=== PATIENT | female | born 1995 | race Caucasian/White ===

== ENCOUNTER 2017-08-21 09:40 | Emergency (ER) | payer MEDICAID, SELFPAY ==
[2017-08-21 09:41] VITALS: BP 144/90; PULSE 91; RESP 18; TEMP 36.7; O2SAT 96; BMI 32.5
[2017-08-21] MEDS: Ondansetron ODT 4 MG Tablet PO (10:16)
[2017-08-21] MEDS: LORazepam 1 MG Tablet PO (10:16)
--- NOTE | 2017-08-21 11:28 | ED.VISSUMM ---
- ER Visit Summary Date of Service: 08/21/17 Chief Complaint: Anxiety History of Present Illness: The patient is a 22 F with a history of anxiety. She states she was sitting at her desk at work and states that she noticed that her breathing got slightly faster. She went to the restroom where she states her face, arms, and legs became shaky and tingly. She had nausea and vomiting. She denies any pain. Patient states she does normally take Klonopin as needed for anxiety. Her last dose was several weeks ago. She has not yet picked up her refill. Physical Examination: Vital signs are unremarkable. Head and neck examination is unremarkable. Heart is regular rate and rhythm. Lung sounds are clear. Abdomen is soft nontender. Extremity examination does reveal slight tremor to the hands bilaterally. She has strong distal pulses. Neuro exam reveals normal strength and sensation on testing. Test Results: [] Emergency Department Course and Treatment: Patient is given Ativan and Zofran p.o. On repeat evaluation she is resting comfortably. 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 Should be on a prescription for Zofran if needed. Treatment Plan: [] Disposition: Discharge Impression: Anxiety This note was generated with [employer] dictation software. It may contain incorrect words, spelling, and punctuation that were not noted in review of the chart prior to signing ED Disposition - Plan for ED Patient: Chief Complaint: Anxiety Referrals: Micheal Herzog MD [Primary Care Provider] -
[2017-08-21 11:31] VITALS: BP 116/65; PULSE 65; RESP 16; O2SAT 95
--- NOTE | 2017-08-21 11:31 | DCINST.ED_ITS ---
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
== END 2017-08-21 11:38 | disposition home or self-care (01) ==
PROVIDERS: Emergency Provider Emergency Medicine; Family Provider Family Medicine; PCP Family Medicine
DX: F41.9 Anxiety disorder, unspecified (principal); R20.2 Paresthesia of skin; R11.2 Nausea with vomiting, unspecified
CPT/HCPCS: 99283

== ENCOUNTER 2017-09-04 16:06 | Outpatient (RCR) | payer MEDICAID, SELFPAY | END 2017-09-11 23:59 | LOC: NS 16:06 | PROVIDERS: Family Provider Family Medicine; PCP Family Medicine; Visit Provider Advanced Practice Midwife | DX: E66.09 Other obesity due to excess calories (principal); E28.2 Polycystic ovarian syndrome; Z71.3 Dietary counseling and surveillance | CPT/HCPCS: 97802 ==

== ENCOUNTER 2017-09-19 07:49 | Emergency (ER) | payer MEDICAID, SELFPAY ==
[2017-09-19 07:49] VITALS: BP 129/77; PULSE 70; RESP 14; TEMP 36.9; O2SAT 94; BMI 32.6
[2017-09-19] MEDS: Acetaminophen 500 MG Tablet 1000 MG PO (08:07)
[2017-09-19] MEDS: Ibuprofen 200 MG Tablet 400 MG PO (08:07)
--- NOTE | 2017-09-19 08:10 | ED.DCSUM_ITS ---
- ER Visit Summary Date of Service: 09/19/17 Chief Complaint: Left ankle injury History of Present Illness: The patient is a 22 F who rolled her left ankle while walking up some steps this morning. She felt a pop. Patient has been able to ambulate but does walk with antalgic gait. She does have some paresthesias to her toes. Physical Examination: Vital signs are unremarkable. Head neck examination is unremarkable with no sign of trauma. Heart is regular rate and rhythm. On lung sounds are clear. Lower external examination reveals tenderness palpation of the left ankle, lateral malleolus greater than medial. There is no significant edema. She has strong distal pulses and normal sensation on testing. There is no tenderness at the proximal fibula. Strong distal pulses are noted throughout. Test Results: Left ankle x-rays read by myself reveal no evidence of fracture. Emergency Department Course and Treatment: Patient is given Tylenol and ibuprofen for pain. Ice pack is placed. Following x-ray she will be placed in a stirrup splint and given crutches. She may weight-bear as tolerated. Patient is to help with her primary care physician if not improving in 1 week. Treatment Plan: [] Disposition: Discharge Impression: Left ankle sprain This note was generated with [employer] dictation software. It may contain incorrect words, spelling, and punctuation that were not noted in review of the chart prior to signing ED Disposition - Plan for ED Patient: Chief Complaint: Lower Extremity Injury Referrals: Micheal Herzog MD [Primary Care Provider] -
--- NOTE | 2017-09-19 08:14 | RAD_ITS ---
STUDY: X-RAY - LEFT ANKLE REASON FOR EXAM: Female, 22 years old. Pain and swelling following injury. TECHNIQUE: 3 view(s) of the ankle. COMPARISON: None. FINDINGS: Normal visualized distal tibia and fibula. Normal medial and lateral malleoli. Normal tibiotalar articulation and ankle mortise. Normal visualized talus and calcaneus. The visualized subtalar, talonavicular, calcaneocuboid and tarsal articulations are normal. Soft tissue swelling overlying the lateral malleolus. RAD/Ankle min 3 Views IMPRESSION: Soft tissue swelling overlying the lateral malleolus. Electronically Signed: Sergo Easley MD at 8:48 EDT Tel [phone], Service support ,
--- NOTE | 2017-09-19 08:44 | ED.DEP ---
ED Disposition - Plan for ED Patient: Disposition: Home or Assisted Living Chief Complaint: Lower Extremity Injury Instructions: ED Sprain Ankle W X Ray Referrals: Micheal Herzog MD [Primary Care Provider] - 1 Week if not improving
== END 2017-09-19 08:53 | disposition home or self-care (01) ==
PROVIDERS: Emergency Provider Emergency Medicine; Family Provider Family Medicine; PCP Family Medicine
DX: S93.402A Sprain of unspecified ligament of left ankle, initial encounter (principal); X50.1XXA Overexertion from prolonged static or awkward postures, initial encounter; Y93.01 Activity, walking, marching and hiking; Y92.9 Unspecified place or not applicable; Y99.9 Unspecified external cause status; Z87.891 Personal history of nicotine dependence; F41.9 Anxiety disorder, unspecified
CPT/HCPCS: 73610; 99285

== ENCOUNTER 2017-10-10 16:20 | Outpatient (RCR) | payer MEDICAID, SELFPAY | END 2017-10-12 23:59 | LOC: NS 16:20 | PROVIDERS: Family Provider Family Medicine; PCP Family Medicine; Visit Provider Advanced Practice Midwife | DX: E66.09 Other obesity due to excess calories (principal); E28.2 Polycystic ovarian syndrome; Z71.3 Dietary counseling and surveillance | CPT/HCPCS: 97803 ==

== ENCOUNTER 2017-11-08 10:59 | Outpatient (RCR) | payer MEDICAID, SELFPAY | END 2017-11-11 23:59 | LOC: NS 10:59 | PROVIDERS: Family Provider Family Medicine; PCP Family Medicine; Visit Provider Advanced Practice Midwife | DX: E66.09 Other obesity due to excess calories (principal); E28.2 Polycystic ovarian syndrome; Z71.3 Dietary counseling and surveillance | CPT/HCPCS: 97803 ==

== ENCOUNTER 2017-11-22 16:06 | Outpatient (RCR) | payer MEDICAID, SELFPAY | END 2017-12-12 23:59 | LOC: NS 16:06 | PROVIDERS: Family Provider Family Medicine; PCP Family Medicine; Visit Provider Advanced Practice Midwife | DX: E66.09 Other obesity due to excess calories (principal); E28.2 Polycystic ovarian syndrome; Z71.3 Dietary counseling and surveillance ==

== ENCOUNTER 2018-01-27 01:12 | Emergency (ER) | payer SELFPAY ==
[2018-01-27 01:13] VITALS: BP 118/70; PULSE 67; RESP 14; TEMP 36.8; O2SAT 97; BMI 33.8
--- NOTE | 2018-01-27 01:58 | ED.VISSUMM ---
- ER Visit Summary Date of Service: 01/27/18 Chief Complaint: Pelvic pain History of Present Illness: The patient is a 23 F intermittent pelvic pain for the past week. History of ovarian cysts. No medications taken. No history of gastric ulcers. No home pregnancies. History of abnormal menstrual periods, last menstrual period was mid November. Does not currently follow [facility]. Denies any surgeries in the past. Denies any abnormal vaginal bleeding, or discharge. Physical Examination: General: Alert and oriented ?3, no acute distress HEENT: Normocephalic, atraumatic. Moist mucosa membranes Neck: supple, nontender. Cardiovascular: Regular rate and rhythm, no murmurs Respiratory: Normal breath sounds, symmetric, no distress Abdomen: Soft, nontender, nondistended Extremities: Nontender, no edema, pulses intact ?4 Neuro: no focal neurological deficits. Test Results: HCG negative. UA 50 blood. No infection. Emergency Department Course and Treatment: Patient nonsurgical abdomen. HCG was negative. Urine did note mild blood. Clinically does not present like a kidney stone. She denies any sudden pains over the past week. History of ovarian cysts, discuss NSAID therapy and follow-up with OB. Signs and symptoms discussed return. All questions were answered. Treatment Plan: [] Disposition: Discharge Impression: 1. Pelvic pain history ovarian cyst 2. Hematuria This note was generated with [employer] dictation software. It may contain incorrect words, spelling, and punctuation that were not noted in review of the chart prior to signing ED Disposition - Plan for ED Patient: Disposition: Home or Assisted Living Chief Complaint: Female C/O Diagnosis: Pelvic pain, History of ovarian cyst, Hematuria Instructions: ED Pelvic Pain UKO, ED Hematuria Prescriptions: Ibuprofen 600 mg PO 4X/DAY PRN #20 tablet PRN Reason: Pain Referrals: Micheal Herzog MD [Primary Care Provider] - 3-5 Days Rita Palmer MD [STAFF PHYSICIAN] - 3-5 Days
[2018-01-27 02:00] LABS: Mucous, Urine 0 SEEN /hpf (<or=2+)
[2018-01-27 02:06] LABS: Internal QC Validated? YES +Cl - CLEAR BKGD; Pregnancy, Urine Negative Negative
[2018-01-27 02:08] LABS: Color, Urine Yellow (Yellow); Glucose, Dipstick Normal (Normal); Ketone-Dipstick Negative (Negative); Leukocyte Esterase-Dipstick Negative /ul (Negative); Nitrite-Dipstick Negative (Negative); Occult Blood-Urine 50 /ul (Negative); Protein-Dipstick Negative (Negative); Urine Bilirubin Dipstick Negative (Negative); Urine Clarity Clear (Clear); Urine Urobilinogen Normal (Normal)
[2018-01-27 02:18] LABS: Squamous Epithelial Cells - UA 0-5 SEEN /hpf (5-10)
[2018-01-27 02:20] LABS: Bacteria RARE /hpf (None Seen); Red Blood Cells-Urine 0-5 SEEN /hpf (0-5); White Blood Cells 0-5 SEEN /hpf (0-5)
[2018-01-27] MEDS: Ketorolac 60 MG/2 ML Vial IM (02:27)
[2018-01-27 02:30] VITALS: RESP 14
== END 2018-01-27 02:46 | disposition home or self-care (01) ==
PROVIDERS: Emergency Provider Emergency Medicine; Family Provider Family Medicine; PCP Family Medicine
DX: R10.2 Pelvic and perineal pain (principal); R31.9 Hematuria, unspecified
CPT/HCPCS: 81001; 81025; 96372; 99282

== ENCOUNTER 2018-06-27 00:02 | Emergency (ER) | payer BC, SELFPAY ==
[2018-06-27 00:03] VITALS: BP 133/74; PULSE 57; RESP 14; TEMP 36.8; O2SAT 98; BMI 31.8
[2018-06-27 00:49] VITALS: BP 133/74; PULSE 57; RESP 14; TEMP 36.8; O2SAT 98
[2018-06-27 01:08] LABS: Absolute Lymphocyte Count 3.25 X10^3/ul (0.83-4.51); Absolute Neutrophil Count 7.5 X10^3/uL (2.0-7.7); Basophil# 0.04 X10^3/uL; Basophil% 0.3 % (0-1); Eosinophil# 0.46 X10^3/uL; Eosinophils% 3.8 % (0-5); Lymphocyte # 3.25 X10^3/ul (4.0); Lymphocyte % 26.8 % (19-41); Mean Corp Hgb Conc 33.3 g/gl (32-36); Mean Corpuscular Hgb 30.4 pg (27.0-32.0); Mean Corpuscular Volume 91.3 fL (81-99); Mean Platelet Vol. 10.2 fl (6.2-12.0); Monocyte% 7.4 % (0-10); Neutrophil # 7.45 X10^3/uL (2.7-7.7); Neutrophil % 61.5 % (47-70); POSITIVE COUNT NO; POSITIVE DIFFERENTIAL NO; POSITIVE MORPHOLOGY NO; Platelet Count 222 K/mm3 (150-450); RBC Distribution Width CV 12.7 % (11.6-14.6); RBC Distribution Width SD 41.6 fl (35.1-43.9); White Blood Count 12.1 K/mm3 (4.4-11.0)
[2018-06-27] MEDS: Ketorolac 30 MG/ML Syringe IV (01:13)
[2018-06-27 01:22] LABS: Mucous, Urine 0 SEEN /hpf (<or=2+); Squamous Epithelial Cells - UA 0 SEEN /hpf (5-10)
[2018-06-27 01:24] LABS: Color, Urine Yellow (Yellow); Glucose, Dipstick Normal (Normal); Internal QC Validated? YES +Cl - CLEAR BKGD; Ketone-Dipstick 5 mg/dl (Negative); Leukocyte Esterase-Dipstick 100 /ul (Negative); Nitrite-Dipstick Negative (Negative); Occult Blood-Urine 10 /ul (Negative); Pregnancy, Urine Negative Negative; Protein-Dipstick Negative (Negative); Urine Bilirubin Dipstick Negative (Negative); Urine Clarity Sl. Cloudy (Clear); Urine Urobilinogen Normal (Normal); Urine pH 6.5 (5.0 - 8.0)
[2018-06-27 01:37] LABS: ALB/GLOB Ratio 1.1 RATIO (0.9-2.4); AST(SGOT) 29 U/L (15-37); Alanine Aminotransfer ALT/SGPT 54 U/L (13-56); Alkaline Phosphatase 64 U/L (45-117); Anion Gap 7 (5-15); BUN 11 mg/dL (7-18); BUN/Creat Ratio 14.6 RATIO (10-20); Calcium,Total 8.7 mg/dL (8.5-10.1); Chloride 106 mmol/L (98-107); Creatinine, Serum 0.75 mg/dL (0.55-1.02); EST Glomerular Filtration Rate 103 mL/min (>60); Est Glom Filt Rate - Afr Amer 125 mL/min (>60); Estimated Creatinine Clearance 98.15 ml/min; Globulin 3.7 g/dL (2.2-4.2); Glucose 76 mg/dL (74-106); Lipase 130 U/L (73-393); Potassium 3.4 mmol/L (3.5-5.1); Protein, Total 7.7 g/dL (6.4-8.2); Sodium Level 139 mmol/L (136-145)
[2018-06-27 01:47] LABS: Bacteria 1+ /hpf (None Seen); Red Blood Cells-Urine 0-5 SEEN /hpf (0-5); White Blood Cells 5-10 SEEN /hpf (0-5)
--- NOTE | 2018-06-27 02:27 | ED.DEP ---
ED Disposition - Plan for ED Patient: Instructions: ED Abdominal Pain Unkn Cause, ED UTI Cystitis Female Prescriptions: Smz/Tmp Ds [Bactrim Ds] 1 tab PO BID #6 tab Referrals: Micheal Herzog MD [Primary Care Provider] -
[2018-06-27 02:37] VITALS: BP 117/76; PULSE 62; PULSE 64; RESP 18; TEMP 36.8; O2SAT 97
[2018-06-27 02:42] VITALS: BP 117/76; PULSE 67; RESP 18; TEMP 36.8; O2SAT 97
--- NOTE | 2018-06-27 07:01 | ED.VISSUMM ---
- ER Visit Summary Date of Service: 06/27/18 Chief Complaint: Abdominal pain History of Present Illness: The patient is a 23 F who presents with abdominal pain. It is been present for about 12 hours. She describes it as pressure-like and cramping. She reports nausea no diarrhea. She has had some dysuria. The pain is located in the lower abdomen. She does have a history of polycystic ovarian syndrome. Physical Examination: Afebrile vitals unremarkable Heart regular rate and rhythm Lungs clear Abdomen soft really no reproducible tenderness nondistended Test Results: Labs notable for white blood cell count 12.1. Potassium 3.4. Hepatic function lipase normal. Urinalysis shows 100 leukocyte esterase, 5-10 WBCs. negative. Emergency Department Course and Treatment: Patient does have findings consistent with possible UTI and did note some dysuria earlier. The pain is in the lower abdomen. We will treat for UTI. She was given a prescription for Bactrim and discharged home. Treatment Plan: [] Disposition: Discharge Impression: Abdominal pain UTI This note was generated with [employer] dictation software. It may contain incorrect words, spelling, and punctuation that were not noted in review of the chart prior to signing ED Disposition - Plan for ED Patient: Disposition: Home or Assisted Living Instructions: ED Abdominal Pain Unkn Cause, ED UTI Cystitis Female Prescriptions: Smz/Tmp Ds [Bactrim Ds] 1 tab PO BID #6 tab Referrals: Micheal Herzog MD [Primary Care Provider] -
== END 2018-06-27 02:44 | disposition home or self-care (01) ==
PROVIDERS: Emergency Provider Emergency Medicine; Family Provider Family Medicine; PCP Family Medicine
DX: N39.0 Urinary tract infection, site not specified (principal); R10.9 Unspecified abdominal pain; E28.2 Polycystic ovarian syndrome
CPT/HCPCS: 80053; 81001; 81025; 83690; 85025; 96374; 99284; A4216

== ENCOUNTER 2018-10-08 22:46 | Emergency (ER) | payer BC, SELFPAY ==
[2018-10-08 22:47] VITALS: BP 145/79; PULSE 69; RESP 16; TEMP 36.4; O2SAT 100; BMI 35.2
[2018-10-08 23:41] LABS: Bacteria 0 SEEN /hpf (None Seen); Color, Urine Yellow (Yellow); Glucose, Dipstick Normal (Normal); Ketone-Dipstick Negative (Negative); Leukocyte Esterase-Dipstick Negative /ul (Negative); Mucous, Urine 0 SEEN /hpf (<or=2+); Nitrite-Dipstick Negative (Negative); Occult Blood-Urine 10 /ul (Negative); Protein-Dipstick Negative (Negative); Specific Gravity, Urine 1.015 (1.002-1.030); Urine Bilirubin Dipstick Negative (Negative); Urine Clarity Sl. Cloudy (Clear); Urine Urobilinogen Normal (Normal)
[2018-10-08 23:43] LABS: Internal QC Validated? YES +Cl - CLEAR BKGD
[2018-10-08 23:47] LABS: Pregnancy, Urine Positive Negative
--- NOTE | 2018-10-08 23:47 | US_ITS ---
HISTORY: PELVIC DISCOMFORT, positive hCG EXAMINATION: US OB Transvaginal LMP: Unknown Beta-hCG: Unknown TECHNIQUE: Transvaginal pelvic ultrasound was performed. COMPARISON: None FINDINGS: The uterus is normal in size measuring 7.2 x 4 x 4.9 cm in longitudinal, AP, and transverse dimensions, respectively. Normal uterine myometrium. Prominent uniform endometrium measuring 1.2 cm in diameter. No IUP or endometrial fluid collection seen. No yolk sac visualized. The cervix is closed and a cervical nabothian cyst is present. Both ovaries show normal size and echogenicity. The right ovary measures 4.1 x 2.3 x 2.7 cm the left ovary measures 3 x 2.7 x 3.2 cm. Bilateral ovarian blood flow. No free pelvic fluid. US/Transvaginal w/Preg US IMPRESSION: 1. No IUP currently identified. Prominent endometrium in keeping with early . 2. No free fluid or acute disease identified. The uterine cervix remains closed. 3. Suggest follow-up pelvic ultrasound to confirm viability. at 0146 Reported and signed by: Hema Arias MD Electronically Signed: Hema Arias, at 1:45 EDT Tel , Service support ,
--- NOTE | 2018-10-08 23:47 | ED.RN ---
LAB CALLED WITH POSSIBLE POSITIVE RESULTS. WEAK POSITIVE RESULTS. LAB SUGGESTING SERUM PREG AT THIS TIME TO CONFIRM
[2018-10-08 23:54] LABS: Amorphous Sediment 1+; Red Blood Cells-Urine 0-5 SEEN /hpf (0-5); Squamous Epithelial Cells - UA 5-10 SEEN /hpf (5-10); White Blood Cells 0-5 SEEN /hpf (0-5)
[2018-10-09 00:59] LABS: hCG Titer Quant., Serum 73 mIU/mL (1-3)
--- NOTE | 2018-10-09 01:55 | ED.DCSUM_ITS ---
- ER Visit Summary Date of Service: 10/09/18 Chief Complaint: Abdominal pain History of Present Illness: The patient is a 23 F who presents with abdominal discomfort. She complains of a mild suprapubic discomfort for about a week. She also reports some nausea and diarrhea. She reports urinary frequency without dysuria or hematuria. Her last period was August 30. She has not taken a home test. Physical Examination: Afebrile vitals normal Moist mucous membranes Heart regular rate and rhythm Lungs clear Abdomen soft nondistended she does have some mild suprapubic tenderness without guarding without rebound Alert Test Results: UA normal. Urine was positive. Quantitative hCG 73, ABO Rh is O+. Pelvic ultrasound shows no IUP but there is thickening of the endometrium. Emergency Department Course and Treatment: Patient did have a positive . No IUP visualized but this is likely due to early . No ovarian cysts were identified. Patient advised to follow-up with [facility] and was discharged home. Treatment Plan: [] Disposition: Discharge Impression: Pelvic pain This note was generated with [employer] dictation software. It may contain incorrect words, spelling, and punctuation that were not noted in review of the chart prior to signing ED Disposition - Plan for ED Patient: Referrals: Micheal Herzog MD [Primary Care Provider] -
--- NOTE | 2018-10-09 01:55 | ED.DEP ---
ED Disposition - Plan for ED Patient: Instructions: ED Preg Established Normal Sxs Referrals: Micheal Herzog MD [Primary Care Provider] - Rita Palmer MD [STAFF PHYSICIAN] -
[2018-10-09 02:00] VITALS: RESP 16
== END 2018-10-09 02:00 | disposition home or self-care (01) ==
LOC: ED 23:09
PROVIDERS: Emergency Provider Emergency Medicine; Family Provider Family Medicine; PCP Family Medicine
DX: R10.2 Pelvic and perineal pain (principal); R93.89 Abnormal findings on diagnostic imaging of other specified body structures; R35.0 Frequency of micturition; R19.7 Diarrhea, unspecified; R11.0 Nausea; Z32.01 Encounter for pregnancy test, result positive
CPT/HCPCS: 36415; 76817; 81001; 81025; 84702; 86900; 99282

== ENCOUNTER 2018-10-11 04:05 | Emergency (ER) | payer BC, SELFPAY ==
[2018-10-11 04:06] VITALS: BP 126/58; PULSE 131; RESP 17; TEMP 37.2; O2SAT 99; BMI 35.6
[2018-10-11] MEDS: Acetaminophen 500 MG Tablet 1000 MG PO (05:21)
[2018-10-11] MEDS: Ondansetron 4 MG/2 ML Vial IV (05:22)
[2018-10-11] MEDS: 0.9% Normal Saline 1,000 ML 999 ML IV ×2 (05:22→06:48)
[2018-10-11 05:32] LABS: Color, Urine Yellow (Yellow); Glucose, Dipstick Normal (Normal); Ketone-Dipstick 15 mg/dl (Negative); Leukocyte Esterase-Dipstick 25 /ul (Negative); Nitrite-Dipstick Negative (Negative); Occult Blood-Urine 10 /ul (Negative); Protein-Dipstick Negative (Negative); Specific Gravity, Urine 1.015 (1.002-1.030); Urine Bilirubin Dipstick Negative (Negative); Urine Clarity Clear (Clear); Urine Urobilinogen Normal (Normal)
[2018-10-11 05:33] LABS: Bacteria RARE /hpf (None Seen); Mucous, Urine 1+ /hpf (<or=2+); Red Blood Cells-Urine 0-5 SEEN /hpf (0-5); Squamous Epithelial Cells - UA 0-5 SEEN /hpf (5-10); White Blood Cells 0-5 SEEN /hpf (0-5)
[2018-10-11 05:56] LABS: hCG Titer Quant., Serum 194 mIU/mL (1-3)
[2018-10-11 06:09] VITALS: BP 128/50; PULSE 90; RESP 14; O2SAT 100
--- NOTE | 2018-10-11 07:03 | ED.DEP ---
ED Disposition - Plan for ED Patient: Instructions: Care for a Healthy Baby Referrals: Micheal Herzog MD [Primary Care Provider] - Rita Palmer MD [STAFF PHYSICIAN] -
--- NOTE | 2018-10-11 07:05 | ED.VISSUMM ---
- ER Visit Summary Date of Service: 10/11/18 Chief Complaint: Nausea, back pain History of Present Illness: The patient is a 23 F presenting with nausea, back pain. Patient states she is 6 weeks . She is G4, P0 AB 3. She denies abdominal pain or cramping. Denies vaginal bleeding. She has low back pain which is diffuse. She denies bowel or bladder incontinence. Denies numbness or weakness. Denies fever. She has had chills. She has nausea with no vomiting. She has history of PCOS. Physical Examination: Vitals are stable. Heart rate 131. Patient is afebrile. Alert no acute distress. HEENT exam is unremarkable. Neck is supple. Lungs are clear and equal bilaterally. Heart is regular and tachycardic Abdomen is soft nontender nondistended. No guarding or rebound Back: Nontender Extremities are unremarkable. Skin is warm and dry. Remainder of exam is unremarkable. Emergency Department Course and Treatment: Patient was given IV fluids, Zofran, Tylenol. Urinalysis unremarkable. Her blood type is O+ per the patient. hCG quant is 194. Previous was 73, 2 days ago. Her ultrasound October 08, 2018 shows No IUP currently identified. Prominent endometrium in keeping with early . No free fluid or acute disease identified. The uterine cervix remains closed. Patient has a viability ultrasound scheduled for tomorrow. Discussed with Dr. Sagastume. She states this will be too early and recommends following up at her October 22 appointment for her ultrasound. Patient is agreeable with this plan. On reevaluation, she is feeling improved. Repeat heart rate is 90. Advised to return to the ED for worsening complaints. Disposition: Discharge home Impression: Nausea, early This note was generated with [employer] dictation software. It may contain incorrect words, spelling, and punctuation that were not noted in review of the chart prior to signing ED Disposition - Plan for ED Patient: Instructions: Care for a Healthy Baby Referrals: Micheal Herzog MD [Primary Care Provider] - Rita Sagastume MD [STAFF PHYSICIAN] -
== END 2018-10-11 07:20 | disposition home or self-care (01) ==
PROVIDERS: Emergency Provider Emergency Medicine; Family Provider Family Medicine; PCP Family Medicine
DX: O99.281 Endocrine, nutritional and metabolic diseases complicating pregnancy, first trimester (principal); R11.0 Nausea; E28.2 Polycystic ovarian syndrome; Z3A.01 Less than 8 weeks gestation of pregnancy; M54.5 Low back pain
CPT/HCPCS: 81001; 84702; 96361; 96374; 99285; J7030; A4216; J2405

== ENCOUNTER → 2018-10-22 10:48 | Outpatient (CLI) | payer BC, SELFPAY ==
[2018-10-22 10:05] VITALS: BMI 35.6
[2018-10-22 11:22] LABS: Absolute Lymphocyte Count 2.34 X10^3/ul (0.83-4.51); Absolute Neutrophil Count 5.5 X10^3/uL (2.0-7.7); Basophil# 0.02 X10^3/uL; Basophil% 0.2 % (0-1); Eosinophil# 0.33 X10^3/uL; Eosinophils% 3.7 % (0-5); Hematocrit 41.2 % (37-47); Hemoglobin 13.9 g/dl (12.0-15.0); Lymphocyte # 2.34 X10^3/ul (4.0); Mean Corp Hgb Conc 33.7 g/gl (32-36); Mean Corpuscular Hgb 29.6 pg (27.0-32.0); Mean Corpuscular Volume 87.8 fL (81-99); Mean Platelet Vol. 9.8 fl (6.2-12.0); Monocyte# 0.72 X10^3/uL; Neutrophil # 5.53 X10^3/uL (2.7-7.7); Neutrophil % 61.5 % (47-70); Platelet Count 268 K/mm3 (150-450); RBC Distribution Width CV 12.6 % (11.6-14.6); RBC Distribution Width SD 39.4 fl (35.1-43.9); Red Blood Count 4.69 M/mm3 (4.2-5.4)
[2018-10-22 11:24] LABS: POSITIVE COUNT NO; POSITIVE DIFFERENTIAL NO; POSITIVE MORPHOLOGY NO
[2018-10-22 11:44] LABS: ALB/GLOB Ratio 0.9 RATIO (0.9-2.4); AST(SGOT) 25 U/L (15-37); Alanine Aminotransfer ALT/SGPT 48 U/L (13-56); Albumin, Serum 3.5 g/dL (3.2-5.0); Alkaline Phosphatase 54 U/L (45-117); Anion Gap 7 (5-15); BUN 10 mg/dL (7-18); BUN/Creat Ratio 14.5 RATIO (10-20); Calcium,Total 9.1 mg/dL (8.5-10.1); Chloride 105 mmol/L (98-107); Creatinine, Serum 0.69 mg/dL (0.55-1.02); EST Glomerular Filtration Rate 113 mL/min (>60); Est Glom Filt Rate - Afr Amer 137 mL/min (>60); Glucose 103 mg/dL (74-106); Glucose Challenge Gest 1H 50g 103 mg/dL (70-140); Potassium 3.7 mmol/L (3.5-5.1); Protein, Total 7.5 g/dL (6.4-8.2); Sodium Level 141 mmol/L (136-145)
[2018-10-22 12:32] LABS: HIV - WCH Non-Reactive (Nonreactive); Rubella IgG 7.4 IU/mL
[2018-10-23 08:41] LABS: HEPATITIS B SURFACE AG Negative (Negative)
[2018-10-26 01:43] LABS: Rapid Plasmin Reagin (RPR) NONREACTIVE (NONREACTIVE)
== END ==
PROVIDERS: Family Provider Family Medicine; PCP Family Medicine; Referring Provider Obstetrics & Gynecology; Visit Provider Obstetrics & Gynecology
DX: Z34.90 Encounter for supervision of normal pregnancy, unspecified, unspecified trimester (principal)
CPT/HCPCS: 36415; 80053; 82950; 85025; 86592; 86703; 86762; 86850; 86900; 87340

== ENCOUNTER → 2018-10-22 13:21 | Outpatient (CLI) | payer BC, SELFPAY ==
[2018-10-22 10:05] VITALS: BMI 35.6
[2018-10-22 16:18] LABS: Chlamydia Trachomatis by PCR Negative (Negative); Neisserai gonorrhoeae by PCR Negative (Negative); Probe Check PASS; Sample Adequacy Control PASS; Specimen Processing Control PASS
== END ==
PROVIDERS: Family Provider Family Medicine; PCP Family Medicine; Referring Provider Obstetrics & Gynecology; Visit Provider Obstetrics & Gynecology
DX: Z34.90 Encounter for supervision of normal pregnancy, unspecified, unspecified trimester (principal)
CPT/HCPCS: 87086; 87088; 87491; 87591

== ENCOUNTER → 2018-11-30 10:42 | Outpatient (CLI) | payer BC, SELFPAY ==
[2018-11-30 10:27] VITALS: BMI 35.6
== END ==
PROVIDERS: Family Provider Family Medicine; PCP Family Medicine; Referring Provider Obstetrics & Gynecology; Visit Provider Obstetrics & Gynecology
DX: Z31.430 Encounter of female for testing for genetic disease carrier status for procreative management (principal); Z34.81 Encounter for supervision of other normal pregnancy, first trimester
CPT/HCPCS: 36415

== ENCOUNTER → 2018-12-19 17:24 | Outpatient (CLI) | payer BC, SELFPAY ==
[2018-12-19 14:55] VITALS: BMI 35.6
== END ==
PROVIDERS: Family Provider Family Medicine; PCP Family Medicine; Referring Provider Nurse Practitioner Women's Health; Visit Provider Nurse Practitioner Women's Health
DX: Z34.90 Encounter for supervision of normal pregnancy, unspecified, unspecified trimester (principal)

== ENCOUNTER → 2018-12-20 16:42 | Outpatient (CLI) | payer BC, SELFPAY ==
[2018-12-19 14:55] VITALS: BMI 35.6
== END ==
PROVIDERS: Family Provider Family Medicine; PCP Family Medicine; Referring Provider Nurse Practitioner Women's Health; Visit Provider Nurse Practitioner Women's Health
DX: M54.9 Dorsalgia, unspecified (principal)
CPT/HCPCS: 87086; 87088

== ENCOUNTER 2018-12-31 14:50 | Emergency (ER) | payer BC, SELFPAY ==
[2018-12-28 09:50] VITALS: BMI 35.6
[2018-12-31 14:51] VITALS: BP 122/68; PULSE 85; RESP 16; TEMP 36.8; O2SAT 95; BMI 34.9
--- NOTE | 2018-12-31 15:20 | ED.VIS.GEN ---
History of Present Illness Chief Complaint: Nausea/Vomiting Informant: Patient Onset: Today Current Severity: Mild Maximum Severity: Mild Narrative: Patient presents with nausea and vomiting since noon today. She is currently 15 weeks . She has Phenergan at home but states she did not take it because it makes her sleepy. She denies fever or chills. She denies urinary symptoms. She started getting some mild lower abdominal cramping this afternoon. No bleeding or spotting. Past Medical History - Allergies and Home Meds Allergies/Adverse Reactions: Allergies latex Allergy (Verified 12/31/18 14:51) Rash Primary Care Physician: Micheal Herzog MD [Primary Care Provider] - Doctors: Dr. Palmer Prior records reviewed: Yes Past Medical History: - - Reviewed Surgical History: no surgical history Lives: With Family Smoking Status: Former smoker Alcohol: Rare Review of Systems General: Denies: Chills, Fever ENT: Denies: Bilateral ear pain Cardiovascular: Denies: Chest pain Respiratory: Denies: Dyspnea Gastrointestinal: Reports: Abdominal pain - Mild cramping, Nausea, Vomiting Genitourinary: Denies: Dysuria Musculoskeletal: Denies: Back pain Neurological: Denies: Headache Endocrine: Denies: Polyuria, Polydipsia Hematologic: Denies: Easy bruising Allergy: Denies: Uticaria Physical Exam Vital Signs/Narrative: Vital Signs Temp Pulse Resp BP Pulse Ox 12/31/18 14:51 98.2 F 85 16 122/68 H 95 Inital Vital Signs reviewed: Yes General: Well nourished, Well developed Eyes: Perrl ENT: Moist mucous membranes, No rhinorrhea Neck: Supple Cardiovascular: Regular rate, Regular rhythm Respiratory: No distress, CTA bilaterally Abdomen: Soft, Nontender, Hypoactive bowel sounds Back: Nontender Extremities: Nontender Skin: Normal color Neurological: Alert, Oriented x3 Psychological: Normal affect Diagnostic/Tx/Re-eval Laboratory Results 12/31/18 12/31/18 12/31/18 15:13 15:13 15:20 WBC 9.0 RBC 4.49 Hgb 13.9 Hct 40.7 MCV 90.6 MCH 31.0 MCHC 34.2 RDW Std Deviation 40.9 RDW Coeff of Beth 12.5 Plt Count 215 MPV 10.3 Immature Gran % (Auto) 0.300 Neut % (Auto) 67.8 Lymph % (Auto) 21.2 [place] % (Auto) 6.6 Eos % (Auto) 3.8 Baso % (Auto) 0.3 Absolute Neuts (auto) 6.1 Absolute Lymphs (auto) 1.91 Nucleated RBC % 0 Sodium 141 Potassium 3.7 Chloride 109 H Carbon Dioxide 25.0 Anion Gap 7 BUN 5 L Creatinine 0.57 Estim Creat Clear Calc 129.15 Est GFR (MDRD) Af Amer 172 Est GFR (MDRD) Non-Af 142 BUN/Creatinine Ratio 8.8 L Glucose 82 Calcium 8.9 Urine Color Yellow Urine Clarity Sl. Cloudy Urine pH 7.0 Ur Specific [place] 1.010 Urine Protein Negative Urine Glucose (UA) Normal Urine Ketones Negative Urine Occult Blood 10 H Urine Nitrite Negative Urine Bilirubin Negative Urine Urobilinogen Normal Ur Leukocyte Esterase 25 H Urine RBC 0-5 SEEN Urine WBC 0-5 SEEN Ur Squamous Epith Cells 0-5 SEEN Ur Transition Epith Cell 0-5 SEEN Urine Bacteria RARE Urine Mucus 0 SEEN - Medical Decision Making Patient was given IV fluid and Zofran here. heart tones are measured at 138. At this time patient is able to tolerate p.o. She has Phenergan at home and will be given prescription for Zofran as well. ED Disposition - Plan for ED Patient: Disposition: Home or Assisted Living Diagnosis: Vomiting, Second trimester Instructions: VOMITING (8y-Adult) Prescriptions: Ondansetron [Zofran Odt] 4 mg PO Q8H PRN PRN #10 tablet PRN Reason: Nausea Referrals: Rita Palmer MD [STAFF PHYSICIAN] -
[2018-12-31] MEDS: Ondansetron 4 MG/2 ML Vial IV (15:21)
[2018-12-31] MEDS: 0.9% Normal Saline 1,000 ML 1000 ML IV (15:21)
[2018-12-31 15:24] LABS: Absolute Lymphocyte Count 1.91 X10^3/uL (0.83-4.51); Absolute Neutrophil Count 6.1 X10^3/uL (2.0-7.7); Basophil# 0.03 X10^3/uL; Basophil% 0.3 % (0-1); Eosinophil# 0.34 X10^3/uL; Eosinophils% 3.8 % (0-5); Hematocrit 40.7 % (37-47); Hemoglobin 13.9 g/dL (12.0-15.0); Lymphocyte # 1.91 X10^3/ul (4.0); Lymphocyte % 21.2 % (19-41); Mean Corp Hgb Conc 34.2 g/dL (32-36); Mean Corpuscular Volume 90.6 fL (81-99); Mean Platelet Vol. 10.3 fl (6.2-12.0); Monocyte% 6.6 % (0-10); NRBC Flagged by Analyzer 0 % (0-5); Neutrophil # 6.12 X10^3/uL (2.7-7.7); Neutrophil % 67.8 % (47-70); Platelet Count 215 K/mm3 (150-450); RBC Distribution Width CV 12.5 % (11.6-14.6); RBC Distribution Width SD 40.9 fl (35.1-43.9); Red Blood Count 4.49 M/mm3 (4.2-5.4)
[2018-12-31 15:28] LABS: Mucous, Urine 0 SEEN /hpf (<or=2+)
[2018-12-31 15:32] LABS: Color, Urine Yellow (Yellow); Glucose, Dipstick Normal (Normal); Ketone-Dipstick Negative (Negative); Leukocyte Esterase-Dipstick 25 /ul (Negative); Nitrite-Dipstick Negative (Negative); Occult Blood-Urine 10 /ul (Negative); Protein-Dipstick Negative (Negative); Urine Bilirubin Dipstick Negative (Negative); Urine Clarity Sl. Cloudy (Clear); Urine Urobilinogen Normal (Normal)
[2018-12-31 15:38] LABS: Anion Gap 7 (5-15); BUN 5 mg/dL (7-18); BUN/Creat Ratio 8.8 RATIO (10-20); Calcium,Total 8.9 mg/dL (8.5-10.1); Chloride 109 mmol/L (98-107); Creatinine, Serum 0.57 mg/dL (0.55-1.02); EST Glomerular Filtration Rate 142 mL/min (>60); Est Glom Filt Rate - Afr Amer 172 mL/min (>60); Estimated Creatinine Clearance 129.15 ml/min; Glucose 82 mg/dL (74-106); Potassium 3.7 mmol/L (3.5-5.1); Sodium Level 141 mmol/L (136-145)
[2018-12-31 15:42] LABS: Bacteria RARE /hpf (None Seen); Red Blood Cells-Urine 0-5 SEEN /hpf (0-5); Squamous Epithelial Cells - UA 0-5 SEEN /hpf (5-10); Transitional Epithelial - Ur 0-5 SEEN /hpf (0-5); White Blood Cells 0-5 SEEN /hpf (0-5)
== END 2018-12-31 16:53 | disposition home or self-care (01) ==
PROVIDERS: Emergency Provider Emergency Medicine; Family Provider Family Medicine; PCP Family Medicine
DX: O21.9 Vomiting of pregnancy, unspecified (principal); Z3A.15 15 weeks gestation of pregnancy; Z87.891 Personal history of nicotine dependence; Z91.040 Latex allergy status
CPT/HCPCS: 80048; 81001; 85025; 99283; J7030; A4216; J2405

== ENCOUNTER → 2019-03-21 10:06 | Outpatient (CLI) | payer BC, SELFPAY ==
[2019-03-21 09:34] VITALS: BMI 34.9
[2019-03-21 11:38] LABS: Absolute Lymphocyte Count 2.24 X10^3/uL (0.83-4.51); Absolute Neutrophil Count 4.4 X10^3/uL (2.0-7.7); Basophil# 0.02 X10^3/uL; Basophil% 0.3 % (0-1); Eosinophil# 0.28 X10^3/uL; Eosinophils% 3.8 % (0-5); Hematocrit 38.3 % (37-47); Hemoglobin 12.8 g/dL (12.0-15.0); Lymphocyte # 2.24 X10^3/ul (4.0); Lymphocyte % 30.2 % (19-41); Mean Corp Hgb Conc 33.4 g/dL (32-36); Mean Corpuscular Hgb 31.2 pg (27.0-32.0); Mean Corpuscular Volume 93.4 fL (81-99); Mean Platelet Vol. 11.1 fl (6.2-12.0); Monocyte# 0.48 X10^3/uL; Monocyte% 6.5 % (0-10); NRBC Flagged by Analyzer 0 % (0-5); Neutrophil # 4.37 X10^3/uL (2.7-7.7); Neutrophil % 58.8 % (47-70); Platelet Count 200 K/mm3 (150-450); RBC Distribution Width CV 12.7 % (11.6-14.6); RBC Distribution Width SD 43.7 fl (35.1-43.9); White Blood Count 7.4 K/mm3 (4.4-11.0)
[2019-03-21 12:01] LABS: ALB/GLOB Ratio 0.7 RATIO (0.9-2.4); AST(SGOT) 15 U/L (15-37); Alanine Aminotransfer ALT/SGPT 19 U/L (13-56); Albumin, Serum 2.9 g/dL (3.2-5.0); Alkaline Phosphatase 71 U/L (45-117); Anion Gap 9 (5-15); BUN 5 mg/dL (7-18); Calcium,Total 8.8 mg/dL (8.5-10.1); Chloride 104 mmol/L (98-107); Creatinine, Serum 0.62 mg/dL (0.55-1.02); EST Glomerular Filtration Rate 127 mL/min (>60); Est Glom Filt Rate - Afr Amer 153 mL/min (>60); Globulin 3.9 g/dL (2.2-4.2); Glucose 123 mg/dL (74-106); Glucose Challenge Gest 1H 50g 123 mg/dL (70-140); Potassium 3.4 mmol/L (3.5-5.1); Protein, Total 6.8 g/dL (6.4-8.2); Sodium Level 139 mmol/L (136-145)
== END ==
PROVIDERS: Family Provider Family Medicine; PCP Family Medicine; Referring Provider Obstetrics & Gynecology; Visit Provider Obstetrics & Gynecology
DX: Z34.01 Encounter for supervision of normal first pregnancy, first trimester (principal); R74.8 Abnormal levels of other serum enzymes
CPT/HCPCS: 36415; 80053; 82950; 85025

== ENCOUNTER 2019-04-02 03:35 | Outpatient (CLI) | payer BC, SELFPAY ==
[2019-03-21 09:34] VITALS: BMI 34.9
[2019-04-02 04:06] VITALS: BMI 35.6
[2019-04-02] MEDS: Dextrose 5%-Lactated Ringers 1,000 ML 999 ML IV (04:20)
[2019-04-02 04:34] LABS: Bacteria 0 SEEN /hpf (None Seen); Mucous, Urine 0 SEEN /hpf (<or=2+); Red Blood Cells-Urine 0 SEEN /hpf (0-5); Squamous Epithelial Cells - UA 0 SEEN /hpf (5-10); White Blood Cells 0 SEEN /hpf (0-5)
[2019-04-02 04:37] LABS: Absolute Lymphocyte Count 2.39 X10^3/uL (0.83-4.51); Basophil# 0.03 X10^3/uL; Basophil% 0.3 % (0-1); Eosinophil# 0.31 X10^3/uL; Eosinophils% 2.9 % (0-5); Hematocrit 37.9 % (37-47); Lymphocyte # 2.39 X10^3/ul (4.0); Lymphocyte % 22.4 % (19-41); Mean Corp Hgb Conc 34.3 g/dL (32-36); Mean Corpuscular Hgb 31.3 pg (27.0-32.0); Mean Corpuscular Volume 91.3 fL (81-99); Mean Platelet Vol. 11.2 fl (6.2-12.0); Monocyte# 0.87 X10^3/uL; Monocyte% 8.2 % (0-10); NRBC Flagged by Analyzer 0 % (0-5); Neutrophil # 7.01 X10^3/uL (2.7-7.7); Neutrophil % 65.7 % (47-70); Platelet Count 184 K/mm3 (150-450); RBC Distribution Width CV 12.9 % (11.6-14.6); RBC Distribution Width SD 42.1 fl (35.1-43.9); Red Blood Count 4.15 M/mm3 (4.2-5.4); White Blood Count 10.7 K/mm3 (4.4-11.0)
[2019-04-02] MEDS: Ondansetron 4 MG/2 ML Vial IV (05:07)
[2019-04-02 05:09] LABS: Color, Urine Straw (Yellow); Glucose, Dipstick Normal (Normal); Ketone-Dipstick Negative (Negative); Leukocyte Esterase-Dipstick Negative /ul (Negative); Nitrite-Dipstick Negative (Negative); Occult Blood-Urine Negative /ul (Negative); Protein-Dipstick Negative (Negative); Urine Bilirubin Dipstick Negative (Negative); Urine Clarity Sl. Cloudy (Clear); Urine Urobilinogen Normal (Normal); Urine pH 6.5 (5.0 - 8.0)
[2019-04-02 05:13] LABS: Amorphous Sediment 1+
[2019-04-02 05:30] LABS: ALB/GLOB Ratio 0.8 RATIO (0.9-2.4); AST(SGOT) 15 U/L (15-37); Alanine Aminotransfer ALT/SGPT 17 U/L (13-56); Albumin, Serum 3.2 g/dL (3.2-5.0); Alkaline Phosphatase 90 U/L (45-117); Anion Gap 8 (5-15); BUN 5 mg/dL (7-18); BUN/Creat Ratio 8.5 RATIO (10-20); Calcium,Total 8.8 mg/dL (8.5-10.1); Chloride 104 mmol/L (98-107); Creatinine, Serum 0.58 mg/dL (0.55-1.02); EST Glomerular Filtration Rate 137 mL/min (>60); Est Glom Filt Rate - Afr Amer 165 mL/min (>60); Estimated Creatinine Clearance 125.86 ml/min; Glucose 82 mg/dL (74-106); Potassium 3.3 mmol/L (3.5-5.1); Protein, Total 7.2 g/dL (6.4-8.2); Sodium Level 137 mmol/L (136-145)
[2019-04-02] MEDS: Acetaminophen 500 MG Tablet 1000 MG PO (05:50)
--- NOTE | 2019-04-02 05:54 | OB.TRI.HP_ITS ---
History of Present Illness Reason For Visit: R/O NAUSEA VOMITING Allergies latex Allergy (Verified 04/02/19 04:07) Rash - Pertinent Past Medical History Medical History: Past Medical History (Last Reviewed 03/21/19 @ 09:28 by Aniyah Davila) Anxiety (Chronic) Bipolar 1 disorder (Chronic) PCOS (polycystic ovarian syndrome) (Chronic) Laboratory Studies: Laboratory Tests 04/02/19 04/02/19 04/02/19 Range/Units 04:20 04:20 04:20 WBC 10.7 (4.4-11.0) K/mm3 RBC 4.15 L (4.2-5.4) M/mm3 Hgb 13.0 (12.0-15.0) g/dL Hct 37.9 (37-47) % MCV 91.3 (81-99) fL MCH 31.3 (27.0-32.0) pg MCHC 34.3 (32-36) g/dL RDW Std Deviation 42.1 (35.1-43.9) fl RDW Coeff of Beth 12.9 (11.6-14.6) % Plt Count 184 (150-450) K/mm3 MPV 11.2 (6.2-12.0) fl Immature Gran % (Auto) 0.500 (0.0-0.9) % Neut % (Auto) 65.7 (47-70) % Lymph % (Auto) 22.4 (19-41) % [place] % (Auto) 8.2 (0-10) % Eos % (Auto) 2.9 (0-5) % Baso % (Auto) 0.3 (0-1) % Absolute Neuts (auto) 7.0 (2.0-7.7) X10^3/uL Absolute Lymphs (auto) 2.39 (0.83-4.51) X10^3/uL Nucleated RBC % 0 (0-5) % Sodium 137 (136-145) mmol/L Potassium 3.3 L (3.5-5.1) mmol/L Chloride 104 (98-107) mmol/L Carbon Dioxide 25.0 (21.0-32.0) mmol/L Anion Gap 8 (5-15) BUN 5 L (7-18) mg/dL Creatinine 0.58 (0.55-1.02) mg/dL Estim Creat Clear Calc 125.86 ml/min Est GFR (MDRD) Af Amer 165 (>60) mL/min Est GFR (MDRD) Non-Af 137 (>60) mL/min BUN/Creatinine Ratio 8.5 L (10-20) RATIO Glucose 82 (74-106) mg/dL Calcium 8.8 (8.5-10.1) mg/dL Total Bilirubin 0.50 (0.20-1.00) mg/dL AST 15 (15-37) U/L ALT 17 (13-56) U/L Alkaline Phosphatase 90 (45-117) U/L Total Protein 7.2 (6.4-8.2) g/dL Albumin 3.2 (3.2-5.0) g/dL Globulin 4.0 (2.2-4.2) g/dL Albumin/Globulin Ratio 0.8 L (0.9-2.4) RATIO Urine Color Straw (Yellow) Urine Clarity Sl. Cloudy (Clear) Urine pH 6.5 (5.0 - 8.0) Ur Specific [place] 1.010 (1.002-1.030) Urine Protein Negative (Negative) mg/dl Urine Glucose (UA) Normal (Normal) mg/dl Urine Ketones Negative (Negative) mg/dl Urine Occult Blood Negative (Negative) /ul Urine Nitrite Negative (Negative) Urine Bilirubin Negative (Negative) mg/dL Urine Urobilinogen Normal (Normal) mg/dl Ur Leukocyte Esterase Negative (Negative) /ul Urine RBC 0 SEEN (0-5) /hpf Urine WBC 0 SEEN (0-5) /hpf Ur Squamous Epith Cells 0 SEEN (5-10) /hpf Amorphous Sediment 1+ Urine Bacteria 0 SEEN (None Seen) /hpf Urine Mucus 0 SEEN (<or=2+) /hpf
== END 2019-04-02 06:00 | disposition home health service (06) ==
LOC: WPOUT 03:49 → WP 03:50
PROVIDERS: Family Provider Family Medicine; PCP Family Medicine; Referring Provider Obstetrics & Gynecology; Visit Provider Obstetrics & Gynecology
DX: O21.9 Vomiting of pregnancy, unspecified (principal); Z3A.00 Weeks of gestation of pregnancy not specified; E28.2 Polycystic ovarian syndrome; O99.340 Other mental disorders complicating pregnancy, unspecified trimester; F31.9 Bipolar disorder, unspecified; F41.9 Anxiety disorder, unspecified; Z91.040 Latex allergy status
CPT/HCPCS: 59025; 59050; 80053; 81001; 85025; 87086; 99218; G0378; J2405

== ENCOUNTER → 2019-04-09 10:48 | Outpatient (CLI) | payer BC, SELFPAY ==
[2019-04-09 10:34] VITALS: BMI 35.6
[2019-04-09 13:24] LABS: ALB/GLOB Ratio 0.8 RATIO (0.9-2.4); AST(SGOT) 16 U/L (15-37); Alanine Aminotransfer ALT/SGPT 15 U/L (13-56); Albumin, Serum 2.9 g/dL (3.2-5.0); Alkaline Phosphatase 87 U/L (45-117); Anion Gap 8 (5-15); BUN 7 mg/dL (7-18); Calcium,Total 8.6 mg/dL (8.5-10.1); Chloride 109 mmol/L (98-107); Creatinine, Serum 0.58 mg/dL (0.55-1.02); EST Glomerular Filtration Rate 137 mL/min (>60); Est Glom Filt Rate - Afr Amer 166 mL/min (>60); Globulin 3.6 g/dL (2.2-4.2); Glucose 71 mg/dL (74-106); Potassium 3.4 mmol/L (3.5-5.1); Protein, Total 6.5 g/dL (6.4-8.2); Sodium Level 141 mmol/L (136-145)
== END ==
PROVIDERS: Family Provider Family Medicine; PCP Family Medicine; Referring Provider Obstetrics & Gynecology; Visit Provider Obstetrics & Gynecology
DX: E87.6 Hypokalemia (principal)
CPT/HCPCS: 36415; 80053

== ENCOUNTER → 2019-04-23 08:53 | Outpatient (CLI) | payer BC, SELFPAY ==
[2019-04-09 10:34] VITALS: BMI 35.6
--- NOTE | 2019-04-23 08:55 | US_ITS ---
STUDY: SECOND AND THIRD TRIMESTER OBSTETRICAL ULTRASOUND - LIMITED REASON FOR EXAM: Female, 24 years old . growth. LMP: August 30, 2018. PRIOR ULTRASOUND: None. TECHNIQUE: Transabdominal TECHNICAL QUALITY: Adequate. FINDINGS: There is a single intrauterine fetus. The fetus is in a cephalic presentation. There is demonstrated cardiac activity with a heart rate of 135 bpm. There is a normal amniotic fluid volume. The largest amniotic fluid pocket measures 3.6 cm x 4.5 cm. The amniotic fluid index (RAJEEV) is 13.63 cm. The placenta is posterior in location and is not low lying. There are Grade 1 placental changes. The cervix measurement was not obtained due to the position of the head. BIOMETRY: BPD: 8.21 cm: 33 weeks, 0 days HC: 29.64 cm: 32 weeks, 5 days AC: 27.54 cm: 31 weeks, 4 days FL: 6.13 cm: 31 weeks, 5 days Age by LMP: 33 weeks, 5 days. ROSALINA by LMP: June 06, 2019. age by prior US: 31 weeks, 6 days. ROSALINA by prior US: June 19, 2019. age by current US: 32 weeks, 2 days. ROSALINA by current US: June 16, 2019. Estimated weight: 1862 grams, +/- 276 grams, 36 percentile. US/OB Limited With Biometrics IMPRESSION: Single live intrauterine gestation with a mean gestational age of 31 weeks and 6 days. The measurements obtained today fall within normal expected range. Electronically Signed: Sergo Easley, at 12:52 EST , Service support ,
== END ==
PROVIDERS: Family Provider Family Medicine; PCP Family Medicine; Referring Provider Obstetrics & Gynecology; Visit Provider Obstetrics & Gynecology
DX: O20.0 Threatened abortion (principal); Z3A.00 Weeks of gestation of pregnancy not specified
CPT/HCPCS: 76816

== ENCOUNTER → 2019-05-06 15:31 | Outpatient (CLI) | payer BC, SELFPAY ==
[2019-04-24 10:45] VITALS: BMI 35.9
[2019-05-06] MEDS: Dextrose 5%-Lactated Ringers 1,000 ML 999 ML IV (15:58)
[2019-05-06] MEDS: Ondansetron 4 MG/2 ML Vial IV (15:59)
[2019-05-06 16:01] VITALS: BP 116/69; PULSE 97; RESP 16; TEMP 36.3; BMI 35.6
[2019-05-06] MEDS: proMETHazine 25 MG/ML Syringe 12.5 MG IV (16:59)
[2019-05-06 17:07] VITALS: BP 112/53; PULSE 112; RESP 16
== END ==
PROVIDERS: Family Provider Family Medicine; PCP Family Medicine; Referring Provider Obstetrics & Gynecology; Visit Provider Obstetrics & Gynecology
DX: E86.0 Dehydration (principal)
CPT/HCPCS: 96361; 96374; 96375; A4216; J2405

== ENCOUNTER → 2019-05-24 13:25 | Outpatient (CLI) | payer BC, SELFPAY ==
[2019-05-24 11:30] VITALS: BMI 35.6
== END ==
PROVIDERS: PCP Family Medicine; Visit Provider Obstetrics & Gynecology
DX: Z3A.36 36 weeks gestation of pregnancy (principal)
CPT/HCPCS: 87081

== ENCOUNTER → 2019-06-05 16:38 | Outpatient (CLI) | payer BC, SELFPAY ==
[2019-06-05 16:07] VITALS: BMI 35.6
[2019-06-05 17:07] LABS: ROM Internal Control Test YES-OK TO RESULT pt. (Internal QC); ROM Patient Test Negative (Negative)
== END ==
LOC: LABSPEC 16:38
PROVIDERS: PCP Family Medicine; Visit Provider Obstetrics & Gynecology
DX: N89.8 Other specified noninflammatory disorders of vagina (principal)
CPT/HCPCS: 84112

== ENCOUNTER 2019-06-14 06:00 | Inpatient (IN) | payer BC, SELFPAY ==
[2019-06-13 11:05] VITALS: BMI 35.6
[2019-06-14 04:31] VITALS: BMI 35.7
--- NOTE | 2019-06-14 06:06 | HP.PCM_ITS ---
- Problem List (1) Rubella non-immune status, antepartum Status: Acute Comment: MMR PP (2) Depression Status: Acute Qualifiers: Comment: [facility] (3) Family history of cleft palate Status: Acute Comment: PT nephew born with cleft plate (4) Supervision of normal Status: Acute Qualifiers: Comment: PRR ROSALINA 06/19/19 boy jose antonio Spouse Hany (5) History of recurrent miscarriages Status: Acute Comment: , neg APL testing. (6) Obesity affecting Status: Acute Qualifiers: Comment: nl Glucola at [facility], encourage healthy weight gain (7) Status: Acute Qualifiers: Comment: Jo low risk, gender surprise. Negative for 14 out of 14 carrier diseases; Normal anatomy. dec afp. (8) Anxiety Status: Chronic (9) Bipolar 1 disorder Status: Chronic (10) PCOS (polycystic ovarian syndrome) Status: Chronic History Date of Admission: 06/14/19 Final ROSALINA: 06/19/19 Gestational age: 39 Weeks and 2 Days History of this : This is a 24 year-old, G [], P [], at weeks gestational age. Medical History: Medical History (Last Reviewed 06/13/19 @ 11:05 by Tiffani Hooker) Anxiety (Chronic) F41.9 Bipolar 1 disorder (Chronic) F31.9 PCOS (polycystic ovarian syndrome) (Chronic) E28.2 Allergies latex Allergy (Verified 06/13/19 11:05) Rash Home Medications: Home Medications Pnv No.95/Ferrous Fum/Folic AC [ Caplet] 1 ea PO DAILY 10/11/18 Smoking Status: Former smoker History Past Pregnancies: Past Pregnancies Pregancy History 4 Elective abortions Hx Para 0 Spontaneous abortions 2 Hx # Term Pregnancies Ectopic pregnancies Hx # Pregnancies 1 Multiple births # of living children 0 Past Pregnancies Del. Date Name GA/Weeks Outcome Route Bth Weight Infant Gen Labor Lgth Anesthesia Del Locatn Provider FOB 05/19/13 19 live - 09/13/15 6 spontaneous Delivery Date: 05/19/13 On 10/22/18 @ 10:30 Rita Palmer delivery at 19 weeks Labs: Social History Smoking Status Former smoker Expected Delivery Method: Spontaneous Vaginal Review of Systems Constitutional: Denies: Fever, Malaise Eyes: Denies: Blurred vision, Vision Change HEENT: Denies: Head Aches, Visual Changes Cardiovascular: Denies: Chest Pain, Palpitations Respiratory: Denies: Cough, Shortness of Breath, Wheezing Gastrointestinal: Denies: Abdominal Pain, Diarrhea, Nausea, Vomiting Genitourinary: Denies: Dysuria, Hematuria Musculoskeletal: Denies: Joint Pain, Muscle pain Skin: Denies: Lesions, Rash Neurological: Denies: Blurred vision, Focal weakness, Headaches Psychiatric: Denies: Anxiety, Depression Endocrine: Denies: Heat/ Cold Intolerance Hematologic/ Lymphatic: Denies: Easy Bruising, Easy Bleeding Physical Exam General: Alert, Cooperative, No apparent distress HEENT: Atraumatic, Normocephalic. Negative for: Thyromegaly, Lymphadenopathy Cardiovascular: Regular rate Lungs: Normal air movement Abdomen: Soft, Non Tender, Gravid Neurological: Deep Tendon Reflexes 2+/4 and Symmetrical, Neuro grossly intact. 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 Negative for: Vulvar lesions Estimated gestational size: Appropriate for gestational size Presentation: Cephalic Assessment/Plan All Active Problems (Last Reviewed 06/13/19 @ 11:05 by Tiffani Hooker) Rubella non-immune status, antepartum (Acute) Depression (Acute) Family history of cleft palate (Acute) Supervision of normal (Acute) History of recurrent miscarriages (Acute) Obesity affecting (Acute) (Acute) Liver enzyme elevation (Resolved) This is a 24 year-old, , at 39 weeks gestational age presents IAL Patient presents IAL, plan expectant management for , pitocin/AROM PRN if needed. Pain management: Plans epidural. GBS negative. Management of any complications: Rubella nonimmune plan vaccination I have reviewed the [facility] and made any clinically relevant updates.
[2019-06-14 06:48] LABS: Absolute Lymphocyte Count 2.47 X10^3/uL (0.83-4.51); Absolute Neutrophil Count 10.7 X10^3/uL (2.0-7.7); Basophil# 0.03 X10^3/uL; Basophil% 0.2 % (0-1); Eosinophil# 0.29 X10^3/uL; Hematocrit 40.4 % (37-47); Hemoglobin 13.7 g/dL (12.0-15.0); Lymphocyte # 2.47 X10^3/ul (4.0); Mean Corp Hgb Conc 33.9 g/dL (32-36); Mean Corpuscular Hgb 30.5 pg (27.0-32.0); Mean Platelet Vol. 12.5 fl (6.2-12.0); Monocyte# 1.04 X10^3/uL; Monocyte% 7.2 % (0-10); NRBC Flagged by Analyzer 0 % (0-5); Neutrophil # 10.65 X10^3/uL (2.7-7.7); Neutrophil % 73.2 % (47-70); Platelet Count 172 K/mm3 (150-450); RBC Distribution Width CV 12.5 % (11.6-14.6); RBC Distribution Width SD 41.1 fl (35.1-43.9); Red Blood Count 4.49 M/mm3 (4.2-5.4); White Blood Count 14.5 K/mm3 (4.4-11.0)
[2019-06-14] MEDS: Lactated Ringers 500 ML 999 ML IV ×2 (07:41→09:46)
[2019-06-14] MEDS: fentaNYL-bupivacaine (epidural) 100 ML BAG EPIDURAL ×2 (08:14→12:37)
[2019-06-14] MEDS: Lactated Ringers 1,000 ML 50 ML IV (08:21)
[2019-06-14] MEDS: Lactated Ringers 1,000 ML 200 ML IV (12:35)
[2019-06-14] MEDS: DiphenhydrAMINE 50 MG/ML Syringe IV (13:48)
[2019-06-14] MEDS: Oxytocin 30 units/NS 500 ml 30 UNITS/500 ML IV.SOLN IV (14:51)
[2019-06-14] MEDS: Oxytocin 30 units/NS 500 ml 30 UNITS/500 ML IV.SOLN 334 UNITS IV (17:40)
--- NOTE | 2019-06-14 17:48 | PCM.OPRPT ---
Problem List (1) Rubella non-immune status, antepartum Status: Acute Comment: MMR PP (2) Depression Status: Acute Qualifiers: Comment: counseling center [facility] referral (3) Family history of cleft palate Status: Acute Comment: PT nephew born with cleft plate (4) Supervision of normal Status: Acute Qualifiers: Comment: PRR ROSALINA 06/19/19 boy jose antonio Spouse Hany (5) History of recurrent miscarriages Status: Acute Comment: , neg APL testing. (6) Obesity affecting Status: Acute Qualifiers: Comment: nl Glucola at [facility], encourage healthy weight gain (7) Status: Acute Qualifiers: Comment: Jo low risk, gender surprise. Negative for 14 out of 14 carrier diseases; Normal anatomy. dec afp. (8) Anxiety Status: Chronic (9) Bipolar 1 disorder Status: Chronic (10) PCOS (polycystic ovarian syndrome) Status: Chronic Vaginal Delivery Maternal Presentation: Active Labor ial 39 weeks Amniotic Membrane Rupture Type: Artificial Amniotic Fluid Description: Clear Final ROSALINA: 06/19/19 Gestational age: 39 Weeks and 2 Days Date of Procedure: 06/14/19 Pre-Operative Diagnosis: ial Post-Operative Diagnosis: same Surgery/ Procedure Performed: Spontaneous Vaginal Delivery Type of Anesthesia: Epidural Description of Procedure: Patient began pushing and delivered the head in the ANITA presentation. The head was delivered atraumatically and a loose nuchal cord ?1 was identified and easily reduced over the infant's head. Gentle downward traction was placed on the head to deliver the anterior shoulder which was noted to have 1/32 long mild shoulder dystocia resolved with Karlo and manual delivery of the anterior shoulder. The posterior shoulders delivered without complication followed by the rest of the and the was placed on the maternal abdomen. Delayed cord clamping was employed for approximately 60 seconds. Cord was clamped and cut and gentle traction was applied to the cord and the placenta delivered spontaneously immediately following it was noted to be intact with three-vessel cord. The perineum and vagina were inspected and noted to have no laceration. EBL was 200 cc. Patient and infant tolerated delivery well. Presentation: ANITA Placental Delivery Description: Spontaneous Placenta Disposition: [facility] Cord Vessel Description: 3 Vessels Cord Entanglement: Around neck x 1, loose Estimated Blood Loss: 200 Infant A gender: Male Episiotomy Description: None Laceration: None Medications given after delivery: IV Pitocin Complications: None Multi Select Codes - Urinary/Genital Urinary/Genital CPT Codes: 44948 Vaginal Delivery [facility]
[2019-06-14 20:20] VITALS: BP 117/55; PULSE 86; RESP 17; TEMP 36.8
[2019-06-15 02:00] VITALS: BP 102/57; PULSE 95; RESP 17; TEMP 37.4
--- NOTE | 2019-06-15 02:56 | NURSING ---
report received from tina RN. this RN to assume care of pt at this time.
[2019-06-15 04:45] VITALS: BP 124/67; PULSE 90; RESP 16; TEMP 37.2
[2019-06-15 08:31] VITALS: BP 106/64; PULSE 88; RESP 16; TEMP 36.8
--- NOTE | 2019-06-15 10:43 | PCM.PN.OB ---
Subjective: doing well no complaints pain controlled no CP SOB N V ambulating well tolerating po lochia moderate, going well - Physical Exam Vitals/I&O's: Vital Signs Temp Pulse Resp BP 98.2 F 88 16 106/64 06/15/19 08:31 06/15/19 08:31 06/15/19 08:31 06/15/19 08:31 Oxygen Delivery Method Room Air Weight: 201 lb 11.567 oz Body Mass Index (BMI) 35.7 Intake and Output for Last 24 Hours 06/13/19 06/14/19 06/15/19 23:59 23:59 23:59 Intake Total 3622.66 / 3622.66 Output Total 2800 / 2800 Balance 822.66 / 822.66 General: Alert, Oriented x3 Current Medications Acetaminophen (Tylenol) 1,000 mg PO Q8H PRN PRN PRN Reason: Pain Score 1-3/10 Bisacodyl (Dulcolax) 10 mg RECTAL UD PRN PRN Reason: If no BM Dibucaine (Dibucaine) 1 applic TOPICAL TID PRN PRN; Protocol PRN Reason: Discomfort Hydrocortisone (Hytone) 1 applic TOPICAL TID PRN PRN; Protocol PRN Reason: Discomfort Methylergonovine Maleate (Methergine) 0.2 mg IM X1 PRN PRN Reason: Excess bleeding/uterine atony Naproxen (Naprosyn) 500 mg PO Q8H PRN PRN PRN Reason: Pain Score 1-3/10 Ondansetron HCl (Zofran) 4 mg IV Q4H PRN PRN PRN Reason: Nausea Oxycodone HCl (Oxyir) 5 - 10 mg PO Q4H PRN PRN PRN Reason: Pain Score 4-10/10 Senna/Docusate Sodium (Senokot-S, Shaina-Colace) 1 - 2 tablet PO DAILY PRN PRN PRN Reason: Constipation Simethicone (Mylicon) 80 mg PO PCHS PRN PRN Reason: Indigestion/Stomach pain Sodium Chloride () 5 - 15 ml IV UD PRN PRN Reason: SALINE FLUSH Medical Necessity - Tobacco Use Smoking Status: Former smoker Assessment/Plan All Active Problems (Last Reviewed 06/13/19 @ 11:05 by Tiffani Hooker) Rubella non-immune status, antepartum (Acute) Depression (Acute) Family history of cleft palate (Acute) Supervision of normal (Acute) History of recurrent miscarriages (Acute) Obesity affecting (Acute) (Acute) Liver enzyme elevation (Resolved) s/p PPD # 1 1. routine post delivery care 2. breast feeding- support given 3. rh positive 4. rubella non immune- needs vaccine
[2019-06-15] MEDS: Naproxen 250 MG Tablet 500 MG PO ×2 (11:07→19:28)
[2019-06-15 12:15] VITALS: BP 112/62; PULSE 82; RESP 14; TEMP 36.3
[2019-06-15 16:30] VITALS: BP 119/67; PULSE 81; RESP 16; TEMP 36.4
[2019-06-15 19:29] VITALS: BP 117/59; PULSE 64; RESP 18; TEMP 36.4; O2SAT 96
--- NOTE | 2019-06-15 20:15 | CASEMGMT ---
Social Work Assessment Labor and Delivery Unit Date of Referral: 06/15/2019 Time of Referral: 5:52pm Referred By: Dr. Palmer Date of Intervention: 06/15/2019 Time of Intervention: 20:15 Reason for Referral: Mother of baby (MOB) with history of anxiety, Bi-polar and PTSD History obtained from: MOB, Chart, nursing staff. Household composition: MOB and father of baby (FOB), Hany Benavidez and now this . MOB and FOB have been together for 1 year. was not planned but accepted. Medical History: . MOB delivered at 39 weeks, vaginal delivery. MOB with a history of a 19 week loss at the age of 18. Infant 's were at 8 and 9 at 5min/10min. weight of 3.655kg. Educational Status: High School diploma. MOB denies any learning or comprehension issues. Financial Status: MOB and FOB both work at [employer] full-time. FOB has the next week off and MOB has 8-12 weeks off. Infant Supplies: MOB stating to have all needed supplies for infant including a crib and car seat. Childcare/Caregiver(s): MOB to be primary caregiver for infant. When MOB returns to work, family members will provide child welfare counselor. Transportation: MOB denies any transportation limitations. Programs/Agencies Involved: MOB with a history of counseling through [facility] but currently working on transitioning services to [facility]. MOB planning to begin counseling again within the next few weeks/month. MOB stating that counseling is a positive thing for MOB. Children Services/Legal Issues: None. Mental Health History: MOB confirming a history of Anxiety, Bi-polar and PTSD. MOB stating to manage mental health with medication in the past but needed to stop the medication due to being . MOB stating that mood has been good during but MOB is planning to begin medication again once MOB is able to resume as it kept my mood stable. MOB with a zero on the PHQ-2. Substance Use History: MOB denies any history of substance abuse/use. Family/Social Stressors: MOB stating to have positive family support and not identifying any stressors outside of transitioning to life as a mother and family of three. MOB excited about this but aware that this is a process and change for MOB/FOB. MOB stating that FOB is supportive. Support Systems: MOB and FOB's families. Depression and Anxiety/Shaken Baby/Safe Sleeping: Discussion was had with MOB about depression and risk for MOB due to mental health history, MOB voicing understanding and verbally agreeing to notify doctor if MOB identifies with any signs/symptoms of depression. MOB educated on shaken baby, safe sleeping, and [facility] resources along with [facility]. MOB declining [facility] referral at this time. MOB provided with resources on all above information. ASSESSMENT: Met with MOB, FOB, MOB's mother, and in room. Introduced self as well as case management social worker role. MOB wanting family to stay during conversation. FOB holding , Jermain Shellhorn during assessment. MOB stating to have a connection with [place] and to be excited that [facility] is now hear. MOB gazing at [facility] often during assessment. MOB presenting with a positive and engaged affect. MOB responding to questions and making appropriate eye contact with this case management social worker. MOB identifies no concerns on returning to home. MOB identifying the need to care for self in order to be able to care for , this case management social worker reinforcing this with MOB. PLAN: Infant to discharge to home with MOB and FOB. No other services requested or indicated. Mona Good MSW, ОЛЬГА
[2019-06-16 02:20] VITALS: BP 107/58; PULSE 72; RESP 16; TEMP 36.2; O2SAT 96
--- NOTE | 2019-06-16 05:32 | PCM.PN.OB ---
Subjective: doing well no complaints pain controlled no CP SOB N V ambulating well tolerating po lochia moderate, going well - Physical Exam Vitals/I&O's: Vital Signs Temp Pulse Resp BP Pulse Ox 97.2 F L 72 16 107/58 L 96 06/16/19 02:20 06/16/19 02:20 06/16/19 02:20 06/16/19 02:20 06/16/19 02:20 Oxygen Delivery Method Room Air Weight: 201 lb 11.567 oz Body Mass Index (BMI) 35.7 Intake and Output for Last 24 Hours 06/14/19 06/15/19 06/16/19 23:59 23:59 23:59 Intake Total 3622.66 / 3622.66 Output Total 2800 / 2800 Balance 822.66 / 822.66 General: Alert, Oriented x3 Current Medications Acetaminophen (Tylenol) 1,000 mg PO Q8H PRN PRN PRN Reason: Pain Score 1-3/10 Bisacodyl (Dulcolax) 10 mg RECTAL UD PRN PRN Reason: If no BM Dibucaine (Dibucaine) 1 applic TOPICAL TID PRN PRN; Protocol PRN Reason: Discomfort Hydrocortisone (Hytone) 1 applic TOPICAL TID PRN PRN; Protocol PRN Reason: Discomfort Methylergonovine Maleate (Methergine) 0.2 mg IM X1 PRN PRN Reason: Excess bleeding/uterine atony Naproxen (Naprosyn) 500 mg PO Q8H PRN PRN PRN Reason: Pain Score 1-3/10 Last Admin: 06/15/19 19:28 Dose: 500 mg Documented by: Ondansetron HCl (Zofran) 4 mg IV Q4H PRN PRN PRN Reason: Nausea Oxycodone HCl (Oxyir) 5 - 10 mg PO Q4H PRN PRN PRN Reason: Pain Score 4-10/10 Senna/Docusate Sodium (Senokot-S, Shaina-Colace) 1 - 2 tablet PO DAILY PRN PRN PRN Reason: Constipation Simethicone (Mylicon) 80 mg PO PCHS PRN PRN Reason: Indigestion/Stomach pain Sodium Chloride () 5 - 15 ml IV UD PRN PRN Reason: SALINE FLUSH Medical Necessity - Tobacco Use Smoking Status: Former smoker Assessment/Plan All Active Problems (Last Reviewed 06/13/19 @ 11:05 by Tiffani Hooker) Rubella non-immune status, antepartum (Acute) Depression (Acute) Family history of cleft palate (Acute) Supervision of normal (Acute) History of recurrent miscarriages (Acute) Obesity affecting (Acute) (Acute) Liver enzyme elevation (Resolved) s/p PPD # 2 1. routine post delivery care 2. breast feeding- support given 3. rh positive 4. rubella non immune- needs vaccine
--- NOTE | 2019-06-16 05:35 | DCINST_ITS ---
Discharge Diet: No Restrictions Discharge Activity: Return to Normal Activity, May not drive while taking narcotic pain medications., May Shower May resume sexual activity in: 4-6 weeks Call your doctor if your incision/area has: Continuous Slow Oozing, Sudden Increased Bleeding, Increased Pain/ Swelling, Increased Redness, Foul Smelling Discharge Additional Instructions: If you experience any of the following, contact your healthcare provider. * Bleeding that soaks a pad every hour for 2 hours * Fever 100.4 or higher * Unrelieved incision or abdominal pain * Swelling, redness, discharge or bleeding from your incision or episiotomy site * Your incision begins to separate * Problems urinating (including inability to urinate or burning while urinating). * Visual changes * Severe headache * Flu-like symptoms * Pain or redness in one of both of your breasts * Pain, warmth, tenderness or swelling in your legs, especially the calf area * Frequent nausea and vomiting * Symptoms of depression or anxiety If you experience any of the following, call 911 or go to the nearest Emergency Room. * Chest pain * Problems breathing * Seizure activity * Partial or complete paralysis of a body part, slurred speech, weakness or drooping of the face, or a sudden inability to walk or hold your balance Allergies/Adverse Reactions: Allergies latex Allergy (Verified 06/13/19 11:05) Rash Medications to take at Discharge Pnv No.95/Ferrous Fum/Folic AC [ Caplet] 1 ea PO DAILY 10/11/18 Please Follow Up With: Rita Palmer MD - [phone] When: Call to make an appointment with your doctor in 6 weeks. If you had elevated Blood pressure or 4th degree laceration you will need to be seen in 2 weeks. Primary Care Physician: Micheal Herzog MD [Primary Care Provider] - Test Results: Test results from this visit will be discussed in further detail at your follow- up appointment, if applicable.
--- NOTE | 2019-06-16 05:35 | PCM.DCVAG ---
Discharge Diet: No Restrictions Discharge Activity: Return to Normal Activity, May not drive while taking narcotic pain medications., May Shower May resume sexual activity in: 4-6 weeks Call your doctor if your incision/area has: Continuous Slow Oozing, Sudden Increased Bleeding, Increased Pain/ Swelling, Increased Redness, Foul Smelling Discharge Additional Instructions: If you experience any of the following, contact your healthcare provider. Bleeding that soaks a pad every hour for 2 hours Fever 100.4 or higher Unrelieved incision or abdominal pain Swelling, redness, discharge or bleeding from your incision or episiotomy site Your incision begins to separate Problems urinating (including inability to urinate or burning while urinating). Visual changes Severe headache Flu-like symptoms Pain or redness in one of both of your breasts Pain, warmth, tenderness or swelling in your legs, especially the calf area Frequent nausea and vomiting Symptoms of depression or anxiety If you experience any of the following, call 911 or go to the nearest Emergency Room. Chest pain Problems breathing Seizure activity Partial or complete paralysis of a body part, slurred speech, weakness or drooping of the face, or a sudden inability to walk or hold your balance Allergies/Adverse Reactions: Allergies latex Allergy (Verified 06/13/19 11:05) Rash Medications to take at Discharge Pnv No.95/Ferrous Fum/Folic AC [ Caplet] 1 ea PO DAILY 10/11/18 Please Follow Up With: Rita Palmer MD - [phone] When: Call to make an appointment with your doctor in 6 weeks. If you had elevated Blood pressure or 4th degree laceration you will need to be seen in 2 weeks. Primary Care Physician: Micheal Herzog MD [Primary Care Provider] - Test Results: Test results from this visit will be discussed in further detail at your follow-up appointment, if applicable.
[2019-06-16 09:13] VITALS: BP 116/57; PULSE 75; RESP 14; TEMP 36.5
[2019-06-16 13:25] VITALS: BP 126/63; PULSE 77; RESP 14; TEMP 36.2
--- NOTE | 2019-06-22 13:13 | NURSING ---
follow up call returned by patient to check in. States baby is doing well peeing and pooping well she denies any problems or questions just occassionaly cramping, bleeding wnl and was very satisfied with her care. states lyn and sukhdeep were good , had no suggestions for improvements
== END 2019-06-16 14:20 | disposition home or self-care (01) | DRG 807 ==
LOC: WPOUT 06:01 → WP 06:01
PROVIDERS: Admitting Provider Obstetrics & Gynecology; PCP Family Medicine; Referring Provider Obstetrics & Gynecology; Visit Provider Obstetrics & Gynecology
DX: O66.0 Obstructed labor due to shoulder dystocia (principal); Z37.0 Single live birth; O69.81X0 Labor and delivery complicated by cord around neck, without compression, not applicable or unspecified; O26.23 Pregnancy care for patient with recurrent pregnancy loss, third trimester; O99.214 Obesity complicating childbirth; E66.9 Obesity, unspecified; E28.2 Polycystic ovarian syndrome; Z3A.39 39 weeks gestation of pregnancy; Z87.891 Personal history of nicotine dependence
CPT/HCPCS: 59025; 59050; 85025; 86850; 86900; 86901; 99218; J7120; G0378

== ENCOUNTER → 2019-07-25 16:52 | Outpatient (CLI) | payer BC, SELFPAY ==
[2019-07-25 13:05] VITALS: BMI 33.3
[2019-07-29 20:49] LABS: HPV Reflexed? NOT INDICATED
== END ==
PROVIDERS: PCP Family Medicine; Referring Provider Nurse Practitioner Women's Health; Visit Provider Nurse Practitioner Women's Health
DX: Z12.4 Encounter for screening for malignant neoplasm of cervix (principal)
CPT/HCPCS: 88175; G0145

== ENCOUNTER 2020-02-26 00:56 | Emergency (ER) | payer MEDICAID, SELFPAY ==
[2019-07-25 13:05] VITALS: BMI 33.3
[2020-02-26 00:57] VITALS: BP 137/64; PULSE 55; RESP 18; TEMP 37; O2SAT 97; BMI 34.0
[2020-02-26 01:00] VITALS: BP 137/64; PULSE 55; RESP 18; TEMP 37; O2SAT 97
--- NOTE | 2020-02-26 01:21 | ED.VIS.GEN ---
History of Present Illness Chief Complaint: Wound Narrative: This patient is a 25-year-old female who presents with an area of tenderness and swelling at the left lower abdomen. She initially noticed this about a week ago however over the last 2 to 3 days it is significantly increased in size. She states it is weeping some clear fluid. No purulent discharge or drainage. No surrounding redness. No systemic symptoms such as fever. She is not diabetic. Past Medical History - Allergies and Home Meds Allergies/Adverse Reactions: Allergies latex Allergy (Verified 07/25/19 13:05) Rash Primary Care Physician: Sariah Noble ACCOUNT SUPPORT ANALYST, ACCOUNT SUPPORT ANALYST-C [Primary Care Provider] - Past Medical History: - - PCOS, bipolar Surgical History: no surgical history Smoking Status: Former smoker Review of Systems All systems negative except as indicated General: Denies: Fever Cardiovascular: Denies: Chest pain Respiratory: Denies: Dyspnea Gastrointestinal: Denies: Nausea, Vomiting, Diarrhea Musculoskeletal: Denies: Myalgias, Arthralgias Skin: Reports: Abscess. Denies: Rash Neurological: Denies: Headache Physical Exam Vital Signs/Narrative: Vital Signs Temp Pulse Resp BP Pulse Ox 02/26/20 01:00 98.6 F 55 L 18 137/64 H 97 02/26/20 00:57 98.6 F 55 L 18 137/64 H 97 Inital Vital Signs reviewed: Yes General: Well nourished Head: Normocephalic Eyes: EOMI ENT: Moist mucous membranes Neck: Supple Cardiovascular: Regular rate Respiratory: No distress Abdomen: Soft, - - There is a 1 cm abscess of the skin at the left lower abdomen. No surrounding erythema no active drainage Skin: Normal color Neurological: Alert Psychological: Normal affect Diagnostic/Tx/Re-eval - Medical Decision Making Patient has a 1 cm abscess at the left lower abdomen with no evidence of surrounding cellulitis. This was cleansed with alcohol and locally anesthetized with 2 cc of 1% lidocaine without epinephrine. A simple stab incision was made with a #11 blade with a small amount of purulent material. We discussed that antibiotics are unlikely to be beneficial in a simple abscess without any cellulitis. We discussed risks and benefits of antibiotics versus basic wound care. She would prefer to defer on antibiotics given potential side effect such as diarrhea and will monitor for any new or worsening or recurrent symptoms. She does understand to return should she develop signs of recurrent abscess or cellulitis. All questions answered bedside. Patient discharged. ED Disposition - Plan for ED Patient: Disposition: Home or Assisted Living Diagnosis: Abscess Instructions: ED Abscess Incision And Drainage Referrals: Sariah Noble NP, ACCOUNT SUPPORT ANALYST-C [Primary Care Provider] -
== END 2020-02-26 01:47 | disposition home or self-care (01) ==
LOC: ED 01:30
PROVIDERS: Emergency Provider Emergency Medicine; PCP Nurse Practitioner Family
DX: L02.211 Cutaneous abscess of abdominal wall (principal); Z87.891 Personal history of nicotine dependence; F31.9 Bipolar disorder, unspecified; E28.2 Polycystic ovarian syndrome
CPT/HCPCS: 10060; 99281; 99283

== ENCOUNTER → 2020-02-27 16:24 | Outpatient (CLI) | payer MEDICAID, SELFPAY ==
[2020-02-26 00:57] VITALS: BMI 34.0
[2020-02-27 17:52] LABS: hCG Titer Quant., Serum < 1 mIU/mL (1-3)
[2020-02-27 18:00] LABS: Estradiol 110.4 pg/mL; Follicle Stimulating Hormone 6.1 mIU/mL; Prolactin 6.2 ng/mL
== END ==
PROVIDERS: PCP Nurse Practitioner Family; Referring Provider Nurse Practitioner Women's Health; Visit Provider Nurse Practitioner Women's Health
DX: Z13.29 Encounter for screening for other suspected endocrine disorder (principal); N91.1 Secondary amenorrhea
CPT/HCPCS: 36415; 82670; 83001; 84146; 84443; 84702

== ENCOUNTER → 2020-08-18 14:32 | Outpatient (CLI) | payer MEDICAID, SELFPAY ==
[2020-08-23 07:56] LABS: Testosterone Free 2.9 pg/mL (0.0-4.2)
== END ==
PROVIDERS: PCP Nurse Practitioner Family; Referring Provider Nurse Practitioner Women's Health; Visit Provider Nurse Practitioner Women's Health
DX: E28.2 Polycystic ovarian syndrome (principal)
CPT/HCPCS: 36415; 82627; 84402; 82626

== ENCOUNTER → 2020-08-26 13:04 | Outpatient (CLI) | payer MEDICAID, SELFPAY ==
[2020-08-26 09:12] VITALS: BMI 36.3
[2020-08-26 16:16] LABS: Chlamydia Trachomatis by PCR Negative (Negative); Neisserai gonorrhoeae by PCR Negative (Negative); Probe Check PASS; Sample Adequacy Control PASS; Specimen Processing Control PASS
== END ==
PROVIDERS: PCP Nurse Practitioner Family; Referring Provider Nurse Practitioner Women's Health; Visit Provider Nurse Practitioner Women's Health
DX: Z11.3 Encounter for screening for infections with a predominantly sexual mode of transmission (principal)
CPT/HCPCS: 87491; 87591

== ENCOUNTER → 2020-10-05 16:45 | Outpatient (CLI) | payer MEDICAID, SELFPAY ==
[2020-08-26 09:12] VITALS: BMI 36.3
[2020-10-05 17:19] LABS: Absolute Lymphocyte Count 3.27 X10^3/uL (0.83-4.51); Absolute Neutrophil Count 5.3 X10^3/uL (2.0-7.7); Basophil# 0.06 X10^3/uL; Basophil% 0.6 % (0-1); Eosinophil# 0.45 X10^3/uL; Eosinophils% 4.5 % (0-5); Lymphocyte # 3.27 X10^3/ul (0.83-4.51); Lymphocyte % 32.7 % (19-41); Mean Corp Hgb Conc 33.3 g/dL (32-36); Mean Corpuscular Hgb 30.1 pg (27.0-32.0); Mean Corpuscular Volume 90.2 fL (81-99); Mean Platelet Vol. 10.8 fl (6.2-12.0); Monocyte# 0.89 X10^3/uL; Monocyte% 8.9 % (0-10); NRBC Flagged by Analyzer 0 % (0-5); Neutrophil % 53.1 % (47-70); Platelet Count 250 K/mm3 (150-450); RBC Distribution Width CV 12.3 % (11.6-14.6); RBC Distribution Width SD 40.5 fl (35.1-43.9); Red Blood Count 5.32 M/mm3 (4.2-5.4)
[2020-10-05 17:59] LABS: Prolactin 7.6 ng/mL
== END ==
PROVIDERS: PCP Nurse Practitioner Family; Visit Provider Nurse Practitioner Women's Health
DX: Z13.29 Encounter for screening for other suspected endocrine disorder (principal); N93.9 Abnormal uterine and vaginal bleeding, unspecified
CPT/HCPCS: 36415; 84146; 84443; 85025

== ENCOUNTER 2020-10-22 21:33 | Emergency (ER) | payer MEDICAID, SELFPAY ==
[2020-08-26 09:12] VITALS: BMI 36.3
[2020-10-22 21:33] VITALS: BP 141/82; PULSE 65; RESP 16; TEMP 36.7; O2SAT 97; BMI 34.9
--- NOTE | 2020-10-22 21:46 | ED.VIS.FEGU ---
HPI HPI - Female History of Present Illness Chief Complaint: Female C/O Narrative Narrative: Patient presents complaining that she feels if she has bubbles in her vagina for 2 days, no pelvic pain no nausea vomiting no vaginal discharge or bleeding she has been 4 times not believe she is , she has had this sensation before, she has history of polycystic ovarian disease has been stable she has a manager play who she call they did not call her back so she thought she would come to the emergency department she had no fever no cough no back pain eating and drinking well review of systems otherwise negative PFSH PFSH Medical History (Updated 10/22/20 @ 22:[address] Arvin Naik MD) Anxiety Bipolar 1 disorder Home Medications norethindrone acetate 5 mg tablet 5 mg PO .COMPLEX #45 tab 10/05/20 [Rx Last Taken Unknown] Allergy/AdvReac Type Severity Reaction Status Date / Time latex Allergy Rash Verified 10/22/20 21:36 Family History Grandfather Skin cancer Grandmother Leukemia Father Hypertension Social History (Updated 08/26/20 @ 09:45 by Cecile Granger NP, CORPORATE DEVELOPMENT INTERN-C) current occupational status: unemployed Smoking Status: Never smoker alcohol intake: never substance use type: does not use caffeine: Yes what type of physical activity do you participate in: none seatbelt use: always do you feel safe at home: Yes additional social history: [id number] ROS ROS ED ROS Narrative Is as above otherwise negative Constitutional Constitutional ED: Reports subjective, sweats and other; Denies chills, fever(s) or weight loss Eyes Eyes: Denies blurry vision or change in vision ENT ENT ED: Denies ear pain Cardiovascular Cardiovascular: Denies chest pain or palpitations Respiratory/Chest Respiratory/Chest: Denies dyspnea Gastrointestinal Gastrointestinal: Denies abdominal pain, nausea or vomiting Genitourinary Genitourinary ED: Denies dysuria or hematuria Musculoskeletal Musculoskeletal: Denies arthralgias or myalgias Integumentary Reports rash; Denies abscess Neurologic Neurologic: Denies weakness Psychiatric Psychiatric: Denies anxiety or depression Endocrine Endocrinology: Denies polydipsia or polyuria Allergic/Immunologic Allergic/Immunologic ED: Denies urticaria EXAM Physical Exam Narrative Exam Narrative: Patient declined pelvic exam her vital signs unremarkable her abdomen is soft nontender no rebound guarding or megaly she points to the lower suprapubic area as the area of bubbling I should mention she denies any discharge from her vagina there is no obvious pain no obvious gross abnormalities that I can palpate on the abdominal exam clinically she looks well and again she is declining a pelvic exam did agree to provide UA and hCG Const Vital Signs: 10/22/20 21:33 Temperature 98.1 F Temperature Source Temporal Pulse Rate 65 Respiratory Rate 16 Blood Pressure 141/82 H Blood Pressure Mean 101 Pulse Ox 97 Oxygen Delivery Method Room Air Positive well developed General Appearance ED: well developed HEENT Reports normocephalic Negative for trauma Eyes EOMs intact bilaterally Neck supple Chest Wall inspection of chest normal Resp normal respiratory effort Cardio regular rate GI non-tender and non-distended Back/Spine Back/Spine Narrative: unremarkable Extremity normal to inspection Neuro oriented x3 and CN's II-XII intact bilaterally Sensorium / Orientation: alert Psych mental status grossly normal Skin no rashes or lesions noted MDM MDM MDM Narrative Medical decision making narrative: Given the above UA and urine hCG is obtained both of which are negative, patient understands the above she is comfortable discharge home and follow-up with her physicians Disposition Home stable Final impression nonspecific bubbling sensation of vagina history of probably cystic ovarian disease Lab Data Labs: Laboratory Results - last 24 hr 10/22/20 21:50 Urine Color Yellow Urine Clarity Clear Urine pH 5.0 Ur Specific Holl[place] 1.025 Urine Protein Negative Urine Glucose (UA) Normal Urine Ketones Negative Urine Occult Blood 25 H Urine Nitrite Negative Urine Bilirubin Negative Urine Urobilinogen Normal Ur Leukocyte Esterase 100 H Urine RBC 0-5 SEEN Urine WBC 0-5 SEEN Ur Squamous Epith Cells 0-5 SEEN Urine Bacteria RARE Urine Mucus 1+ Urine Test Negative Discharge Plan Triage Chief Complaint: Female C/O ED Provider: Arvin Naik Dx/Rx/DC Orders Clinical Impression: Pelvic pain Instructions: ED Pelvic Pain, Unknown Cause Prescriptions: No Action norethindrone acetate [Aygestin] 5 mg tablet 5 mg PO .COMPLEX Qty: 45 RF: 0 Primary Care Provider: Sariah Noble NP Referrals: Sariah Noble NP, CORPORATE DEVELOPMENT INTERN-C [Primary Care Provider] -
[2020-10-22 22:04] LABS: Color, Urine Yellow (Yellow); Glucose, Dipstick Normal (Normal); Ketone-Dipstick Negative (Negative); Leukocyte Esterase-Dipstick 100 /ul (Negative); Nitrite-Dipstick Negative (Negative); Occult Blood-Urine 25 /ul (Negative); Protein-Dipstick Negative (Negative); Specific Gravity, Urine 1.025 (1.002-1.030); Urine Bilirubin Dipstick Negative (Negative); Urine Clarity Clear (Clear); Urine Urobilinogen Normal (Normal)
[2020-10-22 22:14] LABS: Bacteria RARE /hpf (None Seen); Internal QC Validated? YES +Cl - CLEAR BKGD; Mucous, Urine 1+ /hpf (<or=2+); Pregnancy, Urine Negative Negative; Red Blood Cells-Urine 0-5 SEEN /hpf (0-5); Squamous Epithelial Cells - UA 0-5 SEEN /hpf (5-10); White Blood Cells 0-5 SEEN /hpf (0-5)
== END 2020-10-22 22:48 | disposition home or self-care (01) ==
LOC: ED 21:46
PROVIDERS: Emergency Provider Emergency Medicine; PCP Nurse Practitioner Family
DX: R10.2 Pelvic and perineal pain (principal); F41.9 Anxiety disorder, unspecified; F31.9 Bipolar disorder, unspecified; Z79.3 Long term (current) use of hormonal contraceptives
CPT/HCPCS: 81001; 81025; 87086; 99282

== ENCOUNTER 2021-05-03 00:19 | Emergency (ER) | payer OTHER, MEDICAID, SELFPAY ==
[2021-05-03 00:20] VITALS: BP 117/77; PULSE 97; RESP 18; TEMP 36.4; O2SAT 96; BMI 33.6
--- NOTE | 2021-05-03 00:44 | EDS_ITS ---
HPI History of Present Illness Chief Complaint: Other, Pain/Inj Informant: patient Narrative Narrative: Patient states she thinks she kicked scared herself after consulting Dr. Champion. She had nasal swab for Covid on Monday. She states her nose still kind of worrell. It worrell a little bit on both sides. She did start her symptoms with nasal congestion and runny nose. She has had a slight cough but is not dyspneic. She has no nausea vomiting diarrhea. She states overall she feels as though she is doing well. When she checked [employer], it stated that if she has a runny nose and think she has Covid she should go to the emergency department. She already knows she has Covid. [facility] Medical History Anxiety Bipolar 1 disorder PCOS (polycystic ovarian syndrome) Allergy/AdvReac Type Severity Reaction Status Date / Time latex Allergy Rash Verified 10/22/20 21:36 Family History Grandfather Skin cancer Grandmother Leukemia Father Hypertension Diabetes Social History current occupational status: unemployed Smoking Status: Never smoker alcohol intake: never substance use type: does not use caffeine: No what type of physical activity do you participate in: none seatbelt use: always do you feel safe at home: Yes additional social history: Bladimir Patient is a [facility] ED Constitutional Constitutional ED: Denies chills or fever(s) Eyes Eyes: Denies blurry vision ENT ENT ED: Reports rhinorrhea; Denies ear pain or sore throat Cardiovascular Cardiovascular: Denies chest pain Respiratory/Chest Respiratory/Chest: Reports cough; Denies dyspnea or sputum Gastrointestinal Gastrointestinal: Denies nausea or vomiting Musculoskeletal Musculoskeletal: Reports myalgias Integumentary Denies rash Neurologic Neurologic: Denies headache(s), paresthesias or weakness Psychiatric Psychiatric: Reports anxiety Endocrine Endocrinology: Denies polydipsia or polyuria Allergic/Immunologic Allergic/Immunologic ED: Denies mouth swelling, tongue swelling or urticaria EXAM Physical Exam Const Vital Signs: 05/03/21 00:20 Temperature 97.6 F L Temperature Source Oral Pulse Rate 97 Respiratory Rate 18 Blood Pressure 117/77 Blood Pressure Mean 90 Pulse Ox 96 Oxygen Delivery Method Room Air Positive well nourished and well developed General Appearance ED: well developed and NAD; Negative for cyanotic or diaphoretic HEENT Reports moist mucous membranes HEENT Narrative: Oropharynx is normal. Patient does have some inflamed turbinates on both sides. However, there is no purulent discharge. There is no abscess. No perforation. No bleeding. No sinus tenderness. Negative for trauma Eyes PERRL Neck no JVD Resp normal respiratory effort and clear to auscultation bilaterally Cardio regular rate GI normal to inspection, nondistended, normoactive bowel sounds and non-tender Palpation: soft Extremity normal to inspection Neuro Sensorium / Orientation: alert Psych mental status grossly normal MDM MDM MDM Narrative Medical decision making narrative: Patient has no sign of abscess in the nose. No indication of sinusitis. I think her nasal irritation is likely due to combination of having Covid and the swab. I do not think this requires special treatment. I do not see indication for antibiotics. We did discuss reasons to return and things to look for with her Covid. Discharge Plan Triage Chief Complaint: Other, Pain/Inj ED Provider: Kevin Aranda Dx/Rx/DC Orders Clinical Impression: Irritation of nose, COVID Instructions: Coronavirus Disease 2019 (COVID-19): Caring for Yourself or Others Primary Care Provider: Sariah Noble NP Referrals: Sariah Noble NP, REQUIREMENTS MANAGER-C [Primary Care Provider] - As Needed Disposition Disposition: Home, Self Care
== END 2021-05-03 00:55 | disposition home or self-care (01) ==
LOC: ED 00:53
PROVIDERS: Emergency Provider Emergency Medicine; PCP Nurse Practitioner Family
DX: U07.1 COVID-19 (principal); E11.9 Type 2 diabetes mellitus without complications; E28.2 Polycystic ovarian syndrome; F31.9 Bipolar disorder, unspecified; F41.9 Anxiety disorder, unspecified; Z56.0 Unemployment, unspecified; Z82.49 Family history of ischemic heart disease and other diseases of the circulatory system
CPT/HCPCS: 99282

== ENCOUNTER 2021-06-17 03:10 | Emergency (ER) | payer OTHER, MEDICAID, SELFPAY ==
[2021-06-17 03:10] VITALS: BP 122/77; PULSE 72; RESP 16; TEMP 36.6; O2SAT 98
[2021-06-17 03:12] VITALS: TEMP 36.6; BMI 34.1
--- NOTE | 2021-06-17 03:31 | RAD_ITS ---
STUDY: X-RAY CHEST REASON FOR EXAM: Female, 26 years old patient with cough. TECHNIQUE: PA and lateral views of the chest. COMPARISON: CT of the chest dated 10/19/2014. FINDINGS: Cardiac monitoring leads are present. There is vague groundglass attenuation at the left lung base that could represent airspace disease and pneumonia. There is diffuse interstitial thickening in both lungs. There is no demonstrated pleural abnormality. Normal size heart. Normal mediastinum and monica. Normal visualized pulmonary arteries. Normal visualized aortic arch and descending thoracic aorta. Normal visualized thoracic spine. Normal visualized ribs, clavicles, and shoulders. There is no demonstrated abnormality of the visualized soft tissue structures of the upper abdomen. RAD/Chest PA and Lateral IMPRESSION: Questionable left basilar airspace disease could represent pneumonia. Electronically Signed: Silvina Coles MD at 4:16 EST ,
--- NOTE | 2021-06-17 03:38 | EX.ED.DYSGE1 ---
HPI History of Present Illness Chief Complaint: General Illness Narrative Narrative: Patient is a 26-year-old female who states that on Monday she awoke with a sore throat and thought it occurred after she was arguing with her brother the night prior. She states this time past her throat became more sore and she noticed dots on the roof of her mouth and therefore went to urgent care who tested her for strep which was negative. She states this time continued to go by she noticed increased nasal congestion and cough. She states she was positive for Covid approximately 6 weeks ago. She does report multiple sick contacts at her work. She states she is having difficulty sleeping because of the cough and drainage and secondary to this comes in for evaluation. Otherwise she denies any history of smoking or vaping or need for supplemental oxygen or history of lung disorder. PFSH PFS Medical History Anxiety Bipolar 1 disorder PCOS (polycystic ovarian syndrome) Home Medications albuterol sulfate [Ventolin HFA] 1 - 2 puff INHALATION Q4H PRN PRN #1 device 06/17/21 [Rx Last Taken Unknown] doxycycline hyclate 100 mg PO BID 10 Days #20 cap 06/17/21 [Rx Last Taken Unknown] prednisone 40 mg PO DAILY 5 Days #10 tab 06/17/21 [Rx Last Taken Unknown] promethazine-codeine 5 ml PO Q6H PRN 7 Days #140 ml 06/17/21 [Rx Last Taken Unknown] Allergy/AdvReac Type Severity Reaction Status Date / Time latex Allergy Rash Verified 06/17/21 03:16 Family History Grandfather Skin cancer Grandmother Leukemia Father Hypertension Diabetes Social History current occupational status: unemployed Smoking Status: Never smoker alcohol intake: never substance use type: does not use caffeine: No what type of physical activity do you participate in: none seatbelt use: always do you feel safe at home: Yes additional social history: [id number]-Rmrd-Pur Patient is a [facility] ED Constitutional Constitutional ED: Denies chills or fever(s) ENT ENT ED: Reports rhinorrhea and sore throat Cardiovascular Cardiovascular: Reports chest pain Respiratory/Chest Respiratory/Chest: Reports cough, dyspnea and sputum Gastrointestinal Gastrointestinal: Denies abdominal pain, diarrhea, nausea or vomiting Genitourinary Genitourinary ED: Denies dysuria Musculoskeletal Musculoskeletal: Denies myalgias Integumentary Denies rash Neurologic Neurologic: Denies headache(s) Hematologic/Lymphatic Hematologic/Lymphatic: Denies easy bleeding or easy bruising EXAM Physical Exam Const Vital Signs: 06/17/21 03:10 06/17/21 03:12 Temperature 97.8 F 97.8 F Temperature Source Temporal Temporal Pulse Rate 72 Respiratory Rate 16 Respiratory Effort Normal Blood Pressure 122/77 H Blood Pressure Mean 92 Pulse Ox 98 Positive well nourished and well developed General Appearance ED: well developed HEENT Reports moist mucous membranes HEENT Narrative: Nasal mucosa is hyperemic and boggy with enlarged inferior nasal turbinates. Patient has hard palate petechiae noted but no exudates present or obvious abscess formation no trismus or difficulty with secretions. There is cobblestoning the posterior pharynx consistent with sinus drainage but no airway edema or compromise Eyes PERRL and EOMs intact bilaterally Neck supple Neck Narrative: Positive anterior cervical lymphadenopathy noted Resp normal respiratory effort and clear to auscultation bilaterally Cardio regular rate and regular rhythm Extremity normal to inspection Extremity Narrative: No asymmetric edema no pitting edema negative Homans' sign bilaterally Neuro oriented x3 and CN's II-XII intact bilaterally Sensorium / Orientation: alert Motor Exam: strength 5/5 throughout Psych mental status grossly normal Skin no rashes or lesions noted MDM MDM MDM Narrative Medical decision making narrative: Patient presented to the ER afebrile in no respiratory distress satting in the high 90s on room air. Her constellation of symptoms appear more viral in nature but with her report of cough and chest discomfort I did elect to perform a chest x-ray. I do not feel there is need for Covid swab at this time as patient is not hypoxic and she recently had the infection 4 to 6 weeks ago which would indicate she has not been reinfected at this time. The x-ray did question a left basilar pneumonia I feel that this is still most likely viral in nature but based on this report and her symptoms I will elect to start her on antibiotics. However as she is afebrile and normotensive and in no acute respiratory distress I do not feel there is need for further work-up and she can be discharged home. Radiography Diagnostic Testing: Clinical Impression(s) from Imaging Studies Chest X-Ray 06/17/21 03:31 IMPRESSION: Questionable left basilar airspace disease could represent pneumonia. Electronically Signed: Silvina Coles MD at 4:16 EST Reading Location ID and State: [facility] / [place] , Service support , Discharge Plan Triage Chief Complaint: General Illness ED Provider: [place] Dx/Rx/DC Orders Clinical Impression: Left lower lobe pneumonia Instructions: Treating Pneumonia, ED Pneumonia (Adult) Prescriptions: New doxycycline hyclate 100 mg capsule 100 mg PO BID 10 Days Qty: 20 RF: 0 prednisone 20 mg tablet 40 mg PO DAILY 5 Days Qty: 10 RF: 0 albuterol sulfate [Ventolin HFA] 90 mcg/actuation HFA aerosol inhaler 1 - 2 puff inhalation Q4H PRN PRN (Reason: Wheezing) Qty: 1 RF: 0 promethazine-codeine 6.25-10 mg/5 mL syrup 5 ml PO Q6H PRN (Reason: cough) 7 Days Qty: 140 RF: 0 Stand Alone Forms: ED Work / School Excuse Primary Care Provider: Sariah Noble NP Referrals: Sariah Noble NP, CONTINUOUS MINER OPERATOR HELPER-C [Primary Care Provider] - Disposition Disposition: Home, Self Care
[2021-06-17 04:45] VITALS: BP 108/58; PULSE 78; RESP 17; O2SAT 97
== END 2021-06-17 23:59 | disposition home or self-care (01) ==
PROVIDERS: Emergency Provider Emergency Medicine; PCP Nurse Practitioner Family; Visit Provider Emergency Medicine
DX: J18.9 Pneumonia, unspecified organism (principal); F31.9 Bipolar disorder, unspecified; Z56.0 Unemployment, unspecified; F41.9 Anxiety disorder, unspecified
CPT/HCPCS: 71046; 99282

== ENCOUNTER 2022-01-30 14:13 | Emergency (ER) | payer MEDICAID, SELFPAY ==
[2022-01-30 14:14] VITALS: BP 129/79; PULSE 57; RESP 16; TEMP 37.1; O2SAT 98; BMI 32.5
[2022-01-30] MEDS: Ketorolac 30 MG/ML Syringe IV (15:42)
[2022-01-30] MEDS: Ondansetron 4 MG/2 ML Vial IV (15:42)
--- NOTE | 2022-01-30 15:44 | CT_ITS ---
STUDY: CT Abdomen And Pelvis W/O Contrast Injection 01/30/2022 4:33 PM REASON FOR EXAM: Female, 27 years old. SHARP upper ABDOMINAL PAIN upper abd pain, R CVA tend TECHNIQUE: Transaxial images were obtained without oral contrast, and without intravenous contrast. Individualized dose optimization techniques were used for this CT. COMPARISON: 10/19/2014 FINDINGS: The visualized lung bases are unremarkable. The visualized portions of the heart are within normal limits. There is decreased attenuation of the liver consistent with steatosis. Unremarkable gallbladder and extrahepatic biliary system. Unremarkable spleen. Unremarkable pancreas. Unremarkable bilateral adrenal glands. No acute findings of the right kidney. No acute findings of the left kidney. Unremarkable visualized stomach. Unremarkable small intestine. Unremarkable colon. The appendix is visualized and appears unremarkable. There are no acute findings of the abdominal aorta. Unremarkable inferior vena cava. Subcentimeter mesenteric lymph nodes. Unremarkable urinary bladder. There is an umbilical hernia containing fat. Unremarkable osseous structures. CT/Abdomen/Pelvis without Cont IMPRESSION: (NOT LISTED IN ORDER OF SIGNIFICANCE) Fatty liver. Other findings as above. Electronically Signed: Agustin Sandhu MD at 16:35 EDT Reading Location ID and State: [facility] / [place] , Service support ,
--- NOTE | 2022-01-30 15:45 | EDS_ITS ---
HPI HPI - GI History of Present Illness Chief Complaint: Abd Pain Informant: patient Abdominal Pain/Flank Pain Onset: Yesterday Context: Gradual Onset Timing: Continuous Quality: Aching Location: Epigastric and RUQ (radiation to R flank) Current Severity: Severe Maximum Severity: Severe Worsened by: Nothing Relieved by: Nothing Nausea/Vomiting/Emesis GI Symptom: Positive for Nausea; Negative for Vomiting Diarrhea/Melena/Hematochezia GI Symptom: Negative for Diarrhea, Melena or Hematochezia Associated Symptoms Associated Symptoms: Negative for Dysuria, Frequency, Hematuria or Urgency Narrative Narrative: Patient with waves of nausea and mild abdominal discomfort but no real pain for the last week, last night her upper abdominal discomfort was dull, this morning more severe in the epigastrium and right upper quadrant. Does not usually have pain like this. She did not eat anything today because it was hurting. Very nauseated no vomiting. No fevers, jaundice, urinary symptoms. Pain does radiate into her right side some. No prior history of abdominal surgeries. [facility] Medical History Anxiety Bipolar 1 disorder PCOS (polycystic ovarian syndrome) Home Medications albuterol sulfate 90 mcg/actuation aerosol inhaler (Ventolin HFA) 1 - 2 puff inhalation Q4H PRN PRN Wheezing #1 device 06/17/21 [Rx Last Taken Unknown] doxycycline hyclate 100 mg capsule 100 mg PO BID 10 days #20 caps 06/17/21 [Rx Last Taken Unknown] prednisone 20 mg tablet 40 mg PO DAILY 5 days #10 tabs 06/17/21 [Rx Last Taken Unknown] promethazine 6.25 mg-codeine 10 mg/5 mL syrup 5 ml PO Q6H PRN cough 7 days #140 mL 06/17/21 [Rx Last Taken Unknown] medroxyprogesterone 10 mg tablet (Provera) 10 mg PO QDAY #5 tabs 11/12/21 [Rx Last Taken Unknown] ondansetron 4 mg disintegrating tablet 8 mg PO Q8H PRN PRN Nausea #15 tabs 01/30/22 [Rx Last Taken Unknown] pantoprazole 40 mg tablet,delayed release 40 mg PO DAILY #14 tabs 01/30/22 [Rx Last Taken Unknown] Allergy/AdvReac Type Severity Reaction Status Date / Time latex Allergy Rash Verified 01/30/22 14:16 Family History Grandfather Skin cancer Grandmother Leukemia Father Hypertension Diabetes Social History current occupational status: unemployed Smoking Status: Never smoker alcohol intake: never substance use type: does not use caffeine: No what type of physical activity do you participate in: none seatbelt use: always do you feel safe at home: Yes additional social history: Bladimir 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 is a SAHM ROS ROS ED Constitutional Constitutional ED: Denies chills or fever(s) Eyes Eyes: Denies change in vision or diplopia ENT ENT ED: Denies rhinorrhea or sore throat Cardiovascular Cardiovascular: Denies chest pain or palpitations Respiratory/Chest Respiratory/Chest: Denies cough or dyspnea Gastrointestinal Gastrointestinal: Reports abdominal pain and nausea; Denies diarrhea, melena or vomiting Genitourinary Genitourinary ED: Denies dysuria or hematuria Musculoskeletal Musculoskeletal: Reports back pain; Denies neck pain Integumentary Denies abscess or rash Neurologic Neurologic: Denies headache(s), paresthesias or weakness Psychiatric Psychiatric: Denies anxiety or suicidal thoughts EXAM Physical Exam Const Vital Signs: 01/30/22 14:14 Temperature 98.7 F Temperature Source Temporal Pulse Rate 57 L Respiratory Rate 16 Blood Pressure 129/79 H Blood Pressure Mean 95 Pulse Ox 98 Oxygen Delivery Method Room Air Positive well nourished, well developed and obese General Appearance ED: well developed and NAD Nutritional Appearance: obese HEENT Reports moist mucous membranes normocephalic and atraumatic Eyes PERRL and EOMs intact bilaterally Neck full ROM and supple Resp normal respiratory effort and clear to auscultation bilaterally Cardio regular rate, regular rhythm and no murmurs GI non-distended GI Narrative: tender epigastrium and RUQ, moderate, no guarding or rebound tend; otherwise, benign abd. Auscultation: normoactive bowel sounds Palpation: soft Back/Spine General Back: CVA tenderness right and other FROM Extremity normal to inspection General Extremety ED: Negative for edema, pulses abnormal or tenderness General Extremity: Negative for edema or pulses abnormal Neuro oriented x3, CN's II-XII intact bilaterally, no sensory deficits noted and gait normal Sensorium / Orientation: awake and alert Motor Exam: strength 5/5 throughout Skin no rashes or lesions noted and no wounds MDM MDM MDM Narrative Medical decision making narrative: Patient presents on Monday when radiology ultrasounds not available. Therefore I did a bedside ultrasound of the gallbladder, patient was a little tender there, does not cover wall 0.18 cm, both normal limits and there is no sign of pericholecystic fluid. Given that differential includes renal etiologies in addition to upper GI etiologies I sent the patient for CT, there were no stones or urinary obstruction. Patient was given Toradol and felt much better. I gave her a GI cocktail, will discharge her on a 2-week course of PPI, I also discussed with her the possibilities of biliary colic and a calculus cholecystitis, she will need advanced testing if she continues to have problems that do not resolve with simple upper GI treatments. She is comfortable with that plan and following up. Certainly no evidence of acute cholecystitis right now with a white blood count at 7.9 and no shift. Lab Data Attestation: I reviewed the patient's lab results. Labs: Laboratory Results - last 24 hr 01/30/22 01/30/22 01/30/22 15:30 15:30 15:53 WBC 7.9 RBC 5.12 Hgb 15.5 H Hct 45.9 MCV 89.6 MCH 30.3 MCHC 33.8 RDW Std Deviation 39.6 RDW Coeff of Beth 12.1 Plt Count 241 MPV 10.1 Immature Gran % (Auto) 0.300 Neut % (Auto) 57.5 Lymph % (Auto) 29.4 [place] % (Auto) 9.0 Eos % (Auto) 3.0 Baso % (Auto) 0.8 Absolute Neuts (auto) 4.5 Absolute Lymphs (auto) 2.31 Nucleated RBC % 0 Sodium 140 Potassium 4.1 Chloride 105 Carbon Dioxide 29.0 Anion Gap 6 BUN 11 Creatinine 0.92 Estim Creat Clear Calc 80.72 Est GFR (MDRD) Af Amer 96 Est GFR (MDRD) Non-Af 79 BUN/Creatinine Ratio 12.0 Glucose 98 Calcium 9.3 Total Bilirubin 0.80 AST 37 ALT 92 H Alkaline Phosphatase 70 Total Protein 7.8 Albumin 4.0 Globulin 3.8 Albumin/Globulin Ratio 1.1 Lipase 154 Urine Color Straw Urine Clarity Clear Urine pH 6.0 Ur Specific [place] 1.010 Urine Protein Negative Urine Glucose (UA) Normal Urine Ketones Negative Urine Occult Blood 250 H Urine Nitrite Negative Urine Bilirubin Negative Urine Urobilinogen Normal Ur Leukocyte Esterase Negative Urine RBC 5-10 SEEN Urine WBC 0 SEEN Ur Squamous Epith Cells 0-5 SEEN Urine Bacteria 1+ Urine Mucus 0 SEEN Radiography Diagnostic Testing: Clinical Impression(s) from Imaging Studies Abdomen/Pelvis CT 01/30/22 15:44 IMPRESSION: (NOT LISTED IN ORDER OF SIGNIFICANCE) Fatty liver. Other findings as above. Electronically Signed: Agustin Sandhu MD at 16:35 EDT , Discharge Plan Triage Chief Complaint: Abd Pain ED Provider: Cal Espitia Dx/Rx/DC Orders Clinical Impression: Acute upper abdominal pain, Acute right flank pain Instructions: ED Epigastric Pain Uncertain Cause Prescriptions: New ondansetron [ondansetron] 4 mg tablet,disintegrating 8 mg PO Q8H PRN PRN (Reason: Nausea) Qty: 15 0RF pantoprazole 40 mg tablet,delayed release (DR/EC) 40 mg PO DAILY Qty: 14 0RF No Action doxycycline hyclate 100 mg capsule 100 mg PO BID 10 Days Qty: 20 0RF prednisone 20 mg tablet 40 mg PO DAILY 5 Days Qty: 10 0RF albuterol sulfate [Ventolin HFA] 90 mcg/actuation HFA aerosol inhaler 1 - 2 puff inhalation Q4H PRN PRN (Reason: Wheezing) Qty: 1 0RF promethazine-codeine 6.25-10 mg/5 mL syrup 5 ml PO Q6H PRN (Reason: cough) 7 Days Qty: 140 0RF medroxyprogesterone [Provera] 10 mg tablet 10 mg PO QDAY Qty: 5 9RF Rx Instructions: take for five days if neg preg test and no menses after 35-40 days Primary Care Provider: Sariah Noble NP Referrals: Sariah Noble NP, [employer] [Primary Care Provider] - 3-5 Days if not improving Disposition Disposition: Home, Self Care
[2022-01-30 15:51] LABS: Absolute Lymphocyte Count 2.31 X10^3/uL (0.83-4.51); Absolute Neutrophil Count 4.5 X10^3/uL (2.0-7.7); Basophil# 0.06 X10^3/uL; Basophil% 0.8 % (0-1); Eosinophil# 0.24 X10^3/uL; Hematocrit 45.9 % (37-47); Hemoglobin 15.5 g/dL (12.0-15.0); Lymphocyte # 2.31 X10^3/ul (0.83-4.51); Lymphocyte % 29.4 % (19-41); Mean Corp Hgb Conc 33.8 g/dL (32-36); Mean Corpuscular Hgb 30.3 pg (27.0-32.0); Mean Corpuscular Volume 89.6 fL (81-99); Mean Platelet Vol. 10.1 fl (6.2-12.0); Monocyte# 0.71 X10^3/uL; NRBC Flagged by Analyzer 0 % (0-5); Neutrophil # 4.53 X10^3/uL (2.7-7.7); Neutrophil % 57.5 % (47-70); Platelet Count 241 K/mm3 (150-450); RBC Distribution Width CV 12.1 % (11.6-14.6); RBC Distribution Width SD 39.6 fl (35.1-43.9); Red Blood Count 5.12 M/mm3 (4.2-5.4); White Blood Count 7.9 K/mm3 (4.4-11.0)
[2022-01-30 16:00] LABS: Mucous, Urine 0 SEEN /hpf (<or=2+); White Blood Cells 0 SEEN /hpf (0-5)
[2022-01-30 16:05] LABS: Color, Urine Straw (Yellow); Glucose, Dipstick Normal (Normal); Ketone-Dipstick Negative (Negative); Leukocyte Esterase-Dipstick Negative /ul (Negative); Nitrite-Dipstick Negative (Negative); Occult Blood-Urine 250 /ul (Negative); Protein-Dipstick Negative (Negative); Urine Bilirubin Dipstick Negative (Negative); Urine Clarity Clear (Clear); Urine Urobilinogen Normal (Normal)
[2022-01-30 16:12] LABS: Bacteria 1+ /hpf (None Seen); Red Blood Cells-Urine 5-10 SEEN /hpf (0-5); Squamous Epithelial Cells - UA 0-5 SEEN /hpf (5-10)
[2022-01-30 16:14] LABS: ALB/GLOB Ratio 1.1 RATIO (0.9-2.4); AST(SGOT) 37 U/L (15-37); Alanine Aminotransfer ALT/SGPT 92 U/L (13-56); Alkaline Phosphatase 70 U/L (45-117); Anion Gap 6 (5-15); BUN 11 mg/dL (7-18); Calcium,Total 9.3 mg/dL (8.5-10.1); Chloride 105 mmol/L (98-107); Creatinine, Serum 0.92 mg/dL (0.55-1.02); EST Glomerular Filtration Rate 79 mL/min (>60); Est Glom Filt Rate - Afr Amer 96 mL/min (>60); Estimated Creatinine Clearance 80.72 ml/min; Globulin 3.8 g/dL (2.2-4.2); Glucose 98 mg/dL (74-106); Lipase 154 U/L (73-393); Potassium 4.1 mmol/L (3.5-5.1); Protein, Total 7.8 g/dL (6.4-8.2); Sodium Level 140 mmol/L (136-145)
[2022-01-30] MEDS: Mag Hydrox/Al Hydrox/Simeth 30 ML UDC PO (16:59)
[2022-01-30] MEDS: Pantoprazole Sodium 40 MG Tablet PO (17:24)
[2022-01-30 17:27] VITALS: BP 115/84; PULSE 52; RESP 16; O2SAT 98
== END 2022-01-30 17:30 | disposition home or self-care (01) ==
PROVIDERS: Emergency Provider Emergency Medicine; PCP Nurse Practitioner Family; Visit Provider Emergency Medicine
DX: R10.10 Upper abdominal pain, unspecified (principal); F31.9 Bipolar disorder, unspecified; R11.0 Nausea; F41.9 Anxiety disorder, unspecified; E28.2 Polycystic ovarian syndrome
CPT/HCPCS: 74176; 80053; 81001; 83690; 85025; 99283; A4216; J2405

== ENCOUNTER → 2022-02-26 | Outpatient (CLI) | payer MEDICAID, SELFPAY ==
--- NOTE | 2022-02-26 10:19 | US_ITS ---
STUDY: ULTRASOUND OF THE FEMALE PELVIS - COMPLETE REASON FOR EXAM: Female, 27 years old. left sided pelvic pain TECHNIQUE: Endovaginal. Transvaginal US was obtained to better visualized the ovaries. COMPARISON: 10/09/18 FINDINGS: The uterus is anteverted and is in a midline position. The uterus measures 7.7 x 5.6 cm. There is a Nabothian cyst of the cervix. The endometrium measures 4.6 mm in thickness, and is heterogeneous (striated). There is no demonstrated endometrial mass. There is no demonstrated myometrial mass. I.U.D. - The patient does not have an I.U.D. The right ovary is visualized. The right ovary measures 4.1 cm. There is no right ovarian cyst or ovarian mass. There is no visualized right adnexal mass or complex lesion. There is normal arterial and normal venous vascularity. The left ovary is visualized. The left ovary measures 4.3 cm. There is no left ovarian cyst or ovarian mass. There is no visualized left adnexal mass or complex lesion. There is normal arterial and normal venous vascularity. There is no fluid in the cul-de-sac. Urinary bladder volume is (in cc) 395. US/Transvaginal Non- IMPRESSION: There are Nabothian cysts of the cervix. Electronically Signed: Agustin Sandhu MD at 17:21 EDT ,
--- NOTE | 2022-02-26 10:19 | US_ITS ---
STUDY: ULTRASOUND OF THE FEMALE PELVIS - COMPLETE REASON FOR EXAM: Female, 27 years old. left sided pelvic pain TECHNIQUE: Endovaginal. Transvaginal US was obtained to better visualized the ovaries. COMPARISON: 10/09/18 FINDINGS: The uterus is anteverted and is in a midline position. The uterus measures 7.7 x 5.6 cm. There is a Nabothian cyst of the cervix. The endometrium measures 4.6 mm in thickness, and is heterogeneous (striated). There is no demonstrated endometrial mass. There is no demonstrated myometrial mass. I.U.D. - The patient does not have an I.U.D. The right ovary is visualized. The right ovary measures 4.1 cm. There is no right ovarian cyst or ovarian mass. There is no visualized right adnexal mass or complex lesion. There is normal arterial and normal venous vascularity. The left ovary is visualized. The left ovary measures 4.3 cm. There is no left ovarian cyst or ovarian mass. There is no visualized left adnexal mass or complex lesion. There is normal arterial and normal venous vascularity. There is no fluid in the cul-de-sac. Urinary bladder volume is (in cc) 395. US/Pelvic (Non ) IMPRESSION: There are Nabothian cysts of the cervix. Electronically Signed: Agustin Sadnhu MD at 17:21 EDT ,
[2022-02-26 13:31] LABS: Cholesterol 110 mg/dL (200); Estradiol 95.4 pg/mL; Follicle Stimulating Hormone 6.8 mIU/mL; High Density Lipoprotein 43 mg/dL; T4 Free Direct 1.08 ng/dL (0.76-1.46); Thyroid Stim Hormone (TSH) 1.02 uIU/mL (0.358-3.74); Triglycerides 45 mg/dL; Very Low Density Lipoprotein 9 mg/dL (5-40)
== END | disposition home or self-care (01) ==
PROVIDERS: Referring Provider Obstetrics & Gynecology; Visit Provider Obstetrics & Gynecology
DX: E28.2 Polycystic ovarian syndrome (principal); Z13.220 Encounter for screening for lipoid disorders; R10.2 Pelvic and perineal pain
CPT/HCPCS: 36415; 76830; 76856; 80061; 82627; 82670; 83001; 83002; 83036; 84439; 84443; 93976; 82626

== ENCOUNTER 2022-08-18 09:04 | Emergency (ER) | payer MEDICAID, SELFPAY ==
[2022-08-18 09:06] VITALS: BP 139/100; PULSE 69; RESP 16; TEMP 36.2; O2SAT 99; BMI 35.0
[2022-08-18 09:20] VITALS: BP 137/84; PULSE 63; RESP 13; O2SAT 98
--- NOTE | 2022-08-18 09:22 | RAD_ITS ---
STUDY: X-RAY CHEST REASON FOR EXAM: Female, 27 years old. Chest pain TECHNIQUE: Single AP portable view of the chest. COMPARISON: Comparison is made with prior study of June 17, 2021. FINDINGS: EKG electrodes are seen. The lungs are clear and expanded. There is no demonstrated pleural abnormality. Normal size heart. Normal mediastinum and monica. Normal visualized pulmonary arteries. Normal visualized aortic arch and descending thoracic aorta. Normal visualized thoracic spine. Normal visualized ribs, clavicles, and shoulders. There is no demonstrated abnormality of the visualized soft tissue structures of the upper abdomen. RAD/Chest 1 View (Portable) IMPRESSION: Normal x-ray examination of the chest. Electronically Signed: Sergo Easley MD at 10:17 EDT ,
[2022-08-18 09:23] VITALS: BP 122/83; BP 123/79; BP 124/81; PULSE 59; PULSE 67; PULSE 68
--- NOTE | 2022-08-18 09:23 | EDS_ITS ---
HPI History of Present Illness Chief Complaint: Palpitations Narrative Narrative: 27-year-old female presenting with lightheadedness. She states she feels like he is having having palpitations today. She does have a history of palpitations in the past but states has never been really this severe. She states that she had COVID a couple of years ago and after that she had some palpitation issues. She had an echocardiogram and follow-up. She was not found to have anything severe. Patient states has not been ill recently. She is been eating and drinking normally. She making normal urine and stool. Reports has a sister that has pots disease. She also states her some cardiac history in her family and her father has a pacemaker. Patient states he did have some dull chest pain when she had the episodes of palpitations which has resolved. She not had fever, chills, cough. She is not concerned for . [facility] Medical History Acute streptococcal pharyngitis Anxiety Bipolar 1 disorder Contact with and (suspected) exposure to other viral communicable diseases PCOS (polycystic ovarian syndrome) Home Medications medroxyprogesterone 10 mg tablet (Provera) 10 mg PO QDAY #5 tabs 11/12/21 [Rx Last Taken Unknown] ondansetron 4 mg disintegrating tablet 8 mg PO Q8H PRN PRN Nausea #15 tabs 01/30/22 [Rx Last Taken Unknown] omeprazole 40 mg capsule,delayed release 40 mg PO DAILY 06/20/22 [History Last Taken Unknown] Allergy/AdvReac Type Severity Reaction Status Date / Time latex Allergy Rash Verified 08/18/22 09:08 Family History Grandfather Skin cancer Grandmother Leukemia Father Hypertension Diabetes Social History current occupational status: unemployed Smoking Status: Never smoker alcohol intake: never substance use type: does not use caffeine: No what type of physical activity do you participate in: none seatbelt use: always do you feel safe at home: Yes additional social history: Bladimir Patient is a [facility] ROS ED Constitutional Constitutional ED: Denies chills or fever(s) Eyes Eyes: Denies change in vision or diplopia ENT ENT ED: Denies rhinorrhea or sore throat Cardiovascular Cardiovascular: Reports chest pain and palpitations Respiratory/Chest Respiratory/Chest: Denies cough or dyspnea Gastrointestinal Gastrointestinal: Denies abdominal pain, nausea or vomiting Genitourinary Genitourinary ED: Denies dysuria or hematuria Musculoskeletal Musculoskeletal: Denies arthralgias Integumentary Denies abscess Neurologic Neurologic: Denies headache(s) or paresthesias EXAM Physical Exam Const Vital Signs: 08/18/22 09:06 08/18/22 09:19 08/18/22 09:20 Temperature 97.1 F L Temperature Source Temporal Pulse Rate 69 63 Pulse Rate [Lying] Pulse Rate [Sitting (for 1 minute prior to obtaining)] Pulse Rate [Standing (for 1 minute prior to obtaining)] Respiratory Rate 16 13 Respiratory Effort Normal Non-Labored Blood Pressure 139/100 H 137/84 H Blood Pressure [Lying] Blood Pressure [Sitting (for 1 minute prior to obtaining)] Blood Pressure [Standing (for 1 minute prior to obtaining)] Blood Pressure Mean 113 101 Blood Pressure Mean [Lying] Blood Pressure Mean [Sitting (for 1 minute prior to obtaining)] Blood Pressure Mean [Standing (for 1 minute prior to obtaining)] Pulse Ox 99 98 Oxygen Delivery Method Room Air Room Air 08/18/22 09:23 08/18/22 09:28 Temperature Temperature Source Pulse Rate Pulse Rate [Lying] 68 Pulse Rate [Sitting (for 1 minute prior to obtaining)] 59 L Pulse Rate [Standing (for 1 minute prior to obtaining)] 67 Respiratory Rate Respiratory Effort Blood Pressure Blood Pressure [Lying] 124/81 H Blood Pressure [Sitting (for 1 minute prior to obtaining)] 123/79 H Blood Pressure [Standing (for 1 minute prior to obtaining)] 122/83 H Blood Pressure Mean Blood Pressure Mean [Lying] 95 Blood Pressure Mean [Sitting (for 1 minute prior to obtaining)] 93 Blood Pressure Mean [Standing (for 1 minute prior to obtaining)] 96 Pulse Ox 97 Oxygen Delivery Method Room Air Positive well nourished General Appearance ED: NAD HEENT Reports moist mucous membranes Eyes PERRL and EOMs intact bilaterally General Eye ED: Negative for pale conjunctiva Resp normal respiratory effort and clear to auscultation bilaterally Auscultation: Negative for rales, rhonchi or wheezes Cardio regular rate and regular rhythm Extremity General Extremety ED: Negative for edema General Extremity: Negative for edema Neuro oriented x3 and CN's II-XII intact bilaterally Sensorium / Orientation: alert Psych mental status grossly normal Skin no rashes or lesions noted and no wounds MDM MDM MDM Narrative Medical decision making narrative: 27-year-old female presenting with palpitations, and states that she did have some slight chest pressure when these were occurring. She also states he felt lightheaded. Patient has history of this in the past but distantly. She has not had anything this severe recently. Orthostatics will be obtained. CBC was with white blood cell count, hemoglobin and platelet, differential. BMP to assess renal function, electrolytes, glucose, anion gap. TSH will be obtained as well. High-sensitivity troponin because she is complaining of just dull chest pressure. EKG and chest x-ray will be obtained as part of cardiac work-up as well. EKG on my interpretation shows a normal sinus rhythm with a ventricular rate of 59 bpm without sign of ischemic change. CBC shows a normal white blood cell count. Hemoglobin hematocrit are stable. Platelets normal. Renal function and electrolytes unremarkable. TSH within normal limits at 2.21. High-sensitivity troponin less than 3. Chest x-ray my interpretation shows no acute cardiopulmonary process. Radiologist are persistent agrees. Orthostatic vital signs are negative. I discussed all findings with the patient. She states she will follow-up with cardiology again. We did discuss a Holter monitor possibly as well. Return precautions discussed. Impression: 1. Lightheadedness 2. Palpitations 3. Chest pain?Noncon Lab Data Labs: Laboratory Results - last 24 hr 08/18/22 08/18/22 10:00 10:00 WBC 7.3 RBC 5.01 Hgb 14.7 Hct 44.4 MCV 88.6 MCH 29.3 MCHC 33.1 RDW Std Deviation 39.5 RDW Coeff of Beth 12.2 Plt Count 225 MPV 10.5 Immature Gran % (Auto) 0.300 Neut % (Auto) 53.7 Lymph % (Auto) 31.1 [place] % (Auto) 9.1 Eos % (Auto) 4.8 Baso % (Auto) 1.0 Absolute Neuts (auto) 3.9 Absolute Lymphs (auto) 2.26 Nucleated RBC % 0 Sodium 138 Potassium 3.9 Chloride 106 Carbon Dioxide 28.0 Anion Gap 4 L BUN 10 Creatinine 0.82 Estim Creat Clear Calc 90.56 Est GFR (MDRD) Af Amer 108 Est GFR (MDRD) Non-Af 90 BUN/Creatinine Ratio 12.2 Glucose 105 Calcium 9.4 Troponin I High Sens < 3 L TSH 2.21 Radiography Diagnostic Testing: Clinical Impression(s) from Imaging Studies Chest X-Ray 08/18/22 09:22 IMPRESSION: Normal x-ray examination of the chest. Electronically Signed: Sergo Easley MD at 10:17 EDT , Discharge Plan Triage Chief Complaint: Palpitations ED Provider: Seferino Newton Dx/Rx/DC Orders Instructions: ED Dizziness, Uncertain Cause, ED Palpitations Prescriptions: No Action omeprazole 40 mg capsule,delayed release(DR/EC) 40 mg PO DAILY Label Comments: TAKE 1 CAPSULE BY MOUTH ONCE DAILY ondansetron [ondansetron] 4 mg tablet,disintegrating 8 mg PO Q8H PRN PRN (Reason: Nausea) Qty: 15 0RF medroxyprogesterone [Provera] 10 mg tablet 10 mg PO QDAY Qty: 5 9RF Rx Instructions: take for five days if neg preg test and no menses after 35-40 days Primary Care Provider: Micheal Herzog Referrals: Micheal Herzog MD [Primary Care Provider] - Disposition Disposition: Home, Self Care
[2022-08-18 09:28] VITALS: O2SAT 97
[2022-08-18 10:18] LABS: Absolute Lymphocyte Count 2.26 X10^3/uL (0.83-4.51); Absolute Neutrophil Count 3.9 X10^3/uL (2.0-7.7); Basophil# 0.07 X10^3/uL; Eosinophil# 0.35 X10^3/uL; Eosinophils% 4.8 % (0-5); Hematocrit 44.4 % (37-47); Hemoglobin 14.7 g/dL (12.0-15.0); Lymphocyte # 2.26 X10^3/ul (0.83-4.51); Lymphocyte % 31.1 % (19-41); Mean Corp Hgb Conc 33.1 g/dL (32-36); Mean Corpuscular Hgb 29.3 pg (27.0-32.0); Mean Corpuscular Volume 88.6 fL (81-99); Mean Platelet Vol. 10.5 fl (6.2-12.0); Monocyte# 0.66 X10^3/uL; Monocyte% 9.1 % (0-10); NRBC Flagged by Analyzer 0 % (0-5); Neutrophil % 53.7 % (47-70); Platelet Count 225 K/mm3 (150-450); RBC Distribution Width CV 12.2 % (11.6-14.6); RBC Distribution Width SD 39.5 fl (35.1-43.9); Red Blood Count 5.01 M/mm3 (4.2-5.4); White Blood Count 7.3 K/mm3 (4.4-11.0)
[2022-08-18 10:43] LABS: Anion Gap 4 (5-15); BUN 10 mg/dL (7-18); BUN/Creat Ratio 12.2 RATIO (10-20); Calcium,Total 9.4 mg/dL (8.5-10.1); Chloride 106 mmol/L (98-107); Creatinine, Serum 0.82 mg/dL (0.55-1.02); EST Glomerular Filtration Rate 90 mL/min (>60); Est Glom Filt Rate - Afr Amer 108 mL/min (>60); Estimated Creatinine Clearance 90.56 ml/min; Glucose 105 mg/dL (74-106); Potassium 3.9 mmol/L (3.5-5.1); Sodium Level 138 mmol/L (136-145); Thyroid Stim Hormone (TSH) 2.21 uIU/mL (0.358-3.74); Troponin-I HS < 3 pg/mL (3.0-54.0)
[2022-08-18 10:59] VITALS: BP 110/79; PULSE 53; RESP 17; O2SAT 98
== END 2022-08-18 11:02 | disposition home or self-care (01) ==
PROVIDERS: Emergency Provider Student in an Organized Health Care Education/Training Program; PCP Family Medicine; Referring Provider Student in an Organized Health Care Education/Training Program; Visit Provider Student in an Organized Health Care Education/Training Program
DX: R42 Dizziness and giddiness (principal); F31.9 Bipolar disorder, unspecified; R00.2 Palpitations; R07.9 Chest pain, unspecified; F41.9 Anxiety disorder, unspecified; E28.2 Polycystic ovarian syndrome; Z86.16 Personal history of COVID-19
CPT/HCPCS: 71045; 80048; 84443; 84484; 85025; 93005; 99285

== ENCOUNTER 2022-10-22 07:12 | Emergency (ER) | payer MEDICAID, SELFPAY ==
[2022-10-22 07:14] VITALS: BP 138/88; PULSE 78; RESP 14; TEMP 36.6; O2SAT 99
[2022-10-22 07:15] VITALS: BP 138/88; PULSE 88; RESP 14; TEMP 36.6; O2SAT 100
--- NOTE | 2022-10-22 07:22 | ED.VIS.FEGU ---
HPI HPI - Female History of Present Illness Chief Complaint: Complaint Detail of Chief Complaint: Dysuria, frequency, urgency Informant: patient Narrative Narrative: Patient presents with symptoms of possible urinary tract infection. Patient states that she has had similar symptoms in the past especially when she was younger. She complains of frequency and urgency. She had some dysuria. Patient denies back pain. She denies vomiting. She denies fever. Patient's last menstrual period was in August and is not that unusual for her as she has history of PCOS. Prior similar symptoms: Yes PFSH PFSH Medical History Acute streptococcal pharyngitis Anxiety Bipolar 1 disorder Contact with and (suspected) exposure to other viral communicable diseases PCOS (polycystic ovarian syndrome) Home Medications medroxyprogesterone 10 mg tablet (Provera) 10 mg PO QDAY #5 tabs 11/12/21 [Rx Last Taken Unknown] ondansetron 4 mg disintegrating tablet 8 mg PO Q8H PRN PRN Nausea #15 tabs 01/30/22 [Rx Last Taken Unknown] omeprazole 40 mg capsule,delayed release 40 mg PO DAILY 06/20/22 [History Last Taken Unknown] oxcarbazepine 300 mg tablet (Trileptal) 300 mg PO BID 08/30/22 [History Last Taken Unknown] phenazopyridine 200 mg tablet (Pyridium) 200 mg PO TID #10 tabs 10/22/22 [Rx Last Taken Unknown] sulfamethoxazole 800 mg-trimethoprim 160 mg tablet 1 tab PO BID #6 TABLETS 10/22/22 [Rx Last Taken Unknown] Allergy/AdvReac Type Severity Reaction Status Date / Time latex Allergy Rash Verified 10/22/22 07:14 Family History Grandfather Skin cancer Grandmother Leukemia Father Hypertension Diabetes Social History (Updated 08/30/22 @ 10:32 by Baislio Rodriguez) current occupational status: employed current occupation: [employer] Smoking Status: Never smoker alcohol intake: never substance use type: does not use caffeine: No what type of physical activity do you participate in: none seatbelt use: always do you feel safe at home: Yes additional social history: Bladimir Patient is a SAHM ROS ROS ED Review of Systems ROS Unobtainable: other Constitutional Constitutional ED: Reports lethargy; Denies chills, fever(s), sweats or weight loss Eyes Eyes: Denies blurry vision, change in vision or diplopia ENT ENT ED: Denies rhinorrhea or sore throat Cardiovascular Cardiovascular: Denies chest pain, orthopnea or racing heartbeat Respiratory/Chest Respiratory/Chest: Denies cough, dyspnea, dyspnea on exertion, orthopnea or sputum Gastrointestinal Gastrointestinal: Reports abdominal pain; Denies diarrhea, nausea or vomiting Genitourinary Genitourinary ED: Reports dysuria and urinary frequency; Denies hematuria Musculoskeletal Musculoskeletal: Denies arthralgias, back pain, myalgias or neck pain Integumentary Denies abscess, Abrasions or rash Neurologic Neurologic: Denies headache(s) or weakness Psychiatric Psychiatric: Denies anxiety, depression or suicidal thoughts Endocrine Endocrinology: Denies polydipsia, polyphagia or polyuria Hematologic/Lymphatic Hematologic/Lymphatic: Denies easy bleeding, easy bruising or lymphadenopathy Allergic/Immunologic Allergic/Immunologic ED: Denies mouth swelling, tongue swelling or urticaria EXAM Physical Exam Const Vital Signs: 10/22/22 07:14 10/22/22 07:15 Temperature 97.9 F 97.9 F Temperature Source Temporal Temporal Pulse Rate 78 88 Respiratory Rate 14 14 Blood Pressure 138/88 H 138/88 H Blood Pressure Mean 104 104 Pulse Ox 99 100 Oxygen Delivery Method Room Air Room Air Positive well nourished and well developed General Appearance ED: well developed and NAD HEENT Reports TM's clear and moist mucous membranes normocephalic and atraumatic; Negative for trauma or tenderness Tympanic Membrane ED: Yes TM's clear Eyes PERRL and EOMs intact bilaterally General Eye ED: Negative for pale conjunctiva or scleral icterus Neck no lymphadenopathy, supple and no JVD General: Negative for tenderness Chest Wall inspection of chest normal and palpation of chest normal Chest: Negative for tenderness Resp normal respiratory effort and clear to auscultation bilaterally Effort and Inspection: Negative for respiratory distress or pain with movement Auscultation: Negative for rhonchi, wheezes or diminished lung sounds Cardio regular rate, regular rhythm, S1 normal heart sound, S2 normal heart sound and no murmurs Peripheral Pulses: pulses 2+ throughout GI normal to inspection, nondistended, normoactive bowel sounds, soft to palpation, non-tender, non-distended and no masses Back/Spine no CVA tenderness and no thoracic nor lumbar tenderness Extremity normal to inspection General Extremety ED: Negative for edema General Extremity: Negative for edema Neuro oriented x3, CN's II-XII intact bilaterally, no sensory deficits noted and gait normal Sensorium / Orientation: awake, alert, oriented to person, oriented to place and oriented to time Motor Exam: strength 5/5 throughout and strength abnormal Psych mental status grossly normal Skin no rashes or lesions noted and no wounds MDM MDM MDM Narrative Medical decision making narrative: Patient with dysuria and urgency and frequency. Symptoms concerning for UTI. Initially she had a urinalysis that was relatively unremarkable she did have +1 bacteria and 0-5 WBCs and only 25 leukocyte Estrace but was negative for nitrites. Urine hCG was negative. Because of the urine not being very significant we entertain possibility of kidney stone or diverticulitis as the cause of symptoms therefore CT scan of the abdomen pelvis without contrast was obtained and this was essentially unremarkable. At this point I did send off a urine culture. We will start patient on Bactrim for 3 days and some Pyridium and advised to follow-up with her primary care physician within next 3 to 5 days. Patient advised to push fluids. Advised to return if fever, severe back pain, vomiting, or condition should worsen anyway. Lab Data Labs: Laboratory Results - last 24 hr 10/22/22 07:25 Urine Color Yellow Urine Clarity Clear Urine pH 6.0 Ur Specific [place] 1.010 Urine Protein Negative Urine Glucose (UA) Normal Urine Ketones Negative Urine Occult Blood 10 H Urine Nitrite Negative Urine Bilirubin Negative Urine Urobilinogen Normal Ur Leukocyte Esterase 25 H Urine RBC 0 SEEN Urine WBC 0-5 SEEN Ur Squamous Epith Cells 0-5 SEEN Urine Bacteria 1+ Urine Mucus 0 SEEN Urine Test Negative Radiography Diagnostic Testing: Clinical Impression(s) from Imaging Studies Abdomen/Pelvis CT 10/22/22 08:22 IMPRESSION: 1. No acute abnormality. 2. No renal or ureteral stone. 3. Fatty infiltration of the liver. 4. Midgut malrotation. 5. Tiny umbilical hernia containing fat. Electronically Signed: Fermín Alvarez MD at 9:06 EDT , Discharge Plan Triage Chief Complaint: Complaint ED Provider: Kevin Douglas Dx/Rx/DC Orders Clinical Impression: Dysuria Instructions: ED Dysuria, Uncertain Cause (Adult) Prescriptions: New phenazopyridine [Pyridium] 200 mg tablet 200 mg PO TID Qty: 10 0RF sulfamethoxazole-trimethoprim [sulfamethoxazole-trimethoprim] 800-160 mg tablet 1 tab PO BID Qty: 6 0RF No Action omeprazole 40 mg capsule,delayed release(DR/EC) 40 mg PO DAILY Label Comments: TAKE 1 CAPSULE BY MOUTH ONCE DAILY oxcarbazepine [Trileptal] 300 mg tablet 300 mg PO BID ondansetron [ondansetron] 4 mg tablet,disintegrating 8 mg PO Q8H PRN PRN (Reason: Nausea) Qty: 15 0RF medroxyprogesterone [Provera] 10 mg tablet 10 mg PO QDAY Qty: 5 9RF Rx Instructions: take for five days if neg preg test and no menses after 35-40 days Primary Care Provider: Micheal Herzog Referrals: Micheal Herzog MD [Primary Care Provider] - 3-5 Days Disposition Disposition: Home, Self Care
[2022-10-22 07:47] LABS: Mucous, Urine 0 SEEN /hpf (<or=2+); Red Blood Cells-Urine 0 SEEN /hpf (0-5)
[2022-10-22 07:51] LABS: Color, Urine Yellow (Yellow); Glucose, Dipstick Normal (Normal); Ketone-Dipstick Negative (Negative); Leukocyte Esterase-Dipstick 25 /ul (Negative); Nitrite-Dipstick Negative (Negative); Occult Blood-Urine 10 /ul (Negative); Protein-Dipstick Negative (Negative); Urine Bilirubin Dipstick Negative (Negative); Urine Clarity Clear (Clear); Urine Urobilinogen Normal (Normal)
[2022-10-22 08:18] LABS: Bacteria 1+ /hpf (None Seen); White Blood Cells 0-5 SEEN /hpf (0-5)
[2022-10-22 08:19] LABS: Internal QC Validated? YES +Cl - CLEAR BKGD; Pregnancy, Urine Negative Negative; Squamous Epithelial Cells - UA 0-5 SEEN /hpf (5-10)
--- NOTE | 2022-10-22 08:22 | CT_ITS ---
STUDY: CT ABDOMEN AND PELVIS WITHOUT CONTRAST REASON FOR EXAM: Female, 27 years old. abdominal pain RADIATION DOSAGE (If Supplied By Facility): CTDIvol = ( 18.94 ) mGy, DLP = ( 1045.76 ) mGycm TECHNIQUE: Transaxial images were obtained from the dome of the diaphragm to the symphysis pubis without oral contrast, and without intravenous contrast. Sagittal and coronal images were reconstructed. Individualized dose optimization techniques were used for this CT. COMPARISON: 01/30/2022 FINDINGS: The visualized lung bases are unremarkable. The visualized portions of the heart are within normal limits. There is decreased attenuation of the liver consistent with steatosis. Normal gallbladder and extrahepatic biliary system. Normal spleen. Normal pancreas. Normal bilateral adrenal glands. Normal right kidney. Normal left kidney. Normal visualized stomach. Midgut malrotation without obstruction. Normal colon. The appendix is visualized and appears normal. Normal abdominal aorta. Normal inferior vena cava. Normal retroperitoneum. Normal urinary bladder. There is a small umbilical hernia containing fat. Normal osseous structures. CT/Abdomen/Pelvis without Cont IMPRESSION: 1. No acute abnormality. 2. No renal or ureteral stone. 3. Fatty infiltration of the liver. 4. Midgut malrotation. 5. Tiny umbilical hernia containing fat. Electronically Signed: Fermín Alvarez MD at 9:06 EDT ,
[2022-10-22] MEDS: Smz/Tmp Ds Tablet 1 TABLET PO (09:21)
[2022-10-22] MEDS: Phenazopyridine 95 MG Tablet 190 MG PO (09:21)
== END 2022-10-22 09:25 | disposition home or self-care (01) ==
PROVIDERS: Emergency Provider Emergency Medicine; PCP Family Medicine; Visit Provider Emergency Medicine
DX: R30.0 Dysuria (principal); E28.2 Polycystic ovarian syndrome; Z79.899 Other long term (current) drug therapy
CPT/HCPCS: 74176; 81001; 81025; 87077; 87086; 87088; 87186; 99283

== ENCOUNTER 2023-01-19 03:14 | Emergency (ER) | payer MEDICAID, SELFPAY ==
[2023-01-19 03:16] VITALS: BP 123/79; PULSE 80; RESP 15; TEMP 36.7; O2SAT 97; BMI 37.9
--- NOTE | 2023-01-19 03:26 | CT_ITS ---
INDICATION: left flank pain EXAMINATION: CT Abdomen And Pelvis W/O Contrast Injection TECHNIQUE: Helically acquired images were obtained of the abdomen and pelvis with sagittal and coronal reconstructed images. Individualized dose optimization techniques were used for this CT. IV contrast dosage and agent: None. Oral contrast: None. COMPARISON: 10/22/2022 CT. FINDINGS: VESSELS: No abdominal aortic aneurysm. LIVER: No intrahepatic or extrahepatic biliary duct dilation. GALLBLADDER: No calcified stones. No evidence of cholecystitis. PANCREAS: No focal solid or cystic mass. No evidence of pancreatitis. SPLEEN: Normal. ADRENAL GLANDS: Normal. KIDNEYS AND URETERS: No urinary tract stone. No hydronephrosis or hydroureter. No significant asymmetric perinephric stranding. URINARY BLADDER: Unremarkable. BOWEL: The duodenal jejunal junction is right of midline consistent with congenital midgut malrotation with no acute associated findings. No evidence of diverticulosis or diverticulitis. Appendix appears normal. No evidence of bowel obstruction. REPRODUCTIVE ORGANS: Unremarkable. PERITONEUM: No intraabdominal free fluid or free air. LYMPH NODES: No pathologically enlarged mesenteric or retroperitoneal lymph nodes. ABDOMINAL WALL: No abdominal or pelvic wall hernia. BONES: No acute abnormality. LOWER CHEST: Visualized lung bases are unremarkable. CT/Abdomen/Pelvis without Cont IMPRESSION: 1. No acute abnormality. 2. No urinary tract stone or obstruction. Electronically Signed: Jose Merlos DO at 4:30 EDT ,
--- NOTE | 2023-01-19 03:27 | EX.ED.DYSGE1 ---
HPI History of Present Illness Chief Complaint: Flank Pain Detail of Chief Complaint: Left flank pain Informant: patient Onset/Context/Timing Current Severity: 12/22 Narrative Narrative: Patient presents with left flank pain that started initially yesterday but became worse today. Patient rates her pain a 7 or 8 out of 10. Pain worse with activity. She denies urinary symptoms. She is never had pain like this before. She denies any injury from lifting or otherwise. Pain not pleuritic. She denies recent travel or surgery. No history of PE or DVT. [facility] Medical History Acute streptococcal pharyngitis Anxiety Bipolar 1 disorder Contact with and (suspected) exposure to other viral communicable diseases PCOS (polycystic ovarian syndrome) Home Medications medroxyprogesterone 10 mg tablet (Provera) 10 mg PO QDAY #5 tabs 11/12/21 [Rx Last Taken Unknown] omeprazole 40 mg capsule,delayed release 40 mg PO DAILY 06/20/22 [History Last Taken Unknown] oxcarbazepine 300 mg tablet (Trileptal) 300 mg PO BID 08/30/22 [History Last Taken Unknown] drospirenone (contraceptive) 4 mg (28) tablet 4 mg PO DAILY 24 days #24 tabs 12/27/22 [Rx Last Taken Unknown] Allergy/AdvReac Type Severity Reaction Status Date / Time latex Allergy Rash Verified 01/19/23 03:21 Family History Grandfather Skin cancer Grandmother Leukemia Father Hypertension Diabetes Social History (Updated 08/30/22 @ 10:32 by Basilio Rodriguez) current occupational status: employed current occupation: [employer] Smoking Status: Never smoker alcohol intake: never substance use type: does not use caffeine: No what type of physical activity do you participate in: none seatbelt use: always do you feel safe at home: Yes additional social history: Bladimir Patient is a SAHM ROS ROS ED Review of Systems ROS Unobtainable: other Constitutional Constitutional ED: Reports lethargy; Denies chills, fever(s), sweats or weight loss Eyes Eyes: Denies blurry vision, change in vision or diplopia ENT ENT ED: Denies rhinorrhea or sore throat Cardiovascular Cardiovascular: Denies chest pain, orthopnea or racing heartbeat Respiratory/Chest Respiratory/Chest: Denies cough, dyspnea, dyspnea on exertion, orthopnea or sputum Gastrointestinal Gastrointestinal: Denies abdominal pain, diarrhea, nausea or vomiting Genitourinary Genitourinary ED: Denies dysuria, hematuria or urinary frequency Musculoskeletal Musculoskeletal: Reports back pain; Denies arthralgias, myalgias or neck pain Integumentary Denies abscess, Abrasions or rash Neurologic Neurologic: Denies headache(s) or weakness Psychiatric Psychiatric: Denies anxiety, depression or suicidal thoughts Endocrine Endocrinology: Denies polydipsia, polyphagia or polyuria Hematologic/Lymphatic Hematologic/Lymphatic: Denies easy bleeding, easy bruising or lymphadenopathy Allergic/Immunologic Allergic/Immunologic ED: Denies mouth swelling, tongue swelling or urticaria EXAM Physical Exam Const Vital Signs: 01/19/23 03:16 01/19/23 05:30 Temperature 98.1 F Temperature Source Temporal Pulse Rate 80 71 Respiratory Rate 15 16 Blood Pressure 123/79 H 112/79 Blood Pressure Mean 93 Pulse Ox 97 95 Oxygen Delivery Method Room Air Positive well nourished and well developed General Appearance ED: well developed and NAD HEENT Reports TM's clear and moist mucous membranes normocephalic and atraumatic; Negative for trauma or tenderness Tympanic Membrane ED: Yes TM's clear Eyes PERRL and EOMs intact bilaterally General Eye ED: Negative for pale conjunctiva or scleral icterus Neck no lymphadenopathy, supple and no JVD General: Negative for tenderness Chest Wall inspection of chest normal and palpation of chest normal Chest: Negative for tenderness Resp normal respiratory effort and clear to auscultation bilaterally Effort and Inspection: Negative for respiratory distress or pain with movement Auscultation: Negative for rhonchi, wheezes or diminished lung sounds Cardio regular rate, regular rhythm, S1 normal heart sound, S2 normal heart sound and no murmurs Peripheral Pulses: pulses 2+ throughout GI normal to inspection, nondistended, normoactive bowel sounds, soft to palpation, non-tender, non-distended and no masses Back/Spine Back/Spine Narrative: Mild CVA tenderness on the left. Patient also with tenderness over the left lumbar and lower thoracic paraspinal musculature that seems to reproduce her pain somewhat. Negative straight leg raises. Deep tendon reflexes plus 2 out of 4 bilaterally at the patella and Achilles. Normal L5 extension Extremity normal to inspection General Extremety ED: Negative for edema General Extremity: Negative for edema Neuro oriented x3, CN's II-XII intact bilaterally, no sensory deficits noted and gait normal Sensorium / Orientation: awake, alert, oriented to person, oriented to place and oriented to time Motor Exam: strength 5/5 throughout and strength abnormal Psych mental status grossly normal Skin no rashes or lesions noted and no wounds MDM MDM MDM Narrative Medical decision making narrative: Patient presents with left back/flank pain that started yesterday. No injury or trauma recalled. In the differential would be kidney stone versus muscle pain versus potentially PE. IV line was established. She was medicated with Toradol and she had some mild relief with that. CBC with differential obtained was normal. Chemistries were normal. D-dimer is less than 0.27. Urinalysis was normal. At this point patient does not anything more for pain. I will discharge her to home. I suspect this pain may be musculoskeletal. Patient advised to follow-up with her primary care physician within next 3 to 5 days Lab Data Labs: Laboratory Results - last 24 hr 01/19/23 01/19/23 03:47 04:17 WBC 9.1 RBC 5.15 Hgb 14.9 Hct 46.2 MCV 89.7 MCH 28.9 MCHC 32.3 RDW Std Deviation 39.8 RDW Coeff of Beth 12.1 Plt Count 260 MPV 10.5 Immature Gran % (Auto) 0.200 Neut % (Auto) 45.5 L Lymph % (Auto) 40.6 Tillman % (Auto) 8.3 Eos % (Auto) 4.4 Baso % (Auto) 1.0 Absolute Neuts (auto) 4.1 Absolute Lymphs (auto) 3.69 Nucleated RBC % 0 D-Dimer Quant (PE/DVT) < 0.27 L Sodium 140 Potassium 3.3 L Chloride 106 Carbon Dioxide 28.0 Anion Gap 6 BUN 15 Creatinine 1.09 H Estim Creat Clear Calc 64.70 Est GFR (MDRD) Af Amer 78 Est GFR (MDRD) Non-Af 65 BUN/Creatinine Ratio 13.8 Glucose 112 H Calcium 8.9 Urine Color Yellow Urine Clarity Clear Urine pH 6.0 Ur Specific [place] 1.020 Urine Protein 15 H Urine Glucose (UA) Normal Urine Ketones Negative Urine Occult Blood 25 H Urine Nitrite Negative Urine Bilirubin Negative Urine Urobilinogen Normal Ur Leukocyte Esterase 100 H Urine RBC 0-5 SEEN Urine WBC 0-5 SEEN Ur Squamous Epith Cells 0-5 SEEN Urine Bacteria 2+ Urine Mucus 1+ Radiography Diagnostic Testing: Clinical Impression(s) from Imaging Studies Abdomen/Pelvis CT 01/19/23 03:26 IMPRESSION: 1. No acute abnormality. 2. No urinary tract stone or obstruction. Electronically Signed: Jose Merlos DO at 4:30 EDT , Discharge Plan Triage Chief Complaint: Flank Pain ED Provider: Kevin Douglas Dx/Rx/DC Orders Clinical Impression: Back pain Instructions: ED Back Pain (Acute or Chronic), ED Flank Pain, Uncertain Cause Prescriptions: No Action omeprazole 40 mg capsule,delayed release(DR/EC) 40 mg PO DAILY Patient Comments: TAKE 1 CAPSULE BY MOUTH ONCE DAILY oxcarbazepine [Trileptal] 300 mg tablet 300 mg PO BID drospirenone (contraceptive) 4 mg (28) tablet 4 mg PO DAILY 24 Days Qty: 24 12RF medroxyprogesterone [Provera] 10 mg tablet 10 mg PO QDAY Qty: 5 9RF Rx Instructions: take for five days if neg preg test and no menses after 35-40 days Primary Care Provider: Micheal Herzog Referrals: Micheal Herzog MD [Primary Care Provider] - 3-5 Days Disposition Disposition: Home, Self Care Discharge Date/Time: 01/19/23 05:31
[2023-01-19 03:53] LABS: Absolute Lymphocyte Count 3.69 X10^3/uL (0.83-4.51); Absolute Neutrophil Count 4.1 X10^3/uL (2.0-7.7); Basophil# 0.09 X10^3/uL; Eosinophils% 4.4 % (0-5); Hematocrit 46.2 % (37-47); Hemoglobin 14.9 g/dL (12.0-15.0); Lymphocyte # 3.69 X10^3/ul (0.83-4.51); Lymphocyte % 40.6 % (19-41); Mean Corp Hgb Conc 32.3 g/dL (32-36); Mean Corpuscular Hgb 28.9 pg (27.0-32.0); Mean Corpuscular Volume 89.7 fL (81-99); Mean Platelet Vol. 10.5 fl (6.2-12.0); Monocyte# 0.75 X10^3/uL; Monocyte% 8.3 % (0-10); NRBC Flagged by Analyzer 0 % (0-5); Neutrophil # 4.13 X10^3/uL (2.7-7.7); Neutrophil % 45.5 % (47-70); Platelet Count 260 K/mm3 (150-450); RBC Distribution Width CV 12.1 % (11.6-14.6); RBC Distribution Width SD 39.8 fl (35.1-43.9); Red Blood Count 5.15 M/mm3 (4.2-5.4); White Blood Count 9.1 K/mm3 (4.4-11.0)
[2023-01-19] MEDS: Ketorolac 30 MG/ML Syringe IV (03:53)
[2023-01-19 04:06] LABS: Anion Gap 6 (5-15); BUN 15 mg/dL (7-18); BUN/Creat Ratio 13.8 RATIO (10-20); Calcium,Total 8.9 mg/dL (8.5-10.1); Chloride 106 mmol/L (98-107); Creatinine, Serum 1.09 mg/dL (0.55-1.02); EST Glomerular Filtration Rate 65 mL/min (>60); Est Glom Filt Rate - Afr Amer 78 mL/min (>60); Glucose 112 mg/dL (74-106); Potassium 3.3 mmol/L (3.5-5.1); Sodium Level 140 mmol/L (136-145)
[2023-01-19 04:25] LABS: Color, Urine Yellow (Yellow); Glucose, Dipstick Normal (Normal); Ketone-Dipstick Negative (Negative); Leukocyte Esterase-Dipstick 100 /ul (Negative); Nitrite-Dipstick Negative (Negative); Occult Blood-Urine 25 /ul (Negative); Protein-Dipstick 15 mg/dl (Negative); Urine Bilirubin Dipstick Negative (Negative); Urine Clarity Clear (Clear); Urine Urobilinogen Normal (Normal)
[2023-01-19 04:41] LABS: Bacteria 2+ /hpf (None Seen); Red Blood Cells-Urine 0-5 SEEN /hpf (0-5); Squamous Epithelial Cells - UA 0-5 SEEN /hpf (5-10); White Blood Cells 0-5 SEEN /hpf (0-5)
[2023-01-19 04:42] LABS: Mucous, Urine 1+ /hpf (<or=2+)
[2023-01-19 04:55] LABS: D-Dimer Quantitative (DVT/PE) < 0.27 FEU/ug/m (0.27-0.49)
[2023-01-19 05:30] VITALS: BP 112/79; PULSE 71; RESP 16; O2SAT 95
== END 2023-01-19 05:31 | disposition home or self-care (01) ==
PROVIDERS: Emergency Provider Emergency Medicine; PCP Family Medicine; Visit Provider Emergency Medicine
DX: M54.9 Dorsalgia, unspecified (principal); F31.9 Bipolar disorder, unspecified; R10.9 Unspecified abdominal pain; F41.9 Anxiety disorder, unspecified; E28.2 Polycystic ovarian syndrome
CPT/HCPCS: 74176; 80048; 81001; 85025; 85379; 96374; 99284; A4216

== ENCOUNTER → 2023-03-09 | Outpatient (CLI) | payer MEDICAID, SELFPAY ==
[2023-03-17 17:53] LABS: HPV Reflexed? NOT INDICATED
== END | disposition home or self-care (01) ==
PROVIDERS: PCP Family Medicine; Referring Provider Nurse Practitioner Women's Health; Visit Provider Nurse Practitioner Women's Health
DX: N89.8 Other specified noninflammatory disorders of vagina (principal); Z12.4 Encounter for screening for malignant neoplasm of cervix
CPT/HCPCS: 87070; 87205; 88175; G0145

== ENCOUNTER → 2023-03-10 | Outpatient (CLI) | payer MEDICAID, SELFPAY | END | disposition home or self-care (01) | LOC: LABSPEC 16:56 | PROVIDERS: PCP Family Medicine; Referring Provider Physician Assistant Surgical; Visit Provider Physician Assistant Surgical | DX: N39.0 Urinary tract infection, site not specified (principal) | CPT/HCPCS: 87086 ==

== ENCOUNTER 2023-11-30 06:47 | Emergency (ER) | payer MEDICAID, SELFPAY ==
[2023-11-30 06:48] VITALS: BP 127/79; PULSE 91; RESP 20; TEMP 35.9; O2SAT 97; BMI 31.5
--- NOTE | 2023-11-30 07:04 | RAD_ITS ---
STUDY: X-RAY CHEST REASON FOR EXAM: Female, 28 years old. cp TECHNIQUE: Single AP portable view of the chest. COMPARISON: Comparison is made with prior study August 18, 2022. FINDINGS: EKG electrodes are seen. Minimal increased markings in the left upper lobe. Early infiltrate should be ruled out. There is no demonstrated pleural abnormality. Normal size heart. Normal mediastinum and monica. Normal visualized pulmonary arteries. Normal visualized aortic arch and descending thoracic aorta. Normal visualized thoracic spine. Normal visualized ribs, clavicles, and shoulders. There is no demonstrated abnormality of the visualized soft tissue structures of the upper abdomen. RAD/Chest 1 View (Portable) IMPRESSION: Increased markings in the left upper lobe. Early infiltrate should be ruled out. Electronically Signed: Sergo Easley MD at 8:11 EDT ,
--- NOTE | 2023-11-30 07:05 | EKG12_ITS ---
Test Reason : CP Blood Pressure : / mmHG Vent. Rate : 082 BPM Atrial Rate : 082 BPM P-R Int : 158 ms QRS Dur : 090 ms QT Int : 358 ms P-R-T Axes : 045 -08 012 degrees QTc Int : 418 ms Normal sinus rhythm Possible Left atrial enlargement Low voltage QRS Borderline ECG Confirmed by FAIZA CORMIER, IRVING ([id number]), editor producer TIFFANIE LEVY ([id number]) on 12/04/2023 11:07:16 AM Referred By: Confirmed By:IRVING KENDALL MD
--- NOTE | 2023-11-30 07:06 | EDS_ITS ---
HPI History of Present Illness Chief Complaint: Chest Pain Informant: patient Onset/Context/Timing Onset: Today Narrative Narrative: Patient presents secondary to chest pressure as well as lightheadedness. She got up for work this morning and felt slightly lightheaded and disoriented. She then got a burning-like pain down the middle of her sternum. She denies reflux symptoms or belching. No shortness of breath. She states she has not felt well in general the past couple of days. She had some nausea and vomiting. She had a cough last night bringing up phlegm. She has had subjective fevers. [facility] Medical History Epigastric pain Nausea PCOS (polycystic ovarian syndrome) Anxiety Bipolar 1 disorder Home Medications ?Medication ?Instructions ?Recorded ?Last Taken ?Type ondansetron 4 mg disintegrating 4 mg PO Q8H PRN PRN Nausea #10 tabs 11/30/23 Unknown Rx tablet spironolactone 100 mg tablet 100 mg PO DAILY 11/30/23 Unknown History (Aldactone) Allergy/AdvReac Type Severity Reaction Status Date / Time latex Allergy Rash Verified 11/30/23 06:48 Family History Grandfather Skin cancer Grandmother Leukemia Father Hypertension Diabetes Social History current occupational status: employed current occupation: [employer] Smoking Status: Never smoker alcohol intake: never substance use type: does not use caffeine: No what type of physical activity do you participate in: none seatbelt use: always do you feel safe at home: Yes additional social history: Snpxgyl-[id number]-Obs Patient is a [facility] ED Constitutional Constitutional ED: Reports fever(s) and subjective; Denies chills Eyes Eyes: Denies discharge from eye(s) ENT ENT ED: Denies discharge from eye(s), rhinorrhea or sore throat Cardiovascular Cardiovascular: Reports chest pain; Denies palpitations Respiratory/Chest Respiratory/Chest: Reports cough; Denies dyspnea Gastrointestinal Gastrointestinal: Reports nausea and vomiting; Denies abdominal pain or diarrhea Genitourinary Genitourinary ED: Denies dysuria Musculoskeletal Musculoskeletal: Reports myalgias; Denies back pain or extremity pain Integumentary Denies Abrasions or rash Neurologic Neurologic: Denies headache(s) or weakness Psychiatric Psychiatric: Denies anxiety or depression Allergic/Immunologic Allergic/Immunologic ED: Denies lip swelling or urticaria EXAM Physical Exam Const Vital Signs: 11/30/23 06:48 11/30/23 06:48 11/30/23 07:48 Temperature 96.7 F L Temperature Source Temporal Pulse Rate 91 70 Respiratory Rate 20 H 14 Respiratory Effort Normal Blood Pressure 127/79 H 115/74 Blood Pressure Mean 95 87 Pulse Ox 97 100 11/30/23 07:57 Temperature 97.9 F Temperature Source Pulse Rate 73 Respiratory Rate 14 Respiratory Effort Blood Pressure 115/74 Blood Pressure Mean 87 Pulse Ox 98 Positive well nourished and well developed General Appearance ED: well developed HEENT Reports moist mucous membranes Eyes EOMs intact bilaterally Chest Wall inspection of chest normal and palpation of chest normal Resp normal respiratory effort and clear to auscultation bilaterally Cardio regular rate and regular rhythm GI soft to palpation and non-tender Extremity normal to inspection Neuro oriented x3 and no sensory deficits noted Motor Exam: strength 5/5 throughout Psych mental status grossly normal Skin no rashes or lesions noted MDM MDM MDM Narrative Medical decision making narrative: Patient placed on registered nurse maternal child. IV line initiated. EKG obtained to evaluate for cardiac arrhythmia/ischemia. Chest x-ray obtained to evaluate for acute lung pathology, cardiac size, or mediastinal abnormality. Labwork obtained to evaluate for leukocytosis, anemia, and electrolyte derangement. Patient will be given Toradol, Zofran, and Protonix. Lab Data Attestation: I reviewed the patient's lab results. Labs: Laboratory Results - last 24 hr 11/30/23 11/30/23 06:55 07:20 WBC 7.9 RBC 4.84 Hgb 14.8 Hct 44.0 MCV 90.9 MCH 30.6 MCHC 33.6 RDW Std Deviation 41.1 RDW Coeff of Beth 12.5 Plt Count 206 MPV 11.0 Immature Gran % (Auto) 0.300 Neut % (Auto) 60.7 Lymph % (Auto) 22.4 Beaver % (Auto) 14.5 H Eos % (Auto) 1.6 Baso % (Auto) 0.5 Absolute Neuts (auto) 4.8 Absolute Lymphs (auto) 1.77 Nucleated RBC % 0 Sodium 139 Potassium 3.4 L Chloride 105 Carbon Dioxide 26.0 Anion Gap 8 BUN 8 Creatinine 0.82 Estim Creat Clear Calc 104.58 Est GFR (MDRD) Af Amer 107 Est GFR (MDRD) Non-Af 89 BUN/Creatinine Ratio 9.7 L Glucose 88 Calcium 9.5 Troponin I High Sens 4 Serum , Qual NEGATIVE Radiography Chest X-Ray - ED: 1 View, Read by ED Physician, Normal, Heart, Lungs and Mediastinum Diagnostic Testing: Clinical Impression(s) from Imaging Studies Chest X-Ray 11/30/23 07:04 IMPRESSION: Increased markings in the left upper lobe. Early infiltrate should be ruled out. Electronically Signed: Sergo Easley MD at 8:11 EDT , EKG Initial EKG: Attestation: I personally reviewed and interpreted this EKG as follows: Interpretation: Sinus Rhythm (Sinus rhythm at 82 bpm. No acute ischemia.) Treatment and Re-Evaluation :: CBC reveals normal white count 7.9 with a hemoglobin of 14.8. Differential unremarkable. Chemistry studies significant only for slightly low potassium at 3.4. Renal function normal. test is negative. Troponin is normal at 4. Portable chest x-ray per my interpretation reveals no acute abnormalities. EKG is sinus rhythm with no evidence of ischemia. On repeat evaluation patient does feel slightly improved. I do feel she likely has a viral illness given her myalgias, mild cough, nausea and vomiting. She will receive a dose of potassium here. I will write her prescription for Zofran and give her a work note for today. Return instructions were provided. Patient comfortable with the plan. Addendum: Radiology reading of the chest x-rays reviewed. He feels there may be an early infiltrate in the left upper lobe. I did speak with the patient. She has a normal white count and normal differential. Her symptoms are more viral in nature. I do not think she has a bacterial pneumonia at this time. She was advised to monitor her symptoms and return if worsened. Patient voices understanding and agreement. Discharge Plan Triage Chief Complaint: Chest Pain ED Provider: Natacha Michaud Dx/Rx/DC Orders Clinical Impression: Viral syndrome Instructions: ED Viral Syndrome (Adult) Prescriptions: New ondansetron 4 mg tablet,disintegrating 4 mg PO Q8H PRN PRN (Reason: Nausea) Qty: 10 0RF No Action spironolactone [Aldactone] 100 mg tablet 100 mg PO DAILY Stand Alone Forms: Work / School Excuse Primary Care Provider: Micheal Herzog Referrals: Micheal Herzog MD [Primary Care Provider] - 1 Week if not improving Print Language: Setswana Disposition Disposition: Home, Self Care Discharge Date/Time: 11/30/23 08:04
[2023-11-30] MEDS: 0.9% Normal Saline (1000mL) 1,000 ML 150 ML IV (07:15)
[2023-11-30] MEDS: Ketorolac 15 MG/ML Vial IV (07:16)
[2023-11-30] MEDS: Ondansetron 4 MG/2 ML Vial IV (07:16)
[2023-11-30] MEDS: Pantoprazole Sodium 40 MG in 0.9% Normal Saline (100mL MB+) 100 ML 330 MG IV (07:22)
[2023-11-30 07:25] LABS: Absolute Lymphocyte Count 1.77 X10^3/uL (0.83-4.51); Absolute Neutrophil Count 4.8 X10^3/uL (2.0-7.7); Basophil# 0.04 X10^3/uL; Basophil% 0.5 % (0-1); Eosinophil# 0.13 X10^3/uL; Eosinophils% 1.6 % (0-5); Hemoglobin 14.8 g/dL (12.0-15.0); Lymphocyte # 1.77 X10^3/ul (0.83-4.51); Lymphocyte % 22.4 % (19-41); Mean Corp Hgb Conc 33.6 g/dL (32-36); Mean Corpuscular Hgb 30.6 pg (27.0-32.0); Mean Corpuscular Volume 90.9 fL (81-99); Monocyte# 1.15 X10^3/uL; Monocyte% 14.5 % (0-10); NRBC Flagged by Analyzer 0 % (0-5); Neutrophil % 60.7 % (47-70); Platelet Count 206 K/mm3 (150-450); RBC Distribution Width CV 12.5 % (11.6-14.6); RBC Distribution Width SD 41.1 fl (35.1-43.9); Red Blood Count 4.84 M/mm3 (4.2-5.4); White Blood Count 7.9 K/mm3 (4.4-11.0)
[2023-11-30 07:45] LABS: Internal QC Validated? YES +Cl - CLEAR BKGD; Pregnancy, Serum, hCG Quali. NEGATIVE Negative
[2023-11-30 07:45] LABS: Anion Gap 8 (5-15); BUN 8 mg/dL (7-18); BUN/Creat Ratio 9.7 RATIO (10-20); Calcium,Total 9.5 mg/dL (8.5-10.1); Chloride 105 mmol/L (98-107); Creatinine, Serum 0.82 mg/dL (0.55-1.02); EST Glomerular Filtration Rate 89 mL/min (>60); Est Glom Filt Rate - Afr Amer 107 mL/min (>60); Estimated Creatinine Clearance 104.58 ml/min; Glucose 88 mg/dL (74-106); Potassium 3.4 mmol/L (3.5-5.1); Sodium Level 139 mmol/L (136-145); Troponin-I HS 4 pg/mL (3.0-54.0)
[2023-11-30 07:48] VITALS: BP 115/74; PULSE 70; RESP 14; O2SAT 100
[2023-11-30] MEDS: Potassium Chloride Oral Tablet 20 MEQ 40 MEQ PO (07:56)
[2023-11-30 07:57] VITALS: BP 115/74; PULSE 73; RESP 14; TEMP 36.6; O2SAT 98
== END 2023-11-30 08:04 | disposition home or self-care (01) ==
PROVIDERS: Emergency Provider Emergency Medicine; PCP Family Medicine; Visit Provider Emergency Medicine
DX: B34.9 Viral infection, unspecified (principal); R11.2 Nausea with vomiting, unspecified; R07.9 Chest pain, unspecified
CPT/HCPCS: 71045; 80048; 84484; 84703; 85025; 93005; 96361; 96374; 96375; 99284; J7030; A4216; J2405

== ENCOUNTER → 2024-01-26 | Outpatient (CLI) | payer MEDICAID, SELFPAY ==
[2024-01-26 18:56] LABS: AST(SGOT) 18 U/L (15-37); Alanine Aminotransfer ALT/SGPT 33 U/L (13-56); Albumin, Serum 3.8 g/dL (3.2-5.0); Alkaline Phosphatase 63 U/L (45-117); Anion Gap 8 (5-15); BUN 8 mg/dL (7-18); Calcium,Total 9.6 mg/dL (8.5-10.1); Chloride 104 mmol/L (98-107); Cholesterol 119 mg/dL (200); EST Glomerular Filtration Rate 92 mL/min (>60); Est Glom Filt Rate - Afr Amer 111 mL/min (>60); Globulin 3.9 g/dL (2.2-4.2); Glucose 130 mg/dL (74-106); High Density Lipoprotein 51 mg/dL; Potassium 3.6 mmol/L (3.5-5.1); Protein, Total 7.7 g/dL (6.4-8.2); Sodium Level 137 mmol/L (136-145); T4 Free Direct 0.93 ng/dL (0.76-1.46); Triglycerides 42 mg/dL; Very Low Density Lipoprotein 8 mg/dL (5-40)
[2024-01-26 19:27] LABS: hCG Titer Quant., Serum 8850 mIU/mL (1-3)
== END | disposition home or self-care (01) ==
LOC: LAB 17:17
PROVIDERS: PCP Family Medicine; Referring Provider Family Medicine; Visit Provider Family Medicine
DX: Z00.00 Encounter for general adult medical examination without abnormal findings (principal)
CPT/HCPCS: 36415; 80053; 80061; 84439; 84443; 84702

== ENCOUNTER → 2024-02-09 | Outpatient (CLI) | payer MEDICAID, SELFPAY ==
[2024-02-12 21:07] LABS: Chlamydia By Nucleic Acid AMP Negative (Negative); Gonococcus By Nucleic Acid AMP Negative (Negative)
== END | disposition home or self-care (01) ==
PROVIDERS: Obstetrics & Gynecology; PCP Family Medicine
DX: O99.210 Obesity complicating pregnancy, unspecified trimester (principal); Z3A.00 Weeks of gestation of pregnancy not specified
CPT/HCPCS: 87086; 87491; 87591

== ENCOUNTER 2024-02-20 11:50 | Outpatient (CLI) | payer MEDICAID, SELFPAY ==
[2024-02-20] MEDS: Ondansetron 4 MG/2 ML Vial IV (12:21)
[2024-02-20] MEDS: 0.9% NaCl Peripheral Flush Adult/Peds IV (12:21)
[2024-02-20] MEDS: Dextrose 5%-Lactated Ringers 1,000 ML 999 ML IV (12:22)
[2024-02-20 12:26] VITALS: BP 106/61; PULSE 60; RESP 16; TEMP 36.3; O2SAT 97; BMI 30.8
[2024-02-20 13:31] VITALS: BP 110/65; PULSE 59
== END 2024-02-20 23:59 | disposition home or self-care (01) ==
LOC: MEDOUTP 11:50
PROVIDERS: PCP Family Medicine; Referring Provider Obstetrics & Gynecology; Visit Provider Obstetrics & Gynecology
DX: E86.0 Dehydration (principal)
CPT/HCPCS: 96374; 96361; A4216; J2405

== ENCOUNTER → 2024-03-06 | Outpatient (CLI) | payer MEDICAID, SELFPAY ==
--- OUTSIDE RECORDS SUMMARY | 2024-03-06 07:51 | XMS RPT_ITS | CCD ---
Author Organization [facility] Care Team Providers Care Pattern Changer Name Role Phone Mino CORMIER, Sierra Karimi Primary Care Provider MINO CORMIER, SIERRA Primary Care Physician EDUARDO CORMIER, DR ROCHE Attending Lee HERZOG MD, SIERRA Primary Care Unavaila heather Herzog MD, Sierra Karimi Primary Care Provider SIERRA HERZOG Primary Care UnavailSIERRA Hernández Attending SIERRA Emmanuel Primary Care Unavailab SIERRA Love Primary Care Unavailab TALISHA Ordaz Referring Unavailable SIERRA HERZOG Primary Care UnavailSIERRA Hernández Primary Care Unavailab SIERRA Love Referring Unavailab SIERRA Love Primary Care UnavailSIERRA Hernández Attending Angel daniels Allergies Allergy Classification Reported Allergen(s) Allergy Type Date of Onset Reaction(s) Facility (20 sources) Latex; Translations: [LATEX] Drug Allergy 07-04-2017 Rash, Hives, Itching, Eruption (morphologic abnormality) [facility] Medications Current Medications Medication Drug Class(es) Dates Sig (Normalized) Sig (Original) Multivitamin capsule (12 sources) take 1 capsule by mouth once daily Multivitamin capsule Take 1 capsule by mouth once daily. Active take 1 capsule by mouth once carolee ly Multivitamin capsule Take 1 capsule by mouth once daily. 0 Active Comment on above: Take 1 capsule by mo [facility] once daily. nitrofurantoin, macrocrystals 25 mg / nitrofurantoin, monohydrate 75 mg oral capsule (1 source) Nitrofuran Antibacterial Start: End: take 1 capsule by mouth twice daily nitrofurantoin monohydrate and macrocrystal (MACROBID) 100 mg capsule Indications: Acute cystitis without hematuria Take 1 capsule by mouth two times a day for 5 days. 10 capsule 0 07/07/2023 07/12/2023 Active Comment on above: Take 1 capsule by mo [facility] two times a day for 5 days. phenazopyridine hydrochloride 100 mg oral tablet (1 source) Start: End: take 1 tablet by mouth three times daily as needed for pain phenazopyridine (PYRIDIUM) 100 mg tablet Indications: Acute cystitis without hematuria Take 1 tablet by mouth three times a day as needed for pain for up to 2 days. 6 tablet 0 07/07/2023 07/09/2023 Active Comment on above: Take 1 tablet by [facility] three times a day as needed for pain for up to 2 days. Completed/Discontinued Medications Medication Drug Class(es) Dates Sig (Normalized) Sig (Original) benzonatate 100 mg oral capsule (1 source) Non-narcotic Antitussive Start: 05-03-20 End: 07-07-19 take 1 capsule by mouth three times daily as needed for cough benzonatate (TESSALON PERLES) 100 mg capsule Indications: Viral URI Take 1 capsule by mouth three times a day as needed for cough. 40 capsule 0 05/03/2023 07/07/2023 Discontinued (Course of therapy completed) Comment on above: Take 1 capsule by [facility] three times a day as needed for cough. 24 hr buPROPion hydrochloride 150 mg extended release oral tablet (1 source) Aminoketone Start: 05-01-20 End: 05-25-19 take 1 tablet by mouth once daily in the morning buPROPion XL (WELLBUTRIN XL) 150 mg 24 hr tablet Take 150 mg by mouth every morning. 0 05/01/2017 05/25/2022 Discontinued Comment on above: Take 150 mg by mouth every morning. cholecalciferol 0.125 mg oral tablet (7 sources) Vitamin D Start: 07-28-19 End: 07-07-19 take 1 tablet by mouth once daily VITAMIN D-3 125 mcg (5,000 unit) tab TAKE 1 TABLET BY MOUTH EVERY DAY 30 tablet 2 09/19/2022 07/07/2023 Discontinued (Course of therapy completed) Comment on above: TAKE 1 TABLET BY ALONDRA TH EVERY DAY Take 1 tablet by alondra th once daily. clonazePAM 0.5 mg oral tablet (1 source) Benzodiazepine Start: 04-24-20 End: 05-25-19 clonazePAM (KLONOPIN) 0.5 mg tablet TAKE 1 TABLET ONCE A DAY NEEDED 0 04/24/2017 05/25/2022 Discontinued Comment on above: TAKE 1 TABLET ONCE A DAY NEEDED docusate sodium 100 mg oral capsule (3 sources) Start: 09-29-19 End: 12-28-19 take 1 capsule by mouth twice daily as needed for constipation docusate sodium (COLACE) 100 mg capsule Indications: Acute constipation Take 1 capsule by mouth twice daily as needed for constipation. 60 capsule 1 09/28/2022 12/27/2022 Comment on above: Take 1 capsule by mo [facility] twice daily as needed for constipation. Ethinyl Estradiol / Ferrous fumarate / Norethindrone (1 source) Estrogen Start: 08-16-19 End: 05-25-19 take 1 tablet by mouth once daily Norethindrn A-E Estradiol-Iron (MICROGESTIN 24 FE) 1 mg-20 mcg (24)/75 mg (4) tab Take 1 tablet by mouth once daily. 1 Package 11 08/15/2017 05/25/2022 Discontinued Comment on above: Take 1 tablet by alondra th once daily. medroxyPROGESTERone acetate 5 mg oral tablet (16 sources) Progestin Start: 05-25-19 End: 07-07-19 medroxyPROGESTERone (PROVERA) 5 mg tablet Take 1 tablet by mouth as needed (Missed period with PCOS). 05/25/2022 07/07/2023 Discontinued (Course of therapy completed) Start: 06-28-2021 medroxyPROGEST ERone 10 mg oral tablet Dose : 10 mg = 1 tab(s), PLEASE SEE ATTACHED FOR DETAILED DIRECTIONS Start Date: 06/28/21 Status: Ordered Comment on above: Take 1 tablet by alondra th as needed (Missed period with PCOS). meloxicam 7.5 mg oral tablet (1 source) Nonsteroidal Anti-inflammatory Drug Start: End: meloxicam 7.5 mg oral tablet Dose : 7.5 mg = 1 tab(s), Oral, qDay, # 30 tab(s), 2 Refill(s), Pharmacy: [facility]/pharmacy #[id number], 163.3, cm, 06/28/21 13:45:00 EST, Height, kg, 06/28/21 13:45:00 EST, Dosing Weight Start Date: 06/28/21 Stop Date: 09/26/21 Status: Ordered 24 hr metFORMIN hydrochloride 500 mg extended release oral tablet (1 source) Biguanide Start: 018 End: take 2 tablets by mouth once daily at dinner metFORMIN ER (GLUCOPHAGE XR) 500 mg 24 hr tablet TAKE 2 TABLETS BY MOUTH DAILY WITH DINNER. 60 tablet 0 11/14/2017 05/25/2022 Discontinued Comment on above: TAKE 2 TABLETS BY [facility] DAILY WITH DINNER. omeprazole 40 mg delayed release oral capsule (14 sources) Proton Pump Inhibitor Start: End: take 1 capsule by mouth once daily omeprazole (PRILOSEC) 40 mg capsule Indications: Epigastric pain Take 1 capsule by mouth once daily. 30 capsule 2 09/28/2022 2024 Discontinued (Course of therapy completed) Comment on above: Take 1 capsule by [facility] once daily. ondansetron 4 mg disintegrating oral tablet (19 sources) Serotonin-3 Receptor Antagonist Start: End: take 1 tablet by mouth every six hours as needed for nausea ondansetron orally disintegrating (ZOFRAN ODT) 4 mg disintegrating tablet Indications: Epigastric pain , Nausea Take 1 tablet by mouth every 6 hours as needed for nausea/vomiting. 20 tablet 09/28/2022 01/06/2023 Discontinued Comment on above: Take 1 tablet by [facility] every 6 hours as needed for nausea/vomiting. OXcarbazepine 300 mg oral tablet (12 sources) Anti-epileptic Agent Start: 023 End: take 1 tablet by mouth twice daily OXcarbazepine (TRILEPTAL) 300 mg tablet TAKE 1 TABLET BY MOUTH TWICE A DAY 180 tablet 1 10/04/2022 2024 Discontinued (Course of therapy completed) Comment on above: Take 1 tablet by alondra th twice daily. TAKE 1 TABLET BY ALONDRA TH TWICE A DAY Fdxcwvqt-Oc-Nju-Fe-FA ( VITAMIN) tab (1 source) End: take 1 tablet by mouth once Hxyvoxpe-Ig-Fyf-Fe-FA ( VITAMIN) tab Take 1 tablet by mouth. 0 05/25/2022 Discontinued Comment on above: Take 1 tablet by alondra th. sucralfate 1000 mg oral tablet (5 sources) Aluminum Complex Start: End: take 1 tablet by mouth at bedtime sucralfate (CARAFATE) 1 gram tablet Indications: Epigastric pain , Nausea Take 1 tablet by mouth before meals and at bedtime. 120 tablet 1 09/28/2022 07/07/2023 Discontinued (Course of therapy completed) Comment on above: Take 1 tablet by alondra th before meals and at bedtime. sulfamethoxazole 800 mg / trimethoprim 160 mg oral tablet (2 sources) Dihydrofolate Reductase Inhibitor Antibacterial, Sulfonamide Antimicrobial Start: 024 End: take 1 tablet by mouth twice daily sulfamethoxazole-trim ethoprim (BACTRIM DS) 800-160 mg per tablet Indications: Dysuria Take 1 tablet by mouth two times a day for 3 days. 6 tablet 2024 01/05/2024 traZODone hydrochloride 50 mg oral tablet (1 source) Serotonin Reuptake Inhibitor Start: 017 End: traZODone (DESYREL) 50 mg tablet TAKE 1/2-2 TABLET AT BEDTIME NEEDED FOR INSOMNIA 0 05/01/2017 05/25/2022 Discontinued Comment on above: TAKE 1/2-2 TABLET AT BEDTIME NEEDED FOR INSOMNIA Problems Active Problems Problem Classification Problem Date Documented Da te Episodic/Chronic Administrative/social admission (1 source) Worried well 07-27-2020 Episodic Anxiety disorders (20 sources) Mixed anxiety and depressive disorder; Translations: [Anxiety disorder, unspecified] Onset: 07-26-2017 07-26-2017 Chronic Cardiac dysrhythmias (1 source) Palpitations; Translations: [Palpitations] Episodic Headache; including migraine (14 sources) Migraine; Translations: [Migraine, unspecified, not intractable, without status migrainosus] Onset: 09-28-2022 09-28-2022 Chronic Menstrual disorders (13 sources) Irregular periods; Translations: [Irregular menstruation, unspecified] Onset: 09-28-2022 09-28-2022 Chronic Mood disorders (18 sources) Mixed bipolar affective disorder, moderate; Translations: [Bipolar disorder, current episode mixed, moderate] Onset: 07-23-2022 Chronic Mood disorders (1 source) Mood disorders; Translations: [Anxiety and depression] Onset: 07-26-2017 Nonspecific chest pain (1 source) Chest pain; Translations: [Chest pain, unspecified] Onset: 04-30-2023 Episodic Other and unspecified benign neoplasm (1 source) Melanocytic nevus; Translations: [Melanocytic nevi, unspecified] Episodic Other endocrine disorders (20 sources) Polycystic ovary syndrome; Translations: [Polycystic ovarian syndrome] Onset: 07-04-2017 07-04-2017 Chronic Other endocrine disorders (20 sources) Increased androgen level; Translations: [Androgen excess] Onset: 07-04-2017 07-04-2017 Chronic Other gastrointestinal disorders (1 source) Acute constipation; Translations: [Constipation, unspecified] 09-28-2022 Episodic Other liver diseases (2 sources) Steatosis of liver; Translations: [Fatty (change of) liver, not elsewhere classified] 08-30-2023 Chronic Other liver diseases (1 source) Fatty (change of) liver, not elsewhere classified; Translations: [Fatty liver] Onset: 2024 Chronic Other nutritional; endocrine; and metabolic disorders (20 sources) Obesity; Translations: [Obesity, unspecified] Onset: 07-04-2017 07-04-2017 Chronic Other nutritional; endocrine; and metabolic disorders (1 source) Obesity, unspecified; Translations: [Class 1 obesity with body mass index (BMI) of 31.0 to 31.9 in adult, unspecified obesity type, unspecified whether serious comorbidity present] Onset: 2024 Chronic Other nutritional; endocrine; and metabolic disorders (1 source) Body mass index (BMI) 31.0-31.9, adult; Translations: [Class 1 obesity with body mass index (BMI) of 31.0 to 31.9 in adult, unspecified obesity type, unspecified whether serious comorbidity present] Onset: 2024 Chronic Other skin disorders (1 source) Skin lesion; Translations: [Disorder of the skin and subcutaneous tissue, unspecified] Episodic Prolapse of female genital organs (13 sources) Relaxation of pelvic floor; Translations: [Other female genital prolapse] Onset: 09-28-2022 09-28-2022 Chronic Unclassified (13 sources) Subungual hematoma; Translations: [Subungual hematoma] Onset: 09-28-2022 09-28-2022 Unclassified (1 source) Patient encounter status 01-03-2020 Past or Other Problems Problem Classification Problem Date Documented Date Episodic/Chronic Abdominal pain (19 sources) Epigastric pain; Translations: [Epigastric pain] Onset: 02-17-2022 Episodic Conditions associated with dizziness or vertigo (13 sources) Dizziness and giddiness; Translations: [Dizziness and giddiness] Onset: 08-25-2022 09-28-2022 Episodic Genitourinary symptoms and ill-defined conditions (15 sources) Blood in urine; Translations: [Hematuria, unspecified] Onset: 09-28-2022 09-28-2022 Episodic Headache; including migraine (13 sources) Headache; Translations: [Headache] Onset: 09-28-2022 09-28-2022 Episodic Immunizations and screening for infectious disease (15 sources) Hepatitis B core antibody positive; Translations: [Other specified abnormal immunological findings in serum] Onset: 12-28-2021 Episodic Nausea and vomiting (16 sources) Nausea; Translations: [Nausea] Onset: 02-03-2022 Episodic Other female genital disorders (14 sources) History of gynecological disorder; Translations: [Personal history of other diseases of the female genital tract] Onset: 09-28-2022 09-28-2022 Episodic Other liver diseases (20 sources) Elevated liver enzymes level; Translations: [Abnormal levels of other serum enzymes] Onset: 09-12-2017 10-12-2017 Episodic Other and delivery including normal (14 sources) ; Translations: [Encounter for supervision of normal , unspecified, unspecified trimester] Onset: 09-28-2022 09-28-2022 Episodic Other upper respiratory disease (13 sources) Disorder of the nose; Translations: [Unspecified disorder of nose and nasal sinuses] Onset: 09-28-2022 09-28-2022 Episodic Other upper respiratory infections (14 sources) Streptococcal sore throat; Translations: [Streptococcal pharyngitis] Onset: 06-20-2022 09-28-2022 Episodic Pneumonia (except that caused by tuberculosis or sexually transmitted disease) (13 sources) Left lower zone pneumonia; Translations: [Pneumonia, unspecified organism] Onset: 09-28-2022 09-28-2022 Episodic Residual codes; unclassified (20 sources) Family history of cleft palate; Translations: [Family history of other congenital malformations, deformations and chromosomal abnormalities] Onset: 10-12-2017 10-12-2017 Episodic Residual codes; unclassified (13 sources) H/O: miscarriage; Translations: [Personal history of other complications of , childbirth and the puerperium] Onset: 09-28-2022 09-28-2022 Episodic Residual codes; unclassified (13 sources) Rubella non-immune; Translations: [Other specified health status] Onset: 09-28-2022 09-28-2022 Episodic Screening and history of mental health and substance abuse codes (20 sources) H/O: depression; Translations: [Personal history of other mental and behavioral disorders] Onset: 10-12-2017 10-12-2017 Episodic Urinary tract infections (14 sources) Urinary tract infectious disease; Translations: [Urinary tract infection, site not specified] Onset: 09-28-2022 09-28-2022 Episodic Results Test Name Value Interpretation Reference Range Facility [facility] 01-29-2024 [facility] Telephone (FAMPWS) LUIS CAMPO ([id number]) 1995 F Date Time Provider Department 01/29/24 [facility] During your visit today, we recorded the following information about you: Sierra Herzog MD 01/29/2024 10:35 AM Signed Serum HCG confirms around 4-5 weeks. Other labs were normal aside from sugar of 130. Was she fasting for these labs? If so, will need to add on A1c. Darleen Nam MA 01/29/2024 10:41 AM Signed Call to pt and notified her of results below from Provider. Pt states that she was not fasting and did eat a donut about an hour or so prior to completing labs. CARRINGTON Enriquez Christopher B, MD 01/29/2024 1:35 PM Signed Reviewed. Allergies As of Date: 01/29/2024 Noted Allergy Reaction LATEX 07/04/2017 2 - Rash 4 - Hives 9 - Itching Date Reviewed: 2024 Reviewed by: Sierra Herzog MD - Fully Assessed Reason for Visit: Results [95] Prescriptions as of 01/29/2024 - ondansetron orally disintegrating (ZOFRAN ODT) 4 mg disintegrating tablet Take 1 tablet by mouth every 6 hours as needed for nausea/vomiting. - Multivitamin capsule Take 1 capsule by mouth once daily. Problem List As Of Date 01/29/2024 Noted Resolved PCOS (polycystic ovarian syndrome) [E28.2] 07/04/2017 Class 1 obesity without serious comorbidity wit*07/04/2017 Elevated androgen levels [E28.1] 07/04/2017 Anxiety and depression [F41.9, F32.A] 07/26/2017 Elevated liver enzymes [R74.8] 09/12/2017 History of depression [Z86.59] 10/12/2017 Family history of cleft palate [Z82.79] 10/12/2017 Patient requested diagnostic testing [Z01.89] 10/12/2017 Mixed obsessional thoughts and acts [F42.2] 07/23/2022 Bipolar 2 disorder (HCC) [F31.81] 07/23/2022 DEONTE (generalized anxiety disorder) [F41.1] 07/23/2022 Disorder of nose [J34.9] 09/28/2022 Dizziness and giddiness [R42] 08/25/2022 Encounter for screening for COVID-19 [Z11.52] 12/28/2021 Headache [R51] 09/28/2022 Hematuria [R31.9] 09/28/2022 History of female genital system disorder [Z87.*09/28/2022 History of spontaneous [Z87.59] 09/28/2022 Irregular menstrual cycle [N92.6] 09/28/2022 Left lower lobe pneumonia [J18.9] 09/28/2022 Migraine headache [G43.909] 09/28/2022 Not immune to rubella [Z78.9] 09/28/2022 Pain in pelvis [R10.2] 02/17/2022 Pelvic floor relaxation [N81.89] 09/28/2022 Pharyngitis due to Streptococcus species [J02.0]06/20/2022 [Z34.90] 09/28/2022 Subungual hematoma [[id number]] 09/28/2022 Urinary tract infection [N39.0] 09/28/2022 Vomiting [R11.10] 02/03/2022 Encounter Status:Closed by SIERRA HERZOG on 01/29/24 [facility] 01-24-2024 [facility] Telephone (INTMWS) LUIS CAMPO ([id number]) 1995 F Date Time Provider Department 01/24/24 SIERRA HERZOG INTWS During your visit today, we recorded the following information about you: Afua Penaloza LPN 01/24/2024 3:38 PM Signed Patient needing lab orders faxed to [facility], more convenient for her. Also, Patient did home test which was positive, asking if Dr. Herzog can add blood test to order and have faxed to [facility]. Sierra Martinez LPN, MD 01/25/2024 9:02 AM Signed Serum HCG added to her labs. Recommend starting vitamin and should contact an OB for initial visit. Em Burroughs LPN 01/25/2024 9:23 AM Signed Message left for patient to return call to review provider's message. All future labs that PCP ordered forwarded to [facility] as requested. DIONICIO Frederick Krystle, RN 01/25/2024 9:34 AM Signed Patient returns call and notified of below. She has appt with OB 02/09 and has started a vitamin. Aware lab orders have been forwarded to [facility]. Lucy Chun RN Allergies As of Date: 01/24/2024 Noted Allergy Reaction LATEX 07/04/2017 2 - Rash 4 - Hives 9 - Itching Date Reviewed: 2024 Reviewed by: Sierra Herzog MD - Fully Assessed Reason for Visit: Orders [681] Primary Visit Diagnosis:Positive test [Z32.01] Order(s):HCG QUANTITATIVE [SQHCGQT] Order #: [id number] FUTURE Prescriptions as of 01/25/2024 - ondansetron orally disintegrating (ZOFRAN ODT) 4 mg disintegrating tablet Take 1 tablet by mouth every 6 hours as needed for nausea/vomiting. - Multivitamin capsule Take 1 capsule by mouth once daily. Problem List As Of Date 01/24/2024 Noted Resolved PCOS (polycystic ovarian syndrome) [E28.2] 07/04/2017 Class 1 obesity without serious comorbidity wit*07/04/2017 Elevated androgen levels [E28.1] 07/04/2017 Anxiety and depression [F41.9, F32.A] 07/26/2017 Elevated liver enzymes [R74.8] 09/12/2017 History of depression [Z86.59] 10/12/2017 Family history of cleft palate [Z82.79] 10/12/2017 Patient requested diagnostic testing [Z01.89] 10/12/2017 Mixed obsessional thoughts and acts [F42.2] 07/23/2022 Bipolar 2 disorder (HCC) [F31.81] 07/23/2022 DEONTE (generalized anxiety disorder) [F41.1] 07/23/2022 Disorder of nose [J34.9] 09/28/2022 Dizziness and giddiness [R42] 08/25/2022 Encounter for screening for COVID-19 [Z11.52] 12/28/2021 Headache [R51] 09/28/2022 Hematuria [R31.9] 09/28/2022 History of female genital system disorder [Z87.*09/28/2022 History of spontaneous [Z87.59] 09/28/2022 Irregular menstrual cycle [N92.6] 09/28/2022 Left lower lobe pneumonia [J18.9] 09/28/2022 Migraine headache [G43.909] 09/28/2022 Not immune to rubella [Z78.9] 09/28/2022 Pain in pelvis [R10.2] 02/17/2022 Pelvic floor relaxation [N81.89] 09/28/2022 Pharyngitis due to Streptococcus species [J02.0]06/20/2022 [Z34.90] 09/28/2022 Subungual hematoma [[id number]] 09/28/2022 Urinary tract infection [N39.0] 09/28/2022 Vomiting [R11.10] 02/03/2022 Encounter Status:Closed by EM BURROUGHS on 01/25/24 [facility] LU[facility] ([id number]) 1995 F Date Time Provider Department 01/10/24 JOANN SWAIN [facility] During your visit today, we recorded the following information about you: Joann Swain LISW 01/10/2024 2:37 PM Signed Behavioral Health Social Work Progress Note Patient identified for [facility] from: PCP Reason for referral: [facility] Assessment [facility] encounter type: Telephone Encounter Attempts to Outreach: 3 attempts Referral made: Psychiatry - Internal Psychiatry-Internal referral type: Medication Management Final Disposition: Resources given Patient Discharged?: Yes Patient reported that caregiver was able to meet their needs today?: N/A SW made a second attempt at reaching patient by phone, as they did not return the first phone call or read their [employer] message (last login was 01/05/24). [facility] left a second voicemail reminding patient of the resources and giving contact information should questions arise. ОЛЬГА Hubbard, GOYO- January 10, 2024 Allergies As of Date: 01/10/2024 Noted Allergy Reaction LATEX 07/04/2017 2 - Rash 4 - Hives 9 - Itching Date Reviewed: 2024 Reviewed by: Sierra Herzog MD - Fully Assessed Reason for Visit: Behavioral Health/Social Work [4126] Prescriptions as of 01/10/2024 - ondansetron orally disintegrating (ZOFRAN ODT) 4 mg disintegrating tablet Take 1 tablet by mouth every 6 hours as needed for nausea/vomiting. - Multivitamin capsule Take 1 capsule by mouth once daily. Problem List As Of Date 01/10/2024 Noted Resolved PCOS (polycystic ovarian syndrome) [E28.2] 07/04/2017 Class 1 obesity without serious comorbidity wit*07/04/2017 Elevated androgen levels [E28.1] 07/04/2017 Anxiety and depression [F41.9, F32.A] 07/26/2017 Elevated liver enzymes [R74.8] 09/12/2017 History of depression [Z86.59] 10/12/2017 Family history of cleft palate [Z82.79] 10/12/2017 Patient requested diagnostic testing [Z01.89] 10/12/2017 Mixed obsessional thoughts and acts [F42.2] 07/23/2022 Bipolar 2 disorder (HCC) [F31.81] 07/23/2022 DEONTE (generalized anxiety disorder) [F41.1] 07/23/2022 Disorder of nose [J34.9] 09/28/2022 Dizziness and giddiness [R42] 08/25/2022 Encounter for screening for COVID-19 [Z11.52] 12/28/2021 Headache [R51] 09/28/2022 Hematuria [R31.9] 09/28/2022 History of female genital system disorder [Z87.*09/28/2022 History of spontaneous [Z87.59] 09/28/2022 Irregular menstrual cycle [N92.6] 09/28/2022 Left lower lobe pneumonia [J18.9] 09/28/2022 Migraine headache [G43.909] 09/28/2022 Not immune to rubella [Z78.9] 09/28/2022 Pain in pelvis [R10.2] 02/17/2022 Pelvic floor relaxation [N81.89] 09/28/2022 Pharyngitis due to Streptococcus species [J02.0]06/20/2022 [Z34.90] 09/28/2022 Subungual hematoma [[id number]] 09/28/2022 Urinary tract infection [N39.0] 09/28/2022 Vomiting [R11.10] 02/03/2022 Encounter Status:Closed by JOANN SWAIN on 01/10/24 Normal [facility] Bacteria identified Cx Nom ( U)Ordered By: Lily Edwards on 01-04-2024 Interpretation and review of laboratory results Abnormal [facility] URINE CULTUREOrdered By: Obdulio Edwards on 01-04-2024 Bacteria identified Cx Nom (U) 10,000 -<50,000 CFU/ml Mixed microbiota Abnormal [facility] Comment on above: No further workup. M ixed microbiota can be due to urine contamination with skin bacteria at time of collection or presence of a long-term urinary catheter. If a new culture is needed, please consider re-education of the patient on proper midstream co llection technique or straight catheterization for urine collection. Christine 01-03-2024 [facility] LUIS CAMPO ([id number]) 1995 F Date Time Provider Department 01/03/24 JOANN SWAIN [facility] During your visit today, we recorded the following information about you: Joann Swain LISW 01/03/2024 11:48 AM Signed Behavioral Health Social Work Progress Note Patient identified for [facility] from: PCP Reason for referral: [facility] Assessment [facility] encounter type: Telephone Encounter Attempts to Outreach: 1 attempt Referral made: Psychiatry - Internal Psychiatry-Internal referral type: Medication Management Final Disposition: Unable to reach Patient Discharged?: No Patient reported that caregiver was able to meet their needs today?: N/A [facility] consult received for bipolar disorder, anxiety and depression. Chart review shows that patient was previously seeing Vivian Sheriff APRN.CNP (last appointment completed 09/28/22) Phone call placed today that went to Melinta. Left my contact information and brief nature of call. Initial outreach also completed via [employer] sending telephone number to call to re-establish psychiatric care. [facility] [phone] ОЛЬГА Hubbard ACM-MARIO ALBERTO January 03, 2024 Allergies As of Date: 01/03/2024 Noted Allergy Reaction LATEX 07/04/2017 2 - Rash 4 - Hives 9 - Itching Date Reviewed: 2024 Reviewed by: Sierra Herzog MD - Fully Assessed Reason for Visit: Behavioral Health/Social Work [4126] Prescriptions as of 01/03/2024 - sulfamethoxazole-tri methoprim (BACTRIM DS) 800-160 mg per tablet Take 1 tablet by mouth two times a day for 3 days. - ondansetron orally disintegrating (ZOFRAN ODT) 4 mg disintegrating tablet Take 1 tablet by mouth every 6 hours as needed for nausea/vomiting. - Multivitamin capsule Take 1 capsule by mouth once daily. Problem List As Of Date 01/03/2024 Noted Resolved PCOS (polycystic ovarian syndrome) [E28.2] 07/04/2017 Class 1 obesity without serious comorbidity wit*07/04/2017 Elevated androgen levels [E28.1] 07/04/2017 Anxiety and depression [F41.9, F32.A] 07/26/2017 Elevated liver enzymes [R74.8] 09/12/2017 History of depression [Z86.59] 10/12/2017 Family history of cleft palate [Z82.79] 10/12/2017 Patient requested diagnostic testing [Z01.89] 10/12/2017 Mixed obsessional thoughts and acts [F42.2] 07/23/2022 Bipolar 2 disorder (HCC) [F31.81] 07/23/2022 DEONTE (generalized anxiety disorder) [F41.1] 07/23/2022 Disorder of nose [J34.9] 09/28/2022 Dizziness and giddiness [R42] 08/25/2022 Encounter for screening for COVID-19 [Z11.52] 12/28/2021 Headache [R51] 09/28/2022 Hematuria [R31.9] 09/28/2022 History of female genital system disorder [Z87.*09/28/2022 History of spontaneous [Z87.59] 09/28/2022 Irregular menstrual cycle [N92.6] 09/28/2022 Left lower lobe pneumonia [J18.9] 09/28/2022 Migraine headache [G43.909] 09/28/2022 Not immune to rubella [Z78.9] 09/28/2022 Pain in pelvis [R10.2] 02/17/2022 Pelvic floor relaxation [N81.89] 09/28/2022 Pharyngitis due to Streptococcus species [J02.0]06/20/2022 [Z34.90] 09/28/2022 Subungual hematoma [TZZ6156] 09/28/2022 Urinary tract infection [N39.0] 09/28/2022 Vomiting [R11.10] 02/03/2022 Encounter Status:Closed by JOANN SWAIN on 01/03/24 [facility] Bacteria Ur Culton Bacteria identified Cx Nom (U) ORGANISM ID: 1 10,000 -<50,000 CFU/ml Mixed microbiota No further workup. Mixed microbiota can be due to???urine???contami nation with skin bacteria at time of collection or presence of a long-term urinary catheter. If a new culture is needed, please consider re-education of the patient on proper midstream collection technique or straight catheterization for???urine???collec tion. Normal [facility] Comment on above: Performed By: #### 6 30-4 ####[facility] LABCLIA [id number] [address] [place] CNOVon 2024 CNOV Office Visit (FAMPWS) LUIS CAMPO ([id number]) 1995 F Date Time Provider Department 01/02/24 5:40 PM SIERRA HERZOG FAMPWS During your visit today, we recorded the following information about you: Pulse Respiration Blood pressure Weight 71/minute 16/minute 106/78 79.4 kg Last Period 12/12/23 Sierra Herzog MD 01/05/2024 8:26 PM Signed Chief Complaint Patient presents with: Physical HPI Luis Campo is a 28 year old female who presents here today for Above Complaints. Sheyla down 32 lbs since her last OV with improved diet and exercise. Trying to avoid high sugar and high fat foods. 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 Feels more energetic with the weight loss. Bipolar disorder, anxiety/depression previously managed by Vivian Sheriff and was started on Trileptal in 07/2022, but has not been on this in about a year. Has noticed worsening anxiety symptoms in the last month. 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 Last manic episode was 2-3 months ago which lasted about 3 days. Going to counseling 1-2 times per month at the counseling center. Denies SI/HI, panic attacks. 01/01/2024 PHQ-9 PHQ-2 Score 2 PHQ-9 Score 9 01/01/2024 09/28/2022 07/20/2022 DEONTE - 2/7 SCORES DEONTE-2 Score 5 5 6 DEONTE-7 Score 16 17 18 Last pap smear in the last year through [facility]. Reportedly normal. Past medical history, appointments, medications, allergies reviewed. Previous Medical History PAST MEDICAL HISTORY No date: Bipolar disorder (HCC) Comment: Psychiatry through counseling center No date: Depression with anxiety Comment: Vivian and counseling No date: Fatty liver Comment: Sahara Khan MD No date: Hepatitis B core antibody positive No date: Irregular menstrual cycle No date: Migraine No date: Obesity (BMI 30.0-34.9) No date: Palpitations 08/2014: PCOS (polycystic ovarian syndrome) Comment: [place] 09/12/2005: PMH - PAST MEDICAL HISTORY OF Comment: normal color vision Previous Surgical History PAST SURGICAL HISTORY No date: NONE Family History FAMILY HISTORY Problem Relation Age of Onset other (pcos) Mother Anxiety disorder Father Bipolar disorder Father Psychiatry Father bipolar Hypertension Father Anxiety disorder Sister Depression Sister Psychiatry Sister depression Anxiety disorder Sister Depression Sister Psychiatry Sister Anxiety disorder Sister Depression Sister Psychiatry Sister Anxiety disorder Sister Depression Sister Psychiatry Sister Anxiety disorder Sister Depression Sister Psychiatry Sister Anxiety disorder Sister Depression Sister Psychiatry Sister Anxiety disorder Sister Depression Sister Psychiatry Sister Stroke Brother Psychiatry Maternal Aunt Thyroid Maternal Aunt other (polycystic kidney disease) Maternal Uncle Psychiatry Maternal Grandmother BIPOLAR Psychiatry Maternal Grandfather Cancer Paternal Grandmother LUNG other (liver disease) Paternal Grandmother Cancer Paternal Grandfather No Known Problems Son other (liver disease) Other cousin on father's side Patient Allergies ALLERGIES Allergen Reactions Latex Rash, Hives, Itching Current Medications Current Outpatient Medications on File Prior to Visit Medication Sig ondansetron orally disintegrating (ZOFRAN ODT) 4 mg disintegrating tablet Take 1 tablet by mouth every 6 hours as needed for nausea/vomiting. Multivitamin capsule Take 1 capsule by mouth once daily. OXcarbazepine (TRILEPTAL) 300 mg tablet TAKE 1 TABLET BY MOUTH TWICE A DAY omeprazole (PRILOSEC) 40 mg capsule Take 1 capsule by mouth once daily. No current facility-administere d medications on file prior to visit. Social History Social History Tobacco Use Smoking status: Former Current packs/day: 0.00 Average packs/day: 0.3 packs/day for 0.4 years (0.1 ttl pk-yrs) Types: Cigarettes Start date: 11/25/2016 Quit date: 04/27/2017 Years since quittin.6 Smokeless tobacco: Never Substance Use Topics Alcohol use: Not Currently Comment: rare Drug use: No Review of Symptoms REVIEW OF SYSTEMS GENERAL: No weight loss, malaise or fevers HEENT: Negative for frequent or significant headaches, No changes in hearing or vision, no nose bleeds or other nasal problems NECK: Negative for lumps, goiter, pain and significant neck swelling RESPIRATORY: Negative for cough, hemoptysis, wheezing, COPD, dyspnea or shortness of breath CARDIOVASCULAR: Negative for chest pain, leg swelling, hypertension, CHF or palpitations GI: No nausea, vomiting, or diarrhea : Positive for Admits to dysuria, frequency, urgency, incomplete emptying today. Denies hematuria. 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: Negative for abnormal vaginal bleeding, abnormal vaginal discharge MUSCULOSKELETAL: Negative for joint p (more content not included)... Normal [facility] UA DIP, URINE (POC)on 2023 BILIRUBIN UA (POCT) Negative Negative [facility] CLARITY UA (POCT) Clear [facility] COLOR UA (POCT) Yellow [facility] GLUCOSE UA (POCT) Negative Negative mg/dL [facility] Hemoglobin Ql (U) Trace-intact Abnormal Negative [facility] Interpretation and review of laboratory results Abnormal [facility] KETONE UA (POCT) Negative Negative mg/dL [facility] LEUKOCYTES UA (POCT) Small Abnormal Negative [facility] NITRITE UA (POCT) Negative Negative [facility] PH UA (POCT) 7.0 4.5 - 8.[address] [facility] Protein Ql (U) Negative Negative mg/dL [facility] SPECIFIC GRAVITY UA (POCT) 1.015 1.005 - 1.[address] [facility] UROBILINOGEN UA (POCT) 0.2 Normal E.U./dL [facility] Location:[address], [place], [place], [id number] [place] [address] POINT OF CARE [facility] CN[facility]20[facility] LUIS CAMPO ([id number]) 1995 F Date Time Provider Department 09/05/23 [facility]ZOG During your visit today, we recorded the following information about you: Martita Cespedes LPN 09/05/2023 8:00 AM Signed ----- Message from Sierra Herzog MD sent at 09/04/2023 5:01 PM EDT ----- LFTs remain mildly elevated with previous diagnosis of fatty liver disease. Low risk for fibrosis based on results. Blood counts normal. No need for additional imaging at this time. Recheck labs at future OV. Martita Cespedes LPN 09/05/2023 8:01 AM Signed Left a message for pt to call the office and ask to speak to a nurse. DIONICIO Ng Krista, LPN 09/05/2023 8:26 AM Signed Pt notified of results and provider message. Pt voiced understanding. Swathi Root LPN Allergies As of Date: 09/05/2023 Noted Allergy Reaction LATEX 07/04/2017 2 - Rash 4 - Hives 9 - Itching Date Reviewed: 08/30/2023 Reviewed by: Luis Enrique MA - Fully Assessed Reason for Visit: Results [95] Prescriptions as of 09/05/2023 - ondansetron orally disintegrating (ZOFRAN ODT) 4 mg disintegrating tablet Take 1 tablet by mouth every 6 hours as needed for nausea/vomiting. - Multivitamin capsule Take 1 capsule by mouth once daily. - OXcarbazepine (TRILEPTAL) 300 mg tablet TAKE 1 TABLET BY MOUTH TWICE A DAY - omeprazole (PRILOSEC) 40 mg capsule Take 1 capsule by mouth once daily. Problem List As Of Date 09/05/2023 Noted Resolved PCOS (polycystic ovarian syndrome) [E28.2] 07/04/2017 Class 1 obesity without serious comorbidity wit*07/04/2017 Elevated androgen levels [E28.1] 07/04/2017 Anxiety and depression [F41.9, F32.A] 07/26/2017 Elevated liver enzymes [R74.8] 09/12/2017 History of depression [Z86.59] 10/12/2017 Family history of cleft palate [Z82.79] 10/12/2017 Patient requested diagnostic testing [Z01.89] 10/12/2017 Mixed obsessional thoughts and acts [F42.2] 07/23/2022 Bipolar 2 disorder (HCC) [F31.81] 07/23/2022 DEONTE (generalized anxiety disorder) [F41.1] 07/23/2022 Disorder of nose [J34.9] 09/28/2022 Dizziness and giddiness [R42] 08/25/2022 Encounter for screening for COVID-19 [Z11.52] 12/28/2021 Headache [R51] 09/28/2022 Hematuria [R31.9] 09/28/2022 History of female genital system disorder [Z87.*09/28/2022 History of spontaneous [Z87.59] 09/28/2022 Irregular menstrual cycle [N92.6] 09/28/2022 Left lower lobe pneumonia [J18.9] 09/28/2022 Migraine headache [G43.909] 09/28/2022 Not immune to rubella [Z78.9] 09/28/2022 Pain in pelvis [R10.2] 02/17/2022 Pelvic floor relaxation [N81.89] 09/28/2022 Pharyngitis due to Streptococcus species [J02.0]06/20/2022 [Z34.90] 09/28/2022 Subungual hematoma [[id number]] 09/28/2022 Urinary tract infection [N39.0] 09/28/2022 Vomiting [R11.10] 02/03/2022 Encounter Status:Closed by SWATHI ROOT on 09/05/23 Normal [facility] CBC W Auto Differential pane l (Bld)on 08-31-2023 Basophils (Bld) [#/Vol] 0.06 10*3/uL Normal <0.11 [facility] Comment on above: Order Comment: Speci men Type: BLOOD SPECIMENOrdering Facility: [facility] Address: [address] [place] [address] Performed By: #### 5 7021-8 ####[facility] LABCLIA [id number] [facility] [id number], [place] [address] [place] Basophils/100 WBC (Bld) 0.9 % Normal [facility] Comment on above: Order Comment: Speci men Type: BLOOD SPECIMENOrdering Facility: [facility] Address: [address] [place] [address] Performed By: #### 5 7021-8 ####[facility] LABCLIA [id number] [place] [address] [place] Differential cell count method Nom (Bld) Auto Normal [facility] Comment on above: Order Comment: Speci men Type: BLOOD SPECIMENOrdering Facility: [facility] Address: [address] [place] [address] Performed By: #### 5 7021-8 ####[facility] LABCLIA [id number] [place] [address] [place] Eosinophils (Bld) [#/Vol] 0.29 10*3/uL Normal <0.46 [facility] Comment on above: Order Comment: Speci men Type: BLOOD SPECIMENOrdering Facility: [facility] Address: [address] [place] [address] Performed By: #### 5 7021-8 ####[facility] LABCLIA [id number] [place] [address] [place] Eosinophils/100 WBC (Bld) 4.6 % Normal [facility] Comment on above: Order Comment: Speci men Type: BLOOD SPECIMENOrdering Facility: [facility] Address: [address] [place] [address] Performed By: #### 5 7021-8 ####[facility] LABIA [id number] [place] [address] [place] Erythrocyte distribution width (RBC) [Ratio] 12.1 % Normal 11.5-15.0 [facility] Comment on above: Order Comment: Speci men Type: BLOOD SPECIMENOrdering Facility: [facility] Address: [address] [place] [address] Performed By: #### 5 7021-8 ####[facility] LABCLIA [id number] [place] [address] [place] Hematocrit (Bld) [Volume fraction] 45.6 % Normal 36.0-46.0 [facility] Comment on above: Order Comment: Speci men Type: BLOOD SPECIMENOrdering Facility: [facility] Address: [address] [place] [address] Performed By: #### 5 7021-8 ####[facility] LABCLIA [id number] [place] [address] [place] Hemoglobin (Bld) [Mass/Vol] 15.1 g/dL Normal 11.5-15.5 [facility] Comment on above: Order Comment: Speci men Type: BLOOD SPECIMENOrdering Facility: [facility] Address: [address] [place] [address] Performed By: #### 5 7021-8 ####[facility] LABCLIA [id number] [place] [address] [place] Immature granulocytes (Bld) [#/Vol] 10*3/uL Normal <0.10 [facility] Comment on above: Order Comment: Speci men Type: BLOOD SPECIMENOrdering Facility: [facility] Address: [address] [place] [address] Performed By: #### 5 7021-8 ####[facility] LABCLIA [id number] [place] [address] [place] Immature granulocytes/100 WBC (Bld) 0.2 % Normal [facility] Comment on above: Order Comment: Speci men Type: BLOOD SPECIMENOrdering Facility: [facility] Address: [address] [place] [address] Performed By: #### 5 7021-8 ####[facility] LABCLIA [id number] [place] [address] [place] Lymphocytes (Bld) [#/Vol] 2.38 10*3/uL Normal 1.00-4.00 [facility] Comment on above: Order Comment: Speci men Type: BLOOD SPECIMENOrdering Facility: [facility] Address: [address] [place] [address] Performed By: #### 5 7021-8 ####[facility] LABIA [id number] [place] [address] [place] Lymphocytes/100 WBC (Bld) 37.7 % Normal [facility] Comment on above: Order Comment: Speci men Type: BLOOD SPECIMENOrdering Facility: [facility] Address: [address] [place] [address] Performed By: #### 5 7021-8 ####[facility] LABIA [id number] [place] [address] [place] MCH (RBC) [Entitic mass] 30.0 pg Normal 26.0-34.0 [facility] Comment on above: Order Comment: Speci men Type: BLOOD SPECIMENOrdering Facility: [facility] Address: [address] [place] [address] Performed By: #### 5 7021-8 ####[facility] LABIA [id number] [place] [address] [place] MCHC (RBC) [Mass/Vol] 33.1 g/dL Normal 30.5-36.0 [facility] Comment on above: Order Comment: Speci men Type: BLOOD SPECIMENOrdering Facility: [facility] Address: [address] [place] [address] Performed By: #### 5 7021-8 ####[facility] LABIA [id number] [place] [address] [place] MCV (RBC) [Entitic vol] 90.7 fL Normal 80.0-100.0 [facility] Comment on above: Order Comment: Speci men Type: BLOOD SPECIMENOrdering Facility: [facility] Address: [address] [place] [address] Performed By: #### 5 7021-8 ####[facility] LABCLIA [id number] [place] [address] [place] Monocytes (Bld) [#/Vol] 0.55 10*3/uL Normal <0.87 [facility] Comment on above: Order Comment: Speci men Type: BLOOD SPECIMENOrdering Facility: [facility] Address: [address] [place] [address] Performed By: #### 5 7021-8 ####[facility] LABCLIA [id number] [place] [address] [place] Monocytes/100 WBC (Bld) 8.7 % Normal [facility] Comment on above: Order Comment: Speci men Type: BLOOD SPECIMENOrdering Facility: [facility] Address: [address] [place] [address] Performed By: #### 5 7021-8 ####[facility] LABCLIA [id number] [place] [address] [place] Neutrophils (Bld) [#/Vol] 3.03 10*3/uL Normal 1.45-7.50 [facility] Comment on above: Order Comment: Speci men Type: BLOOD SPECIMENOrdering Facility: [facility] Address: [address] [place] [address] Performed By: #### 5 7021-8 ####[facility] LABCLIA [id number] [place] [address] [place] Neutrophils/100 WBC (Bld) 47.9 % Normal [facility] Comment on above: Order Comment: Speci men Type: BLOOD SPECIMENOrdering Facility: [facility] Address: [address] [place] [address] Performed By: #### 5 7021-8 ####[facility] LABCLIA [id number] [place] [address] [place] Nucleated RBC (Bld) [#/Vol] 10*3/uL Normal <0.01 [facility] Comment on above: Order Comment: Speci men Type: BLOOD SPECIMENOrdering Facility: [facility] Address: [address] [place] [address] Performed By: #### 5 7021-8 ####[facility] LABCLIA [id number] [place] [address] [place] Nucleated RBC/100 WBC (Bld) [Ratio] 0.0 /100 WBC Normal [facility] Comment on above: Order Comment: Speci men Type: BLOOD SPECIMENOrdering Facility: [facility] Address: [address] [place] [address] Performed By: #### 5 7021-8 ####[facility] LABCLIA [id number] [place] [address] [place] Platelet mean volume (Bld) [Entitic vol] 11.6 fL Normal 9.0-12.7 [facility] Comment on above: Order Comment: Speci men Type: BLOOD SPECIMENOrdering Facility: [facility] Address: [address] [place] [address] Performed By: #### 5 7021-8 ####[facility] LABCLIA [id number] [place] [address] [place] Platelets (Bld) [#/Vol] 239 10*3/uL Normal 150-400 [facility] Comment on above: Order Comment: Speci men Type: BLOOD SPECIMENOrdering Facility: [facility] Address: [address] [place] [address] Performed By: #### 5 7021-8 ####[facility] LABCLIA [id number] [place] [address] [place] RBC (Bld) [#/Vol] 5.03 10*6/uL Normal 3.90-5.20 [facility] Comment on above: Order Comment: Speci men Type: BLOOD SPECIMENOrdering Facility: [facility] Address: [address] [place] [address] Performed By: #### 5 7021-8 ####[facility] LABCLIA [id number] [place] [address] [place] WBC (Bld) [#/Vol] 6.32 10*3/uL Normal 3.70-11.00 [facility] Comment on above: Order Comment: Speci men Type: BLOOD SPECIMENOrdering Facility: [facility] Address: [address] [place] [address] Performed By: #### 5 7021-8 ####[facility] LABCLIA [id number] [place] [address] [place] Comprehensive metabolic 2000 panelon 08-31-2023 Albumin [Mass/Vol] 4.3 g/dL Normal 3.9-4.9 [facility] Comment on above: Order Comment: Speci men Type: BLOOD SPECIMENOrdering Facility: [facility] Address: [address] [place] [address] Performed By: #### 2 4323-8 ####[facility] LABCLIA [id number] [place] [address] [place] ALP [Catalytic activity/Vol] 55 U/L Normal 34-123 [facility] Comment on above: Order Comment: Speci men Type: BLOOD SPECIMENOrdering Facility: [facility] Address: [address] [place] [address] Performed By: #### 2 4323-8 ####[facility] LABCLIA [id number] [place] [address] [place] ALT [Catalytic activity/Vol] 75 U/L High 7-38 [facility] Comment on above: Order Comment: Speci men Type: BLOOD SPECIMENOrdering Facility: [facility] Address: [address] [place] [address] Performed By: #### 2 4323-8 ####[facility] LABCLIA [id number] [place] [address] [place] Anion gap [Moles/Vol] 11 mmol/L Normal 9-18 [facility] Comment on above: Order Comment: Speci men Type: BLOOD SPECIMENOrdering Facility: [facility] Address: [address] [place] [address] Performed By: #### 2 4323-8 ####[facility] LABCLIA [id number] [place] [id number] [place] AST [Catalytic activity/Vol] 44 U/L High 13-35 [facility] Comment on above: Order Comment: Speci men Type: BLOOD SPECIMENOrdering Facility: [facility] Address: [address] [place] [address] Performed By: #### 2 4323-8 ####[facility] LABCLIA [id number] [place] [address] [place] Bilirubin [Mass/Vol] 0.8 mg/dL Normal 0.2-1.3 [facility] Comment on above: Order Comment: Speci men Type: BLOOD SPECIMENOrdering Facility: [facility] Address: [address] [place] [address] Performed By: #### 2 4323-8 ####[facility] LABCLIA [id number] [place] [address] [place] Calcium [Mass/Vol] 9.8 mg/dL Normal 8.5-10.2 [facility] Comment on above: Order Comment: Speci men Type: BLOOD SPECIMENOrdering Facility: [facility] Address: [address] [place] [address] Performed By: #### 2 4323-8 ####[facility] LABCLIA [id number] [place] [address] [place] Chloride [Moles/Vol] 102 mmol/L Normal 97-105 [facility] Comment on above: Order Comment: Speci men Type: BLOOD SPECIMENOrdering Facility: [facility] Address: [address] [place] [address] Performed By: #### 2 4323-8 ####[facility] LABCLIA [id number] [place] [address] [place] CO2 [Moles/Vol] 27 mmol/L Normal 22-30 [facility] Comment on above: Order Comment: Speci men Type: BLOOD SPECIMENOrdering Facility: [facility] Address: [address] [place] [address] Performed By: #### 2 4323-8 ####[facility] LABIA [id number] [place] [address] [place] Creatinine [Mass/Vol] 0.85 mg/dL Normal 0.58-0.96 [facility] Comment on above: Order Comment: Speci men Type: BLOOD SPECIMENOrdering Facility: [facility] Address: [address] [place] [address] Performed By: #### 2 4323-8 ####[facility] LABIA [id number] [place] [address] [place] Creatinine and Glomerular filtration rate.predicted panel (S/P/Bld) 97 mL/min/1.73m??? Normal >=60 [facility] Comment on above: Order Comment: Speci men Type: BLOOD SPECIMENOrdering Facility: [facility] Address: [address] [place] [address] Result Comment: Shima mated Glomerular Filtration Rate (eGFR) is calculated using the 2020 CKD-EPI creatinine equation. This equation utilizes serum creatinine, sex, and age as parameters. The creatinine assay has traceable calibration to isotope dilution-mass spectrometry. Refer to KDIGO guidelines for clinical interpretation. In patients with unstable renal function, e.g. those with acute kidney injury, the eGFR may not accurately reflect actual GFR. Performed By: #### 2 4323-8 ####[facility] LABCLIA [id number] [place] [address] [place] Glucose [Mass/Vol] 82 mg/dL Normal 74-99 [facility] Comment on above: Order Comment: Speci men Type: BLOOD SPECIMENOrdering Facility: [facility] Address: [address] [place], [place] [id number] Result Comment: The [place] Diabetes Association (ADA) provides guidance for cutoff values for fasting glucose and random glucose. The ADA defines fasting as no caloric intake for at least 8 hours. Fasting plasma glucose results between 100 to 125 mg/dL indicate increased risk for diabetes (prediabetes). Fasting plasma glucose results greater than or equal to 126 mg/dL meet the criteria for diagnosis of diabetes. In the absence of unequivocal hyperglycemia, results should be confirmed by repeat testing. In a patient with classic symptoms of hyperglycemia or hyperglycemic crisis, random plasma glucose results greater than or equal to 200 mg/dL meet the criteria for diagnosis of diabetes. Reference: Standards of Medical Care in Diabetes 2016, [place] [employer] Association. Diabetes Care. 2016.39(Suppl 1). Performed By: #### 2 4323-8 ####[facility] LABCLIA [id number] [place] [address] [place] Potassium [Moles/Vol] 4.0 mmol/L Normal 3.7-5.1 [facility] Comment on above: Order Comment: Speci men Type: BLOOD SPECIMENOrdering Facility: [facility] Address: [address] [place], [place] [id number] Performed By: #### 2 4323-8 ####[facility] LABCLIA [id number] [place] [address] [place] Protein [Mass/Vol] 7.2 g/dL Normal 6.3-8.0 [facility] Comment on above: Order Comment: Speci men Type: BLOOD SPECIMENOrdering Facility: [facility] Address: [address] [place] [address] Performed By: #### 2 4323-8 ####[facility] LABCLIA [id number] [place] [address] [place] Sodium [Moles/Vol] 140 mmol/L Normal 136-144 [facility] Comment on above: Order Comment: Speci men Type: BLOOD SPECIMENOrdering Facility: [facility] Address: [address] [place] [address] Performed By: #### 2 4323-8 ####[facility] LABIA [id number] [place] [id number] [place] Urea nitrogen [Mass/Vol] 8 mg/dL Normal 7-21 [facility] Comment on above: Order Comment: Speci men Type: BLOOD SPECIMENOrdering Facility: [facility] Address: [address] [place] [place] [id number] Performed By: #### 2 4323-8 ####[facility] LABIA [id number] [address] OF [facility] CNOVon 08-30-2023 CNOV Office Visit (FAMPWS) LUIS CAMPO ([id number]) 1995 F Date Time Provider Department 08/30/23 11:40 AM [facility] During your visit today, we recorded the following information about you: Pulse Respiration Blood pressure Weight 66/minute 16/minute 118/74 93.9 kg Height 1.6 m Sierra Herzog MD 08/30/2023 2:08 PM Signed Chief Complaint Patient presents with: discuss hx fatty liver and treatment options HPI Luis Campo is a 28 year old female who presents here today for Above Complaints. Here today to discuss history of fatty liver and treatment options. Patient states that she woke up one day last week and decided enough was enough. She has cut out pop, eliminated creamer/sugar from her coffee, reducing her processed foods and increased fiber. Walking about 1 1/2 miles each night. Weight down 3 lbs in the last week. Avoiding tylenol and alcohol with previous high LFTs. Past medical history, appointments, medications, allergies reviewed. Previous Medical History PAST MEDICAL HISTORY Diagnosis Date Bipolar disorder (HCC) Psychiatry through counseling center Depression with anxiety Seeing Dr Hinson and counselor Fatty liver Sahara Khan MD Hepatitis B core antibody positive Irregular menstrual cycle Migraine Obesity (BMI 30.0-34.9) Palpitations PCOS (polycystic ovarian syndrome) 08/2014 [facility] - PAST MEDICAL HISTORY OF 09/12/2005 normal color vision Previous Surgical History PAST SURGICAL HISTORY Procedure Laterality Date NONE Family History FAMILY HISTORY Problem Relation Age of Onset other (pcos) Mother Anxiety disorder Father Bipolar disorder Father Psychiatry Father bipolar Hypertension Father Anxiety disorder Sister Depression Sister Psychiatry Sister depression Anxiety disorder Sister Depression Sister Psychiatry Sister Anxiety disorder Sister Depression Sister Psychiatry Sister Anxiety disorder Sister Depression Sister Psychiatry Sister Anxiety disorder Sister Depression Sister Psychiatry Sister Anxiety disorder Sister Depression Sister Psychiatry Sister Anxiety disorder Sister Depression Sister Psychiatry Sister Stroke Brother Psychiatry Maternal Aunt Thyroid Maternal Aunt other (polycystic kidney disease) Maternal Uncle Psychiatry Maternal Grandmother BIPOLAR Psychiatry Maternal Grandfather Cancer Paternal Grandmother LUNG other (liver disease) Paternal Grandmother Cancer Paternal Grandfather No Known Problems Son other (liver disease) Other cousin on father's side Patient Allergies ALLERGIES Allergen Reactions Latex Rash, Hives, Itching Current Medications Current Outpatient Medications on File Prior to Visit Medication Sig ondansetron orally disintegrating (ZOFRAN ODT) 4 mg disintegrating tablet Take 1 tablet by mouth every 6 hours as needed for nausea/vomiting. Multivitamin capsule Take 1 capsule by mouth once daily. OXcarbazepine (TRILEPTAL) 300 mg tablet TAKE 1 TABLET BY MOUTH TWICE A DAY omeprazole (PRILOSEC) 40 mg capsule Take 1 capsule by mouth once daily. No current facility-administere d medications on file prior to visit. Social History Social History Tobacco Use Smoking status: Former Packs/day: .25 Types: Cigarettes Start date: 11/25/2016 Quit date: 04/27/2017 Years since quittin.3 Smokeless tobacco: Never Substance Use Topics Alcohol use: Not Currently Comment: rare Drug use: No Review of Symptoms REVIEW OF SYSTEMS GENERAL: No weight loss, malaise or fevers RESPIRATORY: Negative for cough, hemoptysis, wheezing, COPD, dyspnea or shortness of breath GI: No nausea, vomiting, or diarrhea SKIN: Negative for lesions, rash, and itching EXAM: BP 118/74 Pulse 66 Resp 16 Ht 160 cm (5' 3 ) Wt 93.9 kg (207 lb) LMP 05/07/2022 BMI 36.67 kg/m? General Appearance: Well appearing, alert, in no acute distress, well-hydrated, well nourished.. Skin: Skin color, texture, turgor normal, no suspicious rashes or lesions. Lungs: Lungs clear to auscultation. No wheezing, rhonchi, rales.. Heart: RRR without murmur, gallop, or rubs. No ectopy. Abdomen: Normal abdominal exam, Abdomen soft, non-tender. Bowel sounds normal. No masses, organomegaly. Extremities: No deformities, edema, skin discoloration, clubbing or cyanosis. Good capillary refill. . Health Maintenance List Pap Testing due on 07/24/2022 Covid-19 Vaccine( season) due on 01/13/2023 DTaP,Tdap,Td Vaccine(9 - Td or Tdap) due on 03/21/2029 Hepatitis B Vaccine Completed HPV Vaccine Completed Influenza Vaccine Completed Hepatitis C Screening Completed HIV Screening Completed Data reviewed Latest Ref Rng 06/13/2022 Protein, Total 6.3 - 8.0 g/dL 7.3 Albumin 3.9 - 4.9 g/dL 4.3 Calcium 8.5 - 10.2 mg/dL 9.5 Bilirubin, Total 0. (more content not included)... Normal [facility] Bacteria Ur Culton 4 Bacteria identified Cx Nom (U) CULTURE, URINE: No growth (<1,000 CFU/ml) Normal [facility] Comment on above: Performed By: #### 6 30-4 ####[facility] LABCLIA [id number] [place] [id number] [place] [id number] 04-30-2023 SARS-CoV-2 (COVID-19) RNA CASSI+probe Ql (Unsp spec) Negative Normal Negative [facility] ([place]) Comment on above: Performed By: #### F RITO COVD19 #### [facility] [address] [address] SARS-CoV-2 (COVID-19) RNA CASSI+probe Ql (Unsp spec) Normal [facility] ([place]) Comment on above: Result Comment: Nega tive results do not preclude SARS-CoV-2 infection and should not be used as the sole basis for patient management decisions. Negative results must be combined with clinical observations, patient history, and epidemiological information. There is a risk of false negative values resulting from improperly collected, transported, or handled specimens. There is a risk of false negative values due to the presence of sequence variants in the pathogen targets of the assay, procedural errors, amplification inhibitors in specimens, or inadequate numbers of organisms for amplification. [employer] SARS-CoV-2 Assay is a Real-Time reverse-transcriptase polymerase chain reaction (RT-PCR) based qualitative in vitro diagnostic test intended for the qualitative detection of nucleic acid from the SARS-CoV-2 in nasopharyngeal swab specimens collected from individuals suspected of COVID-19 by their healthcare provider. Testing is limited to laboratories certified under the Clinical Laboratory Improvement Amendments of 1988 (CLIA), 42 U.S.C. ?263a, to perform moderate and high complexity tests. COVID-19 Int Performed By: #### F RITO, COVD19 #### [address] [address] FLURSVon 04-30-2023 Flu A PCR (AO) Negative Normal Negative [facility] ([place]) Comment on above: Result Comment: Posi tive Results: Positive Flu A/B or RSV for by PCR. Positive test results do not rule out bacterial infection or co-infection with other pathogens. Test results should be interpreted in conjunction with other laboratory and clinical data. Negative Results: Negative for by PCR. Negative test results do not preclude influenza virus or RSV infection and should not be used as the sole basis for diagnosis, treatment, or other management decisions. There is a risk of false negative RSV results when at low concentration and in the presence of co-infection with high concentration of influenza A. Invalid Results: An Invalid result (INV) was obtained. The test was repeated with similar results. REPEAT COLLECTION AND TESTING IS RECOMMENDED. The [employer] Flu A/B & RSV Assay is a real-time polymerase chain reaction (PCR) based qualitative in vitro diagnostic test for the direct detection and differentiation of influenza A virus, influenza B virus, and respiratory syncytial virus (RSV) nucleic acid in nasopharyngeal swab (SPECIAL DISTRIBUTION CLERK) specimens from patients with signs and symptoms of respiratory infection in conjunction with clinical and laboratory findings. The test is intended for use as an aid in the differential diagnosis of influenza A virus, influenza B virus, and RSV in humans and is not intended to detect influenza C. Performed By: #### F RITO COVD19 #### [place] [address] [place], [place] [address] Flu B PCR (AO) Negative Normal Negative [facility] ([place]) Comment on above: Result Comment: Posi tive Results: Positive Flu A/B or RSV for by PCR. Positive test results do not rule out bacterial infection or co-infection with other pathogens. Test results should be interpreted in conjunction with other laboratory and clinical data. Negative Results: Negative for by PCR. Negative test results do not preclude influenza virus or RSV infection and should not be used as the sole basis for diagnosis, treatment, or other management decisions. There is a risk of false negative RSV results when at low concentration and in the presence of co-infection with high concentration of influenza A. Invalid Results: An Invalid result (INV) was obtained. The test was repeated with similar results. REPEAT COLLECTION AND TESTING IS RECOMMENDED. The [employer] Flu A/B & RSV Assay is a real-time polymerase chain reaction (PCR) based qualitative in vitro diagnostic test for the direct detection and differentiation of influenza A virus, influenza B virus, and respiratory syncytial virus (RSV) nucleic acid in nasopharyngeal swab (SPECIAL DISTRIBUTION CLERK) specimens from patients with signs and symptoms of respiratory infection in conjunction with clinical and laboratory findings. The test is intended for use as an aid in the differential diagnosis of influenza A virus, influenza B virus, and RSV in humans and is not intended to detect influenza C. Performed By: #### F RITO COVD19 #### [place] [address] [place], [place] [address] RSV PCR (AO) Negative Normal Negative [facility] ([place]) Comment on above: Result Comment: Posi tive Results: Positive Flu A/B or RSV for by PCR. Positive test results do not rule out bacterial infection or co-infection with other pathogens. Test results should be interpreted in conjunction with other laboratory and clinical data. Negative Results: Negative for by PCR. Negative test results do not preclude influenza virus or RSV infection and should not be used as the sole basis for diagnosis, treatment, or other management decisions. There is a risk of false negative RSV results when at low concentration and in the presence of co-infection with high concentration of influenza A. Invalid Results: An Invalid result (INV) was obtained. The test was repeated with similar results. REPEAT COLLECTION AND TESTING IS RECOMMENDED. The [employer] Flu A/B & RSV Assay is a real-time polymerase chain reaction (PCR) based qualitative in vitro diagnostic test for the direct detection and differentiation of influenza A virus, influenza B virus, and respiratory syncytial virus (RSV) nucleic acid in nasopharyngeal swab (SPECIAL DISTRIBUTION CLERK) specimens from patients with signs and symptoms of respiratory infection in conjunction with clinical and laboratory findings. The test is intended for use as an aid in the differential diagnosis of influenza A virus, influenza B virus, and RSV in humans and is not intended to detect influenza C. Performed By: #### F RITO, COVD19 #### [facility] [address] [place], [place] [address] LABORATORYOrdered By: Angelic Shetty on 04-30-2023 FLUAV RNA CASSI+probe Ql (Upper resp) Negative 1 (04/30/23 5:38 AM) Normal Negative AO Auto Urine SS Comment on above: Interpretive Data: P ositive Results: Positive Flu A/B or RSV for by PCR. Positive test results do not rule out bacterial infection or co-infection with other pathogens. Test results should be interpreted in conjunction with other laboratory and clinical data. Negative Results: Negative for by PCR. Negative test results do not preclude influenza virus or RSV infection and should not be used as the sole basis for diagnosis, treatment, or other management decisions. There is a risk of false negative RSV results when at low concentration and in the presence of co-infection with high concentration of influenza A. Invalid Results: An Invalid result (INV) was obtained. The test was repeated with similar results. REPEAT COLLECTION AND TESTING IS RECOMMENDED. The [employer] Flu A/B & RSV Assay is a real-time polymerase chain reaction (PCR) based qualitative in vitro diagnostic test for the direct detection and differentiation of influenza A virus, influenza B virus, and respiratory syncytial virus (RSV) nucleic acid in nasopharyngeal swab (SPECIAL DISTRIBUTION CLERK) specimens from patients with signs and symptoms of respiratory infection in conjunction with clinical and laboratory findings. The test is intended for use as an aid in the differential diagnosis of influenza A virus, influenza B virus, and RSV in humans and is not intended to detect influenza C. FLUBV RNA CASSI+probe Ql (Upper resp) Negative 2 (04/30/23 5:38 AM) Normal Negative AO Auto Urine SS Comment on above: Interpretive Data: P ositive Results: Positive Flu A/B or RSV for by PCR. Positive test results do not rule out bacterial infection or co-infection with other pathogens. Test results should be interpreted in conjunction with other laboratory and clinical data. Negative Results: Negative for by PCR. Negative test results do not preclude influenza virus or RSV infection and should not be used as the sole basis for diagnosis, treatment, or other management decisions. There is a risk of false negative RSV results when at low concentration and in the presence of co-infection with high concentration of influenza A. Invalid Results: An Invalid result (INV) was obtained. The test was repeated with similar results. REPEAT COLLECTION AND TESTING IS RECOMMENDED. The [employer] Flu A/B & RSV Assay is a real-time polymerase chain reaction (PCR) based qualitative in vitro diagnostic test for the direct detection and differentiation of influenza A virus, influenza B virus, and respiratory syncytial virus (RSV) nucleic acid in nasopharyngeal swab (SPECIAL DISTRIBUTION CLERK) specimens from patients with signs and symptoms of respiratory infection in conjunction with clinical and laboratory findings. The test is intended for use as an aid in the differential diagnosis of influenza A virus, influenza B virus, and RSV in humans and is not intended to detect influenza C. RSV RNA CASSI+probe Ql (Upper resp) Negative 3 (04/30/23 5:38 AM) Normal Negative AO Auto Urine SS Comment on above: Interpretive Data: P ositive Results: Positive Flu A/B or RSV for by PCR. Positive test results do not rule out bacterial infection or co-infection with other pathogens. Test results should be interpreted in conjunction with other laboratory and clinical data. Negative Results: Negative for by PCR. Negative test results do not preclude influenza virus or RSV infection and should not be used as the sole basis for diagnosis, treatment, or other management decisions. There is a risk of false negative RSV results when at low concentration and in the presence of co-infection with high concentration of influenza A. Invalid Results: An Invalid result (INV) was obtained. The test was repeated with similar results. REPEAT COLLECTION AND TESTING IS RECOMMENDED. The [employer] Flu A/B & RSV Assay is a real-time polymerase chain reaction (PCR) based qualitative in vitro diagnostic test for the direct detection and differentiation of influenza A virus, influenza B virus, and respiratory syncytial virus (RSV) nucleic acid in nasopharyngeal swab (SPECIAL DISTRIBUTION CLERK) specimens from patients with signs and symptoms of respiratory infection in conjunction with clinical and laboratory findings. The test is intended for use as an aid in the differential diagnosis of influenza A virus, influenza B virus, and RSV in humans and is not intended to detect influenza C. SARS-CoV-2 (COVID-19) RNA CASSI+probe Ql (Resp) Negative results do not preclude SARS-CoV-2 infection and should not be used as the sole basis for patient management decisions. Negative results must be combined with clinical observations, patient history, and epidemiological information.There is a risk of false negative values resulting from improperly collected, transported, or handled specimens.There is a risk of false negative values due to the presence of sequence variants in the pathogen targets of the assay, procedural errors, amplification inhibitors in specimens, or inadequate numbers of organisms for amplification.[employer] SARS-CoV-2 Assay is a Real-Time reverse-transcriptas e polymerase chain reaction (RT-PCR) based qualitative in vitro diagnostic test intended for the qualitative detection of nucleic acid from the SARS-CoV-2 in nasopharyngeal swab specimens collected from individuals suspected of COVID-19 by their healthcare provider. Testing is limited to laboratories certified under the Clinical Laboratory Improvement Amendments of 1988 (CLIA), 42 U.S.C. 263a, to perform moderate and high complexity tests. Invalid Interpretation Code AO Auto Urine SS XR CHEST 1 VIEWon 04-30-2023 XR CHEST 1 VIEW ORIGINAL EXAMINATION: ONE XRAY VIEW OF THE CHEST 04/30/2023 5:57 am COMPARISON: None. HISTORY: ORDERING SYSTEM PROVIDED HISTORY: Reason for Exam: SOB/cough/fever FINDINGS: The heart size and mediastinal contours are normal. There is no lung infiltrate or edema. No pneumothorax or pleural fluid is present. Skeletal structures are unremarkable. IMPRESSION: No acute cardiopulmonary abnormality. Interpreted by: Robson Leon MD Preliminary Report By: Robson Leon MD Electronically signed By Robson Leon MD Dictated Date: 04/30/2023 6:08:24 AM Prelim Date: 04/30/2023 6:08:57 AM Sign Date: 04/30/2023 6:08:57 AM Ordering Provider: MELCHOR SCHMITZ [facility] ([place]) [facility] Letter Text Normal [facility] XR Abdomen Supine and Uprigh ton 09-30-2022 IMPRESSION: Nonobstructive bowel gas pattern. Copper Plate Lithographer: JULIANA Transcribe Date/Time: Sep 30 2022 4:32P Dictated by : RICHARD SALCEDO MD This examination was interpreted and the report reviewed and electronically signed by: RICHARD SALCEDO MD on Sep 30 2022 4:33PM EST DIVISION OF RADIOLOGY * * *Final Report* * * DATE OF EXAM: Sep 28 2022 10:26AM WOX [id number] - XR ABDOMEN 1V SUPINE / PROCEDURE REASON: Acute constipation * * * * Physician Interpretation * * * * EXAM TITLE: XR ABDOMEN 1V SUPINE EXAM DATE/TIME: 09/28/2022 10:26 AM COMPARISON: None. CLINICAL INDICATION/HISTORY: Acute constipation. TECHNIQUE: AP views of the abdomen are presented. FINDINGS: No abnormally dilated bowel loops identified. Small amount of stool and gas demonstrated in the large bowel loops. There are phleboliths in the pelvis. The bony structures appear intact. DIVISION OF RADIOLOGY Provider, [facility] [place] - 09/30/2022 * * *Final Report* * * DATE OF EXAM: Sep 28 2022 10:26AM WOX [id number] - XR ABDOMEN 1V SUPINE / PROCEDURE REASON: Acute constipation * * * * Physician Interpretation * * * * EXAM TITLE: XR ABDOMEN 1V SUPINE EXAM DATE/TIME: 09/28/2022 10:26 AM COMPARISON: None. CLINICAL INDICATION/HISTORY: Acute constipation. TECHNIQUE: AP views of the abdomen are presented. FINDINGS: No abnormally dilated bowel loops identified. Small amount of stool and gas demonstrated in the large bowel loops. There are phleboliths in the pelvis. The bony structures appear intact. IMPRESSION IMPRESSION: Nonobstructive bowel gas pattern. Copper Plate Lithographer: JULIANA Transcribe Date/Time: Sep 30 2022 4:32P Dictated by : RICHARD SALCEDO MD This examination was interpreted and the report reviewed and electronically signed by: RICHARD SALCEDO MD on Sep 30 2022 4:33PM EST [facility] XR Abdomen Supine and Uprigh tOrdered By: [facility] Provider on 09-30-[address] [facility] [facility] XR Abdomen Supine and Uprigh ton 09-28-2022 Radiology Study observation (narrative) [facility] US ABD RT UPPER QUADRANTon 0 06-17-[address] [facility] CBC W Auto Differential pane l (Bld)on 06-14-2022 Basophils (Bld) [#/Vol] 0.05 10*3/uL <0.11 k/uL [facility] Basophils/100 WBC (Bld) 0.6 % [facility] Differential cell count method Nom (Bld) Auto [facility] Eosinophils (Bld) [#/Vol] 0.32 10*3/uL <0.46 k/uL [facility] Eosinophils/100 WBC (Bld) 3.9 % [facility] Erythrocyte distribution width (RBC) [Ratio] 12.4 % 11.5 - 15.0 % [facility] Hematocrit (Bld) [Volume fraction] 45.5 % 36.0 - 46.0 % [facility] Hemoglobin (Bld) [Mass/Vol] 14.8 g/dL 11.5 - 15.5 g/dL [facility] Immature granulocytes (Bld) [#/Vol] <0.10 k/uL [facility] Immature granulocytes/100 WBC (Bld) 0.2 % [facility] Lymphocytes (Bld) [#/Vol] 2.57 10*3/uL 1.00 - 4.00 k/uL [facility] Lymphocytes/100 WBC (Bld) 31.3 % [facility] MCH (RBC) [Entitic mass] 29.9 pg 26.0 - 34.[address] [facility] MCHC (RBC) [Mass/Vol] 32.5 g/dL 30.5 - 36.0 g/dL [facility] MCV (RBC) [Entitic vol] 91.9 fL 80.0 - 100.[address] [facility] Monocytes (Bld) [#/Vol] 0.68 10*3/uL <0.87 k/uL [facility] Monocytes/100 WBC (Bld) 8.3 % [facility] Neutrophils (Bld) [#/Vol] 4.57 10*3/uL 1.45 - 7.50 k/uL [facility] Neutrophils/100 WBC (Bld) 55.7 % [facility] Nucleated RBC (Bld) [#/Vol] <0.01 k/uL [facility] Nucleated RBC/100 WBC (Bld) [Ratio] 0.0 /[address] [facility] Platelet mean volume (Bld) [Entitic vol] 11.4 fL 9.0 - 12.[address] [facility] Platelets (Bld) [#/Vol] 271 10*3/uL 150 - 400 k/uL [facility] RBC (Bld) [#/Vol] 4.95 10*6/uL 3.90 - 5.2 0 m/uL [facility] WBC (Bld) [#/Vol] 8.21 10*3/uL 3.70 - 11. 00 k/uL [facility] Comprehensive metabolic 2000 panelon 06-14-2022 Albumin [Mass/Vol] 4.3 g/dL 3.9 - 4.9 g/dL [facility] ALP [Catalytic activity/Vol] 57 U/L 34 - 123 U/L [facility] ALT [Catalytic activity/Vol] 51 U/L High 7 - 38 U/L [facility] Anion gap [Moles/Vol] 12 mmol/L 9 - 18 mmol/L [facility] AST [Catalytic activity/Vol] 32 U/L 13 - 35 U/L [facility] Bilirubin [Mass/Vol] 0.9 mg/dL 0.2 - 1 .3 mg/dL [facility] Calcium [Mass/Vol] 9.5 mg/dL 8.5 - 10. 2 mg/dL [facility] Chloride [Moles/Vol] 103 mmol/L 97 - 10 5 mmol/L [facility] CO2 [Moles/Vol] 23 mmol/L 22 - 30 mmol/L [facility] Creatinine [Mass/Vol] 0.94 mg/dL 0.58 - 0.96 mg/dL [facility] Estimated Glomerular Filtration Rate 87 mL/min/1.73m >=60 mL/min/1.73m [facility] Glucose [Mass/Vol] 75 mg/dL 74 - 99 mg/dL [facility] Potassium [Moles/Vol] 4.3 mmol/L 3.7 - 5.1 mmol/L [facility] Protein [Mass/Vol] 7.3 g/dL 6.3 - 8.0 g/dL [facility] Sodium [Moles/Vol] 138 mmol/L 136 - 144 mmol/L [facility] Urea nitrogen [Mass/Vol] 10 mg/dL 7 - 21 mg/dL [facility] H. pylori Ag IA Ql (Stl)on 0 06-14-2022 Microorganism or agent identified Nom (Unsp spec) Negative Negative for H. Pylori antigen by EIA [facility] LIPASE BLDon 06-14-2022 Lipase [Catalytic activity/Vol] 38 U/L 16 - 61 U/L [facility] Vital Signs Date Time Vital Sign Value Performing Clinician Faci lity 2024 17:45-0400 Body mass index (BMI) [Ratio] 31.01 kg/m2 Sierra Herzog MD Work Phone: [facility] 2024 17:45-0400 Body weight 79.4 kg Sierra Herzog MD Work Phone: [facility] 2024 17:45-0400 Diastolic blood pressure 78 mm[Hg] Sierra Herzog MD Work Phone: [facility] 2024 17:45-0400 Heart rate 71 /min Sierra Herzog MD Work Phone: [facility] 2024 17:45-0400 Respiratory rate 16 /min Sierra Herzog MD Work Phone: [facility] 2024 17:45-0400 SaO2% (BldA) [Mass fraction] 98 % Sierra Herzog MD Work Phone: [facility] 2024 17:45-0400 Systolic blood pressure 106 mm[Hg] Sierra Herzog MD Work Phone: [facility] 08-30-2023 11:40-0400 Body height 160 cm Sierra Herzog MD Work Phone: [facility] 08-30-2023 11:40-0400 Body weight 93.89 kg Sierra Herzog MD Work Phone: [facility] 08-30-2023 11:40-0400 Diastolic blood pressure 74 mm[Hg] Sierra Herzog MD Work Phone: [facility] 08-30-2023 11:40-0400 Heart rate 66 /min Sierra Herzog MD Work Phone: [facility] 08-30-2023 11:40-0400 Respiratory rate 16 /min Sierra Herzog MD Work Phone: [facility] 08-30-2023 11:40-0400 Systolic blood pressure 118 mm[Hg] Sierra Herzog MD Work Phone: [facility] 04-30-2023 05:19-0500 Body height [address] MELCHOR SCHMITZ MD [facility] 04-30-2023 05:19-0500 Body temperature 96.98 [degF] DR MELCHOR SCHMITZ MD [facility] 04-30-2023 05:19-0500 Body weight 90.[address] MELCHOR SCHMITZ MD [facility] 04-30-2023 05:19-0500 Diastolic Blood Pressure Non-Invasive 84 mm[Hg] DR MELCHOR SCHMITZ MD [facility] 04-30-2023 05:19-0500 Heart rate 82 /min DR MELCHOR SCHMITZ MD [facility] 04-30-2023 05:19-0500 Respiratory rate 18 /min DR MELCHOR SCHMITZ MD [facility] 04-30-2023 05:19-0500 Systolic Blood Pressure Non-Invasive 123 mm[Hg] DR MELCHOR SCHMITZ MD [facility] 11-07-2022 10:42-0400 Body weight 93.17 kg Sierra Herzog MD Work Phone: [facility] 11-07-2022 10:42-0400 Diastolic blood pressure 68 mm[Hg] Sierra Herzog MD Work Phone: [facility] 11-07-2022 10:42-0400 Heart rate 69 /min Sierra Herzog MD Work Phone: [facility] 11-07-2022 10:42-0400 Respiratory rate 16 /min Sierra Herzog MD Work Phone: [facility] 11-07-2022 10:42-0400 SaO2% (BldA) [Mass fraction] 97 % Sierra Herzog MD Work Phone: [facility] 11-07-2022 10:42-0400 Systolic blood pressure 108 mm[Hg] Sierra Herzog MD Work Phone: [facility] 06-13-2022 10:05-0500 Body weight 89.99 kg Sierra Herzog MD Work Phone: [facility] 06-13-2022 10:05-0500 Diastolic blood pressure 66 mm[Hg] Sierra Herzog MD Work Phone: [facility] 06-13-2022 10:05-0500 Heart rate 60 /min Sierra Herzog MD Work Phone: [facility] 06-13-2022 10:05-0500 Respiratory rate 16 /min Sierra Herzog MD Work Phone: [facility] 06-13-2022 10:05-0500 SaO2% (BldA) [Mass fraction] 98 % Sierra Herzog MD Work Phone: [facility] 06-13-2022 10:05-0500 Systolic blood pressure 122 mm[Hg] Sierra Herzog MD Work Phone: [facility] 05-25-2022 09:56-0500 Body height 163.8 cm Sierra Herzog MD Work Phone: [facility] 05-25-2022 09:56-0500 Body temperature 97.39 [degF] Sierra Herzog MD Work Phone: [facility] 05-25-2022 09:56-0500 Body weight 90.54 kg Sierra Herzog MD Work Phone: [facility] 05-25-2022 09:56-0500 Diastolic blood pressure 82 mm[Hg] Sierra Herzog MD Work Phone: [facility] 05-25-2022 09:56-0500 Heart rate 56 /min Sierra Herzog MD Work Phone: [facility] 05-25-2022 09:56-0500 Respiratory rate 16 /min Sierra Herzog MD Work Phone: [facility] 05-25-2022 09:56-0500 SaO2% (BldA) [Mass fraction] 97 % Sierra Herzog MD Work Phone: [facility] 05-25-2022 09:56-0500 Systolic blood pressure 118 mm[Hg] Sierra Herzog MD Work Phone: [facility] Encounters Encounter Date Encounter Type Care Provider Facility Start: 01-29-2024 End: 01-29-2024 Telephone encounter Sierra Herzog MD Work Phone: [facility] Comment on above: Results Start: 01-24-2024 End: 01-25-2024 Telephone encounter Sierra Herzog MD Work Phone: [facility] Comment on above: Orders Start: 01-10-2024 End: 01-10-2024 Telephone encounter Joann ROLON Work Phone: Adult [facility] Comment on above: Behavioral Health/So cial Work Start: 01-03-2024 End: 01-03-2024 Telephone encounter Joann ROLON Work Phone: Adult [facility] Comment on above: Behavioral Health/So cial Work Start: 2024 End: 2024 ambulatory SIERRA HERZOG Facility:[facility] Start: 2024 End: 2024 Patient encounter procedure Sierra Herzog MD Work Phone: [facility] Comment on above: Annual physical exam (Primary Dx); Fatty liver; Bipolar disorder, current episode mixed, moderate (HCC); Anxiety and depression; Dysuria; Class 1 obesity with body mass index (BMI) of 31.0 to 31.9 in adult, unspecified obesity type, unspecified whether serious comorbidity present Start: 12-04-2023 ambulatory Sierra Herzog MD Work Phone: [facility] Start: 12-04-2023 Follow-up encounter Micheal Herzog MD Work Phone: [facility] Comment on above: ER Visit Followup Start: 09-05-2023 Telephone encounter Micheal Herzog MD Work Phone: [facility] Comment on above: Results Start: 08-31-2023 End: 08-31-2023 ambulatory SIERRA HERZOG Facility:[facility] Start: 08-30-2023 End: 08-30-2023 ambulatory SIERRA HERZOG Facility:[facility] Start: 08-30-2023 End: 08-30-2023 Patient encounter procedure Sierra Herzog MD Work Phone: [facility] [place] Comment on above: Fatty liver (Primary Dx); Elevated liver enzymes; Class 2 obesity with body mass index (BMI) of 36.0 to 36.9 in adult, unspecified obesity type, unspecified whether serious comorbidity present Start: 07-07-2023 End: 07-07-2023 ambulatory SIERRA HERZOG Facility:[facility] Start: 07-07-2023 End: 07-07-2023 ambulatory Talisha Demetrio [employer]ACH[employer] Work Phone: Telemedicine Comment on above: Acute cystitis witho ut hematuria (Primary Dx) Start: 07-07-2023 End: 07-07-2023 Telemedicine consultation with patient Talisha Castillomirimatthew [employer] MEMBER.MACHINE [employer] Work Phone: [facility] Start: 05-02-2023 End: 05-03-2023 ambulatory SIERRA HERZOG Facility:[facility] Start: 04-30-2023 End: 04-30-2023 Emergency department patient visit DR MELCHOR SCHMITZ MD Facility: Start: 04-30-2023 End: 04-30-2023 Emergency department patient visit DR MELCHOR SCHMITZ MD [facility] Start: 01-06-2023 Refill Sierra Herzog MD Work Phone: [facility] Comment on above: Refill Request Start: 11-08-2022 Telephone encounter Micheal Herzog MD Work Phone: [facility] [place] Comment on above: Faxed to [employer] [facility] Start: 11-07-2022 End: 11-07-2022 Patient encounter procedure Sierra Herzog MD Work Phone: [facility] Comment on above: Atypical mole (Prima ry Dx); Skin lesion Start: 09-28-2022 End: 09-28-2022 Subsequent hospital visit by physician [facility] [place] Work Phone: Radiology Comment on above: Acute constipation [ K59.00] Start: 09-19-2022 Refill Vivian rosario [employer]BER.[employer]ACH[employer] Work Phone: Psychiatry Comment on above: Refill Request Start: 07-22-2022 Telephone encounter Vivian amhan [employer]BER.[employer] Work Phone: Psychiatry Comment on above: Patient Question Start: 06-20-2022 Telephone encounter Nancy junior APRN.MACHINE [employer] Work Phone: Family [facility] [place] Comment on above: Results Start: 06-17-2022 End: 06-17-2022 Subsequent hospital visit by physician [facility] Work Phone: Radiology Comment on above: Epigastric pain [R10 .13] Start: 06-13-2022 Telephone encounter Micheal Herzog MD Work Phone: Family [facility] Comment on above: Appointment Start: 06-13-2022 End: 06-13-2022 Patient encounter procedure Sierra Hezrog MD Work Phone: [facility] Comment on above: Epigastric pain (Anabel shazia Dx); RUQ pain; Nausea Start: 05-30-2022 Telephone encounter Nancy junior APRN.MACHINE [employer] Work Phone: [facility] Comment on above: Results Care Coordination Start: 05-25-2022 Telephone encounter Joann dhaliwal DEPUTY PROBATION OFFICER Work Phone: Adult Psychology Comment on above: Behavioral Health [facility] Work Start: 05-25-2022 End: 05-25-2022 Patient encounter procedure Sierra Herzog MD Work Phone: [facility] Comment on above: Encounter for medica l examination to establish care (Primary Dx); Bipolar disorder, current episode mixed, moderate (HCC); Anxiety and depression; Palpitations; Hepatitis B core antibody positive; PCOS (polycystic ovarian syndrome); Elevated liver enzymes; Class 1 obesity without serious comorbidity with body mass index (BMI) of 32.0 to 32.9 in adult, unspecified obesity type Start: 05-25-2022 End: 05-25-2022 Patient encounter status Sierra Herzog MD Work Phone: [facility] [place] Start: 05-23-2022 Telephone encounter Micheal Herzog MD Work Phone: [facility] Comment on above: Appointment Start: 10-12-2017 Patient requested procedure Joann Swain [facility] Work Phone: [facility] Work Phone: Procedures Date Procedure Procedure Detail Performing Clinician Start: 2024 Culture bacterial quanttative colony count urine Sierra Herzog MD Work Phone: Start: 2024 Urnls dip stick/tabl et rgnt auto w/o microscopy Sierra Herzog MD Work Phone: Start: 09-28-2022 Radiologic exam abdo men 1 view Sierra Herzog MD Work Phone: Start: 06-17-2022 Us abdominal real ti me w/image limited Sierra Herzog MD Work Phone: Start: 06-13-2022 Iaad ia hpylori stool C hrbharti Herzog MD Work Phone: Plan of Treatment Date Care Activity Detail Author Start: 03-21-2029 Urine microalbumin profile [facility] Start: 03-09-2026 Screening for malign ant neoplasm of cervix [facility] Start: 01-01-2025 Covid-19 Vaccine ( season) Covid-19 Vaccine () [facility] Comment on above: Postponed from 01/13 (Declined at this time) Start: 04-02-2024 End: 04-02-2024 Patient encounter procedure 04/02/2024 5:40 PM EST Office Visit [facility] [address] [place], [place] [phone] Sierra Herzog MD [address] [place], [place] [phone] 3 month follow up [facility] Comment on above: 3 month follow up Start: 01-25-2024 End: 04-25-2024 Choriogonadotropin.beta subunit [Units/volume] in Serum or Plasma HCG QUANTITATIVE Lab Routine Positive test Expected: 01/25/2024, Expires: 04/25/2024 [facility] Work Phone: Comment on above: Expected: 01/25/2024 , Expires: 04/25/2024 Start: 01-14-2024 Covid-19 Vaccine ( season) Covid-19 Vaccine () [facility] Start: 01-14-2024 Covid-19 Vaccine () Covid-19 Vaccine () [facility] Start: 01-14-2024 Influenza vaccination Influenza Vacc ine (#1) [facility] Start: 2024 End: 2024 Patient encounter procedure 2024 5:40 PM EDT Office Visit [facility] [address] [place], [place] [phone] Sierra Herzog MD [address] [place] [phone] physical [facility] Comment on above: physical Start: 2024 End: 04-02-2024 Comprehensive metabolic 2000 panel - Serum or Plasma COMPREHENSIVE METABOLIC PANEL Lab Routine Annual physical exam Expected: 2024, Expires: 04/02/2024 [facility] Work Phone: Comment on above: Expected: 2024 , Expires: 04/02/2024 Start: 2024 End: 04-02-2024 LIPID PANEL, NONFASTING LIPID PANEL, NONFASTING Lab Routine Annual physical exam Expected: 2024, Expires: 04/02/[address] [facility] Comment on above: Expected: 2024 , Expires: 04/02/2024 Start: 2024 End: 04-02-2024 Thyrotropin [Units/volume] in Serum or Plasma THYROID STIMULATING HORMONE Lab Routine Annual physical exam Expected: 2024, Expires: 04/02/[address] [facility] Comment on above: Expected: 2024 , Expires: 04/02/2024 Start: 2024 End: 04-02-2024 Thyroxine (T4) free [Mass/volume] in Serum or Plasma T4 FREE/FREE THYROXINE Lab Routine Annual physical exam Expected: 2024, Expires: 04/02/[address] [facility] Comment on above: Expected: 2024 , Expires: 04/02/2024 Start: 12-06-2023 End: 12-06-2023 Patient encounter procedure 12/06/2023 1:20 PM EDT Office Visit [facility] [address] [place] [id number] Sierra Herzog MD [address] [place] [id number] physical [facility] Comment on above: physical Start: 08-30-2023 End: 11-29-2023 CBC W Auto Differential panel - Blood COMPLETE BLOOD COUNT AND DIFFERENTIAL Lab Routine Fatty liver Expected: 08/30/2023, Expires: 11/29/2023 [facility] Work Phone: Comment on above: Expected: 08/30/2023 , Expires: 11/29/2023 Start: 08-30-2023 End: 11-29-2023 Comprehensive metabolic 2000 panel - Serum or Plasma COMPREHENSIVE METABOLIC PANEL Lab Routine Fatty liver Expected: 08/30/2023, Expires: 11/29/2023 [facility] Work Phone: Comment on above: Expected: 08/30/2023 , Expires: 11/29/2023 Start: 05-25-2023 COVID-19 VACCINE (3 - Booster for Moderna series) COVID-19 VACCINE (3 - Booster for Moderna series) [facility] Comment on above: Postponed from 12/05 (Declined at this time) Start: 05-25-2023 COVID-19 VACCINE (3 - Moderna series) COVID-19 VACCINE (3 - Moderna series) [facility] Comment on above: Postponed from 12/05 (Declined at this time) Start: 01-13-2023 Covid-19 Vaccine () Covid-19 Vaccine () [facility] Start: 01-13-2023 Influenza vaccination [facility] Start: 07-24-2022 PAP TESTING PAP TESTING [facility] Start: 07-24-2022 Screening for malign ant neoplasm of cervix Pap Testing [facility] Start: 05-25-2022 End: 07-25-2022 Acute hepatitis 2000 panel - Serum [facility] Work Phone: Comment on above: Expected: 05/25/2022 , Expires: 07/25/2022 Start: 05-25-2022 End: 07-25-2022 CBC W Auto Differential panel - Blood [facility] Work Phone: Comment on above: Expected: 05/25/2022 , Expires: 07/25/2022 Start: 05-25-2022 End: 07-25-2022 Comprehensive metabolic 2000 panel - Serum or Plasma [facility] Work Phone: Comment on above: Expected: 05/25/2022 , Expires: 07/25/2022 Start: 05-25-2022 End: 07-25-2022 Hemoglobin A1c in Blood [facility] Work Phone: Comment on above: Expected: 05/25/2022 , Expires: 07/25/2022 Start: 05-25-2022 End: 07-25-2022 LIPID PANEL, NONFASTING [facility] Work Phone: Comment on above: Expected: 05/25/2022 , Expires: 07/25/2022 Start: 05-25-2022 End: 07-25-2022 Thyrotropin [Units/volume] in Serum or Plasma [facility] Work Phone: Comment on above: Expected: 05/25/2022 , Expires: 07/25/2022 Start: 2011 PEDS TO ADULT TRANSI TION ANNUAL ASSESSMENT PEDS TO ADULT TRANSITION ANNUAL ASSESSMENT [facility] Start: 2009 PEDS TO ADULT TRANSI TION INITIAL DISCUSSION PEDS TO ADULT TRANSITION INITIAL DISCUSSION [facility] Bacteria identified in Urine by Culture URINE CULTURE Microbiology Routine Acute cystitis without hematuria 07/07/2023 1:28 PM EST [facility] Work Phone: End: 07-13-2023 Us abdominal real time w/image limited US ABD RT UPPER QUADRANT Radiology VENU Epigastric pain 1 Occurrences starting 06/13/2022 until 07/13/2023 [facility] Work Phone: Comment on above: 1 Occurrences starti ng 06/13/2022 until 07/13/2023 [facility] Immunizations Immunization Date Immunization Notes Care Provider Fa [facility] 04-25-2023 influenza virus vaccine, unspecified formulation Sierra Herzog MD Work Phone: [facility] 03-30-2022 influenza, seasonal, injectable Joann CASTILLO Work Phone: [facility] 03-30-2022 influenza virus vaccine, unspecified formulation 1 Work Phone: [facility] 10-10-2021 COVID-19 original vaccine, full dose, monovalent (MODERNA) Sierra Herzog MD Work Phone: [facility] 09-14-2021 varicella virus vaccine Joann Socorroaegen DEPUTY [employer]OBATION OFFICER Work Phone: [facility] 09-12-2021 COVID-19 original vaccine, full dose, monovalent (MODERNA) Sierra Herzog MD Work Phone: [facility] 06-15-2019 measles, mumps and rubella virus vaccine Joann Benitezitzelaegen DEPUTY PROBATION OFFICER Work Phone: [facility] 06-15-2019 measles/mumps/rubell a virus vaccine DR MELCHOR SCHMITZ MD [facility] 03-21-2019 diphtheria, tetanus toxoids and acellular pertussis vaccine, unspecified formulation Joann Quintanillaae DEPUTY PROBATION OFFICER Work Phone: [facility] 03-21-2019 tetanus toxoid, reduced diphtheria toxoid, and acellular pertussis vaccine, adsorbed Joann Swain DEPUTY PROBATION OFFICER Work Phone: [facility] 06-05-2018 Human Papillomavirus 9-valent vaccine Joann Socorroaegen DEPUTY PROBATION OFFICER Work Phone: [facility] Work Phone: 06-05-[address] MELCHOR SCHMITZ MD [facility] 08-26-2017 Human Papillomavirus 9-valent vaccine Joann Swain DEPUTY PROBATION OFFICER Work Phone: [facility] 08-26-[address] MELCHOR SCHMITZ MD [facility] 07-26-2017 human papilloma viru s vaccine, quadrivalent Joann Swain DEPUTY PROBATION OFFICER Work Phone: [facility] 07-26-[address] MELCHOR SCHMITZ MD [facility] 12-21-2016 tetanus toxoid, reduced diphtheria toxoid, and acellular pertussis vaccine, adsorbed Joann Vanderschaegen DEPUTY PROBATION OFFICER Work Phone: [facility] Work Phone: 02-20-2002 diphtheria, tetanus toxoids and acellular pertussis vaccine, unspecified formulation Joann Lara DEPUTY PROBATION OFFICER Work Phone: [facility] 02-20-2002 poliovirus vaccine, inactivated Joann Swain DEPUTY PROBATION OFFICER Work Phone: [facility] 08-04-2000 measles, mumps and rubella virus vaccine Joann Swain DEPUTY PROBATION OFFICER Work Phone: [facility] 08-04-2000 measles/mumps/rubell a virus vaccine DR MELCHOR SCHMITZ MD [facility] 08-04-2000 pneumococcal conjuga te vaccine, 7 valent Joann Swain DEPUTY PROBATION OFFICER Work Phone: [facility] 05-06-1999 measles, mumps and rubella virus vaccine Joann Swain DEPUTY PROBATION OFFICER Work Phone: [facility] 05-06-1999 measles/mumps/rubell a virus vaccine DR MELCHOR SCHMITZ MD [facility] 06-12-1998 diphtheria, tetanus toxoids and acellular pertussis vaccine, unspecified formulation Joann Swain DEPUTY PROBATION OFFICER Work Phone: [facility] 06-12-1998 haemophilus influenz ae type b vaccine, conjugate unspecified formulation Joann Swain DEPUTY PROBATION OFFICER Work Phone: [facility] 06-12-1998 trivalent poliovirus vaccine, live, oral Joann Swain DEPUTY PROBATION OFFICER Work Phone: [facility] 02-13-1998 hepatitis B pediatri c vaccine DR MELCHOR SCHMITZ MD [facility] 02-13-1998 hepatitis B vaccine, pediatric or pediatric/adolescent dosage Joann Swain DEPUTY PROBATION OFFICER Work Phone: [facility] 02-13-1998 varicella virus vaccine Joann Swain DEPUTY PROBATION OFFICER Work Phone: [facility] 1997 diphtheria, tetanus toxoids and acellular pertussis vaccine, unspecified formulation Joann Nate DEPUTY PROBATION OFFICER Work Phone: [facility] 1997 haemophilus influenz ae type b vaccine, conjugate unspecified formulation Jaonn Quintanillaaegen DEPUTY PROBATION OFFICER Work Phone: [facility] 1997 trivalent poliovirus vaccine, live, oral Joann Socorroaegen DEPUTY PROBATION OFFICER Work Phone: [facility] 1997 diphtheria, tetanus toxoids and acellular pertussis vaccine, unspecified formulation Joann Quintanillaaegen DEPUTY PROBATION OFFICER Work Phone: [facility] 1997 haemophilus influenz ae type b vaccine, conjugate unspecified formulation Joann Quintanillaaegen DEPUTY PROBATION OFFICER Work Phone: [facility] 1997 diphtheria, tetanus toxoids and acellular pertussis vaccine, unspecified formulation Joann Socorroaegen DEPUTY PROBATION OFFICER Work Phone: [facility] 1997 haemophilus influenz ae type b vaccine, conjugate unspecified formulation Joann Quintanillaaegen DEPUTY PROBATION OFFICER Work Phone: [facility] 1997 hepatitis B pediatri c vaccine DR MELCHOR SCHMITZ MD [facility] 1997 hepatitis B vaccine, pediatric or pediatric/adolescent dosage Joann Quintanillaae DEPUTY PROBATION OFFICER Work Phone: [facility] 1997 trivalent poliovirus vaccine, live, oral Joann Socorroaegen DEPUTY PROBATION OFFICER Work Phone: [facility] 1997 hepatitis B pediatri c vaccine DR MELCHOR SCHMITZ MD [facility] 1997 hepatitis B vaccine, pediatric or pediatric/adolescent dosage Joann Quintanillaaegen DEPUTY PROBATION OFFICER Work Phone: [facility] Payers Date Payer Category Payer Unknown [id number] 2019 Medicaid [id number] 2018 Unknown [employer] BLUE CARD PPO OOS [id number] 2018-Present [phone] [id number] [place] [address] PPO [id number] 1997 Unknown [id number] Social History Date Type Detail Facility Start: 05-25-2022 End: 2024 Tobacco smoking status NHIS Ex-smoker [facility] Start: 11-25-2016 End: 04-27-2017 History of tobacco use Current smoker [facility] Start: 11-25-2016 End: 04-27-2017 History of tobacco use Cigarette Smoker [facility] Start: 05-25-2022 End: 09-28-2022 Cigarettes smoked current (pack per day) - Reported 0.[address] [facility] Start: 05-25-2022 End: 2024 Tobacco use and exposure Smokeless tobacco non-user [facility] Start: 05-25-2022 End: 06-13-2022 Alcohol intake Current drinker of alcohol (finding) [facility] Start: 05-23-2022 History SDOH Alcohol Frequency [address] [facility] Start: 05-23-2022 History SDOH Alcohol Std Drinks [address] [facility] Start: 05-23-2022 History SDOH Social Connections Phone [address] [facility] Start: 05-23-2022 History SDOH Social Connections Get Together [address] [facility] Start: 05-23-2022 History SDOH Social Connections Spiritism [address] [facility] Start: 05-23-2022 History SDOH Social Connections Living [address] [facility] Start: 05-23-2022 History SDOH Physica l Activity MPS [address] [facility] Start: 05-25-2022 Alcohol Comment rare [facility] Start: 1997 Sex Assigned At Not on file C [facility] Start: 10-23-2018 Alcohol intake Current non-dr top cleaner of alcohol (finding) [facility] Start: 1995 Sex Assigned At Female [facility] Start: 07-20-2022 End: 09-28-2022 Alcohol intake Ex-drinker (finding) [facility] Start: 05-23-2022 End: 09-28-2022 Social connection and isolation panel [facility] Do you belong to any clubs or organizations such as mormon groups, unions, fraternal or athletic groups, or school groups? No [facility] Are you now , , , , never or living with a partner? Living with partner [facility] How often to you hav e a drink containing alcohol? Never [facility] How many standard dr inks containing alcohol do you have on a typical day? Patient does not drink [facility] How hard is it for y ou to pay for the very basics like food, housing, medical care, and heating Not very hard [facility] Do you feel stress - tense, restless, nervous, or anxious, or unable to sleep at night because your mind is troubled all the time - these days [OSQ] Very much [facility] (I/We) worried whelalitha er (my/our) food would run out before (I/we) got money to buy more. Never true [facility] Start: 06-12-2022 Gender identity Identifies as female gender (finding) [facility] Start: 06-12-2022 Sexual orientation Heterosexual (fin kusum) [facility] Start: 01-06-2020 Tobacco smoking status Never s moked tobacco (finding) [facility] Sex Assigned At Sex [facility] Do you feel stress - tense, restless, nervous, or anxious, or unable to sleep at night because your mind is troubled all the time - these days [OSQ] To some extent [facility] Clinical Notes 05-23-2022 to 01-29-2024 Telephone Encounter - Sierra Herzog MD - 01/29/2024 1:35 PM EDTTelephone Encounter - Sierra Herzog MD - 01/29/2024 1:35 PM EDSierra Morse MD - 2024 5:54 PM EDT Note Date & Type Note Facility 01-29-2024 Telephone encounter Note Reviewed. [facility] 01-29-2024 Miscellaneous Notes Reviewed. Call to pt and notified her of results below from Provider. Pt states that she was not fasting and did eat a donut about an hour or so prior to completing labs. Darleen Nam MA Serum HCG confirms around 4-5 weeks. Other labs were normal aside from sugar of 130. Was she fasting for these labs? If so, will need to add on A1c. documented in this encounter [facility] 01-29-2024 Telephone encounter Note Call to pt and notified her of results below from Provider. Pt states that she was not fasting and did eat a donut about an hour or so prior to completing labs. Darleen Nam MA [facility] 01-29-2024 Telephone encounter Note Serum HCG confirms around 4-5 weeks. Other labs were normal aside from sugar of 130. Was she fasting for these labs? If so, will need to add on A1c. [facility] 01-25-2024 Telephone encounter Note Patient returns call and notified of below. She has appt with OB 02/09 and has started a vitamin. Aware lab orders have been forwarded to [facility]. Lucy Chun RN [facility] 01-25-2024 Miscellaneous Notes Patient returns call and notified of below. She has appt with OB 02/09 and has started a vitamin. Aware lab orders have been forwarded to [facility]. Lucy Chun RN Message left for patient to return call to review provider's message. All future labs that PCP ordered forwarded to [facility] as requested. Em Burroughs LPN Serum HCG added to her labs. Recommend starting vitamin and should contact an OB for initial visit. Patient needing lab orders faxed to [facility] Lab, more convenient for her. Also, Patient did home test which was positive, asking if Dr. Herzog can add blood test to order and have faxed to [facility] Lab. Afua Penaloza LPN documented in this encounter [facility] 01-25-2024 Telephone encounter Note Message left for patient to return call to review provider's message. All future labs that PCP ordered forwarded to [facility] as requested. Em Burroughs LPN [facility] 01-25-2024 Telephone encounter Note Serum HCG added to her labs. Recommend starting vitamin and should contact an OB for initial visit. [facility] 01-24-2024 Telephone encounter Note Patient needing lab orders faxed to [facility] Lab, more convenient for her. Also, Patient did home test which was positive, asking if Dr. Herzog can add blood test to order and have faxed to [facility] Lab. Afua Penaloza LPN T [facility] 01-10-2024 Telephone encounter Note Behavioral Health Social Work Progress Note Patient identified for [facility] from: PCP Reason for referral: [facility] Assessment [facility] encounter type: Telephone Encounter Attempts to Outreach: 3 attempts Referral made: Psychiatry - Internal Psychiatry-Internal referral type: Medication Management Final Disposition: Resources given Patient Discharged?: Yes Patient reported that caregiver was able to meet their needs today?: N/A [facility] made a second attempt at reaching patient by phone, as they did not return the first phone call or read their MyCLelat message (last login was 01/05/24). [facility] left a second voicemail reminding patient of the resources and giving contact information should questions arise. ОЛЬГА Hubbard ACM-SW January 10, 2024 [facility] Work Phone: 01-10-2024 Miscellaneous Notes Behavioral Health Social Work Progress Note Patient identified for [facility] from: PCP Reason for referral: [facility] Assessment [facility] encounter type: Telephone Encounter Attempts to Outreach: 3 attempts Referral made: Psychiatry - Internal Psychiatry-Internal referral type: Medication Management Final Disposition: Resources given Patient Discharged?: Yes Patient reported that caregiver was able to meet their needs today?: N/A [facility] made a second attempt at reaching patient by phone, as they did not return the first phone call or read their MyChart message (last login was 01/05/24). [facility] left a second voicemail reminding patient of the resources and giving contact information should questions arise. ОЛЬГА Hubbard ACM-SW January 10, 2024 documented in this encounter [facility] 01-03-2024 Telephone encounter Note Behavioral Health Social Work Progress Note Patient identified for [facility] from: PCP Reason for referral: [facility] Assessment [facility] encounter type: Telephone Encounter Attempts to Outreach: 1 attempt Referral made: Psychiatry - Internal Psychiatry-Internal referral type: Medication Management Final Disposition: Unable to reach Patient Discharged?: No Patient reported that caregiver was able to meet their needs today?: N/A [facility] consult received for bipolar disorder, anxiety and depression. Chart review shows that patient was previously seeing Vivian Sheriff APRN.CNP (last appointment completed 09/28/22) Phone call placed today that went to Melinta. Left my contact information and brief nature of call. Initial outreach also completed via [employer] sending telephone number to call to re-establish psychiatric care. [facility] [phone] ОЛЬГА Hubbard, KAVITHA-MARIO ALBERTO January 03, [address] [facility] Work Phone: 01-03-2024 Miscellaneous Notes Behavioral Health Social Work Progress Note Patient identified for [facility] from: PCP Reason for referral: [facility] Assessment [facility] encounter type: Telephone Encounter Attempts to Outreach: 1 attempt Referral made: Psychiatry - Internal Psychiatry-Internal referral type: Medication Management Final Disposition: Unable to reach Patient Discharged?: No Patient reported that caregiver was able to meet their needs today?: N/A [facility] consult received for bipolar disorder, anxiety and depression. Chart review shows that patient was previously seeing Vivian Sheriff APRN.[employer] (last appointment completed 09/28/22) Phone call placed today that went to Melinta. Left my contact information and brief nature of call. Initial outreach also completed via [employer] sending telephone number to call to re-establish psychiatric care. [facility] [phone] ОЛЬГА Hubbard, GOYO-MARIO ALBERTO January 03, 2024 documented in this encounter [facility] 2024 Note HNO ID: [id number] Author: SIERRA HERZOG MD Service: ? Author Type: Physician Type: Progress Notes Filed: 01/05/2024 20:26 Note Text: Chief Complaint Patient presents with: Physical HPI Luis Campo is a 28 year old female who presents here today for Above Complaints. Sheyla down 32 lbs since her last OV with improved diet and exercise. Trying to avoid high sugar and high fat foods. 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 Feels more energetic with the weight loss. Bipolar disorder, anxiety/depression previously managed by Vivian Sheriff and was started on Trileptal in 07/2022, but has not been on this in about a year. Has noticed worsening anxiety symptoms in the last month. 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 Last manic episode was 2-3 months ago which lasted about 3 days. Going to counseling 1-2 times per month at the counseling center. Denies SI/HI, panic attacks. 01/01/2024 PHQ-9 PHQ-2 Score 2 PHQ-9 Score 9 01/01/2024 09/28/2022 07/20/2022 DEONTE - 2/7 SCORES DEONTE-2 Score 5 5 6 DEONTE-7 Score 16 17 18 Last pap smear in the last year through [facility]. Reportedly normal. Past medical history, appointments, medications, allergies reviewed. Previous Medical History PAST MEDICAL HISTORY No date: Bipolar disorder (HCC) Comment: Psychiatry through counseling center No date: Depression with anxiety Comment: Vivian and counseling No date: Fatty liver Comment: Sahara Khan MD No date: Hepatitis B core antibody positive No date: Irregular menstrual cycle No date: Migraine No date: Obesity (BMI 30.0-34.9) No date: Palpitations 08/2014: PCOS (polycystic ovarian syndrome) Comment: [place] 09/12/2005: PMH - PAST MEDICAL HISTORY OF Comment: normal color vision Previous Surgical History PAST SURGICAL HISTORY No date: NONE Family History FAMILY HISTORY Problem Relation Age of Onset other (pcos) Mother Anxiety disorder Father Bipolar disorder Father Psychiatry Father bipolar Hypertension Father Anxiety disorder Sister Depression Sister Psychiatry Sister depression Anxiety disorder Sister Depression Sister Psychiatry Sister Anxiety disorder Sister Depression Sister Psychiatry Sister Anxiety disorder Sister Depression Sister Psychiatry Sister Anxiety disorder Sister Depression Sister Psychiatry Sister Anxiety disorder Sister Depression Sister Psychiatry Sister Anxiety disorder Sister Depression Sister Psychiatry Sister Stroke Brother Psychiatry Maternal Aunt Thyroid Maternal Aunt other (polycystic kidney disease) Maternal Uncle Psychiatry Maternal Grandmother BIPOLAR Psychiatry Maternal Grandfather Cancer Paternal Grandmother LUNG other (liver disease) Paternal Grandmother Cancer Paternal Grandfather No Known Problems Son other (liver disease) Other cousin on father's side Patient Allergies ALLERGIES Allergen Reactions Latex Rash, Hives, Itching Current Medications Current Outpatient Medications on File Prior to Visit Medication Sig ondansetron orally disintegrating (ZOFRAN ODT) 4 mg disintegrating tablet Take 1 tablet by mouth every 6 hours as needed for nausea/vomiting. Multivitamin capsule Take 1 capsule by mouth once daily. OXcarbazepine (TRILEPTAL) 300 mg tablet TAKE 1 TABLET BY MOUTH TWICE A DAY omeprazole (PRILOSEC) 40 mg capsule Take 1 capsule by mouth once daily. No current facility-administered medications on file prior to visit. Social History Social History Tobacco Use Smoking status: Former Current packs/day: 0.00 Average packs/day: 0.3 packs/day for 0.4 years (0.1 ttl pk-yrs) Types: Cigarettes Start date: 11/25/2016 Quit date: 04/27/2017 Years since quittin.6 Smokeless tobacco: Never Substance Use Topics Alcohol use: Not Currently Comment: rare Drug use: No Review of Symptoms REVIEW OF SYSTEMS GENERAL: No weight loss, malaise or fevers HEENT: Negative for frequent or significant headaches, No changes in hearing or vision, no nose bleeds or other nasal problems NECK: Negative for lumps, goiter, pain and significant neck swelling RESPIRATORY: Negative for cough, hemoptysis, wheezing, COPD, dyspnea or shortness of breath CARDIOVASCULAR: Negative for chest pain, leg swelling, hypertension, CHF or palpitations GI: No nausea, vomiting, or diarrhea : Positive for Admits to dysuria, frequency, urgency, incomplete emptying today. Denies hematuria. 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 [facility] 2024 History of Present illness Narrative Chief Complaint Patient presents with: Physical HPI Luis Campo is a 28 year old female who presents here today for Above Complaints. Sheyla down 32 lbs since her last OV with improved diet and exercise. Trying to avoid high sugar and high fat foods. 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 Feels more energetic with the weight loss. Bipolar disorder, anxiety/depression previously managed by Vivian Sheriff and was started on Trileptal in 07/2022, but has not been on this in about a year. Has noticed worsening anxiety symptoms in the last month. 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 Last manic episode was 2-3 months ago which lasted about 3 days. Going to counseling 1-2 times per month at the counseling center. Denies SI/HI, panic attacks. 01/01/2024 PHQ-9 PHQ-2 Score 2 PHQ-9 Score 9 01/01/2024 09/28/2022 07/20/2022 DEONTE - 2/7 SCORES DEONTE-2 Score 5 5 6 DEONTE-7 Score 16 17 18 Last pap smear in the last year through [facility]. Reportedly normal. Past medical history, appointments, medications, allergies reviewed. Previous Medical History PAST MEDICAL HISTORY No date: Bipolar disorder (HCC) Comment: Psychiatry through counseling center No date: Depression with anxiety Comment: Vivian and counseling No date: Fatty liver Comment: Sahara Khan MD No date: Hepatitis B core antibody positive No date: Irregular menstrual cycle No date: Migraine No date: Obesity (BMI 30.0-34.9) No date: Palpitations 08/2014: PCOS (polycystic ovarian syndrome) Comment: [place] 09/12/2005: PMH - PAST MEDICAL HISTORY OF Comment: normal color vision Previous Surgical History PAST SURGICAL HISTORY No date: NONE Family History FAMILY HISTORY Problem Relation Age of Onset other (pcos) Mother Anxiety disorder Father Bipolar disorder Father Psychiatry Father bipolar Hypertension Father Anxiety disorder Sister Depression Sister Psychiatry Sister depression Anxiety disorder Sister Depression Sister Psychiatry Sister Anxiety disorder Sister Depression Sister Psychiatry Sister Anxiety disorder Sister Depression Sister Psychiatry Sister Anxiety disorder Sister Depression Sister Psychiatry Sister Anxiety disorder Sister Depression Sister Psychiatry Sister Anxiety disorder Sister Depression Sister Psychiatry Sister Stroke Brother Psychiatry Maternal Aunt Thyroid Maternal Aunt other (polycystic kidney disease) Maternal Uncle Psychiatry Maternal Grandmother BIPOLAR Psychiatry Maternal Grandfather Cancer Paternal Grandmother LUNG other (liver disease) Paternal Grandmother Cancer Paternal Grandfather No Known Problems Son other (liver disease) Other cousin on father's side Patient Allergies ALLERGIES Allergen Reactions Latex Rash, Hives, Itching Current Medications Current Outpatient Medications on File Prior to Visit Medication Sig ondansetron orally disintegrating (ZOFRAN ODT) 4 mg disintegrating tablet Take 1 tablet by mouth every 6 hours as needed for nausea/vomiting. Multivitamin capsule Take 1 capsule by mouth once daily. OXcarbazepine (TRILEPTAL) 300 mg tablet TAKE 1 TABLET BY MOUTH TWICE A DAY omeprazole (PRILOSEC) 40 mg capsule Take 1 capsule by mouth once daily. No current facility-administered medications on file prior to visit. Social History Social History Tobacco Use Smoking status: Former Current packs/day: 0.00 Average packs/day: 0.3 packs/day for 0.4 years (0.1 ttl pk-yrs) Types: Cigarettes Start date: 11/25/2016 Quit date: 04/27/2017 Years since quittin.6 Smokeless tobacco: Never Substance Use Topics Alcohol use: Not Currently Comment: rare Drug use: No Review of Symptoms REVIEW OF SYSTEMS GENERAL: No weight loss, malaise or fevers HEENT: Negative for frequent or significant headaches, No changes in hearing or vision, no nose bleeds or other nasal problems NECK: Negative for lumps, goiter, pain and significant neck swelling RESPIRATORY: Negative for cough, hemoptysis, wheezing, COPD, dyspnea or shortness of breath CARDIOVASCULAR: Negative for chest pain, leg swelling, hypertension, CHF or palpitations GI: No nausea, vomiting, or diarrhea : Positive for Admits to dysuria, frequency, urgency, incomplete emptying today. Denies hematuria. 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: Negative for abnormal vaginal bleeding, abnormal vaginal discharge MUSCULOSKELETAL: Negative for joint pain or swelling, back pain or muscle pain SKIN: Negative for lesions, rash, and itching PSYCH: Negative for sleep disturbance, mood disorder and recent psychosocial stressors HEMATOLOGY/LYMPHOLOGY: Negative for prolonged bleeding, bruising easily or swollen nodes ENDOCRINE: Negative for cold or heat intolerance, polyuria, polydipsia and goiter NEURO: No history of headaches, syncope, paralysis, seizures or tremors EXAM: BP 106/78 Pulse 71 Resp 16 Wt 79.4 kg (175 lb 0.7 oz) LMP 12/12/2023 (Approximate) SpO2 98% BMI 31.01 kg/m General Appearance: Well appearing, alert, in no acute distress, well-hydrated, well nourished.. Skin: Skin color, texture, turgor normal, no suspicious rashes or lesions. Head: Normocephalic, no masses, lesions, tenderness or abnormalities. Eyes: Anicteric sclera. Pupils are equally round and reactive to light. Extraocular movements are intact. . Ears: External ears normal, canals clear. Nose/Sinuses: Nares normal, septum midline, mucosa normal, no drainage or sinus tenderness. Oropharynx: Lips, mucosa, and tongue normal, teeth and gums normal, oropharynx normal. Neck: Supple, no adenopathy; thyroid symmetric, normal size, no bruits. Lungs: Lungs clear to auscultation. No wheezing, rhonchi, rales.. Heart: RRR without murmur, gallop, or rubs. No ectopy. Abdomen: Normal abdominal exam, Abdomen soft, non-tender. Bowel sounds normal. No masses, organomegaly. Extremities: No deformities, edema, skin discoloration, clubbing or cyanosis. Good capillary refill. . Neurologic: Gait normal. Reflexes normal and symmetric. Sensation grossly intact.. Lymph Nodes: No cervical lymphadenopathy and No supraclavicular lymphadenopathy. Health Maintenance List Covid-19 Vaccine( - 2022- season) due on 01/13/2023 Influenza Vaccine(1) due on 01/14/2024 Cervical Cancer Screening due on 03/09/2026 DTaP,Tdap,Td Vaccine(9 - Td or Tdap) due on 03/21/2029 Hepatitis B Vaccine Completed HPV Vaccine Completed Hepatitis C Screening Completed HIV Screening Completed Data reviewed Latest Ref Rng 08/31/2023 WBC 3.70 - 11.00 k/uL 6.32 RBC 3.90 - 5.20 m/uL 5.03 Hemoglobin 11.5 - 15.5 g/dL 15.1 Hematocrit 36.0 - 46.0 % 45.6 MCV 80.0 - 100.0 fL 90.7 MCH 26.0 - 34.0 pg 30.0 MCHC 30.5 - 36.0 g/dL 33.1 RDW-CV 11.5 - 15.0 % 12.1 Platelet Count 150 - 400 k/uL 239 MPV 9.0 - 12.7 fL 11.6 Neut% % 47.9 Abs Neut (ANC) 1.45 - 7.50 k/uL 3.03 Lymph% % 37.7 Abs Lymph 1.00 - 4.00 k/uL 2.38 Desoto% % 8.7 Abs Desoto <0.87 k/uL 0.55 Eosin% % 4.6 Abs Eosin <0.46 k/uL 0.29 Baso% % 0.9 Abs Baso <0.11 k/uL 0.06 Immature Gran % % 0.2 IMMATURE GRANS (ABS) <0.10 k/uL <0.03 NRBC /100 WBC 0.0 Absolute nRBC <0.01 k/uL <0.01 DTYPE Auto Protein, Total 6.3 - 8.0 g/dL 7.2 Albumin 3.9 - 4.9 g/dL 4.3 Calcium 8.5 - 10.2 mg/dL 9.8 Bilirubin, Total 0.2 - 1.3 mg/dL 0.8 Alkaline Phosphatase 34 - 123 U/L 55 AST 13 - 35 U/L 44 (H) ALT 7 - 38 U/L 75 (H) Glucose 74 - 99 mg/dL 82 BUN 7 - 21 mg/dL 8 Creatinine 0.58 - 0.96 mg/dL 0.85 Sodium 136 - 144 mmol/L 140 Potassium 3.7 - 5.1 mmol/L 4.0 Chloride 97 - 105 mmol/L 102 CO2 22 - 30 mmol/L 27 Anion Gap 9 - 18 mmol/L 11 eGFR >=60 mL/min/1.73m 97 Legend: (H) High Latest Ref Rng 2024 GLUCOSE UA (POCT) Negative mg/dL Negative BILIRUBIN UA (POCT) Negative Negative KETONE UA (POCT) Negative mg/dL Negative SPECIFIC GRAVITY UA (POCT) 1.005 - 1.030 1.015 HEMOGLOBIN/BLOOD UA (POCT) Negative Trace-intact ! PH UA (POCT) 4.5 - 8.0 7.0 PROTEIN UA (POCT) Negative mg/dL Negative UROBILINOGEN UA (POCT) Normal E.U./dL 0.2 NITRITE UA (POCT) Negative Negative LEUKOCYTES UA (POCT) Negative Small ! COLOR UA (POCT) Yellow CLARITY UA (POCT) Clear Legend: ! Abnormal ASSESSMENT/PLAN: 1. Annual physical exam - ICD9: V70.0, ICD10: Z00.00 (primary diagnosis) - Counseled on healthy diet and regular exercise - Discussed need and benefit for weight loss. BMI 31.01 kg/(m^2) - Follow up for annual exam in one year - COMPREHENSIVE METABOLIC PANEL - THYROID STIMULATING HORMONE - LIPID PANEL, NONFASTING - T4 FREE/FREE THYROXINE 2. Fatty liver - ICD9: 571.8, ICD10: K76.0 Monitor LFTs. Continue to work on weight loss. Congratulated on her progress. 3. Bipolar disorder, current episode mixed, moderate (HCC) - ICD9: 296.62, ICD10: F31.62 Uncontrolled. Referral to psychiatry for management. Red flags for re-assessment reviewed with patient in detail. - CONSULT TO [facility] 4. Anxiety and depression - ICD9: 300.00, 311, ICD10: F41.9, F32.A Uncontrolled. Referral to psychiatry for management. Red flags for re-assessment reviewed with patient in detail. - CONSULT TO [facility] 5. Dysuria - ICD9: 788.1, ICD10: R30.0 acute - UA positive for claudine esterase and hematuria - Send urine for culture - Begin treatment with Bactrim DS BID for 3 days - Patient education for prevention given - UA DIP, URINE (POC) - SULFAMETHOXAZOLE 800 MG-TRIMETHOPRIM 160 MG TABLET - URINE CULTURE 6. Class 1 obesity with body mass index (BMI) of 31.0 to 31.9 in adult, unspecified obesity type, unspecified whether serious comorbidity present - ICD9: 278.00, V85.31, ICD10: E66.9, Z68.31 Weight decreasing - Behavioral intervention Sierra Herzog MD documented in this encounter [facility] 09-05-2023 Telephone encounter Note Pt notified of results and provider message. Pt voiced understanding. Swathi Root LPN [facility] 09-05-2023 Miscellaneous Notes Pt notified of results and provider message. Pt voiced understanding. Swathi Root LPN Left a message for pt to call the office and ask to speak to a nurse. Martita Cespedes LPN ----- Message from Sierra Herzog MD sent at 09/04/2023 5:01 PM EDT ----- LFTs remain mildly elevated with previous diagnosis of fatty liver disease. Low risk for fibrosis based on results. Blood counts normal. No need for additional imaging at this time. Recheck labs at future OV. documented in this encounter [facility] 09-05-2023 Telephone encounter Note Left a message for pt to call the office and ask to speak to a nurse. Martita Cespedes LPN [facility] 09-05-2023 Telephone encounter Note ----- Message from Sierra Herzog MD sent at 09/04/2023 5:01 PM EDT ----- LFTs remain mildly elevated with previous diagnosis of fatty liver disease. Low risk for fibrosis based on results. Blood counts normal. No need for additional imaging at this time. Recheck labs at future OV. [facility] 08-30-2023 Note HNO ID: [id number] Author: SIERRA HERZOG MD Service: ? Author Type: Physician Type: Progress Notes Filed: 08/30/2023 14:08 Note Text: Chief Complaint Patient presents with: discuss hx fatty liver and treatment options HPI Luis Campo is a 28 year old female who presents here today for Above Complaints. Here today to discuss history of fatty liver and treatment options. Patient states that she woke up one day last week and decided enough was enough. She has cut out pop, eliminated creamer/sugar from her coffee, reducing her processed foods and increased fiber. Walking about 1 1/2 miles each night. Weight down 3 lbs in the last week. Avoiding tylenol and alcohol with previous high LFTs. Past medical history, appointments, medications, allergies reviewed. Previous Medical History PAST MEDICAL HISTORY Diagnosis Date Bipolar disorder (HCC) Psychiatry through counseling center Depression with anxiety Seeing Dr Hinson and counselor Fatty liver Sahara Khan MD Hepatitis B core antibody positive Irregular menstrual cycle Migraine Obesity (BMI 30.0-34.9) Palpitations PCOS (polycystic ovarian syndrome) 08/2014 [facility] - PAST MEDICAL HISTORY OF 09/12/2005 normal color vision Previous Surgical History PAST SURGICAL HISTORY Procedure Laterality Date NONE Family History FAMILY HISTORY Problem Relation Age of Onset other (pcos) Mother Anxiety disorder Father Bipolar disorder Father Psychiatry Father bipolar Hypertension Father Anxiety disorder Sister Depression Sister Psychiatry Sister depression Anxiety disorder Sister Depression Sister Psychiatry Sister Anxiety disorder Sister Depression Sister Psychiatry Sister Anxiety disorder Sister Depression Sister Psychiatry Sister Anxiety disorder Sister Depression Sister Psychiatry Sister Anxiety disorder Sister Depression Sister Psychiatry Sister Anxiety disorder Sister Depression Sister Psychiatry Sister Stroke Brother Psychiatry Maternal Aunt Thyroid Maternal Aunt other (polycystic kidney disease) Maternal Uncle Psychiatry Maternal Grandmother BIPOLAR Psychiatry Maternal Grandfather Cancer Paternal Grandmother LUNG other (liver disease) Paternal Grandmother Cancer Paternal Grandfather No Known Problems Son other (liver disease) Other cousin on father's side Patient Allergies ALLERGIES Allergen Reactions Latex Rash, Hives, Itching Current Medications Current Outpatient Medications on File Prior to Visit Medication Sig ondansetron orally disintegrating (ZOFRAN ODT) 4 mg disintegrating tablet Take 1 tablet by mouth every 6 hours as needed for nausea/vomiting. Multivitamin capsule Take 1 capsule by mouth once daily. OXcarbazepine (TRILEPTAL) 300 mg tablet TAKE 1 TABLET BY MOUTH TWICE A DAY omeprazole (PRILOSEC) 40 mg capsule Take 1 capsule by mouth once daily. No current facility-administered medications on file prior to visit. Social History Social History Tobacco Use Smoking status: Former Packs/day: .25 Types: Cigarettes Start date: 11/25/2016 Quit date: 04/27/2017 Years since quittin.3 Smokeless tobacco: Never Substance Use Topics Alcohol use: Not Currently Comment: rare Drug use: No Review of Symptoms REVIEW OF SYSTEMS GENERAL: No weight loss, malaise or fevers RESPIRATORY: Negative for cough, hemoptysis, wheezing, COPD, dyspnea or shortness of breath GI: No nausea, vomiting, or diarrhea SKIN: Negative for lesions, rash, and itching EXAM: BP 118/74 Pulse 66 Resp 16 Ht 160 cm (5' 3 ) Wt 93.9 kg (207 lb) LMP 05/07/2022 BMI 36.67 kg/m? General Appearance: Well appearing, alert, in no acute distress, well-hydrated, well nourished.. Skin: Skin color, texture, turgor normal, no suspicious rashes or lesions. Lungs: Lungs clear to auscultation. No wheezing, rhonchi, rales.. Heart: RRR without murmur, gallop, or rubs. No ectopy. Abdomen: Normal abdominal exam, Abdomen soft, non-tender. Bowel sounds normal. No masses, organomegaly. Extremities: No deformities, edema, skin discoloration, clubbing or cyanosis. Good capillary refill. . Health Maintenance List Pap Testing due on 07/24/2022 Covid-19 Vaccine(2022- season) due on 01/13/2023 DTaP,Tdap,Td Vaccine(9 - Td or Tdap) due on 03/21/2029 Hepatitis B Vaccine Completed HPV Vaccine Completed Influenza Vaccine Completed Hepatitis C Screening Completed HIV Screening Completed Data reviewed Latest Ref Rng 06/13/2022 Protein, Total 6.3 - 8.0 g/dL 7.3 Albumin 3.9 - 4.9 g/dL 4.3 Calcium 8.5 - 10.2 mg/dL 9.5 Bilirubin, Total 0.2 - 1.3 mg/dL 0.9 Alkaline Phosphatase 34 - 123 U/L 57 AST 13 - 35 U/L 32 ALT 7 - 38 U/L 51 (H) Glucose 74 - 99 mg/dL 75 BUN 7 - 21 mg/dL 10 Creatinine 0.58 - 0.96 mg/dL 0.94 Sodium 136 - 144 mmol/L 138 Potassium 3.7 - 5.1 mmol/L 4.3 Chloride 97 - 105 mmol/L 103 CO2 22 - 30 mmol (more content not included)... [facility] 08-30-2023 History of Present illness Narrative Chief Complaint Patient presents with: discuss hx fatty liver and treatment options HPI Luis Campo is a 28 year old female who presents here today for Above Complaints. Here today to discuss history of fatty liver and treatment options. Patient states that she woke up one day last week and decided enough was enough. She has cut out pop, eliminated creamer/sugar from her coffee, reducing her processed foods and increased fiber. Walking about 1 1/2 miles each night. Weight down 3 lbs in the last week. Avoiding tylenol and alcohol with previous high LFTs. Past medical history, appointments, medications, allergies reviewed. Previous Medical History PAST MEDICAL HISTORY Diagnosis Date Bipolar disorder (HCC) Psychiatry through counseling center Depression with anxiety Seeing Dr Hinson and counselor Fatty liver Sahara Khan MD Hepatitis B core antibody positive Irregular menstrual cycle Migraine Obesity (BMI 30.0-34.9) Palpitations PCOS (polycystic ovarian syndrome) 08/2014 [facility] - PAST MEDICAL HISTORY OF 09/12/2005 normal color vision Previous Surgical History PAST SURGICAL HISTORY Procedure Laterality Date NONE Family History FAMILY HISTORY Problem Relation Age of Onset other (pcos) Mother Anxiety disorder Father Bipolar disorder Father Psychiatry Father bipolar Hypertension Father Anxiety disorder Sister Depression Sister Psychiatry Sister depression Anxiety disorder Sister Depression Sister Psychiatry Sister Anxiety disorder Sister Depression Sister Psychiatry Sister Anxiety disorder Sister Depression Sister Psychiatry Sister Anxiety disorder Sister Depression Sister Psychiatry Sister Anxiety disorder Sister Depression Sister Psychiatry Sister Anxiety disorder Sister Depression Sister Psychiatry Sister Stroke Brother Psychiatry Maternal Aunt Thyroid Maternal Aunt other (polycystic kidney disease) Maternal Uncle Psychiatry Maternal Grandmother BIPOLAR Psychiatry Maternal Grandfather Cancer Paternal Grandmother LUNG other (liver disease) Paternal Grandmother Cancer Paternal Grandfather No Known Problems Son other (liver disease) Other cousin on father's side Patient Allergies ALLERGIES Allergen Reactions Latex Rash, Hives, Itching Current Medications Current Outpatient Medications on File Prior to Visit Medication Sig ondansetron orally disintegrating (ZOFRAN ODT) 4 mg disintegrating tablet Take 1 tablet by mouth every 6 hours as needed for nausea/vomiting. Multivitamin capsule Take 1 capsule by mouth once daily. OXcarbazepine (TRILEPTAL) 300 mg tablet TAKE 1 TABLET BY MOUTH TWICE A DAY omeprazole (PRILOSEC) 40 mg capsule Take 1 capsule by mouth once daily. No current facility-administered medications on file prior to visit. Social History Social History Tobacco Use Smoking status: Former Packs/day: .25 Types: Cigarettes Start date: 11/25/2016 Quit date: 04/27/2017 Years since quittin.3 Smokeless tobacco: Never Substance Use Topics Alcohol use: Not Currently Comment: rare Drug use: No Review of Symptoms REVIEW OF SYSTEMS GENERAL: No weight loss, malaise or fevers RESPIRATORY: Negative for cough, hemoptysis, wheezing, COPD, dyspnea or shortness of breath GI: No nausea, vomiting, or diarrhea SKIN: Negative for lesions, rash, and itching EXAM: BP 118/74 Pulse 66 Resp 16 Ht 160 cm (5' 3 ) Wt 93.9 kg (207 lb) LMP 05/07/2022 BMI 36.67 kg/m General Appearance: Well appearing, alert, in no acute distress, well-hydrated, well nourished.. Skin: Skin color, texture, turgor normal, no suspicious rashes or lesions. Lungs: Lungs clear to auscultation. No wheezing, rhonchi, rales.. Heart: RRR without murmur, gallop, or rubs. No ectopy. Abdomen: Normal abdominal exam, Abdomen soft, non-tender. Bowel sounds normal. No masses, organomegaly. Extremities: No deformities, edema, skin discoloration, clubbing or cyanosis. Good capillary refill. . Health Maintenance List Pap Testing due on 07/24/2022 Covid-19 Vaccine( season) due on 01/13/2023 DTaP,Tdap,Td Vaccine(9 - Td or Tdap) due on 03/21/2029 Hepatitis B Vaccine Completed HPV Vaccine Completed Influenza Vaccine Completed Hepatitis C Screening Completed HIV Screening Completed Data reviewed Latest Ref Rng 06/13/2022 Protein, Total 6.3 - 8.0 g/dL 7.3 Albumin 3.9 - 4.9 g/dL 4.3 Calcium 8.5 - 10.2 mg/dL 9.5 Bilirubin, Total 0.2 - 1.3 mg/dL 0.9 Alkaline Phosphatase 34 - 123 U/L 57 AST 13 - 35 U/L 32 ALT 7 - 38 U/L 51 (H) Glucose 74 - 99 mg/dL 75 BUN 7 - 21 mg/dL 10 Creatinine 0.58 - 0.96 mg/dL 0.94 Sodium 136 - 144 mmol/L 138 Potassium 3.7 - 5.1 mmol/L 4.3 Chloride 97 - 105 mmol/L 103 CO2 22 - 30 mmol/L 23 Anion Gap 9 - 18 mmol/L 12 eGFR >=60 mL/min/1.73m 87 Legend: (H) High ASSESSMENT/PLAN: 1. Fatty liver - ICD9: 571.8, ICD10: K76.0 (primary diagnosis) Recheck labs as ordered. Will check Fib4 level and add on elastography if warranted. Discussed continued healthy diet and exercise. Will recheck at in 3 months. - COMPLETE BLOOD COUNT AND DIFFERENTIAL - COMPREHENSIVE METABOLIC PANEL 2. Elevated liver enzymes - ICD9: 790.5, ICD10: R74.8 See above. Avoid tylenol and alcohol. 3. Class 2 obesity with body mass index (BMI) of 36.0 to 36.9 in adult, unspecified obesity type, unspecified whether serious comorbidity present - ICD9: 278.00, V85.36, ICD10: E66.9, Z68.36 Sierra Herzog MD documented in this encounter [facility] 07-07-2023 Instructions Talisha Pino APRN.[employer] - 07/07/2023 11:44 AM EST BLADDER INFECTION OVERVIEW Bladder infections are one of the most common infections, causing symptoms of burning with urination and needing to urinate frequently. A bladder infection is a type of urinary tract infection (UTI). Bladder infections are more common is women than men. Most women have an uncomplicated bladder infection that is easily treated with a short course of antibiotics. In men, bladder infections may also affect the prostate gland, and a longer course of treatment may be needed. BLADDER INFECTION CAUSES The urinary tract includes the kidneys (which filter urine), ureters (the tube that carries urine from the kidneys to the bladder), the bladder (which stores urine), and urethra (the tube that carries urine out of the bladder). Bacteria do not normally live in these areas. However, bacteria normally live close to the urethra in women and men who are not circumcised. Bladder infections occur when bacteria travel up the urethra into the bladder. Factors that increase the risk of developing a bladder infection include: Vaginal sex Use of spermicides History of past bladder infections Diabetes In men, not being circumcised or having anal sex increase the risk of bladder infections. BLADDER INFECTION SYMPTOMS The typical symptoms of a bladder infection include: Pain or burning when urinating Frequent need to urinate Urgent need to urinate Blood in the urine Fever, back pain, nausea, or vomiting are not common symptoms of a bladder infection, but can occur in people with a kidney infection (pyelonephritis). If you have these symptoms, you should call your doctor or nurse immediately. Is it a bladder infection or something else? -- Burning with urination can also occur in people with vaginitis (eg, yeast infection) or urethritis (inflammation of the urethra). For this reason, it is important to call your healthcare provider before assuming you have a bladder infection. BLADDER INFECTION DIAGNOSIS Simple bladder infections are usually diagnosed based upon your symptoms alone. However, most patients, especially those who have bladder infection symptoms for the first time, should see a healthcare provider for urine testing. Urine culture -- A urine culture is a test that uses a sample of urine to try and grow bacteria in a laboratory. It usually requires about 48 hours to get results. However, a urine culture is not always required to diagnose a bladder infection. Urine culture is often recommended if: You have never had a bladder infection before You have symptoms that are not typical for bladder infection You have had resistant bladder infections before You have frequent bladder infections You do not begin to feel better within 24 to 48 hours after starting antibiotics You are BLADDER INFECTION TREATMENT Bladder infection -- In young, healthy adolescents and adults with a bladder infection, the usual treatment includes a three to seven day course of antibiotics. The typical drugs chosen are: trimethoprim-sulfamethoxazole (Bactrim ), nitrofurantoin (Macrobid ), ciprofloxacin (Cipro ) or levofloxacin (Levaquin ). In men, the infection may involve your prostate gland and treatment is usually given for at least 7 days. Your symptoms should begin to resolve within one day after starting treatment. It is important to take the full course of antibiotics to completely eliminate the infection. If your symptoms persist for more than two or three days after starting treatment, call your healthcare provider. If needed, you can take a prescription medication that numbs the bladder and urethra (phenazopyridine [Pyridium ]) to reduce the burning pain of some UTIs. A similar medication is available without a prescription (eg, Uristat). Both medications change the color of the urine (usually blue or orange) and can interfere with laboratory testing. You should not take these medications for more than 48 hours due to the risk of side effects. These medications do not treat the infection and must be taken along with an antibiotic. Some providers recommend drinking more fluids while treating bladder infections to help flush bacteria from the bladder. Others believe that drinking more fluids may dilute the antibiotic in the bladder and make the medication less effective. No studies have been performed to address this issue. There are also no good studies on the effectiveness of cranberry juice for treating a bladder infection; we do not recommend using cranberry juice to treat bladder infections. Follow-up care -- Follow-up testing is not needed in healthy, young men or women with a bladder infection if symptoms resolve. women are usually asked to have a repeat urine culture one to two weeks after treatment has ended to make sure the bacteria are no longer in the urine. RECURRENT BLADDER INFECTIONS Bladder infections versus other causes -- Some adults, especially women, develop bladder infections frequently. In this case, it is important to confirm that your symptoms (eg, pain or burning, frequency, and urgency) are caused by a bladder infection. Symptoms are usually similar from one infection to another. The best way to confirm an infection is to have a urine culture. If your urine culture is negative for infection, other causes of pain, burning, and frequency should be investigated. There is no reason to take antibiotics if your urine culture is negative. Need for further testing -- If you continue to develop bladder infections, you may require further testing. If you continue to notice blood in your urine after your bladder infection has cleared, you should have further testing. Preventing recurrent UTIs -- Women with recurrent urinary tract infections may be advised to take steps to prevent bladder infections, including one or more of the following: Changes in control -- Women who develop frequent bladder infections and use spermicides, particularly those who also use a diaphragm, may be encouraged to use an alternate method of control. Cranberry products -- Taking cranberry juice or cranberry tablets has been promoted as one way to help prevent frequent bladder infections. However, this has not been proven. Drinking more fluid and urinating after intercourse -- Although studies have not proven that drinking more fluids or urinating soon after intercourse can prevent infection, some healthcare providers recommend these measures since they are not harmful. Drinking more fluid may help to wash out bacteria that enter the bladder. Postmenopausal women -- Postmenopausal women who develop recurrent bladder infections may benefit from using vaginal estrogen. Vaginal estrogen is available in a flexible ring that is worn in the vagina for three months (eg, Estring ), a small tablet (Vagifem ), or a cream (eg, Premarin or Estrace ). Vaginal estrogen is discussed in more detail in a separate topic review. Antibiotics -- A preventive antibiotic treatment may be recommended if you repeatedly develop bladder infections and have not responded to other preventive measures. Antibiotics are highly effective in preventing recurrent bladder infections and can be taken in several different ways. Preventive antibiotic -- You can take a low dose of an antibiotic once per day or three times per week for six months to several years. Antibiotics following intercourse -- In women who develop urinary tract infections after sex, taking a single low dose antibiotic after intercourse can help to prevent bladder infections. Self-treatment -- A plan to begin antibiotics at the first sign of a bladder infection may be recommended in some situations. Before starting this regimen, it is important that you have had testing (urine cultures) to confirm that your symptoms are caused by a bladder infection; some people have symptoms of a bladder infection but do not actually have an infection. documented in this encounter [facility] 07-07-2023 Note HNO ID: [id number] Author: TALISHA PINO APRN.CARRIE Service: ? Author Type: Nurse Practitioner Type: Progress Notes Filed: 07/07/2023 11:44 Note Text: Telemedicine Visit - Distance Health Virtual Visit Note Patient seen on [employer] Video Visit platform. Location of patient: [place] I have communicated my name and active licensure. The patient's identity and physical location were verified at the time of this visit. Either the patient or their legal electroplating sales representative has been informed of the risks and benefits of -- and alternatives to -- treatment through a remote evaluation and consents to proceed with the evaluation remotely. History of Present Illness Luis Campo is a 28 year old old female with a history of UTI symptoms for 1 day ago. Urinary symptoms ROS: Positive for Dysuria, Increase in frequency of urination, Urgency, and Sense of incomplete void, Negative for Fevers, Vomiting, Diarrhea, Abdominal pain , Back/Flank pain, Blood in urine, and Vaginal itch or discharge Reports foul odor and urine cloudiness Chance of : No Sexually active: yes, no concerns for STIs Any self-treatment attempted: Yes Number of previous UTI's in last 6 months:1 Number of previous UTI's in last 12 months: 0 Alleviating Factors include Pyridium with minimal relief in symptoms. PAST MEDICAL HISTORY Diagnosis Date Bipolar disorder (HCC) Psychiatry through counseling center Depression with anxiety Seeing Dr Hinson and counselor Fatty liver Sahara Khan MD Hepatitis B core antibody positive Irregular menstrual cycle Migraine Obesity (BMI 30.0-34.9) Palpitations PCOS (polycystic ovarian syndrome) 08/2014 [facility] - PAST MEDICAL HISTORY OF 09/12/2005 normal color vision PAST SURGICAL HISTORY Procedure Laterality Date NONE FAMILY HISTORY Problem Relation Age of Onset other (pcos) Mother Anxiety disorder Father Bipolar disorder Father Psychiatry Father bipolar Hypertension Father Anxiety disorder Sister Depression Sister Psychiatry Sister depression Anxiety disorder Sister Depression Sister Psychiatry Sister Anxiety disorder Sister Depression Sister Psychiatry Sister Anxiety disorder Sister Depression Sister Psychiatry Sister Anxiety disorder Sister Depression Sister Psychiatry Sister Anxiety disorder Sister Depression Sister Psychiatry Sister Anxiety disorder Sister Depression Sister Psychiatry Sister Stroke Brother Psychiatry Maternal Aunt Thyroid Maternal Aunt other (polycystic kidney disease) Maternal Uncle Psychiatry Maternal Grandmother BIPOLAR Psychiatry Maternal Grandfather Cancer Paternal Grandmother LUNG other (liver disease) Paternal Grandmother Cancer Paternal Grandfather No Known Problems Son other (liver disease) Other cousin on father's side Social History Tobacco Use Smoking status: Former Packs/day: .25 Types: Cigarettes Start date: 11/25/2016 Quit date: 04/27/2017 Years since quittin.1 Smokeless tobacco: Never Substance Use Topics Alcohol use: Not Currently Comment: rare Drug use: No ALLERGIES Allergen Reactions Latex Rash, Hives, Itching Current Outpatient Medications Medication Sig benzonatate (TESSALON PERLES) 100 mg capsule Take 1 capsule by mouth three times a day as needed for cough. ondansetron orally disintegrating (ZOFRAN ODT) 4 mg disintegrating tablet Take 1 tablet by mouth every 6 hours as needed for nausea/vomiting. Multivitamin capsule Take 1 capsule by mouth once daily. OXcarbazepine (TRILEPTAL) 300 mg tablet TAKE 1 TABLET BY MOUTH TWICE A DAY omeprazole (PRILOSEC) 40 mg capsule Take 1 capsule by mouth once daily. sucralfate (CARAFATE) 1 gram tablet Take 1 tablet by mouth before meals and at bedtime. VITAMIN D-3 125 mcg (5,000 unit) tab TAKE 1 TABLET BY MOUTH EVERY DAY medroxyPROGESTERone (PROVERA) 5 mg tablet Take 1 tablet by mouth as needed (Missed period with PCOS). No current facility-administered medications for this visit. Video Exam (Examination performed via Video enabled technology) General Appearance: 28 year old yo female in NAD; not ill or toxic appearing Abdomen: non-tender by self palpation CVA Tenderness: non-tender bilaterally by self palpation ASSESSMENT/PLAN: 1. Acute cystitis without hematuria - ICD9: 595.0, ICD10: N30.00 Discussed etiology and rationale for treatment - NITROFURANTOIN MONOHYDRATE AND MACROCRYSTAL 100 MG ORAL CAP - PHENAZOPYRIDINE 100 MG TABLET - URINE CULTURE- to provide specimen at [place] lab before starting oral ABX. Will f/u with results and adjust tx if necessary - Increase fluids - Empty bladder completely - Follow up in person if symptoms persist or sooner if symptoms worsen. - Red flags discussed for in person care and follow up - All questions answered Talisha Pino APRN.MACHINE [employer]EDER [employer]OCK If you let us know who your primary care provider is, we will send them a n (more content not included)... [facility] 07-07-2023 History of Present illness Narrative Telemedicine Visit - Distance Health Virtual Visit Note Patient seen on [employer] Video Visit platform. Location of patient: [place] I have communicated my name and active licensure. The patient's identity and physical location were verified at the time of this visit. Either the patient or their legal electroplating sales representative has been informed of the risks and benefits of -- and alternatives to -- treatment through a remote evaluation and consents to proceed with the evaluation remotely. History of Present Illness Luis Campo is a 28 year old old female with a history of UTI symptoms for 1 day ago. Urinary symptoms ROS: Positive for Dysuria, Increase in frequency of urination, Urgency, and Sense of incomplete void, Negative for Fevers, Vomiting, Diarrhea, Abdominal pain , Back/Flank pain, Blood in urine, and Vaginal itch or discharge Reports foul odor and urine cloudiness Chance of : No Sexually active: yes, no concerns for STIs Any self-treatment attempted: Yes Number of previous UTI's in last 6 months:1 Number of previous UTI's in last 12 months: 0 Alleviating Factors include Pyridium with minimal relief in symptoms. PAST MEDICAL HISTORY Diagnosis Date Bipolar disorder (HCC) Psychiatry through counseling center Depression with anxiety Seeing Dr Hinson and counselor Fatty liver Sahara Khan MD Hepatitis B core antibody positive Irregular menstrual cycle Migraine Obesity (BMI 30.0-34.9) Palpitations PCOS (polycystic ovarian syndrome) 08/2014 [facility] - PAST MEDICAL HISTORY OF 09/12/2005 normal color vision PAST SURGICAL HISTORY Procedure Laterality Date NONE FAMILY HISTORY Problem Relation Age of Onset other (pcos) Mother Anxiety disorder Father Bipolar disorder Father Psychiatry Father bipolar Hypertension Father Anxiety disorder Sister Depression Sister Psychiatry Sister depression Anxiety disorder Sister Depression Sister Psychiatry Sister Anxiety disorder Sister Depression Sister Psychiatry Sister Anxiety disorder Sister Depression Sister Psychiatry Sister Anxiety disorder Sister Depression Sister Psychiatry Sister Anxiety disorder Sister Depression Sister Psychiatry Sister Anxiety disorder Sister Depression Sister Psychiatry Sister Stroke Brother Psychiatry Maternal Aunt Thyroid Maternal Aunt other (polycystic kidney disease) Maternal Uncle Psychiatry Maternal Grandmother BIPOLAR Psychiatry Maternal Grandfather Cancer Paternal Grandmother LUNG other (liver disease) Paternal Grandmother Cancer Paternal Grandfather No Known Problems Son other (liver disease) Other cousin on father's side Social History Tobacco Use Smoking status: Former Packs/day: .25 Types: Cigarettes Start date: 11/25/2016 Quit date: 04/27/2017 Years since quittin.1 Smokeless tobacco: Never Substance Use Topics Alcohol use: Not Currently Comment: rare Drug use: No ALLERGIES Allergen Reactions Latex Rash, Hives, Itching Current Outpatient Medications Medication Sig benzonatate (TESSALON PERLES) 100 mg capsule Take 1 capsule by mouth three times a day as needed for cough. ondansetron orally disintegrating (ZOFRAN ODT) 4 mg disintegrating tablet Take 1 tablet by mouth every 6 hours as needed for nausea/vomiting. Multivitamin capsule Take 1 capsule by mouth once daily. OXcarbazepine (TRILEPTAL) 300 mg tablet TAKE 1 TABLET BY MOUTH TWICE A DAY omeprazole (PRILOSEC) 40 mg capsule Take 1 capsule by mouth once daily. sucralfate (CARAFATE) 1 gram tablet Take 1 tablet by mouth before meals and at bedtime. VITAMIN D-3 125 mcg (5,000 unit) tab TAKE 1 TABLET BY MOUTH EVERY DAY medroxyPROGESTERone (PROVERA) 5 mg tablet Take 1 tablet by mouth as needed (Missed period with PCOS). No current facility-administered medications for this visit. Video Exam (Examination performed via Video enabled technology) General Appearance: 28 year old yo female in NAD; not ill or toxic appearing Abdomen: non-tender by self palpation CVA Tenderness: non-tender bilaterally by self palpation ASSESSMENT/PLAN: 1. Acute cystitis without hematuria - ICD9: 595.0, ICD10: N30.00 Discussed etiology and rationale for treatment - NITROFURANTOIN MONOHYDRATE & MACROCRYSTAL 100 MG ORAL CAP - PHENAZOPYRIDINE 100 MG TABLET - URINE CULTURE- to provide specimen at [place] lab before starting oral ABX. Will f/u with results and adjust tx if necessary - Increase fluids - Empty bladder completely - Follow up in person if symptoms persist or sooner if symptoms worsen. - Red flags discussed for in person care and follow up - All questions answered Talisha Pino APRN.CARRIE If you let us know who your primary care provider is, we will send them a notification of today s visit through our electronic medical records system. Since not all providers have access to our notifications, we strongly encourage you to share the following record of today s visit with your primary care provider at your next visit. This will help in providing you the best care. If you do not have an established Primary Care physician and would like to continue care with a [facility] Primary Care physician, please ask your provider to place a Establish Primary Care order. Use [facility] to manage your care, wherever you are, 05/12, on your mobile device or computer. [facility] connects you to [employer] so you can access all your health information in one place and also schedule and request virtual appointments with primary care providers. documented in this encounter [facility] 05-03-2023 Note HNO ID: [id number] Author: Juana Wolff APRN.CNP Service: ? Author Type: Nurse Practitioner Type: Progress Notes Filed: 05/03/2023 9:19 AM Note Text: This is an Express Care eVisit note for Luis Campo eVisit/Questionnaire reviewed The chief complaint for the visit - No chief complaint on file. Recommendations/Treatment plan - Rx as below plus self care. See My Chart Message to patient. Recommendation for follow up - PRN Time spent: 5-10 minutes The following approved medication requests have been transmitted electronically. Requested Prescriptions Signed Prescriptions Disp Refills ipratropium bromide (ATROVENT) 42 mcg (0.06 %) nasal spray 15 mL 0 Sig: Use 1 Joffre in each nostril three times a day for 7 days. benzonatate (TESSALON PERLES) 100 mg capsule 40 capsule 0 Sig: Take 1 capsule by mouth three times a day as needed for cough. Juana Wolff APRN.CNP [facility] 04-30-2023 Hospital Discharge instructions Patient Education 04/30/2023 06:58:38 Self-Care for Sore Throats Self-Care for Sore Throats Sore throats happen for many reasons, such as colds, allergies, and infections caused by viruses or bacteria. In any case, your throat becomes red and sore. Your goal for self-care is to reduce your discomfort while giving your throat a chance to heal. Moisten and soothe your throat Tips include the following: Try a sip of water first thing after waking up. Keep your throat moist by drinking 6 or more glasses of clear liquids every day. Run a cool-air humidifier in your room overnight. Avoid cigarette smoke. Suck on throat lozenges, cough drops, hard candy, ice chips, or frozen fruit-juice bars. Use the sugar-free versions if your diet or medical condition requires them. Gargle to ease irritation Gargling every hour or 2 can ease irritation. Try gargling with 1 of these solutions: 1/4 teaspoon of salt in 1/2 cup of warm water An jicx-zte-jhjulfn anesthetic gargle Use medicine for more relief Yesm-khm-nrhxaxt medicine can reduce sore throat symptoms. Ask your pharmacist if you have questions about which medicine to use: Ease pain with anesthetic sprays. Aspirin or an aspirin substitute also helps. Remember, never give aspirin to anyone 18 or younger, or if you are already taking blood thinners. For sore throats caused by allergies, try antihistamines to block the allergic reaction. Remember: unless a sore throat is caused by a bacterial infection, antibiotics won t help you. Prevent future sore throats Prevention tips include the following: Stop smoking or reduce contact with secondhand smoke. Smoke irritates the tender throat lining. Limit contact with pets and with allergy-causing substances, such as pollen and mold. When you re around someone with a sore throat or cold, wash your hands often to keep viruses or bacteria from spreading. Don t strain your vocal cords. Contact your healthcare provider if you have: A temperature over 101 F (38.3 C) White spots on the throat Great difficulty swallowing Trouble breathing A skin rash Recent exposure to someone else with strep bacteria Severe hoarseness and swollen glands in the neck or jaw [id number] [employer]. [address] [place] [address]. All rights reserved. This information is not intended as a substitute for professional medical care. Always follow your healthcare professional's instructions. 04/30/2023 06:58:38 Pharyngitis, Viral Viral Pharyngitis (Sore Throat) You or your child have pharyngitis (sore throat). This infection is caused by a virus. It can cause throat pain that is worse when swallowing, aching all over, headache, and fever. The infection may be spread by coughing, kissing, or touching others after touching your mouth or nose. Antibiotic medicines do not work against viruses. They are not used for treating this illness. Home care If symptoms are severe, you or your child should rest at home. Return to work or school when you or your child feel well enough. You or your child should drink plenty of fluids to prevent dehydration. Use throat lozenges or numbing throat sprays to help reduce pain. Gargling with warm salt water will also help reduce throat pain. Dissolve 1/2 teaspoon of salt in 1 glass of warm water. Children can sip on juice or a popsicle. Children 5 years and older can also suck on a lollipop or hard candy. Don t eat salty or spicy foods or give them to your child. These can be irritating to the throat. Medicines for a child: You can give your child acetaminophen for fever, fussiness, or discomfort. In babies over 6 months of age, you may use ibuprofen instead of acetaminophen. If your child has chronic liver or kidney disease or ever had a stomach ulcer or GI bleeding, talk with your child s healthcare provider before giving these medicines. Aspirin should never be used by any child under 18 years of age who has a fever. It may cause severe liver damage. Medicines for an adult: You may use acetaminophen or ibuprofen to control pain or fever, unless another medicine was prescribed for this. If you have chronic liver or kidney disease or ever had a stomach ulcer or GI bleeding, talk with your healthcare provider before using these medicines. Follow-up care Follow up with a healthcare provider or our staff if you or your child are not getting better over the next week. When to seek medical advice Call your healthcare provider right away if any of these occur: Fever as directed by your healthcare provider. For children, seek care if: oYour child is of any age and has repeated fevers above 104 F (40 C). oYour child is younger than 2 years of age and has a fever of 100.4 F (38 C) for more than 1 day. oYour child is 2 years old or older and has a fever of 100.4 F (38 C) for more than 3 days. New or worsening ear pain, sinus pain, or headache Painful lumps in the back of neck Stiff neck Lymph nodes are getting larger Can t swallow liquids, a lot of drooling, or can t open mouth wide due to throat pain Signs of dehydration, such as very dark urine or no urine, sunken eyes, dizziness Trouble breathing or noisy breathing Muffled voice New rash Other symptoms are getting worse [id number] [employer] [address] [place] [address], [place] [address]. All rights reserved. This information is not intended as a substitute for professional medical care. Always follow your healthcare professional's instructions. Follow Up Care 04/30/2023 05:08:23 With:SIERRA HERZOG Address: [address] [place] [id number] [facility] () When:2-4 days [facility] 04-30-2023 Nurse Progress note Patient left before discharge instructions were given and explained. Digitally Signed by Renata Schmitz RN on 04/30/2023 07:02 AM [facility] 04-30-2023 Note Discharge Instructions Thank you for allowing [facility] to assist you with your healthcare needs. The following is important discharge information regarding your hospital visit. Diagnosis from Today's Visit Chest pain Pharyngitis Sore throat - Adult What to Do Next Instructions from Your Care Team No qualifying data available. Post Acute Orders No qualifying data available. You Need to Schedule the Following Appointments Follow Up with SIERRA HERZOG When Within 2-4 days Where: [address] [place] [id number] [facility] (7) Allergies Latex (Rash) Medications Please ask your primary doctor or pharmacist before taking any other medication not listed, including over the counter drugs, herbal medications, vitamins and or supplements as they may interact with your home medications. What How Much When Instructions Last Dose Unchanged medroxyPROGESTERone (medroxyPROGESTERone 10 mg oral tablet) 1 tab(s) PLEASE SEE ATTACHED FOR DETAILED DIRECTIONS Unchanged meloxicam (meloxicam 7.5 mg oral tablet) 1 tab(s) by mouth Once a day Duration: 30 Days Please take this list to your next doctor s visit. Bring all medications you take, including over the counter medications, herbals and other supplements with you to your doctor s visit. Patients and families are reminded to discard old lists and to update any records with all medication providers or retail pharmacies. Education Materials Self-Care for Sore Throats Sore throats happen for many reasons, such as colds, allergies, and infections caused by viruses or bacteria. In any case, your throat becomes red and sore. Your goal for self-care is to reduce your discomfort while giving your throat a chance to heal. Moisten and soothe your throat Tips include the following: Try a sip of water first thing after waking up. Keep your throat moist by drinking 6 or more glasses of clear liquids every day. Run a cool-air humidifier in your room overnight. Avoid cigarette smoke. Suck on throat lozenges, cough drops, hard candy, ice chips, or frozen fruit-juice bars. Use the sugar-free versions if your diet or medical condition requires them. Gargle to ease irritation Gargling every hour or 2 can ease irritation. Try gargling with 1 of these solutions: 1/4 teaspoon of salt in 1/2 cup of warm water An kstf-ode-roehwzg anesthetic gargle Use medicine for more relief Vgih-nhp-xmpgxdb medicine can reduce sore throat symptoms. Ask your pharmacist if you have questions about which medicine to use: Ease pain with anesthetic sprays. Aspirin or an aspirin substitute also helps. Remember, never give aspirin to anyone 18 or younger, or if you are already taking blood thinners. For sore throats caused by allergies, try antihistamines to block the allergic reaction. Remember: unless a sore throat is caused by a bacterial infection, antibiotics won t help you. Prevent future sore throats Prevention tips include the following: Stop smoking or reduce contact with secondhand smoke. Smoke irritates the tender throat lining. Limit contact with pets and with allergy-causing substances, such as pollen and mold. When you re around someone with a sore throat or cold, wash your hands often to keep viruses or bacteria from spreading. Don t strain your vocal cords. Contact your healthcare provider if you have: A temperature over 101 F (38.3 C) White spots on the throat Great difficulty swallowing Trouble breathing A skin rash Recent exposure to someone else with strep bacteria Severe hoarseness and swollen glands in the neck or jaw [id number] [employer] [place] [address], [place] [address]. All rights reserved. This information is not intended as a substitute for professional medical care. Always follow your healthcare professional's instructions. Viral Pharyngitis (Sore Throat) You or your child have pharyngitis (sore throat). This infection is caused by a virus. It can cause throat pain that is worse when swallowing, aching all over, headache, and fever. The infection may be spread by coughing, kissing, or touching others after touching your mouth or nose. Antibiotic medicines do not work against viruses. They are not used for treating this illness. Home care If symptoms are severe, you or your child should rest at home. Return to work or school when you or your child feel well enough. You or your child should drink plenty of fluids to prevent dehydration. Use throat lozenges or numbing throat sprays to help reduce pain. Gargling with warm salt water will also help reduce throat pain. Dissolve 1/2 teaspoon of salt in 1 glass of warm water. Children can sip on juice or a popsicle. Children 5 years and older can also suck on a lollipop or hard candy. Don t eat salty or spicy foods or give them to your child. These can be irritating to the throat. Medicines for a child: You can give your child acetaminophen for fever, fussiness, or discomfort. In babies over 6 months of age, you may use ibuprofen instead of acetaminophen. If your child has chronic liver or kidney disease or ever had a stomach ulcer or GI bleeding, talk with your child s healthcare provider before giving these medicines. Aspirin should never be used by any child under 18 years of age who has a fever. It may cause severe liver damage. Medicines for an adult: You may use acetaminophen or ibuprofen to control pain or fever, unless another medicine was prescribed for this. If you have chronic liver or kidney disease or ever had a stomach ulcer or GI bleeding, talk with your healthcare provider before using these medicines. Follow-up care Follow up with a healthcare provider or our staff if you or your child are not getting better over the next week. When to seek medical advice Call your healthcare provider right away if any of these occur: Fever as directed by your healthcare provider. For children, seek care if: oYour child is of any age and has repeated fevers above 104 F (40 C). oYour child is younger than 2 years of age and has a fever of 100.4 F (38 C) for more than 1 day. oYour child is 2 years old or older and has a fever of 100.4 F (38 C) for more than 3 days. New or worsening ear pain, sinus pain, or headache Painful lumps in the back of neck Stiff neck Lymph nodes are getting larger Can t swallow liquids, a lot of drooling, or can t open mouth wide due to throat pain Signs of dehydration, such as very dark urine or no urine, sunken eyes, dizziness Trouble breathing or noisy breathing Muffled voice New rash Other symptoms are getting worse [phone] [employer]. [address] [place] [address], [place] [address]. All rights reserved. This information is not intended as a substitute for professional medical care. Always follow your healthcare professional's instructions. Additional Information VACCINATE! IT SAVES LIVES! Members of the community who have not yet received the COVID-19 vaccine and would like to receive it can visit one of [facility] vaccine clinics. There are many vaccine clinic locations within the [facility]. For locations and available times, please visit [email or web address] [email or web address] It is important to note that some COVID mobile vaccine clinics are held outdoors and may be canceled in rainy or stormy conditions. To learn more about pediatric vaccinations (ages 5-11), we invite you to visit the [facility] webpage. https://[email or web address]/pag [email or web address]-Kguep-Iskmjqnijmt-Frequent dx-Xheti-Crbyzwouu.html To learn more about the COVID-19 vaccine, we invite you to visit the CDC website for a list of frequently asked questions. https://www.cdc.gov/coronavirus/20 19-ncov/vaccines/faq.html [facility] Patient Portal Access Instructions: Stay connected with your healthcare team and access your personal medical information anytime with the [facility] Patient Portal. If you would like a full copy of your medical records please contact the [facility] Medical Records Department Monday through Monday between 8a.m. and 4:30p.m. Please follow the directions below to access the portal: 1.Access the email account you provided upon registration to the [facility].2.Look for an invitation email from [facility].3.Open the email and access the invitation link: Accept Invitation to [facility].Fill in the required velasco to create your account. Sign into [email or web address] with your username and password that you created in the above steps to stay up to date. You can then view a summary of results, a summary of your visits, and the ability to download your summaries to your computer or send the information securely to a physician. Remember that your healthcare information is confidential, so carefully consider who you will allow to register on the [facility] Patient Portal for access to your information. You can also access the [facility] Patient Portal on the nGame. Simply click on Health Records under Health Data and then click on the [employer] logo. HOW TO SAFELY DISPOSE OF PRESCRIPTION MEDICATIONS Please use one of the following methods to safely dispose of your unused medications. 1.Use a drug disposal kit: the drug disposal pouch allows you to safely discard your old and unused drugs. Ask your nurse to give you one when you are discharged.2.Visit a local take-back location: Many local pharmacies and police departments have programs that collect old and unwanted prescription drugs. Call your local pharmacy or go to http://Perpetuall.[employer]/4O9Aa7c to find one close to you.3.Make use of household items: Use cat litter or old coffee grounds to dispose medications if other options are not available. Mix your drugs with these household products, seal them in an airtight container and throw it into the garbage. Call [facility]: [phone] to be sure your drugs can be disposed of in this way. Some medicines may require a different approach.4.Never flush your medications down the toilet. IF YOU HAVE BEEN PRESCRIBED AN OPIOIDS FOR PAIN If you have been prescribed an opioid (such as hydrocodone, oxycodone or morphine), it is critical to understand the possible side effects and risks of opioid pain medications. Even when taken as directed, opioids can have several side effects including: Tolerance, meaning you might need to take more of a medication for the same pain relief. Nausea, vomiting and/or constipation. Sleepiness, dizziness, dry mouth, confusion, depression or itching. Physical dependence, meaning you have withdrawal symptoms when a medication is stopped ? this can develop within a few days. KNOW YOUR RESPONSIBILITIES It is important to know exactly how much and how often to take the opioid pain medications you are prescribed. Never take opioids in higher amounts or more often than prescribed. Do not combine opioids with alcohol or other drugs that cause drowsiness, such as benzodiazepines, also known as benzos, including diazepam and alprazolam, muscle relaxants or sleep aids. Never sell or share prescription opioids. This is illegal. Store opioids in a secure place and out of reach of others (including children, family, friends and visitors). The last page(s) of this document has been signed and retained as a CHART COPY Signatures Patient Education Materials Self-Care for Sore Throats Pharyngitis, Viral Medication Leaflets My discharge plan and instructions have been reviewed and explained to me and I,LUIS CAMPO understand my current condition and have read and understand these discharge instructions. I have received a written copy of the plan/instructions. If I have questions, I am aware that I should contact my doctor. 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 HISTORY: ORDERING SYSTEM PROVIDED HISTORY: Reason for Exam: SOB/cough/fever FINDINGS: The heart size and mediastinal contours are normal. There is no lung infiltrate or edema. No pneumothorax or pleural fluid is present. Skeletal structures are unremarkable. IMPRESSION: No acute cardiopulmonary abnormality. Interpreted by: Robson Leon MD Preliminary Report By: Robson Leon MD Electronically signed By Robson Leon MD Dictated Date: 04/30/2023 6:08:24 AM Prelim Date: 04/30/2023 6:08:57 AM Sign Date: 04/30/2023 6:08:57 AM Ordering Provider: MELCHOR SCHMITZ [facility] 04-30-2023 Note Sinus rhythm Probable left atrial enlargement Low voltage, precordial leads Electronic Signature: MELCHOR SCHMITZ MD 04/30/2023 06:33:30 [facility] 04-30-2023 SARS-CoV-2 (COVID-19) RNA CASSI+probe Ql (Nph) Negative *NA* (04/30/23 5:38 AM) AO Auto Urine SS 01-06-2023 Miscellaneous Notes Patient has been identified by name and date of : Yes Patient phones for refill(s): Requested Prescriptions Pending Prescriptions Disp Refills ondansetron orally disintegrating (ZOFRAN ODT) 4 mg disintegrating tablet 20 tablet 0 Sig: Take 1 tablet by mouth every 6 hours as needed for nausea/vomiting. Date of last office visit in primary care: 11/07/2022 Please advise. Thank you. Kat Grewal LPN documented in this encounter [facility] 11-08-2022 Miscellaneous Notes Faxed dermatology referral to Donna Ruiz, per patient request. documented in this encounter [facility] 11-07-2022 History of Present illness Narrative Chief Complaint Patient presents with: Derm Problem: Lump RUE below surface patient is concerned with. HPI Luis Campo is a 27 year old female who presents here today for Above Complaints.. Patient states that she used to have a freckle on her right upper arm which resolved years ago. Noticed new bump yesterday and wanted to make sure it was not cancerous. Spot is mildly tender to palpation. Denies fever, erythema, crusting, drainage. Has moles on her back she would like checked today as well. Unsure if they have changed. Larger moles. Past medical history, appointments, medications, allergies reviewed. Previous Medical History PAST MEDICAL HISTORY Diagnosis Date Bipolar disorder (HCC) Psychiatry through counseling center Depression with anxiety Seeing Dr Hinson and counselor Fatty liver Sahara Khan MD Hepatitis B core antibody positive Irregular menstrual cycle Migraine Obesity (BMI 30.0-34.9) Palpitations PCOS (polycystic ovarian syndrome) 08/2014 [facility] - PAST MEDICAL HISTORY OF 09/12/2005 normal color vision Previous Surgical History PAST SURGICAL HISTORY Procedure Laterality Date NONE Family History FAMILY HISTORY Problem Relation Age of Onset other (pcos) Mother Anxiety disorder Father Bipolar disorder Father Psychiatry Father bipolar Hypertension Father Anxiety disorder Sister Depression Sister Psychiatry Sister depression Anxiety disorder Sister Depression Sister Psychiatry Sister Anxiety disorder Sister Depression Sister Psychiatry Sister Anxiety disorder Sister Depression Sister Psychiatry Sister Anxiety disorder Sister Depression Sister Psychiatry Sister Anxiety disorder Sister Depression Sister Psychiatry Sister Anxiety disorder Sister Depression Sister Psychiatry Sister Stroke Brother Psychiatry Maternal Aunt Thyroid Maternal Aunt other (polycystic kidney disease) Maternal Uncle Psychiatry Maternal Grandmother BIPOLAR Psychiatry Maternal Grandfather Cancer Paternal Grandmother LUNG other (liver disease) Paternal Grandmother Cancer Paternal Grandfather No Known Problems Son other (liver disease) Other cousin on father's side Patient Allergies ALLERGIES Allergen Reactions Latex Rash, Hives, Itching Current Medications Current Outpatient Medications on File Prior to Visit Medication Sig Multivitamin capsule Take 1 capsule by mouth once daily. OXcarbazepine (TRILEPTAL) 300 mg tablet TAKE 1 TABLET BY MOUTH TWICE A DAY omeprazole (PRILOSEC) 40 mg capsule Take 1 capsule by mouth once daily. ondansetron orally disintegrating (ZOFRAN ODT) 4 mg disintegrating tablet Take 1 tablet by mouth every 6 hours as needed for nausea/vomiting. docusate sodium (COLACE) 100 mg capsule Take 1 capsule by mouth twice daily as needed for constipation. sucralfate (CARAFATE) 1 gram tablet Take 1 tablet by mouth before meals and at bedtime. VITAMIN D-3 125 mcg (5,000 unit) tab TAKE 1 TABLET BY MOUTH EVERY DAY medroxyPROGESTERone (PROVERA) 5 mg tablet Take 1 tablet by mouth as needed (Missed period with PCOS). No current facility-administered medications on file prior to visit. Social History Social History Tobacco Use Smoking status: Former Packs/day: 0.25 Types: Cigarettes Start date: 11/25/2016 Quit date: 04/27/2017 Years since quittin.5 Smokeless tobacco: Never Substance Use Topics Alcohol use: Not Currently Comment: rare Drug use: No Review of Symptoms REVIEW OF SYSTEMS See HPI EXAM: BP 108/68 Pulse 69 Resp 16 Wt 93.2 kg (205 lb 6.4 oz) LMP 05/07/2022 SpO2 97% BMI 35.81 kg/m General Appearance: Well appearing, alert, in no acute distress, well-hydrated, well nourished.. Skin: <0.5 cm raised skin colored lesion on right upper arm-benign appearance. 2 atypical moles on middle of upper back which are asymmetric, >0.5 cm in diameter, and have darker spots in the center. Health Maintenance List PAP TESTING due on 07/24/2022 COVID-19 VACCINE(3 - Booster for Moderna series) due on 05/25/2023 DTAP,TDAP,TD(8 - Td or Tdap) due on 03/21/2029 HEPATITIS B Completed HPV VACCINE Completed INFLUENZA Completed HEPATITIS C SCREENING Completed HIV SCREENING Completed ASSESSMENT/PLAN: 1. Atypical mole - ICD9: 216.9, ICD10: D22.9 (primary diagnosis) Referral to dermatology for further evaluation and possible biopsy. - CONSULT TO DERMATOLOGY 2. Skin lesion - ICD9: 709.9, ICD10: L98.9 Benign lesion on upper arm. Call if changing. F/u with derm. Sierra Herzog MD documented in this encounter [facility] 09-28-2022 History of Present illness Narrative Radiology Service Progress Note PATIENT NAME: Luis Campo DATE OF SERVICE: September 28, 2022 TIME: 10:15 AM PATIENT IDENTITY VERIFICATION COMPLETED USING TWO (2) IDENTIFIERS: Name and Date of confirmed by patient verbally. FALL SCREENING: Has the patient had 2 falls in the last year or 1 fall with injury or currently using an Ambulatory Assistive Device (Walker, Cane, Wheelchair, Crutches, etc.)? No PATIENT GENDER DATA: Female. status: : No status: NO. PATIENT RELEVANT IMPLANT DATA REVIEWED: Yes RADIOLOGY DEPARTMENT: General X-ray: Exam(s) Completed: Abdomen X-Ray: Abdomen PERIPHERAL IV DATA: Not applicable SIGNED BY: RT Yesika(R) September 28, 2022 10:15 AM documented in this encounter [facility] 09-19-2022 Miscellaneous Notes Last appointment: 08/31/22 Next appointment: 09/28/22 documented in this encounter [facility] 07-22-2022 Miscellaneous Notes See my chart message. Please notify the patient that it could have been a false positive due her starting the Trileptal. Images from the original note were not included. Patient calling concerned that the urine tox screen lab came back Preliminary Positive for Opiates, she can see on her my chart. She does not understand that? She said she only takes migraine excedrin, tylenol and ibuprofen for pain. Please advise Contains abnormal data TOX SCREEN ROUT UR Order: [id number] Status: Final result Visible to patient: Yes (seen) Dx: DEONTE (generalized anxiety disorder); B... 0 Result Notes Component Ref Range & Units 2 d ago Phencyclidine Urine Negative Negative Comment: Cutoff threshold at 25 ng/mL. Benzodiazepines Urine Negative Negative Cocaine Urine Negative Negative Comment: Cutoff threshold at 300 ng/mL. Amphetamines Urine Negative Negative Comment: Cutoff threshold at 1000 ng/mL. Cannabinoids, Urine Negative Negative Comment: Cutoff threshold at 50 ng/mL. Opiates Urine Negative Preliminary positive Abnormal Comment: Cutoff threshold at 300 ng/mL. Barbiturates Urine Negative Negative Comment: Cutoff threshold at 200 ng/mL. Ethanol, Urine <11 mg/dL <11 Oxycodone, Urine Negative Negative Comment: Cutoff threshold at 100 ng/mL. Resulting Agency CCM Narrative Performed by: [facility] Immunoassay screen only. Cross reactivity with other substances can occur with immunoassay screening. Detection of any drug(s) in this urine toxicology panel is presumptive only. These tests are for medical purposes only and should not be used for compliance monitoring, legal, or forensic use. Samples should be within normal physiological conditions (e.g. pH). This assay does not include adulteration/specimen validity testing. In clinical settings, confirmatory testing is at the practitioner's discretion [1]. If clinically indicated, confirmation by high specificity, quantitative methodology, which includes adulteration/specimen validity testing, may be requested on the same specimen through Client Services ([phone]) if contacted within 48 hours of initial testing. [1]Substance Abuse and Mental Health Services Administration (2012). Clinical Drug Testing in Primary Care Technical Assistance Publication Series 32. Department of Health and Human Services, [place], p.10. Specimen Collected: 07/20/22 3:10 PM EST Last Resulted: 07/22/22 2:13 PM EST Lab Flowsheet Order Details View Encounter Lab and Collection Details Routing Result History View Encounter Conversation Result Care Coordination Patient Communication Add Comments Seen Back to Top Result Information Flag: Abnormal Abnormal Status: Final result (Resulted: 07/22/2022 2:13 PM) Provider Status: Open Questions Order Question Answer Kamaljit Account (Please Enter 8-digit numeric number beginning with 00) Collection comment: Patient Release Status: This result is viewable by the patient in MyChart. Last viewed in MyChart: 07/22/2022 2:29 PM By: Luis Campo documented in this encounter [facility] 06-20-2022 Miscellaneous Notes Patient notified of results and provider's instructions. Patient verbalizes understanding. Tiffani Kern RN Message left for patient to call in and ask for triage nurse to receive update. Elisa Christian LPN Please call patient and let her know her liver ultrasound shows hepatic steatosis which is also known as fatty liver. Would recommend if not already doing lower saturated fat diet, aim for at least 150 minutes of exercise per week, no more than one standard drink a day, and spare usage of acetaminophen products. Nancy Hernandez APRN.[facility] documented in this encounter [facility] 06-17-2022 History of Present illness Narrative Radiology Service Progress Note PATIENT NAME: Luis Campo DATE OF SERVICE: June 17, 2022 TIME: 1:50 PM PATIENT IDENTITY VERIFICATION COMPLETED USING TWO (2) IDENTIFIERS: Name and Date of confirmed by patient verbally. FALL SCREENING: Has the patient had 2 falls in the last year or 1 fall with injury or currently using an Ambulatory Assistive Device (Walker, Cane, Wheelchair, Crutches, etc.)? No PATIENT GENDER DATA: Female. status: : No status: NO. PATIENT RELEVANT IMPLANT DATA REVIEWED: Not Applicable RADIOLOGY DEPARTMENT: Ultrasound PERIPHERAL IV DATA: Not applicable SIGNED BY: Lu Rodrigues RDMS June 17, 2022 1:50 PM documented in this encounter [facility] 06-13-2022 History of Present illness Narrative Chief Complaint Patient presents with: Abdominal Pain: On and off x 3 months. More frequent in last month. Nausea HPI Luis Campo is a 27 year old female who presents here today for Above Complaints.. Patient complaining of intermittent epigastric pain with nausea and vomiting which started about 3 months ago. Occurs 2-4 times per week and will last for a few hours. Usually occurs in the morning. Denies exacerbating factors. Treating with Pepto which helps to take the edge off. Denies fever, diarrhea, hematochezia or melena, constipation, urinary symptoms, alcohol abuse. 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 Past medical history, appointments, medications, allergies reviewed. Previous Medical History PAST MEDICAL HISTORY Diagnosis Date Bipolar disorder (HCC) Psychiatry through counseling center Depression with anxiety Seeing Dr Hinson and counselor Fatty liver Sahara Khan MD Hepatitis B core antibody positive Irregular menstrual cycle Migraine Obesity (BMI 30.0-34.9) Palpitations PCOS (polycystic ovarian syndrome) 08/2014 [facility] - PAST MEDICAL HISTORY OF 09/12/2005 normal color vision Previous Surgical History PAST SURGICAL HISTORY Procedure Laterality Date NONE Family History FAMILY HISTORY Problem Relation Age of Onset other (pcos) Mother Psychiatry Father bipolar Hypertension Father Psychiatry Sister depression Psychiatry Sister Psychiatry Sister Psychiatry Sister Psychiatry Sister Psychiatry Sister Psychiatry Sister Stroke Brother Psychiatry Maternal Grandmother BIPOLAR Psychiatry Maternal Grandfather Cancer Paternal Grandmother LUNG other (liver disease) Paternal Grandmother Cancer Paternal Grandfather Psychiatry Maternal Aunt Thyroid Maternal Aunt other (polycystic kidney disease) Maternal Uncle other (liver disease) Other cousin on father's side No Known Problems Son Patient Allergies ALLERGIES Allergen Reactions Latex Rash, Hives, Itching Current Medications Current Outpatient Medications on File Prior to Visit Medication Sig medroxyPROGESTERone (PROVERA) 5 mg tablet Take 1 tablet by mouth as needed (Missed period with PCOS). No current facility-administered medications on file prior to visit. Social History Social History Tobacco Use Smoking status: Former Packs/day: 0.25 Types: Cigarettes Start date: 11/25/2016 Quit date: 04/27/2017 Years since quittin.1 Smokeless tobacco: Never Substance Use Topics Alcohol use: Yes Comment: rare Drug use: No Review of Symptoms REVIEW OF SYSTEMS See HPI EXAM: BP 122/66 Pulse 60 Resp 16 Wt 90 kg (198 lb 6.4 oz) LMP 05/07/2022 SpO2 98% BMI 33.53 kg/m General Appearance: Well appearing, alert, in no acute distress, well-hydrated, well nourished.. Skin: Skin color, texture, turgor normal, no suspicious rashes or lesions. Abdomen: Abdomen soft. Bowel sounds normal. No masses, organomegaly, Negative CVA tenderness, Positive findings: tenderness moderate epigastric and RUQ without guarding or rebound. Negative Rdz's. Health Maintenance List PAP TESTING due on 07/24/2022 COVID-19 VACCINE(3 - Booster for Moderna series) due on 05/25/2023 DTAP,TDAP,TD(8 - Td or Tdap) due on 03/21/2029 HEPATITIS B Completed HPV VACCINE Completed INFLUENZA Completed HEPATITIS C SCREENING Completed HIV SCREENING Completed Data reviewed Component Latest Ref Rng & Units 05/25/2022 WBC 3.70 - 11.00 k/uL 7.61 RBC 3.90 - 5.20 m/uL 4.84 Hemoglobin 11.5 - 15.5 g/dL 14.4 Hematocrit 36.0 - 46.0 % 43.3 MCV 80.0 - 100.0 fL 89.5 MCH 26.0 - 34.0 pg 29.8 MCHC 30.5 - 36.0 g/dL 33.3 RDW-CV 11.5 - 15.0 % 12.4 Platelet Count 150 - 400 k/uL 236 MPV 9.0 - 12.7 fL 11.1 Neut% % 54.0 Abs Neut (ANC) 1.45 - 7.50 k/uL 4.11 Lymph% % 29.4 Abs Lymph 1.00 - 4.00 k/uL 2.24 Desoto% % 9.5 Abs Desoto <0.87 k/uL 0.72 Eosin% % 5.9 Abs Eosin <0.46 k/uL 0.45 Baso% % 1.1 Abs Baso <0.11 k/uL 0.08 Immature Gran % % 0.1 IMMATURE GRANS (ABS) <0.10 k/uL <0.03 NRBC /100 WBC 0.0 Absolute nRBC <0.01 k/uL <0.01 DTYPE Auto Protein, Total 6.3 - 8.0 g/dL 7.4 Albumin 3.9 - 4.9 g/dL 4.6 Calcium 8.5 - 10.2 mg/dL 10.1 Bilirubin, Total 0.2 - 1.3 mg/dL 0.6 Alkaline Phosphatase 34 - 123 U/L 71 AST 13 - 35 U/L 45 (H) ALT 7 - 38 U/L 92 (H) Glucose 74 - 99 mg/dL 83 BUN 7 - 21 mg/dL 13 Creatinine 0.58 - 0.96 mg/dL 1.02 (H) Sodium 136 - 144 mmol/L 139 Potassium 3.7 - 5.1 mmol/L 4.5 Chloride 97 - 105 mmol/L 102 CO2 22 - 30 mmol/L 24 Anion Gap 9 - 18 mmol/L 13 eGFR >=60 mL/min/1.73m 78 Total Cholesterol, Nonfasting <200 mg/dL 133 Triglycerides, Nonfasting <150 mg/dL 56 HDL Cholesterol, Nonfasting >39 mg/dL 50 LDL Cholesterol, Nonfasting <100 mg/dL 72 Non HDL Cholesterol, Nonfasting <130 mg/dL 83 VLDL Cholesterol, Nonfasting <30 mg/dL 11 Total Chol/HDL Ratio, Nonfasting <5.10 mg/dL 2.66 LDL/HDL Ratio, Nonfasting <2.54 mg/dL 1.44 Hemoglobin A1C 4.3 - 5.6 % 4.6 Estimated Average Glucose mg/dL 85 TSH 0.270 - 4.200 mIU/L 1.440 Hep A Ab, IgM Negative Negative Hep B Core Ab, IgM Negative Negative Hep B Surface Ag Negative Negative Hep C Antibody IA Negative Negative ASSESSMENT/PLAN: 1. Epigastric pain - ICD9: 789.06, ICD10: R10.13 (primary diagnosis) Start workup to rule out gallbladder vs infectious vs liver inflammation vs pancreatitis vs h pylori. Start PPI after giving stool sample. Red flags for re-assessment reviewed with patient in detail. If workup negative and PPI does not improve symptoms, will refer to GI. - CBC + DIFF - COMP METABOLIC PANEL - LIPASE BLD - H PYLORI AG BY EIA,STOOL - OMEPRAZOLE 40 MG CAPSULE,DELAYED RELEASE - US ABD RT UPPER QUADRANT - ONDANSETRON 4 MG DISINTEGRATING TABLET 2. RUQ pain - ICD9: 789.01, ICD10: R10.11 3. Nausea - ICD9: 787.02, ICD10: R11.0 See above. Start nausea - ONDANSETRON 4 MG DISINTEGRATING TABLET Sierra Herzog MD documented in this encounter 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 Appt changed for patient to come into office today at 10 am. Phoned patient to see if she could come in for OV vs VV to properly assess and advised PCP may order testing that could be completed following OV. Patient checking with fiance and will call back. documented in this encounter [facility] 05-31-2022 Miscellaneous Notes Reviewed. Medical records received from [facility] Scan on 05/30/2022 2:29 PM by External Provider: Miscellaneous Clinical Documents Reviewed. Medical information requested below: Scan on 05/26/2022 2:22 PM by External Provider: Consultation - POWERBUILDER Scan on 05/26/2022 2:54 PM by External Provider: Consultation - POWERBUILDER documented in this encounter [facility] 05-30-2022 Miscellaneous Notes Pt called and is notified of providers results and instructions. Pt voices understanding. Danuta Boss RN Patient telephoned. Message left to call back for update. Elisa Christian LPN Please call patient and let her know her hepatitis testing is negative. Liver enzymes some elevated about the same as the past. Looks like she had ultrasound of her liver a few years back which showed fatty liver. Recommend eating low saturated fat diet and exercise at least 150 minutes per week. The rest of her blood work was normal. Follow-up with Dr. Herzog as scheduled next months. Nancy Hernandez APRN.MACHINE [employer] documented in this encounter [facility] 05-25-2022 Miscellaneous Notes Spoke to patient and scheduled. Behavioral Health Social Work Progress Note Patient identified for [facility] from: PCP Reason for referral: Resources Behavioral Health Resources: Psychiatry med management [facility] encounter type: Telephone Encounter Attempts to Outreach: 1 attempt Referral made: Psychiatry - Internal Psychiatry-Internal referral type: Medication Management Psychiatry-External referral type: Medication Management Reason for external referral: Wait times at [facility] too long Final Disposition: Resources given Patient Discharged?: Yes Patient reported that caregiver was able to meet their needs today?: Yes SW placed telephone call at the request of the PCP to discuss behavioral health needs. Patient states she's receiving counseling virtually at [facility] once a month, but does not feel it's working. Would like to see a psychiatrist. Discussed if she would like to see someone at [facility], as she is already established at this agency. Patient states she does not mind that, but would like to see if [facility] can get her in sooner. Advised of lengthy wait times, but will forward chart to Vivian Sheriff APRN.[facility]'s nurse, Martina Robertson LPN who can assist with patient scheduling. No needs further from this SW at this time. ANNA Hubbard May 25, 2022 documented in this encounter [facility] 05-25-2022 History of Present illness Narrative Chief Complaint Patient presents with: Physical: Re-establish care HPI Luis Campo is a 27 year old female who presents here today for Above Complaints. Patient has not had OV since 07/2017. Patient states that she had transferred care to [facility] over the last few years. Last appointment with them was July or August of last year. Records not available today. Patient donating blood on 05/04 and her hepatitis B core antibody test came back reactive. Hep B surface antigen non reactive and has documentation this is likely a false positive. Denies sexual partners with history of hepatitis or IV drug use. Patient following up with psychiatry through the counseling center for history of Bipolar disorder and anxiety with last OV 3-4 years ago. Going to counseling, but has not been on medications for years. Previously treated with Wellbutrin, Konopin, and Trileptal which was working well for her until she became . Counseling does not seem to be doing much for her symptoms. States that she still gets manic episodes about once per week. Anxiety and depression symptoms uncontrolled without SI/HI or panic symptoms. Feels safe going home today. Last Filed Value PHQ-9 Little interest or pleasure in doing things More than half the daysLittle interest or pleasure in doing things. More than half the days. Patient-Reported. Data is from another encounter. Last Filed Value Feeling down, depressed, or hopeless More than half the daysFeeling down, depressed, or hopeless. More than half the days. Patient-Reported. Data is from another encounter. Last Filed Value Trouble falling or staying asleep, or sleeping too much Nearly every dayTrouble falling or staying asleep, or sleeping too much. Nearly every day. Patient-Reported. Data is from another encounter. Last Filed Value Feeling tired or having little energy Nearly every dayFeeling tired or having little energy. Nearly every day. Patient-Reported. Data is from another encounter. Last Filed Value Poor appetite or overeating Several daysPoor appetite or overeating. Several days. Patient-Reported. Data is from another encounter. Last Filed Value Feeling bad about yourself - or that you are a failure or have let yourself or your family down Nearly every dayFeeling bad about yourself - or that you are a failure or have let yourself or your family down. Nearly every day. Patient-Reported. Data is from another encounter. Last Filed Value Trouble concentrating on things, such as reading the newspaper or watching television Nearly every dayTrouble concentrating on things, such as reading the newspaper or watching television. Nearly every day. Patient-Reported. Data is from another encounter. Last Filed Value Moving or speaking so slowly that other people could have noticed. Or the opposite - being so fidgety or restless that you have been moving around a lot more than usual Nearly every dayMoving or speaking so slowly that other people could have noticed. Or the opposite - being so fidgety or restless that you have been moving around a lot more than usual. Nearly every day. Patient-Reported. Data is from another encounter. Last Filed Value Thoughts that you would be better off , or of hurting yourself in some way Several daysThoughts that you would be better off , or of hurting yourself in some way. Several days. Patient-Reported. Data is from another encounter. Last Filed Value If you checked off any problems, how difficult have these problems made it for you to do your work, take care of things at home, or get along with other people? Very difficultIf you checked off any problems, how difficult have these problems made it for you to do your work, take care of things at home, or get along with other people?. Very difficult. Patient-Reported. Data is from another encounter. Last Filed Value PHQ-9 score -- PHQ-9 Score 21PHQ-9 Score. 21. Data is from another encounter. Last Filed Value PHQ-2 score -- PHQ-2 Score 4PHQ-2 Score. 4. Data is from another encounter. Last Filed Value Last pap smear was 05/2018 and was negative. Following up with Dr. Talon Moody and thinks she may have had repeat testing done last year. No longer on Metformin for PCOS. Has provera in case she does not have period within 30 days. Past medical history, appointments, medications, allergies reviewed. Previous Medical History PAST MEDICAL HISTORY Diagnosis Date Depression with anxiety Seeing Dr Hinson and counselor Fatty liver Sahraa Khan MD Irregular menstrual cycle Obesity (BMI 30.0-34.9) PCOS (polycystic ovarian syndrome) 08/2014 [facility] - PAST MEDICAL HISTORY OF 09/12/2005 normal color vision Previous Surgical History PAST SURGICAL HISTORY Procedure Laterality Date NONE Family History FAMILY HISTORY Problem Relation Age of Onset other (pcos) Mother Psychiatry Father bipolar Hypertension Father Psychiatry Sister depression No Known Problems Sister No Known Problems Sister Psychiatry Maternal Grandmother BIPOLAR Psychiatry Maternal Grandfather Cancer Paternal Grandmother LUNG other (liver disease) Paternal Grandmother Cancer Paternal Grandfather other (polycystic kidney disease) Maternal Uncle Psychiatry Maternal Aunt Thyroid Maternal Aunt Stroke Brother No Known Problems Sister No Known Problems Sister No Known Problems Sister No Known Problems Sister other (liver disease) Other cousin on father's side Patient Allergies ALLERGIES Allergen Reactions Latex Rash, Hives, Itching Current Medications Current Outpatient Medications on File Prior to Visit Medication Sig metFORMIN ER (GLUCOPHAGE XR) 500 mg 24 hr tablet TAKE 2 TABLETS BY MOUTH DAILY WITH DINNER. (Patient not taking: Reported on 06/05/2018 ) Bncwyuqy-Ga-Vkz-Fe-FA ( VITAMIN) tab Take 1 tablet by mouth. Norethindrn A-E Estradiol-Iron (MICROGESTIN 24 FE) 1 mg-20 mcg (24)/75 mg (4) tab Take 1 tablet by mouth once daily. (Patient not taking: Reported on 10/12/2017 ) buPROPion XL (WELLBUTRIN XL) 150 mg 24 hr tablet Take 150 mg by mouth every morning. clonazePAM (KLONOPIN) 0.5 mg tablet TAKE 1 TABLET ONCE A DAY NEEDED traZODone (DESYREL) 50 mg tablet TAKE 1/2-2 TABLET AT BEDTIME NEEDED FOR INSOMNIA No current facility-administered medications on file prior to visit. Social History Social History Tobacco Use Smoking status: Former Packs/day: 0.25 Types: Cigarettes Start date: 11/25/2016 Quit date: 04/27/2017 Years since quittin.0 Smokeless tobacco: Never Substance Use Topics Alcohol use: No Drug use: No Review of Symptoms REVIEW OF SYSTEMS GENERAL: No weight loss, malaise or fevers HEENT: Admits to headaches. Reportedly diagnosed with migraine headaches at [facility] NECK: Negative for lumps, goiter, pain and significant neck swelling RESPIRATORY: Negative for cough, hemoptysis, wheezing, COPD, dyspnea or shortness of breath CARDIOVASCULAR: Negative for chest pain, leg swelling, hypertension. Positive for palpitations with previous workup to rule out MVP. Echo reportedly normal. 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 Skin: Skin color, texture, turgor normal, no suspicious rashes or lesions. Head: Normocephalic, no masses, lesions, tenderness or abnormalities. Eyes: Anicteric sclera. Pupils are equally round and reactive to light. Extraocular movements are intact. . Ears: External ears normal, canals clear. Oropharynx: Lips, mucosa, and tongue normal, teeth and gums normal, oropharynx normal. Neck: Supple, no adenopathy; thyroid symmetric, normal size, no bruits. Lungs: Lungs clear to auscultation. No wheezing, rhonchi, rales.. Heart: RRR without murmur, gallop, or rubs. No ectopy. Abdomen: Normal abdominal exam, Abdomen soft, non-tender. Bowel sounds normal. No masses, organomegaly. Extremities: No deformities, edema, skin discoloration, clubbing or cyanosis. Good capillary refill. . Health Maintenance List PAP TESTING due on 06/05/2021 COVID-19 VACCINE(3 - Booster for Moderna series) due on 05/25/2023 DTAP,TDAP,TD(8 - Td or Tdap) due on 03/21/2029 HEPATITIS B Completed HPV VACCINE Completed INFLUENZA Completed HEPATITIS C SCREENING Completed HIV SCREENING Completed ASSESSMENT/PLAN: 1. Encounter for medical examination to establish care - ICD9: V70.9, ICD10: Z00.00 (primary diagnosis) - Counseled on healthy diet and regular exercise - Calcium intake with supplements or by diet of 1000 mg/day for under 50, 0594-0672 mg/day for 50+ - Discussed need and benefit for weight loss. BMI 33.73 kg/(m^2) - Follow up for annual exam in one year - COMP METABOLIC PANEL - CBC + DIFF - LIPID PANEL, NONFASTING - HGB A1C 2. Bipolar disorder, current episode mixed, moderate (HCC) - ICD9: 296.62, ICD10: F31.62 Patient with uncontrolled manic episodes and depression without SI/HI. No plan to harm herself. Would like to be restarted on medication. Discussed referral to biopsychologist Vivian while awaiting f/u with psychiatry at the counseling center. Contracted for safety. - CONSULT TO PRIMARY CARE BEHAVIORAL HEALTH ADULT 3. Anxiety and depression - ICD9: 300.00, 311, ICD10: F41.9, F32.A See above. - CONSULT TO PRIMARY CARE BE[facility]IORAL HE[facility] ADULT 4. Palpitations - ICD9: 785.1, ICD10: R00.2 Patient states she had previous negative workup for MVP. Will obtain records from [place] and f/u in 3-4 weeks to discuss further. 3 - TSH BLD 5. Hepatitis B core antibody positive - ICD9: 795.79, ICD10: R76.8 Repeat testing. Denies high risk behavior. - HEP ACUTE PANEL BL 6. PCOS (polycystic ovarian syndrome) - ICD9: 256.4, ICD10: E28.[address] Palmer. Will obtain records. Recommended routine f/u with their office. 7. Elevated liver enzymes - ICD9: 790.5, ICD10: R74.8 Check CMP. 8. Class 1 obesity without serious comorbidity with body mass index (BMI) of 32.0 to 32.9 in adult, unspecified obesity type - ICD9: 278.00, V85.32, ICD10: E66.9, Z68.32 Weight increasing - Behavioral intervention Sierra Herzog MD documented in this encounter [facility] 05-23-2022 Miscellaneous Notes Thank you. Phoned patient and rescheduled her for 05/25/22 for 40 min. She stated she will bring the letter regarding blood from the [facility] with her to Wednesdays appt. I suspect this shows immunity to hepatitis B, but I will need the lab results to be sure. Please request labs and schedule patient for 40 minute appointment to re-establish/physical. Phoned patient to inquire about follow up visit as last visit over 3 years ago. Patient reported she made appt since she donated blood an received a report back showing she was nonreactive for Hep A and C but reactive for B. Advised her would update PCP and he could advise if any reason for concern. Informed patient she may need to re-establish due to greater than 3 years since last visit. She voiced understanding. documented in this encounter [facility] Evaluation + Plan note No data available for this section [facility] Evaluation note Diagnosis Encounter for medical examination to establish care- Primary Bipolar disorder, current episode mixed, moderate (HCC) Bipolar I disorder, most recent episode (or current) mixed, moderate Anxiety and depression Dysthymic disorder Palpitations Hepatitis B core antibody positive Other and unspecified nonspecific immunological findings PCOS (polycystic ovarian syndrome) Polycystic ovaries Elevated liver enzymes Other nonspecific abnormal serum enzyme levels Class 1 obesity without serious comorbidity with body mass index (BMI) of 32.0 to 32.9 in adult, unspecified obesity type [facility] Diagnosis Epigastric pain- Primary Abdominal pain, epigastric RUQ pain Abdominal pain, right upper quadrant Nausea Nausea alone [facility] Diagnosis Atypical mole- Primary Benign neoplasm of skin, site unspecified Skin lesion Unspecified disorder of skin and subcutaneous tissue [facility] Diagnosis Epigastric pain Abdominal pain, epigastric Nausea Nausea alone [facility] Diagnosis Epigastric pain Abdominal pain, epigastric [facility] Diagnosis Acute cystitis without hematuria- Primary Acute cystitis [facility] Diagnosis Fatty liver- Primary Other chronic nonalcoholic liver disease Elevated liver enzymes Other nonspecific abnormal serum enzyme levels Class 2 obesity with body mass index (BMI) of 36.0 to 36.9 in adult, unspecified obesity type, unspecified whether serious comorbidity present [facility] Diagnosis Annual physical exam- Primary Routine general medical examination at a health care facility Fatty liver Other chronic nonalcoholic liver disease Bipolar disorder, current episode mixed, moderate (HCC) Bipolar I disorder, most recent episode (or current) mixed, moderate Anxiety and depression Dysthymic disorder Dysuria Class 1 obesity with body mass index (BMI) of 31.0 to 31.9 in adult, unspecified obesity type, unspecified whether serious comorbidity present [facility] Diagnosis Positive test- Primary examination or test, positive result [facility] Diagnosis Acute constipation Unspecified constipation documented in this encounter [facility] for referral (narrative)* Diagnostic Procedure Only (Urgent) - Authorized Specialty Diagnoses / Procedures Referred By Contac t Referred To Contact US IMAGING Diagnoses Epigastric pain Procedures US ABD RT UPPER QUADRANT US ABDOMINAL REAL TIME W/IMAGE LIMITED Sierra Herzog MD [address] [place] [address] Us Imaging Referral ID Status Reason Start Date Expiration Date Visits Requested Visits Authorized [id number] Authorized Auto-Generat ed Referral 06/13/2022 07/13/2023 1 1 [facility] for referral (narrative)* Diagnostic Procedure Only (Urgent) - Closed Specialty Diagnoses / Procedures [facility] Referred To Contact US IMAGING Diagnoses Epigastric pain Procedures US ABD RT UPPER QUADRANT US ABDOMINAL REAL TIME W/IMAGE LIMITED Sierra Herzog MD [address] [place] [address] [place] [address] Referral ID Status Reason Start Date Expiration Date V isits Requested Visits Authorized [id number] Closed Auto-Generate d Referral 06/13/2022 07/13/2023 1 1 [facility] for referral (narrative)* Diagnostic Procedure Only (Routine) - Closed Specialty Diagnoses / Procedures Referred By Contac t Referred To Contact XR IMAGING Diagnoses Acute constipation Procedures XR ABDOMEN 1V SUPINE RADIOLOGIC EXAM ABDOMEN 1 VIEW Sierra Herzog MD [address] [place] [address] [place] [address] Referral ID Status Reason Start Date Expiration Date V isits Requested Visits Authorized [id number] Closed Auto-Generate d Referral 09/28/2022 10/28/2023 1 1 [facility] for visit Narrative* Diagnostic Procedure Only (Routine) - Closed Specialty Diagnoses / Procedures Referred By Kerri t Referred To Contact XR IMAGING Diagnoses Acute constipation Procedures XR ABDOMEN 1V SUPINE RADIOLOGIC EXAM ABDOMEN 1 VIEW Sierra Herzog MD [address] [place] [address] [place] [address] Referral ID Status Reason Start Date Expiration Date V isits Requested Visits Authorized [id number] Closed Auto-Generate d Referral 09/28/2022 10/28/[address] [facility] Reason for Referral Specialty Diagnoses / Procedures Referred By Kerri t Referred To Contact Dermatology Diagnoses Atypical mole Procedures CONSULT TO DERMATOLOGY Sierra Herzog MD [address] [place] [address] Referral ID Status Reason Start Date Expiration Date Visits Requested Visits Authorized [id number] Ref Not Required PCP Requested Referral 11/07/2022 11/07/2023 1 1 Specialty Diagnoses / Procedures Referred By Kerri t Referred To Contact Diagnoses Bipolar disorder, current episode mixed, moderate (HCC) Anxiety and depression Procedures CONSULT TO PRIMARY [facility]IORAL HEALTH ADULT OFFICE/OUTPATIENT [facility] 60 MINUTES Sierra Herzog MD [address] [place] [address] Referral ID Status Reason Start Date Expiration Date Visits Requested Visits Authorized [id number] Pending Review PCP Requested Referral 2024 04/01/2024 1 1 Summary Purpose Family History No Family History Records Found Advance Directives No Advanced Directives Records FoundNo Advanced Directives Records Found Additional Source Comments Source Comments (unrecognize d section and content) In the event this informatio n is protected by the Federal Confidentiality of Alcohol and Drug Abuse Patient Records regulations: The Federal rules restrict any use of the information to criminally investigate or prosecute any alcohol or drug abuse patient.[facility] the event this information is protected by the Federal Confidentiality of Alcohol and Drug Abuse Patient Records regulations: The Federal rules restrict any use of the information to criminally investigate or prosecute any alcohol or drug abuse patient.[facility] the event this information is protected by the Federal Confidentiality of Alcohol and Drug Abuse Patient Records regulations: The Federal rules restrict any use of the information to criminally investigate or prosecute any alcohol or drug abuse patient.[facility] the event this information is protected by the Federal Confidentiality of Alcohol and Drug Abuse Patient Records regulations: The Federal rules restrict any use of the information to criminally investigate or prosecute any alcohol or drug abuse patient.[facility] the event this information is protected by the Federal Confidentiality of Alcohol and Drug Abuse Patient Records regulations: The Federal rules restrict any use of the information to criminally investigate or prosecute any alcohol or drug abuse patient.[facility] the event this information is protected by the Federal Confidentiality of Alcohol and Drug Abuse Patient Records regulations: The Federal rules restrict any use of the information to criminally investigate or prosecute any alcohol or drug abuse patient.[facility] the event this information is protected by the Federal Confidentiality of Alcohol and Drug Abuse Patient Records regulations: The Federal rules restrict any use of the information to criminally investigate or prosecute any alcohol or drug abuse patient.[facility] the event this information is protected by the Federal Confidentiality of Alcohol and Drug Abuse Patient Records regulations: The Federal rules restrict any use of the information to criminally investigate or prosecute any alcohol or drug abuse patient.[facility] the event this information is protected by the Federal Confidentiality of Alcohol and Drug Abuse Patient Records regulations: The Federal rules restrict any use of the information to criminally investigate or prosecute any alcohol or drug abuse patient.[facility] the event this information is protected by the Federal Confidentiality of Alcohol and Drug Abuse Patient Records regulations: The Federal rules restrict any use of the information to criminally investigate or prosecute any alcohol or drug abuse patient.[facility] the event this information is protected by the Federal Confidentiality of Alcohol and Drug Abuse Patient Records regulations: The Federal rules restrict any use of the information to criminally investigate or prosecute any alcohol or drug abuse patient.[facility] the event this information is protected by the Federal Confidentiality of Alcohol and Drug Abuse Patient Records regulations: The Federal rules restrict any use of the information to criminally investigate or prosecute any alcohol or drug abuse patient.[facility] the event this information is protected by the Federal Confidentiality of Alcohol and Drug Abuse Patient Records regulations: The Federal rules restrict any use of the information to criminally investigate or prosecute any alcohol or drug abuse patient.[facility] the event this information is protected by the Federal Confidentiality of Alcohol and Drug Abuse Patient Records regulations: The Federal rules restrict any use of the information to criminally investigate or prosecute any alcohol or drug abuse patient.[facility] the event this information is protected by the Federal Confidentiality of Alcohol and Drug Abuse Patient Records regulations: The Federal rules restrict any use of the information to criminally investigate or prosecute any alcohol or drug abuse patient.[facility] the event this information is protected by the Federal Confidentiality of Alcohol and Drug Abuse Patient Records regulations: The Federal rules restrict any use of the information to criminally investigate or prosecute any alcohol or drug abuse patient.[facility] the event this information is protected by the Federal Confidentiality of Alcohol and Drug Abuse Patient Records regulations: The Federal rules restrict any use of the information to criminally investigate or prosecute any alcohol or drug abuse patient.[facility] the event this information is protected by the Federal Confidentiality of Alcohol and Drug Abuse Patient Records regulations: The Federal rules restrict any use of the information to criminally investigate or prosecute any alcohol or drug abuse patient.[facility] the event this information is protected by the Federal Confidentiality of Alcohol and Drug Abuse Patient Records regulations: The Federal rules restrict any use of the information to criminally investigate or prosecute any alcohol or drug abuse patient.[facility] the event this information is protected by the Federal Confidentiality of Alcohol and Drug Abuse Patient Records regulations: The Federal rules restrict any use of the information to criminally investigate or prosecute any alcohol or drug abuse patient.[facility] the event this information is protected by the Federal Confidentiality of Alcohol and Drug Abuse Patient Records regulations: The Federal rules restrict any use of the information to criminally investigate or prosecute any alcohol or drug abuse patient.[facility] the event this information is protected by the Federal Confidentiality of Alcohol and Drug Abuse Patient Records regulations: The Federal rules restrict any use of the information to criminally investigate or prosecute any alcohol or drug abuse patient.[facility] the event this information is protected by the Federal Confidentiality of Alcohol and Drug Abuse Patient Records regulations: The Federal rules restrict any use of the information to criminally investigate or prosecute any alcohol or drug abuse patient.[facility] the event this information is protected by the Federal Confidentiality of Alcohol and Drug Abuse Patient Records regulations: The Federal rules restrict any use of the information to criminally investigate or prosecute any alcohol or drug abuse patient.[facility] Reason for Visit (unrecogniz ed section and content) Reason Comments Behavioral Health Social Work Reason Comments Physical Re-establish care Reason Comments Results Reason Comments Care Coordination Reason Comments Appointment Reason Comments Abdominal Pain On and off x 3 month s. More frequent in last month. Nausea Reason Comments Patient Question Reason Comments Refill Request Reason Comments Derm Problem Lump RUE below surfa ce patient is concerned with. Reason Comments Faxed to [facility] Reason Onset Date Comments Refill Request 01/06/2023 Reason Comments Radiology US Specialty Diagnoses / Procedures Referred By Kerri eaton Referred To Contact US IMAGING Diagnoses Epigastric pain Procedures US ABD RT UPPER QUADRANT US ABDOMINAL REAL TIME W/IMAGE LIMITED Sierra Herzog MD [address] [place] [id number] [place] [id number] Referral ID Status Reason Start Date Expiration Date V isits Requested Visits Authorized [id number] Closed Auto-Generate d Referral 06/13/2022 07/13/2023 1 1 Reason Comments UTI Reason Comments discuss hx fatty liver and treatment opt ions Reason Comments Behavioral Health/Social Work Reason Comments Physical Reason Comments Orders Care Teams (unrecognized sec tion and content) Pattern Changer Relationship Specialty Start Date End Date Sierra Herzog MD [address], [place] [id number] PCP - General Family Medicine 07/28/17 Pattern Changer Relationship Specialty Start Date End Date Sierra Herzog MD [address] [place], [place] [id number] PCP - General Family Medicine 07/28/17 Pattern Changer Relationship Specialty Start Date End Date Sierra Herzog MD [address] [place], [place] [address] PCP - General Family Medicine 07/28/17 Pattern Changer Relationship Specialty Start Date End Date Sierra Herzog MD [address] [facility] [place] [id number] PCP - General Family Medicine 07/28/17 Pattern Changer Relationship Specialty Start Date End Date Sierra Herzog MD [address] [facility] [place] [address] PCP - General Family Medicine 07/28/17 Pattern Changer Relationship Specialty Start Date End Date Sierra Herzog MD [address] [place] [address] PCP - General Family Medicine 07/28/17 Pattern Changer Relationship Specialty Start Date End Date Sierra Herzog MD [address] [place] [address] PCP - General Family Medicine 07/28/17 Pattern Changer Relationship Specialty Start Date End Date Sierra Herzog MD [address] [place] [address] PCP - General Family Medicine 07/28/17 Pattern Changer Relationship Specialty Start Date End Date Sierra Herzog MD [address] [place] [address] PCP - General Family Medicine 07/28/17 Pattern Changer Relationship Specialty Start Date End Date Sierra Herzog MD [address] [place] [address] PCP - General Family Medicine 07/28/17 Pattern Changer Relationship Specialty Start Date End Date Sierra Herzog MD [address] [place] [address] PCP - General Family Medicine 07/28/17 Pattern Changer Relationship Specialty Start Date End Date Sierra Herzog MD [address] [place] [address] PCP - General Family Medicine 07/28/17 Pattern Changer Relationship Specialty Start Date End Date Sierra Herzog MD [address] [place] [address] PCP - General Family Medicine 07/28/17 Pattern Changer Relationship Specialty Start Date End Date Sierra Herzog MD [address] [place] [address] PCP - General Family Medicine 07/28/17 Pattern Changer Relationship Specialty Start Date End Date Sierra Herzog MD [address] [place] [address] PCP - General Family Medicine 07/28/17 Pattern Changer Relationship Specialty Start Date End Date Sierra Herzog MD [address] [place] [address] PCP - General Family Medicine 07/28/17 Pattern Changer Relationship Specialty Start Date End Date Sierra Herzog MD [address] [place] [address] PCP - General Family Medicine 07/28/17 Pattern Changer Relationship Specialty Start Date End Date Sierra Herzog MD [address] [place] [address] PCP - General Family Medicine 07/28/17 Pattern Changer Relationship Specialty Start Date End Date Sierra Herzog MD [address] [place] [address] PCP - General Family Medicine 07/28/17 INFORMATION SOURCE (unrecogn ized section and content) DATE CREATED AUTHOR 05/10/2023 [facility] ([place]) DATE CREATED AUTHOR AUTHOR'S MARK ANTHONY PRUITT 01/30/2024 [facility] FOR RECORDS PERTAINING TO PATIENTS WHO ARE OR HAVE BEEN ENROLLED IN A CHEMICAL DEPENDENCY/SUBSTANCEABUSE PROGRAM, SOME INFORMATION MAY BE OMITTED. This clinical summary was aggregated from multiple sources. Caution should be exercised in using it in the provision of clinical care. This summary normalizes information from multiple sources, and as a consequence, information in this document may materially change the coding, format and clinical context of patient data. In addition, data may be omitted in some cases. CLINICAL DECISIONS SHOULD BE BASED ON THE PRIMARY CLINICAL RECORDS. [employer] [facility]. provides no warranty or guarantee of the accuracy or completeness of information in this document.
[2024-03-06 08:19] LABS: Absolute Neutrophil Count 6.1 X10^3/uL (2.0-7.7); Basophil# 0.04 X10^3/uL; Basophil% 0.5 % (0-1); Eosinophil# 0.26 X10^3/uL; Hematocrit 40.7 % (37-47); Lymphocyte % 20.5 % (19-41); Mean Corp Hgb Conc 34.4 g/dL (32-36); Mean Corpuscular Hgb 31.8 pg (27.0-32.0); Mean Corpuscular Volume 92.5 fL (81-99); Mean Platelet Vol. 10.6 fl (6.2-12.0); Monocyte# 0.59 X10^3/uL; Monocyte% 6.7 % (0-10); NRBC Flagged by Analyzer 0 % (0-5); Neutrophil # 6.05 X10^3/uL (2.7-7.7); Neutrophil % 68.8 % (47-70); Platelet Count 204 K/mm3 (150-450); RBC Distribution Width CV 12.8 % (11.6-14.6); RBC Distribution Width SD 43.5 fl (35.1-43.9); White Blood Count 8.8 K/mm3 (4.4-11.0)
[2024-03-06 09:05] LABS: Hemoglobin A1c 4.5 % (3.8-5.6)
[2024-03-06 09:49] LABS: HIV - WCH Non-Reactive (Nonreactive); Hepatitis B Surface Antigen Non-Reactive (Nonreactive); Hepatitis C Antibody Non-Reactive (Nonreactive); Rubella IgG Reactive (Nonreactive); Syphilis Antibodies Non-reactive
== END | disposition home or self-care (01) ==
LOC: LAB 07:43
PROVIDERS: PCP Family Medicine; Referring Provider Obstetrics & Gynecology; Visit Provider Obstetrics & Gynecology
DX: O99.210 Obesity complicating pregnancy, unspecified trimester (principal); Z3A.00 Weeks of gestation of pregnancy not specified
CPT/HCPCS: 36415; 83036; 85025; 86703; 86762; 86780; 86803; 86850; 86900; 86901; 87340

== ENCOUNTER → 2024-03-19 | Outpatient (CLI) | payer MEDICAID, SELFPAY | END | disposition home or self-care (01) | LOC: BWCLAB 08:13 | PROVIDERS: PCP Family Medicine; Referring Provider Obstetrics & Gynecology; Visit Provider Obstetrics & Gynecology | DX: Z34.82 Encounter for supervision of other normal pregnancy, second trimester (principal) | CPT/HCPCS: 36415 ==

== ENCOUNTER → 2024-03-21 | Outpatient (CLI) | payer MEDICAID, SELFPAY | END | disposition home or self-care (01) | LOC: LABSPEC 15:09 | PROVIDERS: PCP Family Medicine; Referring Provider Advanced Practice Midwife; Visit Provider Advanced Practice Midwife | DX: R33.9 Retention of urine, unspecified (principal) | CPT/HCPCS: 87086 ==

== ENCOUNTER 2024-04-29 16:19 | Emergency (ER) | payer MEDICAID, SELFPAY ==
[2024-04-29 16:20] VITALS: BP 114/77; PULSE 118; RESP 16; TEMP 37.1; O2SAT 98; BMI 32.0
--- NOTE | 2024-04-29 16:26 | ED.VIS.GI ---
HPI HPI - GI History of Present Illness Chief Complaint: Nausea/Vomiting/Diarrhea Informant: patient Abdominal Pain/Flank Pain Onset: Today Context: Sudden Onset Timing: Continuous Quality: Stabbing Location: Epigastric Worsened by: - (Vomiting) Relieved by: Nothing Nausea/Vomiting/Emesis GI Symptom: Positive for Nausea and Vomiting Onset: Today Quality: Positive for Nonbilious; Negative for Blood streaks, Coffee ground or Hematemesis Diarrhea/Melena/Hematochezia GI Symptom: Positive for Diarrhea; Negative for Melena or Hematochezia Associated Symptoms Associated Symptoms: Negative for Dysuria, Frequency or Hematuria Narrative Narrative: Patient presents with abdominal pain, nausea, and vomiting that began this morning. Patient states it woke her up around 3 AM. Patient denies any hematemesis or coffee-ground emesis. Patient admits to some diarrhea but denies any melena or hematochezia. Patient describes her pain as stabbing. Patient states it is mainly over the epigastric area. Patient states it gets worse with vomiting. Patient states nothing makes it better. Patient admits to subjective chills but denies any fevers. Patient states her pain radiates into her back. [facility] Medical History Seasonal allergies Epigastric pain Nausea PCOS (polycystic ovarian syndrome) Anxiety Bipolar 1 disorder Home Medications ?Medication ?Instructions ?Recorded ?Last Taken ?Type multivit-min no.71-iron fum 28 1 cap PO DAILY 02/02/24 Unknown History mg-folate no.1 1 mg-dha 300 mg capsule (PNV-Ratcliff) ondansetron 4 mg disintegrating 4 mg PO Q6H PRN nausea and 02/09/24 Unknown Rx tablet vomiting #30 tabs prochlorperazine maleate 10 mg 10 mg PO Q8H PRN nausea and 02/20/24 Unknown Rx tablet (Compazine) vomiting #90 tabs cephalexin 500 mg capsule 500 mg PO Q6 #12 CAPSULES 04/29/24 Unknown Rx Allergy/AdvReac Type Severity Reaction Status Date / Time latex Allergy Rash Verified 04/17/24 11:46 Family History Grandfather Skin cancer Sleep apnea Grandmother Leukemia Father Hypertension Diabetes Sleep apnea Mother Hypertension Sleep apnea Endometriosis PCOS (polycystic ovarian syndrome) Social History adopted: No household members: family, children and other details: Living with parents & siblings number of children: 1 current occupational status: employed 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 current occupational exposures/hazards: No pets and animals: Yes (avoid litter box) pets and animals: cat(s) history of recent travel: No sexually active: Yes Smoking Status: Never smoker alcohol intake: current alcohol intake frequency: holidays/special occasions only details: not while substance use type: does not use diet: low carbohydrate and other well-balanced diet: about half the time caffeine: No eating out: 1-3 times/week during the past year weight has: decreased > 10 lbs what type of physical activity do you participate in: walking frequency: 1-2 times per week duration: 15-30 minutes/day iona/catholic: Baptism seatbelt use: always do you feel safe at home: Yes additional social history: BF- Rick ROS ROS ED Constitutional Constitutional ED: Reports chills; Denies fever(s) Eyes Eyes: Reports blurry vision ENT ENT ED: Denies rhinorrhea or sore throat Cardiovascular Cardiovascular: Denies chest pain or palpitations Respiratory/Chest Respiratory/Chest: Denies cough or dyspnea Gastrointestinal Gastrointestinal: Reports abdominal pain, diarrhea, nausea and vomiting; Denies melena Genitourinary Genitourinary ED: Denies dysuria or hematuria Musculoskeletal Musculoskeletal: Reports back pain; Denies neck pain Integumentary Denies abscess or rash Neurologic Neurologic: Reports headache(s); Denies weakness Allergic/Immunologic Allergic/Immunologic ED: Denies mouth swelling or urticaria EXAM Physical Exam Const Vital Signs: 04/29/24 16:20 04/29/24 18:19 04/29/24 20:00 Temperature 98.7 F Temperature Source Oral Pulse Rate 118 H 87 85 Respiratory Rate 16 16 16 Blood Pressure 114/77 Blood Pressure Mean 89 Pulse Ox 98 100 97 Oxygen Delivery Method Room Air Room Air 04/29/24 22:00 Temperature Temperature Source Pulse Rate 82 Respiratory Rate 17 Blood Pressure Blood Pressure Mean Pulse Ox Oxygen Delivery Method Positive well nourished and well developed General Appearance ED: well developed and NAD HEENT Reports moist mucous membranes Neck supple and no JVD Resp normal respiratory effort and clear to auscultation bilaterally Cardio regular rate and regular rhythm GI non-distended Palpation: soft and tender epigastric, LUQ and RUQ; Negative for guarding or rebound tenderness present Neuro CN's II-XII intact bilaterally, moves all extremities and no sensory deficits noted Sensorium / Orientation: alert Motor Exam: strength 5/5 throughout Psych mental status grossly normal and thought process normal MDM MDM MDM Narrative Medical decision making narrative: Differential diagnosis includes gastritis, gastroenteritis, cholecystitis, cholelithiasis, pancreatitis, hyperemesis gravidarum, viral illness, and migraine headache. CBC will be obtained to assess for leukocytosis and anemia. Comprehensive metabolic profile will be obtained to assess for hepatic function, renal function, and electrolyte abnormality. Lipase will be obtained to assess for pancreatitis. Urinalysis will be obtained to assess for urinary tract infection and hematuria. Quantitative hCG will be obtained to assess for . Lab Data Attestation: I reviewed the patient's lab results. Lab results narrative: CBC was reviewed and was within normal limits. Comprehensive metabolic profile was reviewed. Total bilirubin was mildly elevated at 1.3. The remainder is within normal limits. Lipase was reviewed and was normal at 20. Quantitative hCG was reviewed and was [id number]. This was increased from previous result. Urinalysis was reviewed. Leukocyte esterase was 500 with 5-10 white blood cells and 2+ bacteria. Urine ketones were 150. Labs: Laboratory Results - last 24 hr 04/29/24 04/29/24 17:00 18:33 WBC 8.9 RBC 4.59 Hgb 14.3 Hct 42.3 MCV 92.2 MCH 31.2 MCHC 33.8 RDW Std Deviation 42.2 RDW Coeff of Beth 12.8 Plt Count 182 MPV 10.4 Immature Gran % (Auto) 0.600 Neut % (Auto) 91.4 H Lymph % (Auto) 3.7 L [place] % (Auto) 4.1 Eos % (Auto) 0.0 Baso % (Auto) 0.2 Absolute Neuts (auto) 8.2 H Absolute Lymphs (auto) 0.33 L Nucleated RBC % 0 Sodium 137 Potassium 4.2 Chloride 107 Carbon Dioxide 24.0 Anion Gap 6 BUN 8 Creatinine 0.65 Estim Creat Clear Calc 131.78 Est GFR (MDRD) Af Amer 141 Est GFR (MDRD) Non-Af 116 BUN/Creatinine Ratio 12.3 Glucose 104 Calcium 9.8 Total Bilirubin 1.30 H AST 28 ALT 17 Alkaline Phosphatase 55 Total Protein 7.4 Albumin 3.2 Globulin 4.2 Albumin/Globulin Ratio 0.8 L Lipase 20 HCG, Quant 17158 H Urine Color Yellow Urine Clarity Sl. Cloudy Urine pH 5.0 Ur Specific [place] 1.025 Urine Protein 30 H Urine Glucose (UA) Normal Urine Ketones 150 A* Urine Occult Blood 10 H Urine Nitrite Negative Urine Bilirubin 6 H Urine Urobilinogen 1 H Ur Leukocyte Esterase 500 H Urine RBC 0-5 SEEN Urine WBC 5-10 SEEN Ur Squamous Epith Cells 0-5 SEEN Urine Bacteria 2+ Urine Mucus 1+ Treatment and Re-Evaluation :: Patient was given IV fluids and Zofran. Patient was feeling better on reevaluation. Urine culture was ordered. Patient was given a dose of Keflex here. Patient was given a prescription for Keflex. Patient was instructed to start with small amounts of fluids and increase as tolerated. Patient was instructed to continue using her Zofran as prescribed. Patient was instructed to follow-up with her primary care physician and [facility] in 3 to 5 days. Patient was instructed return if worse in any way. Patient understood and was agreeable with the plan. All questions were answered. Discharge Plan Triage Chief Complaint: Nausea/Vomiting/Diarrhea ED Provider: Maximo Ariza Dx/Rx/DC Orders Clinical Impression: Urinary tract infection, , Nausea and vomiting Instructions: ED , ED Cystitis Female Adult Prescriptions: New cephalexin 500 mg capsule 500 mg PO Q6 Qty: 12 0RF No Action PNV-Ratcliff 28-1-300 mg capsule 1 cap PO DAILY ondansetron 4 mg tablet,disintegrating 4 mg PO Q6H PRN (Reason: nausea and vomiting) Qty: 30 6RF prochlorperazine maleate [Compazine] 10 mg tablet 10 mg PO Q8H PRN (Reason: nausea and vomiting) Qty: 90 3RF Primary Care Provider: Micheal Herzog Referrals: Micheal Herzog MD [Primary Care Provider] - 3-5 Days Print Language: Northern Irish Disposition Disposition: Home, Self Care
[2024-04-29] MEDS: Ondansetron 4 MG/2 ML Vial IV (17:06)
[2024-04-29] MEDS: 0.9% Normal Saline (1000mL) 1,000 ML 1000 ML IV (17:07)
[2024-04-29 17:08] LABS: Absolute Lymphocyte Count 0.33 X10^3/uL (0.83-4.51); Absolute Neutrophil Count 8.2 X10^3/uL (2.0-7.7); Basophil# 0.02 X10^3/uL; Basophil% 0.2 % (0-1); Hematocrit 42.3 % (37-47); Hemoglobin 14.3 g/dL (12.0-15.0); Lymphocyte # 0.33 X10^3/ul (0.83-4.51); Lymphocyte % 3.7 % (19-41); Mean Corp Hgb Conc 33.8 g/dL (32-36); Mean Corpuscular Hgb 31.2 pg (27.0-32.0); Mean Corpuscular Volume 92.2 fL (81-99); Mean Platelet Vol. 10.4 fl (6.2-12.0); Monocyte# 0.37 X10^3/uL; Monocyte% 4.1 % (0-10); NRBC Flagged by Analyzer 0 % (0-5); Neutrophil # 8.16 X10^3/uL (2.7-7.7); Neutrophil % 91.4 % (47-70); POSITIVE DIFFERENTIAL YES; Platelet Count 182 K/mm3 (150-450); RBC Distribution Width CV 12.8 % (11.6-14.6); RBC Distribution Width SD 42.2 fl (35.1-43.9); Red Blood Count 4.59 M/mm3 (4.2-5.4); White Blood Count 8.9 K/mm3 (4.4-11.0)
[2024-04-29 17:47] LABS: ALB/GLOB Ratio 0.8 RATIO (0.9-2.4); AST(SGOT) 28 U/L (15-37); Alanine Aminotransfer ALT/SGPT 17 U/L (13-56); Albumin, Serum 3.2 g/dL (3.2-5.0); Alkaline Phosphatase 55 U/L (45-117); Anion Gap 6 (5-15); BUN 8 mg/dL (7-18); BUN/Creat Ratio 12.3 RATIO (10-20); Calcium,Total 9.8 mg/dL (8.5-10.1); Chloride 107 mmol/L (98-107); Creatinine, Serum 0.65 mg/dL (0.55-1.02); EST Glomerular Filtration Rate 116 mL/min (>60); Est Glom Filt Rate - Afr Amer 141 mL/min (>60); Estimated Creatinine Clearance 131.78 ml/min; Globulin 4.2 g/dL (2.2-4.2); Glucose 104 mg/dL (74-106); Lipase 20 U/L (13-75); Potassium 4.2 mmol/L (3.5-5.1); Protein, Total 7.4 g/dL (6.4-8.2); Sodium Level 137 mmol/L (136-145)
[2024-04-29 17:55] LABS: hCG Titer Quant., Serum 11634 mIU/mL (1-3)
[2024-04-29 18:19] VITALS: PULSE 87; RESP 16; O2SAT 100
[2024-04-29 18:53] LABS: Color, Urine Yellow (Yellow); Glucose, Dipstick Normal (Normal); Leukocyte Esterase-Dipstick 500 /ul (Negative); Nitrite-Dipstick Negative (Negative); Occult Blood-Urine 10 /ul (Negative); Protein-Dipstick 30 mg/dl (Negative); Specific Gravity, Urine 1.025 (1.002-1.030); Urine Clarity Sl. Cloudy (Clear); Urine Urobilinogen 1 mg/dl (Normal)
[2024-04-29 19:37] LABS: Ketone-Dipstick 150 mg/dl (Negative); Urine Bilirubin Dipstick 6 mg/dL (Negative)
[2024-04-29 20:00] VITALS: PULSE 85; RESP 16; O2SAT 97
[2024-04-29 20:12] LABS: Bacteria 2+ /hpf (None Seen); Mucous, Urine 1+ /hpf (<or=2+); Red Blood Cells-Urine 0-5 SEEN /hpf (0-5); White Blood Cells 5-10 SEEN /hpf (0-5)
[2024-04-29 20:13] LABS: Squamous Epithelial Cells - UA 0-5 SEEN /hpf (5-10)
[2024-04-29 22:00] VITALS: PULSE 82; RESP 17
--- NOTE | 2024-04-29 22:46 | ED.RN ---
IV removed per patient's request.
[2024-04-29 22:47] VITALS: BP 114/77; PULSE 82; RESP 17; TEMP 37.1; O2SAT 97
== END 2024-04-29 22:55 | disposition home or self-care (01) ==
PROVIDERS: Emergency Provider Emergency Medicine; PCP Family Medicine; Visit Provider Emergency Medicine
DX: O21.9 Vomiting of pregnancy, unspecified (principal); O23.40 Unspecified infection of urinary tract in pregnancy, unspecified trimester; Z3A.00 Weeks of gestation of pregnancy not specified
CPT/HCPCS: 80053; 81001; 83690; 84702; 85025; 87086; 96361; 96374; 99283; A4216; J2405

== ENCOUNTER 2024-06-10 15:20 | Outpatient (CLI) | payer MEDICAID, SELFPAY ==
[2024-06-10 15:41] VITALS: BMI 31.6
[2024-06-10 15:47] VITALS: BP 125/63; PULSE 70; RESP 16; TEMP 36.8
[2024-06-10 16:51] LABS: Mucous, Urine 0 SEEN /hpf (<or=2+); Red Blood Cells-Urine 0 SEEN /hpf (0-5)
[2024-06-10 17:06] LABS: Color, Urine Yellow (Yellow); Glucose, Dipstick Normal (Normal); Ketone-Dipstick Negative (Negative); Leukocyte Esterase-Dipstick 100 /ul (Negative); Nitrite-Dipstick Negative (Negative); Occult Blood-Urine 10 /ul (Negative); Protein-Dipstick Negative (Negative); Urine Bilirubin Dipstick Negative (Negative); Urine Clarity Clear (Clear); Urine Urobilinogen Normal (Normal)
[2024-06-10 17:33] LABS: White Blood Cells 0-5 SEEN /hpf (0-5)
[2024-06-10 17:34] LABS: Bacteria RARE /hpf (None Seen); Squamous Epithelial Cells - UA 0-5 SEEN /hpf (5-10)
--- NOTE | 2024-06-10 17:35 | OB.TRI.PN ---
Progress Notes Date of Service: 06/10/24 Progress Note: seen at 24 weeks for spotting over the weekend, fhts present and reassuring at 24 weeks, no regular ctx seen, cervix closed. no obvious sign of bleeding. was only when she wiped. ua and culture sent. reassurance given, precautions. suspect uti- ordered keflex, culture sent fu as scheudled. Laboratory Studies: Laboratory Tests 06/10/24 Range/Units 16:40 Urine Color Yellow (Yellow) Urine Clarity Clear (Clear) Urine pH 7.0 (5.0 - 8.0) Ur Specific [place] 1.010 (1.002-1.030) Urine Protein Negative (Negative) mg/dl Urine Glucose (UA) Normal (Normal) mg/dl Urine Ketones Negative (Negative) mg/dl Urine Occult Blood 10 H (Negative) /ul Urine Nitrite Negative (Negative) Urine Bilirubin Negative (Negative) mg/dL Urine Urobilinogen Normal (Normal) mg/dl Ur Leukocyte Esterase 100 H (Negative) /ul Urine RBC 0 SEEN (0-5) /hpf Urine WBC 0-5 SEEN (0-5) /hpf Ur Squamous Epith Cells 0-5 SEEN (5-10) /hpf Urine Bacteria RARE (None Seen) /hpf Urine Mucus 0 SEEN (<or=2+) /hpf Assessment & Plan (1) : QUALIFIERS: Weeks of gestation: 23 weeks Qualified Code(s): Z3A.23 - 23 weeks gestation of COMMENT: NIPT low risk, normal anatomy (2) Vaginal bleeding during : (3) Supervision of high-risk : QUALIFIERS: Trimester: second trimester Qualified Code(s): O09.92 - Supervision of high risk , unspecified, second trimester COMMENT: PRR, , ROSALINA 09/16/24, PC MILLER Aly (4) History of miscarriage, currently : COMMENT: 19 wk demise, and 2 6wk miscarriages (5) Obesity affecting : QUALIFIERS: Obesity type affecting : unspecified obesity Trimester: second trimester Qualified Code(s): O99.212 - Obesity complicating , second trimester COMMENT: HgbA1c (6) Depression: QUALIFIERS: Depression Type: unspecified Qualified Code(s): F32.A - Depression, unspecified [facility]; plans to discuss zoloft with psychiatrist.
== END 2024-06-10 17:52 | disposition home or self-care (01) ==
LOC: WPOUT 15:23 → WP 15:29
PROVIDERS: PCP Family Medicine; Referring Provider Obstetrics & Gynecology; Visit Provider Obstetrics & Gynecology
DX: O26.852 Spotting complicating pregnancy, second trimester (principal); Z3A.24 24 weeks gestation of pregnancy; N96 Recurrent pregnancy loss; O99.212 Obesity complicating pregnancy, second trimester; O99.342 Other mental disorders complicating pregnancy, second trimester; F32.A Depression, unspecified
CPT/HCPCS: 59050; 81001; 87086; 99221; G0378

== ENCOUNTER → 2024-06-28 | Outpatient (CLI) | payer MEDICAID, SELFPAY ==
[2024-06-28 12:22] LABS: Absolute Neutrophil Count 5.1 X10^3/uL (2.0-7.7); Basophil# 0.01 X10^3/uL; Basophil% 0.1 % (0-1); Eosinophils% 2.9 % (0-5); Hematocrit 34.8 % (37-47); Hemoglobin 11.6 g/dL (12.0-15.0); Lymphocyte % 17.5 % (19-41); Mean Corp Hgb Conc 33.3 g/dL (32-36); Mean Corpuscular Hgb 30.9 pg (27.0-32.0); Mean Corpuscular Volume 92.6 fL (81-99); Mean Platelet Vol. 11.6 fl (6.2-12.0); Monocyte# 0.27 X10^3/uL; Monocyte% 3.9 % (0-10); NRBC Flagged by Analyzer 0 % (0-5); Neutrophil # 5.13 X10^3/uL (2.7-7.7); Neutrophil % 75.2 % (47-70); Platelet Count 169 K/mm3 (150-450); RBC Distribution Width SD 43.7 fl (35.1-43.9); Red Blood Count 3.76 M/mm3 (4.2-5.4); White Blood Count 6.8 K/mm3 (4.4-11.0)
[2024-06-28 13:04] LABS: ALB/GLOB Ratio 0.8 RATIO (0.9-2.4); AST(SGOT) 18 U/L (15-37); Alanine Aminotransfer ALT/SGPT 18 U/L (13-56); Alkaline Phosphatase 65 U/L (45-117); Anion Gap 8 (5-15); BUN 4 mg/dL (7-18); BUN/Creat Ratio 6.4 RATIO (10-20); Calcium,Total 8.8 mg/dL (8.5-10.1); Chloride 107 mmol/L (98-107); Creatinine, Serum 0.62 mg/dL (0.55-1.02); EST Glomerular Filtration Rate 122 mL/min (>60); Est Glom Filt Rate - Afr Amer 147 mL/min (>60); Globulin 3.7 g/dL (2.2-4.2); Glucose 144 mg/dL (74-106); Glucose Challenge Gest 1H 50g 144 mg/dL (70-140); Potassium 3.3 mmol/L (3.5-5.1); Protein, Total 6.7 g/dL (6.4-8.2); Sodium Level 138 mmol/L (136-145)
[2024-07-02 14:44] LABS: HIV - WCH Non-Reactive (Nonreactive); Syphilis Antibodies Non-reactive
== END | disposition home or self-care (01) ==
LOC: BWCLAB 09:02
PROVIDERS: PCP Family Medicine; Referring Provider Obstetrics & Gynecology; Visit Provider Obstetrics & Gynecology
DX: Z13.1 Encounter for screening for diabetes mellitus (principal); O09.92 Supervision of high risk pregnancy, unspecified, second trimester; Z3A.00 Weeks of gestation of pregnancy not specified; R42 Dizziness and giddiness
CPT/HCPCS: 36415; 80053; 82950; 85025; 86703; 86780

== ENCOUNTER 2024-07-14 13:28 | Outpatient (CLI) | payer MEDICAID, SELFPAY ==
[2024-07-14] VITALS (11 sets, daily range): BP systolic 100–122; BP diastolic 58–67; PULSE 59–79; RESP 14; TEMP 37; O2SAT 97; BMI 31.3
[2024-07-14 14:04] LABS: Hematocrit 36.7 % (37-47); Hemoglobin 12.8 g/dL (12.0-15.0); Mean Corp Hgb Conc 34.9 g/dL (32-36); Mean Corpuscular Hgb 31.6 pg (27.0-32.0); Mean Corpuscular Volume 90.6 fL (81-99); Mean Platelet Vol. 10.8 fl (6.2-12.0); Platelet Count 196 K/mm3 (150-450); RBC Distribution Width CV 12.9 % (11.6-14.6); RBC Distribution Width SD 42.9 fl (35.1-43.9); Red Blood Count 4.05 M/mm3 (4.2-5.4); White Blood Count 8.7 K/mm3 (4.4-11.0)
[2024-07-14 14:29] LABS: AST(SGOT) 21 U/L (<=31); Alanine Aminotransfer ALT/SGPT 10 U/L (<=34); EST Glomerular Filtration Rate 132 (>60); Estimated Creatinine Clearance 175.91 ml/min (50-250); Uric Acid 5.3 mg/dL (2.6-6.0)
[2024-07-14 15:14] LABS: Protein, Urine (Random) < 6.0 mg/dL (0.0-12.0); Protein:Creat Ratio UNABLE TO CALCULATE mg/g CRE (0-200)
--- NOTE | 2024-07-14 16:01 | OB.TRI.HP_ITS ---
HPI - General HPI Narrative LUIS CAMPO, is a 29 F who presents at 29.5 weeks s/p fall along with headaches on the left side of her head that has been there since last night. denies lof/vb, good fm. Maternal Data Information ROSALINA Calculator Estimated Delivery Date Method Current WG Current Estimate 09/24/24 Ultrasound #1 29w 5d Other Estimates 09/16/24 LMP (Certain) 30w 6d PFSH PFSH Medical History Seasonal allergies Epigastric pain Nausea PCOS (polycystic ovarian syndrome) Anxiety Bipolar 1 disorder Home Medications ?Medication ?Instructions ?Recorded ?Last Taken ?Type multivit-min no.71-iron fum 28 1 cap PO DAILY pregnanc y 02/02/24 Unknown History mg-folate no.1 1 mg-dha 300 mg capsule (PNV-[place]) ondansetron 4 mg disintegrating 4 mg PO Q6H PRN nausea and 02/09/24 Unknown Rx tablet vomiting #30 tabs prochlorperazine maleate 10 mg 10 mg PO Q8H PRN nausea and 02/20/24 Unknown Rx tablet (Compazine) vomiting #90 tabs Allergy/AdvReac Type Severity Reaction Status Date / Time latex Allergy Rash Verified 07/14/24 14:05 Family History Grandfather Skin cancer Sleep apnea Grandmother Leukemia Father Hypertension Diabetes Sleep apnea Mother Hypertension Sleep apnea Endometriosis PCOS (polycystic ovarian syndrome) Social History adopted: No household members: family, children and other details: Living with parents & siblings number of children: 1 current occupational status: employed 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 current occupational exposures/hazards: No pets and animals: Yes (avoid litter box) pets and animals: cat(s) history of recent travel: No sexually active: Yes Smoking Status: Never smoker alcohol intake: current alcohol intake frequency: holidays/special occasions on ly details: not while substance use type: does not use diet: low carbohydrate and other well-balanced diet: about half the time caffeine: No eating out: 1-3 times/week during the past year weight has: decreased > 10 lbs what type of physical activity do you participate in: walking frequency: 1-2 times per week duration: 15-30 minutes/day iona/baptism: Sikh seatbelt use: always do you feel safe at home: Yes additional social history: BF- Luke History 5 Elective abortions Hx Para 1 Spontaneous abortions 3 Hx # Term Pregnancies Ectopic pregnancies Hx # Pregnancies 1 Multiple births # of living children 1 Past Pregnancies Del. Date Name GA/Weeks Outcome Route Bth Weight Infant Gen Labor Lgth Anesthesia Del Locatn Provider FOB 05/19/13 19 still 09/13/15 6 spontaneous 10/13/17 spontaneous 06/14/19 Jermain 39 live - full term 8#9oz Male epid ural [facility] T[facility] Hany Delivery Date: 05/19/13 Last Updated by: Rita Palmer MD delivery at 19 weeks Visit Details Expected Delivery Route/Plan Labor Preferences- CB/BF classes: no labor support person: Luke labor intervention preferences: [] pain management options preferred: [] cut cord/dad catch: maybe : yes PP control planned: discussed discussed possible routes of delivery and associated risks: [] special requests: [] Plans Covid status: [] Flu vaccine: [] Tdap vaccine:; thinking about it Rhogam: NA LARC form signed: yes Problem list reviewed and updated with the most current plan of care details and appropriate orders placed. Relevant counseling for the gestational age provided. Continue routine care and follow up unless otherwise noted in visit notes/problem list details OB Flowsheet Initial Weight: Not Recorded Date -?-?-?-?-?-?-?-?-?-?-?-?- EGA Weight BP Urine Prot -?-?-?-?-?-?-?-?-?-?-?-?- Glucose FHR FuHt Pres Dilation -?-?-?-?-?-?-?-?-?-?-?-?- Effaced St Visit Note 02/09/24 -?-?-?-?-?-?-?-?-?-?-?-?- 7w 3d 178 lb 8 oz 119/76 -?-?-?-?-?-?-?-?-?-?-?-?- 163 -?-?-?-?-?-?-?-?-?-?-?-?- JV- CRL measures 7 weeks 3 days. New rosalina given. desires NIPT. has new partner. declines carrier testing. She did this in 2019. her partner also had carrier testing and states that his oldest has CP from a cord accident and they did genetic testing to rule out muscular dystrophy. 03/08/24 -?-?-?-?-?-?-?-?-?-?-?-?- 11w 3d 180 lb 131/82 Negative -?-?-?-?-?-?-?-?-?-?-?-?- Negative 155 -?-?-?-?-?-?-?-?-?-?-?-?- no vb crampin g 04/05/24 -?-?-?-?-?-?-?-?-?-?-?-?- 15w 3d 181 lb 121/71 Negative -?-?-?-?-?-?-?-?-?-?-?-?- Negative 145 -?-?-?--?-?-?-?-?-?-?-?-?- KW- no vb/crampi ng. [facility] ordered 04/17/24 -?-?-?-?-?-?-?-?-?-?-?-?- 17w 1d 184 lb 2 oz 107/70 Nega tive -?-?-?-?-?-?-?-?-?-?-?-?- Negative 150 -?-?-?-?-?-?-?-?-?-?-?-?- -work in for F HT check. Had 19 wk loss and needing reassurance. FHT easily assessed. No VB. 05/01/24 -?--?-?-?-?-?-?-?-?-?-?-?- 19w 1d 178 lb 4 oz 110/72 Trac e -?-?-?-?-?-?-?-?-?-?-?-?- Negative 150 -?-?-?-?-?-?-?-?-?-?-?-?- -No VB. Has barclay d GI illness w vomiting last 2 days. Brief US confirm active IUP. Patient tearful due to 19 wk now and that's when loss was. Enc fluid, rest. MFM anatomy US 05/0605/29/24 -?-?-?-?-?-?-?-?-?-?-?-?- 23w 1d 183 lb 4 oz 106/68 Nega tive -?-?-?-?-?-?-?-?-?-?-?-?- Negative 140 -?-?-?-?-?-?-?-?-?-?-?-?- JV- no lof, vagi nal bleeding, or dec fm. 06/28/24 -?-?-?-?-?-?-?-?-?-?-?-?- 27w 3d 186 lb 2 oz 124/74 Nega tive -?-?-?-?-?-?-?-?-?-?-?-?- Negative 140 28 -?-?-?-?-?-?-?-?--?-?-?-?- - no vb lof go od fm nro egular ctx 07/10/24 -?-?-?-?-?-?-?-?-?-?-?-?- 29w 1d 186 lb 8 oz 108/72 Nega tive -?-?-?-?-?-?-?-?-?-?-?-?- Negative 143 29 -?-?-?-?-?-?-?-?-?-?-?-?- -No VB, LOF. G ood FM. Larc. NST FHR Rate Baby A Baseline: 140 Variability:: Moderate Accelerations:: 15 x 15 Decelerations:: None NST Reactive:: Yes FHR Category:: Category I Uterine Activity:: none Assessment & Plan (1) Headache in : COMMENT: improved with rest, tylenol. PEC labs negative. (2) Fall: COMMENT: monitored for 4 hours, no evidence of placental abruption. no vb, no ctx. PLAN: Plan Patient presents for triage evaluation secondary to fall this morning when she became dizzy/lightheaded. fell onto abdomen. no vb/lof. good fm. has also had a headache for the past day, mostly on the left side, hx of migraines that resolve with excedrin however is not taking in . no htn. pec labs negative FHT: Moderate variability reactive no decelerations category I tracing H. Rivera Colon: no Contractions Assessment and plan: Reactive NST, reassuring maternal and status patient discharged to home to follow-up in office. See problem list details for additional plan information. Charges/Coding Multi Select Codes Visit Charges Office Visit/Consults: 03185 OV L3 Est 20min Urinary/Genital Urinary/Genital CPT Codes: 08531-57 non-stress test Interp
== END 2024-07-14 16:35 | disposition home or self-care (01) ==
LOC: WPOUT 13:44 → WP 13:44
PROVIDERS: PCP Family Medicine; Referring Provider Registered Nurse; Visit Provider Registered Nurse
DX: O99.891 Other specified diseases and conditions complicating pregnancy (principal); N96 Recurrent pregnancy loss; Z3A.29 29 weeks gestation of pregnancy; R51.9 Headache, unspecified; W19.XXXA Unspecified fall, initial encounter; R42 Dizziness and giddiness
CPT/HCPCS: 36415; 59025; 59050; 82565; 82570; 84156; 84450; 84460; 84550; 85027; 99221; G0378

== ENCOUNTER → 2024-07-15 | Outpatient (CLI) | payer MEDICAID, SELFPAY ==
[2024-07-15 07:28] LABS: Glucose GTT-Gestation. Fasting 78 mg/dL (<105)
[2024-07-15 09:20] LABS: Glucose GTT-Gestational 1 Hr 137 mg/dL (<190)
[2024-07-15 10:47] LABS: Glucose GTT-Gestational 2 Hr 105 mg/dL (<165)
[2024-07-15 11:25] LABS: Glucose GTT-Gestational 3 Hr 111 L (<145)
== END | disposition home or self-care (01) ==
LOC: LAB 06:54
PROVIDERS: PCP Family Medicine; Referring Provider Nurse Practitioner Women's Health; Visit Provider Nurse Practitioner Women's Health
DX: Z13.1 Encounter for screening for diabetes mellitus (principal)
CPT/HCPCS: 36415; 82951; 82952

== ENCOUNTER 2024-08-11 22:40 | Outpatient (CLI) | payer MEDICAID, SELFPAY ==
[2024-08-11 22:58] VITALS: PULSE 67; O2SAT 98
[2024-08-11 23:00] VITALS: RESP 14; TEMP 36.4
[2024-08-11 23:01] VITALS: BP 118/64; PULSE 61
--- NOTE | 2024-08-11 23:05 | OB.TRI.HP_ITS ---
HPI - General General Date of Admission: 08/11/24 Date of Service: 08/11/24 HPI Narrative LUIS CAMPO, is a 29 y/o @ 33 weeks 5 days who presents [facility] with lower abdominal pressure and cramping. The nurse reports that contractions were not palpated and cervix was 1 cm dilated and thick. Tylenol, UA, and fluids ordered. After monitoring for about 2 hours her discomfort subsided and cervix was unchanged. Maternal Data Information ROSALINA Calculator Estimated Delivery Date Method Current WG Current Estimate 09/24/24 Ultrasound #1 34w 0d Other Estimates 09/16/24 LMP (Certain) 35w 1d PFSH PFSH Medical History Seasonal allergies Epigastric pain Nausea PCOS (polycystic ovarian syndrome) Anxiety Bipolar 1 disorder Home Medications ?Medication ?Instructions ?Recorded ?Last Taken ?Type multivit-min no.71-iron fum 28 1 cap PO DAILY pregnanc y 02/02/24 Unknown History mg-folate no.1 1 mg-dha 300 mg capsule (PNV-[place]) ondansetron 4 mg disintegrating 4 mg PO Q6H PRN nausea and 02/09/24 Unknown Rx tablet vomiting #30 tabs prochlorperazine maleate 10 mg 10 mg PO Q8H PRN nausea and 02/20/24 Unknown Rx tablet (Compazine) vomiting #90 tabs nitrofurantoin 100 mg PO BID 7 days #14 cap s 08/12/24 Unknown Rx monohydrate/macrocrystals 100 mg capsule (Macrobid) Allergy/AdvReac Type Severity Reaction Status Date / Time latex Allergy Rash Verified 08/11/24 22:53 Family History Grandfather Skin cancer Sleep apnea Grandmother Leukemia Father Hypertension Diabetes Sleep apnea Mother Hypertension Sleep apnea Endometriosis PCOS (polycystic ovarian syndrome) Social History adopted: No household members: family, children and other details: Living with parents & siblings number of children: 1 current occupational status: employed 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 current occupational exposures/hazards: No pets and animals: Yes (avoid litter box) pets and animals: cat(s) history of recent travel: No sexually active: Yes Smoking Status: Never smoker alcohol intake: current alcohol intake frequency: holidays/special occasions only details: not while substance use type: does not use diet: low carbohydrate and other well-balanced diet: about half the time caffeine: No eating out: 1-3 times/week during the past year weight has: decreased > 10 lbs what type of physical activity do you participate in: walking frequency: 1-2 times per week duration: 15-30 minutes/day iona/yarsani: Gnosticism seatbelt use: always do you feel safe at home: Yes additional social history: BF- Luke History 5 Elective abortions Hx Para 1 Spontaneous abortions 3 Hx # Term Pregnancies Ectopic pregnancies Hx # Pregnancies 1 Multiple births # of living children 1 Past Pregnancies Del. Date Name GA/Weeks Outcome Route Bth Weight Infant Gen Labor Lgth Anesthesia Del Locatn Provider FOB 05/19/13 19 still 09/13/15 6 spontaneous 10/13/17 spontaneous 06/14/19 Jermain 39 live - full term 8#9oz Male epid ural [facility] Delivery Date: 05/19/13 Last Updated by: Rita Palmer MD delivery at 19 weeks Visit Details Expected Delivery Route/Plan Labor Preferences- CB/BF classes: no labor support person: Luke labor intervention preferences: [] pain management options preferred: [] cut cord/dad catch: maybe : yes PP control planned: discussed discussed possible routes of delivery and associated risks: [] special requests: [] Plans Covid status: [] Flu vaccine: [] Tdap vaccine:; thinking about it Rhogam: NA LARC form signed: yes Problem list reviewed and updated with the most current plan of care details and appropriate orders placed. Relevant counseling for the gestational age provided. Continue routine care and follow up unless otherwise noted in visit notes/problem list details OB Flowsheet Initial Weight: Not Recorded Date -?-?-?-?-?-?-?-?-?-?-?-?- EGA Weight BP Urine Prot -?-?-?-?-?-?-?-?-?-?-?-?- Glucose FHR FuHt Pres Dilation -?-?-?-?-?-?-?-?-?-?-?-?- Effaced St Visit Note 02/09/24 -?-?-?-?-?-?-?-?-?-?-?-?- 7w 3d 178 lb 8 oz 119/76 -?-?-?-?-?-?-?-?-?-?-?-?- 163 -?-?-?-?-?-?-?-?-?-?-?-?- JV- CRL measures 7 weeks 3 days. New rosalina given. desires NIPT. has new partner. declines carrier testing. She did this in 2019. her partner also had carrier testing and states that his oldest has CP from a cord accident and they did genetic testing to rule out muscular dystrophy. 03/08/24 -?-?-?-?-?-?-?-?-?-?-?-?- 11w 3d 180 lb 131/82 Negative -?-?-?-?-?-?-?-?-?-?-?-?- Negative 155 -?-?-?-?-?-?-?-?-?-?-?-?- SM no vb crampin g 04/05/24 -?-?-?-?-?-?-?-?-?-?-?-?- 15w 3d 181 lb 121/71 Negative -?-?-?-?-?-?-?-?-?-?-?-?- Negative 145 -?-?-?-?-?-?-?-?-?-?-?-?- KW- no vb/crampi ng. MFM ordered 04/17/24 -?-?-?-?-?-?-?-?-?-?-?-?- 17w 1d 184 lb 2 oz 107/70 Nega tive -?-?-?-?-?-?-?-?-?-?--?-?- Negative 150 -?-?-?-?-?-?-?-?-?-?-?-?- -work in for F HT check. Had 19 wk loss and needing reassurance. FHT easily assessed. No VB. 05/01/24 -?-?-?-?-?-?-?-?-?-?-?-?- 19w 1d 178 lb 4 oz 110/72 Trac e -?-?-?-?-?-?-?-?-?-?-?-?- Negative 150 -?-?-?-?-?-?-?-?-?-?-?-?- -No VB. Has barclay d GI illness w vomiting last 2 days. Brief US confirm active IUP. Patient tearful due to 19 wk now and that's when loss was. Enc fluid, rest. MFM anatomy US 05/0605/29/24 -?-?-?-?-?-?-?-?-?-?-?-?- w 1d 183 lb 4 oz 106/68 Nega tive -?-?-?-?-?-?-?-?-?-?-?-?- Negative 140 -?-?-?-?-?-?-?-?-?-?-?-?- JV- no lof, vagi nal bleeding, or dec fm. 06/28/24 -?-?-?-?-?-?-?-?-?-?-?-?- 27w 3d 186 lb 2 oz 124/74 Nega tive -?-?-?-?-?-?-?-?-?-?-?-?- Negative 140 28 -?-?-?-?-?-?-?-?-?-?-?-?- SM- no vb lof go od fm nro egular ctx 07/10/24 -?-?-?-?-?-?-?-?-?-?-?-?- 29w 1d 186 lb 8 oz 108/72 Nega tive -?-?-?-?-?-?-?-?-?-?-?-?- Negative 143 29 -?-?-?-?-?-?-?-?-?-?-?-?- MH-No VB, LOF. G ood FM. Larc. 07/26/24 -?-?-?-?-?-?-?-?-?-?-?-?- 31w 3d 187 lb 4 oz 136/69 Nega tive -?-?-?-?-?-?-?-?-?-?-?-?- Negative 140 32 -?-?-?-?-?-?-?-?-?-?-?-?- KW- no vb/lof/ct x. good fm. compression hose for dizziness. tdap 08/09/24 -?-?-?-?-?-?-?-?-?-?-?-?- 33w 3d 190 lb 4 oz 114/74 Nega tive -?-?-?-?-?-?-?-?-?-?-?-?- Negative 145 34 -?-?-?-?-?-?-?-?-?-?-?-?- JV- no lof, vagi nal bleeding, or dec fm. has swelling in left foot more than right. no pedro's sign or erythema. no pitting edema. title 19 signed today. ROS Constitutional Constitutional: Reports systems reviewed and no addt'l complaints, except as documented Gastrointestinal Gastrointestinal: Denies bloating, constipation, cramping, diarrhea, nausea or vomiting Genitourinary Genitourinary: Reports other Details: Denies vaginal odor, vaginal bleeding, or vaginal discharge ; Denies difficulty urinating or flank pain NST FHR Rate Baby A Baseline: 140 Variability:: Moderate Accelerations:: 15 x 15 Decelerations:: None NST Reactive:: Yes FHR Category:: Category I Assessment & Plan (1) Contraception management: COMMENT: If c section, wants bilat salpingectomy. Sign title 19 at 32 wk (2) History of miscarriage, currently : COMMENT: 19 wk demise, and 2 6wk miscarriages (3) Obesity affecting : QUALIFIERS: Trimester: second trimester Obesity type affecting : unspecified obesity Qualified Code(s): O99.212 - Obesity complicating , second trimester COMMENT: HgbA1c (4) Supervision of high-risk : QUALIFIERS: Trimester: third trimester Qualified Code(s): O09.93 - Supervision of high risk , unspecified, third trimester COMMENT: PRR, , ROSALINA 09/16/24, girl ty [facility] [place], BF Luke (5) : QUALIFIERS: Weeks of gestation: 33 weeks Qualified Code(s): Z3A.33 - 33 weeks gestation of COMMENT: NIPT low risk, normal anatomy (6) Depression: QUALIFIERS: Depression Type: unspecified Qualified Code(s): F32.A - Depression, unspecified COMMENT: counseling center [facility] referral; plans to discuss zoloft with psychiatrist. (7) Bipolar 1 disorder: PLAN: Plan ok to dc to home after monitoring for about 2 hours. PTL precautions discussed. Charges/Coding Multi Select Codes Urinary/Genital Urinary/Genital CPT Codes: 10499-68 non-stress test Interp
[2024-08-11 23:43] LABS: Mucous, Urine 0 SEEN /hpf (<or=2+); Red Blood Cells-Urine 0 SEEN /hpf (0-5)
[2024-08-11] MEDS: Acetaminophen 500 MG Tablet 1000 MG PO (23:43)
[2024-08-11 23:55] VITALS: BMI 33.1
[2024-08-12 00:28] LABS: Color, Urine Yellow (Yellow); Glucose, Dipstick Normal (Normal); Ketone-Dipstick Negative (Negative); Leukocyte Esterase-Dipstick 500 /ul (Negative); Nitrite-Dipstick Negative (Negative); Occult Blood-Urine Negative /ul (Negative); Protein-Dipstick 15 mg/dl (Negative); Urine Bilirubin Dipstick Negative (Negative); Urine Clarity Clear (Clear); Urine Urobilinogen Normal (Normal); Urine pH 6.5 (5.0 - 8.0)
[2024-08-12 00:38] LABS: Bacteria 2+ /hpf (None Seen); Squamous Epithelial Cells - UA 5-10 SEEN /hpf (5-10); Transitional Epithelial - Ur 5-10 SEEN /hpf (0-5); White Blood Cells 5-10 SEEN /hpf (0-5)
[2024-08-12] MEDS: Nitrofurantoin Macrocrystals 100 MG Capsule PO (00:56)
== END 2024-08-12 00:57 | disposition home or self-care (01) ==
LOC: WPOUT 22:46 → WP 22:46
PROVIDERS: PCP Family Medicine; Visit Provider Obstetrics & Gynecology
DX: N96 Recurrent pregnancy loss (principal); F31.9 Bipolar disorder, unspecified; O99.213 Obesity complicating pregnancy, third trimester; Z3A.33 33 weeks gestation of pregnancy; O99.343 Other mental disorders complicating pregnancy, third trimester; O99.283 Endocrine, nutritional and metabolic diseases complicating pregnancy, third trimester; E28.2 Polycystic ovarian syndrome; O99.893 Other specified diseases and conditions complicating puerperium
CPT/HCPCS: 59025; 59050; 81001; 99221; G0378

== ENCOUNTER → 2024-08-30 | Outpatient (CLI) | payer MEDICAID, SELFPAY | END | disposition home or self-care (01) | LOC: LABSPEC 11:43 | PROVIDERS: PCP Family Medicine; Referring Provider Advanced Practice Midwife; Visit Provider Advanced Practice Midwife | DX: O09.93 Supervision of high risk pregnancy, unspecified, third trimester (principal); Z3A.35 35 weeks gestation of pregnancy | CPT/HCPCS: 87077; 87081; 87186 ==

== ENCOUNTER → 2024-09-04 | Outpatient (CLI) | payer MEDICAID, SELFPAY ==
[2024-09-05 09:47] LABS: Protein, Urine (Random) 9.4 mg/dL (0.0-12.0)
[2024-09-05 15:56] LABS: Color, Urine Yellow (Yellow); Glucose, Dipstick Normal (Normal); Ketone-Dipstick Negative (Negative); Leukocyte Esterase-Dipstick Negative /ul (Negative); Nitrite-Dipstick Negative (Negative); Occult Blood-Urine Negative /ul (Negative); Protein-Dipstick 15 mg/dl (Negative); Urine Bilirubin Dipstick Negative (Negative); Urine Clarity Clear (Clear); Urine Urobilinogen Normal (Normal)
== END | disposition home or self-care (01) ==
LOC: LAB 18:28
PROVIDERS: PCP Family Medicine; Referring Provider Obstetrics & Gynecology; Visit Provider Obstetrics & Gynecology
DX: O26.893 Other specified pregnancy related conditions, third trimester (principal); R10.2 Pelvic and perineal pain; Z3A.35 35 weeks gestation of pregnancy
CPT/HCPCS: 81002; 84156; 87086

== ENCOUNTER 2024-09-16 12:20 | Inpatient (IN) | payer MEDICAID, SELFPAY ==
[2024-09-16] VITALS (51 sets, daily range): BP systolic 102–136; BP diastolic 55–88; PULSE 61–100; RESP 16; TEMP 36.5–36.6; O2SAT 87–100; BMI 33.6
--- NOTE | 2024-09-16 12:24 | HP.PCM.OB_ITS ---
HPI - General HPI Narrative LUIS CAMPO, is a 29 y/o @ 38 weeks 6 days who presents to L&D in early labor. She was 3 cm in the office on monday and today (monday) she has made change to 4.5 and thinned out. She is feeling the contraction pain worsen. Her last baby was a shoulder dystocia for 1 min 36 seconds. Maternal Data Information ROSALINA Calculator Estimated Delivery Date Method Current WG Current Estimate 09/24/24 Ultrasound #1 38w 6d Other Estimates 09/16/24 LMP (Certain) 40w 0d PFSH PFSH Medical History Seasonal allergies Epigastric pain Nausea PCOS (polycystic ovarian syndrome) Anxiety Bipolar 1 disorder Home Medications ?Medication ?Instructions ?Recorded ?Last Taken ?Type multivit-min no.71-iron fum 28 1 cap PO DAILY pregnanc y 02/02/24 09/16/24 History mg-folate no.1 1 mg-dha 300 mg capsule (PNV-[place]) ondansetron 4 mg disintegrating 4 mg PO Q6H PRN nausea and 02/09/24 09/12/24 Rx tablet vomiting #30 tabs prochlorperazine maleate 10 mg 10 mg PO Q8H PRN nausea and 02/20/24 09/12/24 Rx tablet (Compazine) vomiting #90 tabs cyclobenzaprine 5 mg tablet 5 mg PO QHS PRN back pain #20 tabs 09/06/24 Unknown Rx Allergy/AdvReac Type Severity Reaction Status Date / Time latex Allergy Rash Verified 09/16/24 11:18 Family History Grandfather Skin cancer Sleep apnea Grandmother Leukemia Father Hypertension Diabetes Sleep apnea Mother Hypertension Sleep apnea Endometriosis PCOS (polycystic ovarian syndrome) Social History adopted: No household members: family, children and other details: Living with parents & siblings number of children: 1 current occupational status: employed 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 current occupational exposures/hazards: No pets and animals: Yes (avoid litter box) pets and animals: cat(s) history of recent travel: No sexually active: Yes Smoking Status: Never smoker alcohol intake: current alcohol intake frequency: holidays/special occasions only details: not while substance use type: does not use diet: low carbohydrate and other well-balanced diet: about half the time caffeine: No eating out: 1-3 times/week during the past year weight has: decreased > 10 lbs what type of physical activity do you participate in: walking frequency: 1-2 times per week duration: 15-30 minutes/day iona/taoist: Worship seatbelt use: always do you feel safe at home: Yes additional social history: BF- Luke History 5 Elective abortions Hx Para 1 Spontaneous abortions 3 Hx # Term Pregnancies Ectopic pregnancies Hx # Pregnancies 1 Multiple births # of living children 1 Past Pregnancies Del. Date Name GA/Weeks Outcome Route Bth Weight Gen Labor Lgth Anesthesia Del Locatn Provider FOB 05/19/13 19 still 09/13/15 6 spontaneous 10/13/17 spontaneous 06/14/19 Jermain 39 live - full term 8#9oz Male epid ural [facility] Delivery Date: 05/19/13 Last Updated by: Rita Palmer MD delivery at 19 weeks Visit Details Expected Delivery Route/Plan Labor Preferences- CB/BF classes: no labor support person: Luke labor intervention preferences: [] pain management options preferred: [] cut cord/dad catch: maybe : yes PP control planned: discussed discussed possible routes of delivery and associated risks: [] special requests: [] Plans Covid status: [] Flu vaccine: [] Tdap vaccine:; thinking about it Rhogam: NA LARC form signed: yes Problem list reviewed and updated with the most current plan of care details and appropriate orders placed. Relevant counseling for the gestational age provided. Continue routine care and follow up unless otherwise noted in visit notes/problem list details OB Flowsheet Initial Weight: Not Recorded Date -?-?-?-?-?-?-?-?-?-?-?-?- EGA Weight BP Urine Prot -?-?-?-?-?--?-?-?-?-?-?-?- Glucose FHR FuHt Pres Dilation -?-?-?-?-?-?-?-?-?-?-?--?- Effaced St Visit Note 02/09/24 -?-?-?-?-?-?-?-?-?-?-?-?- 7w 3d 178 lb 8 oz 119/76 -?-?-?-?-?-?-?-?-?-?-?-?- 163 -?-?-?-?-?-?-?-?-?-?-?-?- JV- CRL measures 7 weeks 3 days. New rosalina given. desires NIPT. has new partner. declines carrier testing. She did this in 2019. her partner also had carrier testing and states that his oldest has CP from a cord accident and they did genetic testing to rule out muscular dystrophy. 03/08/24 -?-?-?-?-?-?-?-?-?-?-?-?- 11w 3d 180 lb 131/82 Negative -?-?-?-?-?-?-?-?-?-?-?-?- Negative 155 -?-?-?-?-?-?-?-?-?-?-?-?- SM no vb crampin g 04/05/24 -?-?-?-?-?-?-?-?-?-?-?-?- 15w 3d 181 lb 121/71 Negative -?-?-?-?-?-?-?-?-?-?-?-?- Negative 145 -?-?-?-?-?-?-?-?-?-?-?-?- KW- no vb/crampi ng. MFM US ordered 04/17/24 -?-?-?-?-?-?-?-?-?-?-?-?- 17w 1d 184 lb 2 oz 107/70 Nega tive -?-?-?-?-?-?-?-?-?-?-?-?- Negative 150 -?-?-?-?-?-?-?-?-?-?-?-?- -work in for F HT check. Had 19 wk loss and needing reassurance. FHT easily assessed. No VB. 05/01/24 -?-?-?-?-?-?-?-?-?-?-?-?- 19w 1d 178 lb 4 oz 110/72 Trac e -?-?-?-?-?-?-?-?-?-?-?-?- Negative 150 -?-?-?-?-?-?-?-?-?-?-?-?- MH-No VB. Has barclay d GI illness w vomiting last 2 days. Brief US confirm active IUP. Patient tearful due to 19 wk now and that's when loss was. Enc fluid, rest. MFM anatomy US 05/0605/29/24 -?-?-?-?-?-?-?-?-?-?-?-?- 23w 1d 183 lb 4 oz 106/68 Nega tive -?-?-?-?-?-?-?-?-?-?-?-?- Negative 140 -?-?-?-?-?-?-?-?-?-?-?-?- JV- no lof, vagi nal bleeding, or dec fm. 06/28/24 -?-?-?-?-?-?-?-?-?-?-?-?- 27w 3d 186 lb 2 oz 124/74 Nega tive -?-?-?-?-?-?-?-?-?-?-?-?- Negative 140 28 -?-?-?-?-?-?-?-?-?-?-?-?- SM- no vb lof go od fm nro egular ctx 07/10/24 -?-?-?-?-?-?-?-?-?-?-?-?- 29w 1d 186 lb 8 oz 108/72 Nega tive -?-?-?-?-?-?-?-?-?-?-?-?- Negative 143 29 -?-?-?-?-?-?-?-?-?-?-?-?- MH-No VB, LOF. G ood FM. Larc. 07/26/24 -?-?-?-?-?-?-?-?-?-?-?-?- 31w 3d 187 lb 4 oz 136/69 Nega tive -?-?-?-?-?-?-?-?-?-?-?-?- Negative 140 32 -?-?-?-?-?-?-?-?-?-?-?-?- KW- no vb/lof/ct x. good fm. compression hose for dizziness. tdap 08/09/24 -?-?-?-?-?-?-?-?-?-?-?-?- 33w 3d 190 lb 4 oz 114/74 Nega tive -?-?-?-?-?-?-?-?-?-?-?-?- Negative 145 34 -?-?-?-?-?-?-?-?-?-?-?-?- JV- no lof, vagi nal bleeding, or dec fm. has swelling in left foot more than right. no pedro's sign or erythema. no pitting edema. title 19 signed today. 08/23/24 -?-?-?-?-?-?-?-?-?-?-?-?- 35w 3d 195 lb 109/72 Negative -?-?-?-?-?-?-?-?-?-?-?-?- Negative 143 35 -?-?-?-?-?-?-?-?-?-?-?-?- JV- no lof, vagi nal bleeding, or dec fm. has lots of pressure and swelling in legs. 08/30/24 -?-?-?-?-?-?-?-?-?-?-?-?- 36w 3d 198 lb 121/79 Negative -?-?-?-?-?-?-?-?-?-?-?-?- Negative 140 36 Cephalic 2 -?-?-?-?-?-?-?-?-?-?-?-?- 50 -2 KW- no vb/ lof/ctx. good fm GBS today. 09/06/24 -?-?-?-?-?-?-?-?-?-?-?-?- 37w 3d 195 lb 4 oz 113/73 Nega tive -?-?-?-?-?-?-?-?-?-?-?-?- Negative 128 37 Cephalic 2 -?-?-?-?-?-?-?-?-?-?-?-?- 50 -2 JV- GBS po s, c/o back pain. urine culture negative. will try flexeril at bedtime this weekend. rto in 1 week. 09/13/24 -?-?-?-?-?-?-?-?-?-?-?-?- 38w 3d 197 lb 2 oz 120/75 Nega tive -?-?-?-?-?-?-?-?-?-?-?-?- Negative 145 39 Cephalic 3 -?-?-?-?-?-?-?-?-?-?-?-?- 70 -2 KW- no vb/ lof. some contractions. good fm. requesting 39 week IOL for recurrent SAB ROS Constitutional Constitutional: Denies change in weight, fatigue, fever(s), headache(s), poor appetite or weakness Eyes Eyes: Denies blurry vision, change in vision, seeing flashes or spots in vision ENT HEENT: Denies dizziness, headache(s), loss taste/smell or sore throat Cardiovascular Cardiovascular: Denies chest pain, dizziness, dyspnea, irregular heart rhythm, leg edema, palpitations, rapid heart rate or vomiting Respiratory/Chest Respiratory/Chest: Denies chest tightness, cough, dyspnea or breast pain Gastrointestinal Gastrointestinal: Denies abdominal pain, anorexia, constipation, cramping, diarrhea, hemorrhoids, vomiting or weight changes Genitourinary Genitourinary: Denies dysuria, flank pain, genital lesions, genital pain, urinary frequency or urinary urgency Musculoskeletal Musculoskeletal: Denies back pain, difficulty walking, joint pain, limited range of motion, muscle cramps or numbness Integumentary Integumentary: Denies lesions or unusual bruising Neurologic Neurologic: Denies abnormal movements, abnormal speech, dizziness, numbness, seizure-like activity or syncope Psychiatric Psychiatric: Denies anxiety, behavioral changes, change in appetite, change in libido, cognitive impairment, confusion, depression, difficulty concentrating, hallucinations or suicidal thoughts Endocrine Endocrinology: Denies excessive sweating, polydipsia or polyuria Hematologic/Lymphatic Hematologic/Lymphatic: Denies easy bleeding, easy bruising or lymphadenopathy Allergic/Immunologic Allergic/Immunologic: Denies itchy eyes, lip swelling, seasonal rhinorrhea, rhinitis, throat swelling, tongue swelling, eczemia, wheezing or asthma Vital Signs Vital Signs Vital Signs: 09/16/24 10:41 09/16/24 10:42 09/16/24 10:42 Pulse Rate 72 Respiratory Rate 16 Blood Pressure 123/77 H BP Systolic 123 BP Diastolic 77 Weight Weight: 196 lb Body Mass Index (BMI) 33.6 Physical Exam Const alert, oriented x3, no apparent distress and healthy appearing General Appearance: cooperative; Negative for anxious HEENT normocephalic Face and Sinus: normal facial exam Eyes EOMs intact bilaterally and no scleral icterus General Eye: normal appearance of both eyes Neck full ROM and supple Lymph Lymphatic: no lymphadenopathy noted Chest Chest: abnormal inspection of the chest Resp normal respiratory effort Effort and Inspection: able to speak in complete sentences Cardio regular rate GI soft to palpation and non-tender Inspection: gravid Palpation: soft; Negative for tender external exam normal Back/Spine no CVA tenderness Extremity normal to inspection, full ROM and no clubbing, cyanosis or edema General Extremity: Negative for calf tenderness or edema Skin Lesions: no lesions Rashes: no rashes Psych mental status grossly normal Labs Labs Labs: Blood Type O POSITIVE Antibody Screen NEGATIVE Hct 36.7 % (37-47) L Hgb 12.8 g/dL (12.0-15.0) Obstetrics Ultrasound Syphilis Total Ab Non-reactive Rubella IgG Antibody Reactive (Nonreactive) Hep Bs Antigen Non-Reactive (Nonreactive) Hepatitis C Antibody Non-Reactive (Nonreactive) Chlamydia DNA (CASSI) Negative (Negative) N.gonorrhoeae DNA (CASSI) Negative (Negative) HIV 1&2 Antibody Non-Reactive (Nonreactive) Glucose 1 Hr 50 gm 144 mg/dL (70-140) H Gest Glucose Tolerance MG/DL Rhogam given: No Miscellaneous Test Assessment & Plan (1) History of shoulder dystocia in prior : (2) Positive GBS test: COMMENT: treat in labor (3) Abnormal glucose level: COMMENT: normal 3 hr GTT (4) Fall: COMMENT: monitored for 4 hours, no evidence of placental abruption. no vb, no ctx. (5) Headache in : COMMENT: improved with rest, tylenol. PEC labs negative. (6) Contraception management: COMMENT: If c section, wants bilat salpingectomy. Sign title 19 at 32 wk (7) History of miscarriage, currently : COMMENT: 19 wk demise, and 2 6wk miscarriages (8) Obesity affecting : QUALIFIERS: Trimester: second trimester Obesity type affecting : unspecified obesity Qualified Code(s): O99.212 - Obesity complicating , second trimester COMMENT: HgbA1c (9) Supervision of high-risk : QUALIFIERS: Trimester: third trimester Qualified Code(s): O09.93 - Supervision of high risk , unspecified, third trimester COMMENT: PRR, , ROSALINA 09/16/24, girl ty [facility] [place], BF Luke (10) : QUALIFIERS: Weeks of gestation: 38 weeks Qualified Code(s): Z3A.38 - 38 weeks gestation of COMMENT: NIPT low risk, normal anatomy (11) Depression: QUALIFIERS: Depression Type: unspecified Qualified Code(s): F32.A - Depression, unspecified COMMENT: counseling center [facility] referral; plans to discuss zoloft with psychiatrist. (12) Bipolar 1 disorder: PLAN: Plan Patient presents IAL, plan expectant management for , pitocin/AROM PRN if needed. Pain management: plans epidural. GBS positive plan IV PCN. Management of any complications: see above I have reviewed the [facility] and made any clinically relevant updates.
[2024-09-16] MEDS: Penicillin G Pot 5,000,000 UNITS in 0.9% Normal Saline (100mL MB+) 100 ML 150 UNITS IV (13:25)
[2024-09-16] MEDS: Lactated Ringers 1,000 ML 50 ML IV (13:36)
[2024-09-16] MEDS: Oxytocin 15 Units/NS 250ml 15 UNITS/250 ML IV.SOLN 2 UNITS IV (13:56)
[2024-09-16 14:06] LABS: Absolute Lymphocyte Count 1.94 X10^3/uL (0.83-4.51); Absolute Neutrophil Count 7.2 X10^3/uL (2.0-7.7); Basophil# 0.03 X10^3/uL; Basophil% 0.3 % (0-1); Eosinophil# 0.16 X10^3/uL; Eosinophils% 1.6 % (0-5); Hematocrit 38.2 % (37-47); Hemoglobin 13.2 g/dL (12.0-15.0); Lymphocyte # 1.94 X10^3/ul (0.83-4.51); Lymphocyte % 19.3 % (19-41); Mean Corp Hgb Conc 34.6 g/dL (32-36); Mean Corpuscular Hgb 30.9 pg (27.0-32.0); Mean Corpuscular Volume 89.5 fL (81-99); Mean Platelet Vol. 12.6 fl (6.2-12.0); Monocyte# 0.67 X10^3/uL; Monocyte% 6.7 % (0-10); NRBC Flagged by Analyzer 0 % (0-5); Neutrophil # 7.23 X10^3/uL (2.7-7.7); Neutrophil % 71.7 % (47-70); Platelet Count 179 K/mm3 (150-450); RBC Distribution Width CV 13.1 % (11.6-14.6); RBC Distribution Width SD 42.4 fl (35.1-43.9); Red Blood Count 4.27 M/mm3 (4.2-5.4); White Blood Count 10.1 K/mm3 (4.4-11.0)
[2024-09-16 16:08] LABS: Syphilis Antibodies Nonreactive (Nonreactive)
[2024-09-16] MEDS: Penicillin G 3,000,000 Units 50 ML 100 UNITS IV (17:32)
[2024-09-16] MEDS: Lactated Ringers 1,000 ML 999 ML IV (17:50)
--- NOTE | 2024-09-16 18:12 | PCM.PN.BLA ---
Progress Note patient is in bathroom when entering the room. She told the nurse she declines having her water bag opened or epidural, however after discussion about progress being stalled out she agreed to AROM. current tracing: FHT: 130, moderate variability reactive no decelerations category I tracing [place]: q 2-4 min Contractions cx: 5/80/-2, membranes ruptured with clear fluid return A/P: early labor with augmentation membranes ruptured. She is now requesting an epidural.
[2024-09-16] MEDS: fentaNYL-bupivacaine (epidural) 100 ML BAG EPIDURAL (18:14)
[2024-09-16] MEDS: Oxytocin 15 Units/NS 250ml 15 UNITS/250 ML IV.SOLN 334 UNITS IV (18:31)
--- NOTE | 2024-09-16 18:38 | EX.PCM.OBVAG ---
Assessment & Plan (1) History of shoulder dystocia in prior : (2) Positive GBS test: COMMENT: treat in labor (3) Abnormal glucose level: COMMENT: normal 3 hr GTT (4) Fall: COMMENT: monitored for 4 hours, no evidence of placental abruption. no vb, no ctx. (5) Headache in : COMMENT: improved with rest, tylenol. PEC labs negative. (6) Contraception management: COMMENT: If c section, wants bilat salpingectomy. Sign title 19 at 32 wk (7) History of miscarriage, currently : COMMENT: 19 wk demise, and 2 6wk miscarriages (8) Obesity affecting : QUALIFIERS: Trimester: second trimester Obesity type affecting : unspecified obesity Qualified Code(s): O99.212 - Obesity complicating , second trimester COMMENT: HgbA1c (9) Supervision of high-risk : QUALIFIERS: Trimester: third trimester Qualified Code(s): O09.93 - Supervision of high risk , unspecified, third trimester COMMENT: PRR, , ROSALINA 09/16/24, girl ty Aly, MILLER Cabrera (10) : QUALIFIERS: Weeks of gestation: 38 weeks Qualified Code(s): Z3A.38 - 38 weeks gestation of COMMENT: NIPT low risk, normal anatomy (11) Depression: QUALIFIERS: Depression Type: unspecified Qualified Code(s): F32.A - Depression, unspecified COMMENT: counseling center [facility] referral; plans to discuss zoloft with psychiatrist. (12) Bipolar 1 disorder: Maternal Data Information ROSALINA Calculator Estimated Delivery Date Method Current WG Current Estimate 09/24/24 Ultrasound #1 38w 6d Other Estimates 09/16/24 LMP (Certain) 40w 0d Final ROSALINA: 09/24/24 Gestational age: 38 weeks 6 days Vaginal Delivery Maternal Presentation Maternal Presentation: Active Labor (early active ) Type of Induction: Pitocin and Amniotomy Vaginal Delivery Information Procedure Performed: Spontaneous Vaginal Delivery Surgeon/Practitioner: Natacha Smith Date of Procedure: 09/16/24 Pre-Procedure Diagnosis: @ 38 weeks 6 days, early labor , gbs positive Post-Procedure Diagnosis: @ 38 weeks 6 days, early labor , gbs positive Type of anesthesia: Epidural Estimated Blood Loss: 200cc Time of Delivery: 18:29 Findings Description of procedure: Patient began pushing and delivered the head in the ORALIA presentation. The head was delivered atraumatically and a loose nuchal cord ?2 was identified and easily reduced over the 's head. The anterior and posterior shoulders delivered without complication followed by the rest of the and the was placed on the maternal abdomen. Delayed cord clamping was employed for approximately 60 seconds. Cord was clamped and cut and gentle traction was applied to the cord and the placenta delivered spontaneously immediately following it was noted to be intact with three-vessel cord. The perineum and vagina were inspected and noted to have no laceration. EBL was 200 cc. Patient and infant tolerated delivery well. 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
[2024-09-16] MEDS: Oxytocin 15 Units/NS 250ml 15 UNITS/250 ML IV.SOLN 83 UNITS IV (19:10)
[2024-09-17] VITALS (10 sets, daily range): BP systolic 108–136; BP diastolic 53–74; PULSE 59–77; RESP 16; TEMP 36.4–36.7; O2SAT 97–99
--- NOTE | 2024-09-17 08:39 | PN.OBGYN_ITS ---
Subjective Subjective Patient doing well without complaints. Tolerating PO. Ambulating and voiding without difficulty. Feeding well. Denies chest pain, shortness of breath, calf pain/swelling, fevers, chills, lightheadedness. Objective Data Objective Data Vital Signs: Vital Signs Temp Pulse Resp BP Pulse Ox O2 Del Method 97.7 F L 67 16 121/71 H 98 Room Air 09/17/24 08:10 09/17/24 08:11 09/17/24 08:10 09/17/24 08:11 09/17/24 08:10 09/17/24 08:10 Oxygen Delivery Method Room Air Weight: 196 lb Body Mass Index (BMI) 33.6 Intake & Output: Intake and Output for Last 24 Hours 09/15/24 09/16/24 09/17/24 23:59 23:59 23:59 Intake Total 1949.56 / 1949.56 Output Total 300 / 300 1000 / 1000 Balance 1649.56 / 1649.56 -1000 / -1000 Lab / Micro Data Attestation: I reviewed the patient's lab results. 09/16/24 13:20 Labs: Laboratory Results - last 24 hr 09/16/24 13:20: WBC 10.1, RBC 4.27, Hgb 13.2, Hct 38.2, MCV 89.5, MCH 30.9, MCHC 34.6, RDW Std Deviation 42.4, RDW Coeff of Beth 13.1, Plt Count 179, MPV 12.6 H, Immature Gran % (Auto) 0.400, Neut % (Auto) 71.7 H, Lymph % (Auto) 19.3, [place] % (Auto) 6.7, Eos % (Auto) 1.6, Baso % (Auto) 0.3, Absolute Neuts (auto) 7.2, Absolute Lymphs (auto) 1.94, Nucleated RBC % 0, Syphilis Total Ab Nonreactive, Blood Type O POSITIVE, Antibody Screen NEGATIVE ROS Constitutional Constitutional: Reports systems reviewed and no addt'l complaints, except as documented; Denies anorexia or headache(s) Cardiovascular Cardiovascular: Reports systems reviewed and no addt'l complaints, except as documented; Denies dizziness, dyspnea, nausea or tachypnea Respiratory/Chest Respiratory/Chest: Reports systems reviewed and no addt'l complaints, except as documented; Denies cough, dyspnea, shortness of breath at rest or tachypnea Gastrointestinal Gastrointestinal: Reports systems reviewed and no addt'l complaints, except as documented; Denies abdominal pain, constipation or nausea Genitourinary Genitourinary: Reports systems reviewed and no addt'l complaints, except as documented; Denies burning urination, difficulty urinating, dysuria, urinary frequency or urinary incontinence Musculoskeletal Musculoskeletal: Reports systems reviewed and no addt'l complaints, except as documented Integumentary Integumentary: Reports systems reviewed and no addt'l complaints, except as documented Neurologic Neurologic: Reports systems reviewed and no addt'l complaints, except as documented; Denies abnormal speech, dizziness or headache(s) Psychiatric Psychiatric: Reports systems reviewed and no addt'l complaints, except as documented Endocrine Endocrinology: Reports systems reviewed and no addt'l complaints, except as documented Hematologic/Lymphatic Hematologic/Lymphatic: Reports systems reviewed and no addt'l complaints, except as documented Physical Exam Const alert, oriented x3 and no apparent distress Neck full ROM Resp normal respiratory effort, normal air movement and no retractions Effort and Inspection: able to speak in complete sentences and symmetric chest movement GI soft to palpation Bladder / Kidney Exam: bladder normal to palpation Uterus Palpation: uterus fundus firm Extremity normal to inspection and full ROM Psych mental status grossly normal, thought process normal and cooperative Assessment & Plan (1) Vaginal delivery: COMMENT: JV PLAN: s/p PPD # 1 1. routine post delivery care 2. breast feeding- support given 3. rh positive 4. rubella immune (2) History of shoulder dystocia in prior : (3) Positive GBS test: COMMENT: treat in labor (4) Abnormal glucose level: COMMENT: normal 3 hr GTT (5) Fall: COMMENT: monitored for 4 hours, no evidence of placental abruption. no vb, no ctx. (6) Contraception management: COMMENT: If c section, wants bilat salpingectomy. Sign title 19 at 32 wk (7) Headache in : COMMENT: improved with rest, tylenol. PEC labs negative. (8) History of miscarriage, currently : COMMENT: 19 wk demise, and 2 6wk miscarriages (9) Obesity affecting : QUALIFIERS: Trimester: second trimester Obesity type affecting : unspecified obesity Qualified Code(s): O99.212 - Obesity complicating , second trimester COMMENT: HgbA1c (10) Supervision of high-risk : QUALIFIERS: Trimester: third trimester Qualified Code(s): O09.93 - Supervision of high risk , unspecified, third trimester COMMENT: PRR, , ROSALINA 09/16/24, girl ty PC Jermain, MILLER Cabrera (11) : QUALIFIERS: Weeks of gestation: 38 weeks Qualified Code(s): Z 3A.38 - 38 weeks gestation of COMMENT: NIPT low risk, normal anatomy (12) Depression: QUALIFIERS: Depression Type: unspecified Qualified Code(s): F32.A - Depression, unspecified COMMENT: [facility] referral; plans to discuss zoloft with psychiatrist. (13) Bipolar 1 disorder: Charges/Coding Multi Select Codes Urinary/Genital Urinary/Genital CPT Codes: No Charge
[2024-09-17] MEDS: Ibuprofen 600 MG Tablet PO (12:15)
[2024-09-18 01:18] VITALS: BP 118/64; PULSE 72; PULSE 74; RESP 16; TEMP 36.5; O2SAT 98
--- NOTE | 2024-09-18 07:51 | PCM.PN.OB ---
Subjective Subjective Patient doing well without complaints. Tolerating PO. Ambulating and voiding without difficulty. Feeding well. Denies chest pain, shortness of breath, calf pain/swelling, fevers, chills, lightheadedness. Objective Data Objective Data Vital Signs: Vital Signs Temp Pulse Resp BP Pulse Ox O2 Del Method 97.7 F L 72 16 118/64 98 Room Air 09/18/24 01:18 09/18/24 01:18 09/18/24 01:18 09/18/24 01:18 09/18/24 01:18 09/18/24 01:18 Oxygen Delivery Method Room Air Weight: 196 lb Body Mass Index (BMI) 33.6 Intake & Output: Intake and Output for Last 24 Hours 09/16/24 09/17/24 09/18/24 23:59 23:59 23:59 Intake Total 1949.56 / 1949.56 Output Total 300 / 300 1000 / 1000 Balance 1649.56 / 1649.56 -1000 / -1000 Lab / Micro Data 09/16/24 13:20 Physical Exam Const alert and oriented x3 HEENT normocephalic Eyes PERRL Neck full ROM Resp normal respiratory effort GI soft to palpation GI Narrative: FF below U Assessment & Plan (1) Vaginal delivery: COMMENT: 09/16/24 Enedina LAZCANO PLAN: Plan s/p PPD # 2 1. routine post delivery care 2. breast feeding- support given 3. rh positive 4. rubella immune 5. home today
[2024-09-18 08:26] VITALS: BP 108/68; PULSE 56; PULSE 57; O2SAT 98
[2024-09-18 08:29] VITALS: BP 108/68; PULSE 57; RESP 18; TEMP 36.8; O2SAT 98
[2024-09-18] MEDS: Hydrocortisone 2.5% Crm 1 APPLIC TOPICAL (08:36)
[2024-09-18] MEDS: Ibuprofen 600 MG Tablet PO (08:36)
--- NOTE | 2024-09-18 11:27 | CASEMGMT ---
Social Work Assessment Labor and Delivery Unit Patient Address: [address] [place], [place] [address] [place] [address] Phone number: [phone] Date of Referral: 09/17/24 Time of Referral:? [id number] Referred By: Dr. Smith Date of Intervention: ??09/17/24 Time of Intervention:? 1350 Reason for Referral:? mental health Sw completed chart review and acknowledges social work consult. Sw presented to bedside and introduced self to mother of baby, OMID Petersen. Sw introduced self and explained sw role during admission and completed psychosocial assessment. History obtained from: medical records, MOB Household composition: INNA states that she currently resides with her mom, her step dad, her 5 year old son (Jermain), INNA's 9 year old sister and INNA's brother. MOB states that their housing is safe and secure and will be included in residence when ready for discharge. Patient's parent/guardian status:? ?INNA states that she has known FOB since they were younger, but they have been together for a year. This is first baby for MOB and FOB together. FOTrev has three other children from a former relationship. INNA denies domestic violence or intimate partner violence with FOB. INNA states that she and REBECCA do not live together, however they are in a relationship and FOB will be involved in care of with MOB. Medical History: ?INNA is 29 year old female who is 5, para 1- now 2 following labor and delivery of . INNA reports that she had three miscarriages prior to having her son 5 years ago. INNA received routine care during with [facility]. INNA presented to hospital in labor and delivered baby via vaginal delivery on 09/16/24 at 38 weeks gestation. Baby girl, named Enedina [place], was born weighing 6lb 15oz with apgars of 8 and 9 at one and five minutes of life, respectfully. INNA reports that she is breast feeding and baby will be followed by Dr. Coles for pediatrics. Educational Status:? INNA states that she and REBECCA both graduated from high school. No problems with reading, learning or comprehension. Financial Status: Both parents are employed outside of the home. 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 Supplies: All necessary baby supplies obtained, including: car seat, safe sleep space, clothes, diapers and wipes. Childcare/Caregiver(s):? INNA states that she will be the primary caregiver to baby, along with REBECCA. INNA is able to have 12 weeks off of work for maternity leave, when she returns to work her mom will provide childcare. Transportation:??Both parents have their drivers license and reliable means of transportation. Programs/Agencies Involved: ???INNA is connected to insurance though Medicaid. MOB states that she has considered getting connected to [facility]. Children Services/Legal Issues:??? INNA denies prior involvement with Children Services, no issues or concerns warranting referral to be made at this time. Behavioral Health Issues: ??Mental Health History:?INNA states that REBECCA does not have any mental health diagnoses that she is aware of. INNA reports that she has been diagnosed with anxiety and depression as well as BiPolar I. INNA states that she was previously prescribed medications to help her manage her mental health symptoms, however when she got with her son she stopped taking them. INNA states that she is also connected to counseling supports at [facility] that she sees regularly. ?? Substance Use History: MOB denies substance use prior to and during . ?? Family History:?MOB denies family history of substance use or significant mental health diagnoses. Drug Screens: No drug screens observed while completing chart review. Family/Social Stressors:? INNA states that prior to delivery there were some things that came up regarding FOB. INNA did not want to disclose what the circumstances were, however she states that it did not involve her or baby and REBECCA was reassuring her that his stress was not in any way a result of the baby coming soon. MOB states that now that baby is here she plans on focusing on baby and her son. MOB states that she and REBECCA are still together and that whatever has come up is not a reflection of their relationship, but it has caused him to focus on another area at this time. Support Systems: INNA states that REBECCA and her mom are her biggest supports at this time. Depression/Shaken Baby/Safe Sleeping: Sw educated INNA on signs and symptoms of baby blues and depression and anxiety. INNA reports that she did experience after her son was born. INNA reports that during that time she was extremely down, to the point where she was only caring for her baby and doing nothing else. MOB states that COVID was during that time and that significantly impacted her going out and doing things. MOB also has insight to recognize that her prior losses also impacted her period. At this time MOB is familiar with red flags to be mindful of. MOB states that she feels like she is in a better place mentally for this experience than she was with her son. MOB states that if she were to struggle during this period she would feel comfortable talking to her mom. Sw educated MOB on shaken baby prevention and ABCs of safe sleep, MOB expressed understanding. ASSESSMENT:? MOB and baby admitted following labor and delivery. MOB was observed to be laying in bed comfortably feeding baby and was receptive and welcoming of sw. MOB talked openly and conversation flowed naturally. MOB talked about her prior losses, her older son and becoming a mom for the second time. MOB states that she and FOB have only been in a relationship for a brief period, but have known each other for many years. MOB understanding of mental health and what symptoms to be mindful of. MOB recognizes her triggers from her first delivery and is more open and willing to talk to supports she has in place during this period. MOB is not prescribed medications but does attend regular outpatient counseling appointments. MOB has all necessary baby items and natural supports in place. MOB was observed to hold and care for baby in loving nature. PLAN:?? No other services requested or indicated. MOB and baby to be discharged when medically ready. Parents were provided literature regarding: signs and symptoms of baby blues and mood and anxiety disorders, Help Me Grow, shaken baby prevention, ABCs of safe sleep and a list of [facility] health care resources that are available for them should any needs present themselves. David Chow, INSTRUCTIONAL AIDE, BRAKE RELINER
--- NOTE | 2024-09-18 13:14 | CASEMGMT ---
Labor and Delivery Social Work Brief Note Date: 09/17/24 While meeting with MOB and completing psychosocial assessment, sw had MOB complete Thompson Depression Scale. MOB's score was 11, which is indicative of meeting the threshold for anxiety and depression. MOB expressed being mindful of her emotions and red flags to be aware of during this period. MOB is connected to community mental health supports and services and states that she feels comfortable addressing any struggles that she may have with her counselor. Sw provided ongoing education and support regarding this topic. No other needs or concerns at this time. David Chow, LAPIDARIST, PRODUCTION WELDING SUPERVISOR
== END 2024-09-18 12:05 | disposition home or self-care (01) | DRG 560 ==
LOC: WPOUT 12:29 → WP 13:22
PROVIDERS: Admitting Provider Obstetrics & Gynecology; PCP Family Medicine; Referring Provider Obstetrics & Gynecology; Visit Provider Obstetrics & Gynecology
DX: O99.824 Streptococcus B carrier state complicating childbirth (principal); Z37.0 Single live birth; O99.344 Other mental disorders complicating childbirth; B95.1 Streptococcus, group B, as the cause of diseases classified elsewhere; F31.9 Bipolar disorder, unspecified; W19.XXXA Unspecified fall, initial encounter; O99.814 Abnormal glucose complicating childbirth; Z3A.38 38 weeks gestation of pregnancy; N96 Recurrent pregnancy loss; Z87.59 Personal history of other complications of pregnancy, childbirth and the puerperium; O26.893 Other specified pregnancy related conditions, third trimester; R51.9 Headache, unspecified; O99.893 Other specified diseases and conditions complicating puerperium; O69.81X0 Labor and delivery complicated by cord around neck, without compression, not applicable or unspecified
CPT/HCPCS: 59025; 59050; 85025; 86780; 86850; 86900; 86901

== ENCOUNTER 2024-11-12 15:33 | Outpatient (CLI) | payer MEDICAID, SELFPAY ==
[2024-11-12 18:14] LABS: Internal QC Validated? YES +Cl - CLEAR BKGD; Pregnancy, Urine Negative Negative; Record Kit Lot#,Urine Preg 947241
[2024-11-12 18:29] LABS: Hematocrit 39.7 % (37-47); Hemoglobin 13.1 g/dL (12.0-15.0); Mean Corp Hgb Conc 33.0 g/dL (32-36); Mean Corpuscular Volume 89.6 fL (81-99); Mean Platelet Vol. 11.3 fl (6.2-12.0); Platelet Count 255 K/mm3 (150-450); RBC Distribution Width CV 12.0 % (11.6-14.6); RBC Distribution Width SD 39.1 fl (35.1-43.9); Red Blood Count 4.43 M/mm3 (4.2-5.4); White Blood Count 5.6 K/mm3 (4.4-11.0)
== END 2024-11-12 23:59 | disposition home or self-care (01) ==
LOC: MTLAB 15:34
PROVIDERS: PCP Family Medicine; Referring Provider Obstetrics & Gynecology; Visit Provider Obstetrics & Gynecology
DX: Z01.818 Encounter for other preprocedural examination (principal)
CPT/HCPCS: 36415; 81025; 85027; 86850; 86900; 86901

== ENCOUNTER 2024-11-19 07:55 | Day surgery (SDC) | payer MEDICAID, SELFPAY ==
--- NOTE | 2024-11-05 21:52 | PAT.ANE_ITS ---
Pre-Assessment Diagnosis/Proposed Procedure Planned Operative Procedure(s): LAP BILAT SALPINGECTOMY Anesthesia History Anesthesia History - metallurgical specialist: Anesthesia History - metallurgical specialist Hx Hospitalization No 11/05/24 13:16 Any Problems With Anesthesia No: NO SURGERY HX 11/05/24 13:16 Cholinesterase deficiency No 11/05/24 13:16 You/Your Family Experience No 11/05/24 13:16 fever (hyperthermia) with Relationship Recent Exposure to Contagious Disease Does patient have nerve No 11/05/24 13:16 stimulator Patient instructed to have device shut off --Does patient have Pacemaker or ICD? When Was Last Pacemaker Check QUESTION #4 FULL TEXT: You/Your Family Experience fever (hyperthermia) with Anesthesia Last Oral Intake Last Oral intake: Last Oral Intake NPO since Meds taken in AM with sips of water? Meds patient instructed to take am of surgery PONV PONV - metallurgical specialist: PONV - metallurgical specialist Female Yes 11/05/24 13:16 HX of Motion Sickness Yes 11/05/24 13:16 HX of N/V After Surgery No 11/05/24 13:16 Non-Smoker Yes 11/05/24 13:16 Duration of Surgery greater No 11/05/24 13:16 than 60 minutes Number of Risk Factors 3 11/05/24 13:16 PONV Score Moderate Risk 11/05/24 13:16 Height & Weight Height & Weight: Anesthesia: Height & Weight Height 5 ft 4 in 10/29/24 11:44 Respiratory Assessment Respiratory Assessment - metallurgical specialist: Respiratory Tract Infection Hx - metallurgical specialist Hx Respiratory Tract Infection No 11/05/24 13:16 STOP Sleep Apnea STOP Sleep Apnea - metallurgical specialist: STOP Sleep Apnea - metallurgical specialist Hx Hypertension No 11/05/24 13:16 Hx Sleep Apnea No 11/05/24 13:16 CPAP BIPAP Do you snore loudly (louder No 11/05/24 13:16 than talking or can be heard Do you often feel tired/ No 11/05/24 13:16 fatigued/ sleepy during daytime? Has anyone observed you stop No 11/05/24 13:16 breathing during sleep? STOP Results Negative 11/05/24 13:16 QUESTION #5 FULL TEXT : Do you snore loudly (louder than talking or can be heard through closed doors)? Tobacco Use History Tobacco Use History - metallurgical specialist: Tobacco Use History - metallurgical specialist Tobacco Use Smoking Status Never smoker 11/05/24 13:16 Hx Tobacco Use No 11/05/24 13:16 Years Smoking Packs Smoked per Day Smoking Cessation Date was within the last 15 years Hx Smoking Cessation Date Hx Smoking Cessation No 11/05/24 13:16 Counseling Hematologic Medial History Hematologic Hx - metallurgical specialist: Hematologic Medical Hx - electrotype caster Hx of Blood Transfusion No 11/05/24 13:16 Hx of Transfusion in last 3 No 11/05/24 13:16 Months Date of Last Transfusion (if within last 3 months) Ever experience any problems No 11/05/24 13:16 with transfusion(s)? Specify any problems Hx of Preganancy in last 3 Yes 11/05/24 13:16 Months Nurse Filling Out Transfusion DSCHRIBER 11/05/24 13:16 & Questions: Date: 11/05/24 11/05/24 13:16 Time: 13:18 11/05/24 13:16 Patient unable to answer at this time (ie. confused, unrespo /Reproduction History /Reproductive History - metallurgical specialist: /Reproductive Hx- metallurgical specialist Hx Now No 11/05/24 13:16 Gestational Age (in weeks): EDC: Hx Hx Para Hx Section SAB Yes 11/05/24 13:16 PFSH Medical History (Updated 11/05/24 @ 13:24 by Mariam Steward) Wears glasses Alcohol use Fatty liver Migraine headache Blackout Heartburn Non-smoker History of edema History of echocardiogram depression PCOS (polycystic ovarian syndrome) Anxiety Bipolar 1 disorder Home Medications ?Medication ?Instructions ?Recorded ?Last Taken ?Type multivit-min no.71-iron fum 28 1 cap PO DAILY pregnanc y 02/02/24 09/16/24 History mg-folate no.1 1 mg-dha 300 mg capsule (PNV-[place]) cholecalciferol (vitamin D3) 50 4,000 unit PO QDAY Unknown History mcg (2,000 unit) capsule norethindrone (contraceptive) 0.35 0.35 mg PO QDAY #30 tabs 10/29/24 Unknown Rx mg tablet Allergy/AdvReac Type Severity Reaction Status Date / Time latex Allergy Rash Verified 11/05/24 13:14 Family History Grandfather Skin cancer Sleep apnea Grandmother Leukemia Father Hypertension Diabetes Sleep apnea Mother Hypertension Sleep apnea Endometriosis PCOS (polycystic ovarian syndrome) Surgical History (Updated 11/05/24 @ 13:24 by Mariam Steward) No history of previous surgery Social History (Updated 10/29/24 @ 11:51 by Aniyah Davila) adopted: No household members: family, children and other details: Living with parents & siblings number of children: 2 current occupational status: employed 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 current occupational exposures/hazards: No pets and animals: Yes (avoid litter box) pets and animals: cat(s) history of recent travel: No sexually active: Yes Smoking Status: Never smoker alcohol intake: current alcohol intake frequency: holidays/special occasions only details: not while substance use type: does not use diet: low carbohydrate and other well-balanced diet: about half the time caffeine: No eating out: 1-3 times/week during the past year weight has: decreased > 10 lbs what type of physical activity do you participate in: walking frequency: 1-2 times per week duration: 15-30 minutes/day iona/episcopalian: Yarsani seatbelt use: always do you feel safe at home: Yes additional social history: BF- Rick Audit: Pertinent Findings Pertinent Findings EKG Perinent findings: November 30, 2023. Normal sinus rhythm. Possible left atrial enlargement. No change from April 30, 2023. Echo (EF%) pertinent findings: July 09, 2021. EF 55 to 60%. RVSP is 22 mmHg. No aortic stenosis. Recommendation Anesthesia Recommendation Anesthesia recommendation: OPTIMIZED for anesthesia
[2024-11-19] VITALS (10 sets, daily range): BP systolic 105–130; BP diastolic 51–93; PULSE 46–70; RESP 12–18; TEMP 36.1–36.7; O2SAT 92–100; BMI 29.9
--- NOTE | 2024-11-19 08:10 | HP.PCM_ITS ---
History and Physical Date of Admission: 11/19/24 Intake Vital Signs 09/16/2510:04 10/29/2510:41 10/29/2510:44 Height 5 ft 4 in 5 ft 4 in 5 ft 4 in Weight: 173 lb 8 oz BMI 29.7 BP 113/71 Intake Visit Reasons: visit (obstetrics) Hot Wort Settler Required: No Is patient in pain?: No Allergies latex Allergy (Verified 10/29/24 11:41) Rash Medications ?Medication ?Instructions ?Recorded ?Confirmed ?Type multivit-min no.71-iron fum 28 1 cap PO DAILY 02/02/24 History mg-folate no.1 1 mg-dha 300 mg capsule (PNV-[place]) amoxicillin 500 mg capsule 500 mg PO .QID 10/29/24 10/29/24 History cholecalciferol (vitamin D3) 50 50 mcg PO QDAY 10/29/24 10/29/24 History mcg (2,000 unit) capsule : Yes [facility] Medical History depression Seasonal allergies Epigastric pain Nausea PCOS (polycystic ovarian syndrome) Anxiety Bipolar 1 disorder Family History Grandfather Skin cancer Sleep apneaGrandmother LeukemiaFather Hypertension Diabetes Sleep apneaMother Hypertension Sleep apnea Endometriosis PCOS (polycystic ovarian syndrome) Social History (Updated 10/29/24 @ 11:51 by Aniyah Davila) adopted: No household members: family, children and other details: Living with parents & siblings number of children: 2 current occupational status: employed 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 current occupational exposures/hazards: No pets and animals: Yes (avoid litter box) pets and animals: cat(s) history of recent travel: No sexually active: Yes Smoking Status: Never smoker alcohol intake: current alcohol intake frequency: holidays/special occasions only details: not while substance use type: does not use diet: low carbohydrate and other well-balanced diet: about half the time caffeine: No eating out: 1-3 times/week during the past year weight has: decreased > 10 lbs what type of physical activity do you participate in: walking frequency: 1-2 times per week duration: 15-30 minutes/day iona/voodoo: Mosque seatbelt use: always do you feel safe at home: Yes additional social history: BF- Rick History 5 Elective abortions Hx Para 3 Spontaneous abortions 2 Hx # Term Pregnancies 2 Ectopic pregnancies Hx # Pregnancies 1 Multiple births # of living children 2 Past Pregnancies Del. Date Name GA/Weeks Outcome Route Bth Weight Infant Gen Labor Lgth Anesthesia Del Locatn Provider FOB 05/19/13 19 still 09/13/15 6 spontaneous 10/13/17 spontaneous 06/14/19 Jermain 39 live - full term 8#9oz Mal e epidural [employer] TED Hany 09/16/24 Enedina 38 live - full term 6lbs 14.7 oz Female epidural [employer] JV BF Rick Delivery Date: 05/19/13 Last Updated by: Rita Palmer MD delivery at 19 weeks Delivery Date: 09/16/24 Last Updated by: Luz Hammond RN See problem list for complications Depression Screen PHQ-2/9 PHQ-2 Over the last 2 weeks, how often have you been bothered by any of the following problems? 1. Little interest or pleasure in doing things: not at all 2. Feeling down, depressed, or hopeless: several days Total score: 1 Post HPI Routine Follow-Up: Details: LUIS CAMPO is a 29 year old who presents for her post visit. Infant Feeding: Breast Menses resumed: No Star since delivery: No Emotional Support: Yes Last Pap:: 2022 Control Method: wants a tubal ROS Const Reports system reviewed and no additional complaints, except as documented GI Reports system reviewed and no additional complaints, except as documented, Denies bloating, Denies constipation, Denies nausea and Denies vomiting Reports system reviewed and no additional complaints, except as documented, Denies abnormal vaginal bleeding, Denies pelvic pain, Denies sexual dysfunction, Denies urinary incontinence, Denies urinary hesitancy, Denies urinary urgency and Denies vaginal discharge Skin/Breast Reports system reviewed and no additional complaints, except as documented and Reports as per HPI Psych Reports as per HPI Exam Const General: cooperative, healthy appearing, comfortable and no acute distress HENMT Head: normal to inspection Neck Neck: normal visual inspection and no lymphadenopathy Thyroid: thyroid normal Chest Breast inspection: normal inspection of the breasts and normal inspection of the axillae Breast palpation: normal palpation of the breasts and normal palpation of the axillae Resp Effort & Inspection: normal respiratory effort GI Inspection: normal to inspection Palpation: soft, no hepatosplenomegaly and nontender General: bladder normal to palpation External Female Exam: normal external appearance and normal appearance of the urethra Urethra: normal appearance of the urethra Speculum Exam - Vagina: normal appearance of the vagina and normal vaginal discharge Speculum Exam - Cervix: normal appearance of the cervix Bimanual Exam- Vagina & Uterus: normal bimanual exam, uterine size normal, bladder normal to palpation, uterine shape normal and non-tender Bimanual Exam- Adnexa, other: normal adnexae and normal Pelvic Support: normal Skin General: no rashes or lesions noted Coding Level of Care Code Off vis,est,level 3 Diagnoses Routine Follow-Up Z39.2 Assessment and Plan Assessment and Plan (1) Routine Follow-Up: Plan: Cervical cancer screening: up to date Contraceptive plans: progesterone only pill until tubal ligation Complications: progesterone until tubal. Follow up for annual exams or sooner if indicated. After discussing the patient's diagnosis and treatment plan options, patient wishes to proceed with surgical management. I have discussed with the patient the risks, benefits, and alternatives of the procedure which include but are not limited to risks of anesthesia, bleeding, infection, possible damage to bowel, bladder, or surrounding vasculature which could lead to additional surgery to evaluate any complications. Patient agrees to procedure and wishes to proceed. ACOG/uptodate references given for additional information regarding procedure.
[2024-11-19] MEDS: Lactated Ringers 1,000 ML 15 ML IV (08:57)
[2024-11-19 09:11] LABS: Internal QC Validated? YES +Cl - CLEAR BKGD; Pregnancy, Urine Negative Negative; Record Kit Lot#,Urine Preg 0000947241
--- NOTE | 2024-11-19 09:12 | PCM.PRE.AN2 ---
ASA Classification* ASA Classification ASA Classification: 2 Assessment & Plan Anesthesia* Anesthesia Assessment Anesthesia Assessment: Discussed sedation and/or anesthesia options, risks, benefits, and alternatives with patient/parents/legal guardian/POA. Questions invited. The patient/parents/legal guardian/POA seems to understand and agrees to proceed with anesthesia plan. Reviewed the physical assessment, medical history, allergy history and patient home medications list prior to surgery/procedure/anesthetic and documented any changes. Performed airway and anesthesia risk assessments. Anesthesia Type Anesthesia Type: General History Source History Obtained from:: Patient and Chart Anesthesia Focused Assessment* Temperature: 98.1 F Pulse Rate: 61 Blood Pressure: 120/72 Respiratory Rate: 16 Pulse Ox: 98 Oxygen Delivery Method: Room Air Airway Assessment Mouth opens: >3 cm Mallampati Score: II Teeth Condition: Caps/Crowns (Patient has a left lower crown on the molar. It is tight.) Neck Range of motion (ROM): Full ROM Labs Anesthesia Preop lab: CBC WBC 5.6 K/mm3 (4.4-11.0) 11/12/24 15:39 11/12/24 RBC 4.43 M/mm3 (4.2-5.4) 11/12/24 15:39 11/12/24 Hgb 13.1 g/dL (12.0-15.0) 11/12/24 15:39 11/12/24 Hct 39.7 % (37-47) 11/12/24 15:39 11/12/24 Plt Count 255 K/mm3 (150-450) 11/12/24 15:39 11/12/24 CHEMISTRY Potassium 3.3 mmol/L (3.5-5.1) L 06/28/24 09:03 06/28/24 Sodium 138 mmol/L (136-145) 06/28/24 09:03 06/28/24 BUN 4 mg/dL (7-18) L 06/28/24 09:03 06/28/24 Creatinine 0.50 mg/dL (0.70-1.20) L 07/14/24 13:55 07/14/24 Glucose 144 mg/dL (74-106) H 06/28/24 09:03 06/28/24 TSH 1.800 uIU/mL (0.358-3.740) 01/26/24 17:24 01/26/24 COAG HCG, Quant 50195 mIU/mL (1-3) H 04/29/24 17:00 04/29/24 Urine Test Negative Negative 11/19/24 08:52 11/19/24 Tst Clinic Negative 08/26/20 09:33 08/26/20 Pre-Assessment Diagnosis/Proposed Procedure Planned Operative Procedure(s): LAP BILAT SALPINGECTOMY Anesthesia History 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 When Was Last Pacemaker Check QUESTION #4 FULL TEXT: You/Your Family Experience fever (hyperthermia) with Anesthesia Last Oral Intake Last Oral intake: Last Oral Intake NPO since 23:00 11/19/24 08:24 Meds taken in AM with sips of No 11/19/24 08:24 water? Meds patient instructed to take am of surgery PONV PONV - dowel inserting machine operator: PONV - dowel inserting machine operator Female Yes 11/05/24 13:16 HX of Motion Sickness Yes 11/05/24 13:16 HX of N/V After Surgery No 11/05/24 13:16 Non-Smoker Yes 11/05/24 13:16 Duration of Surgery greater No 11/05/24 13:16 than 60 minutes Number of Risk Factors 3 11/05/24 13:16 PONV Score Moderate Risk 11/05/24 13:16 Height & Weight Height & Weight: Anesthesia: Height & Weight Height 5 ft 4 in 11/19/24 08:24 Weight: 79.3 kg 11/19/24 08:24 Body Mass Index (BMI) 29.9 11/19/24 08:24 Respiratory Assessment Respiratory Assessment - dowel inserting machine operator: Respiratory Tract Infection Hx - dowel inserting machine operator Hx Respiratory Tract Infection No 11/05/24 13:16 STOP Sleep Apnea STOP Sleep Apnea - dowel inserting machine operator: STOP Sleep Apnea - dowel inserting machine operator Hx Hypertension No 11/05/24 13:16 Hx Sleep Apnea No 11/05/24 13:16 CPAP BIPAP Do you snore loudly (louder No 11/05/24 13:16 than talking or can be heard Do you often feel tired/ No 11/05/24 13:16 fatigued/ sleepy during daytime? Has anyone observed you stop No 11/05/24 13:16 breathing during sleep? STOP Results Negative 11/05/24 13:16 QUESTION #5 FULL TEXT : Do you snore loudly (louder than talking or can be heard through closed doors)? 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 Specify any problems Hx of Preganancy in last 3 Yes 11/05/24 13:16 Months Nurse Filling Out Transfusion DSCHRIBER 11/05/24 13:16 & Questions: Date: 11/05/24 11/05/24 13:16 Time: 13:18 11/05/24 13:16 Patient unable to answer at this time (ie. confused, unrespo /Reproduction History /Reproductive History - dowel inserting machine operator: /Reproductive Hx- dowel inserting machine operator Hx Now No 11/05/24 13:16 Gestational Age (in weeks): EDC: Hx Hx Para Hx Section SAB Yes 11/05/24 13:16 Active Medications Active Medications: Current Medications Generic Name Dose Route Start Last Admin Trade Name Freq PRN Reason Stop Dose Admin Lactated Ringer's 1,000 mls @ 15 mls/hr 11/19/24 08:30 11/19/24 08:57 IV 15 mls/hr .Q48H FABIO Administration [facility] Medical History Wears glasses Alcohol use Fatty liver Migraine headache Blackout Heartburn Non-smoker History of edema History of echocardiogram depression PCOS (polycystic ovarian syndrome) Anxiety Bipolar 1 disorder Home Medications ?Medication ?Instructions ?Recorded ?Last Taken ?Type multivit-min no.71-iron fum 28 1 cap PO DAILY 02/02/24 11/18/24 History mg-folate no.1 1 mg-dha 300 mg capsule (PNV-[place]) cholecalciferol (vitamin D3) 50 4,000 unit PO QDAY 10/29/24 11/18/24 History mcg (2,000 unit) capsule norethindrone (contraceptive) 0.35 0.35 mg PO QDAY #30 tabs 10/29/24 11/18/24 Rx mg tablet Allergy/AdvReac Type Severity Reaction Status Date / Time latex Allergy Rash Verified 11/05/24 13:14 Family History Grandfather Skin cancer Sleep apnea Grandmother Leukemia Father Hypertension Diabetes Sleep apnea Mother Hypertension Sleep apnea Endometriosis PCOS (polycystic ovarian syndrome) Surgical History No history of previous surgery Social History adopted: No household members: family, children and other details: Living with parents & siblings number of children: 2 current occupational status: employed 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 current occupational 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/hazards: No pets and animals: Yes (avoid litter box) pets and animals: cat(s) history of recent travel: No sexually active: Yes Smoking Status: Never smoker alcohol intake: current alcohol intake frequency: holidays/special occasions only details: not while substance use type: does not use diet: low carbohydrate and other well-balanced diet: about half the time caffeine: No eating out: 1-3 times/week during the past year weight has: decreased > 10 lbs what type of physical activity do you participate in: walking frequency: 1-2 times per week duration: 15-30 minutes/day iona/evangelical: Worship seatbelt use: always do you feel safe at home: Yes additional social history: BF- Rick Review of Systems (Anesthesia) ROS Narrative System reviewed and no additional complaints, except as documented.
--- NOTE | 2024-11-19 09:30 | FALS_PTH ---
PATIENT: LUIS CAMPO LOC: [facility] [place] U#:[id number] AGE/SX: 29/F ROOM: RE11/19/[address]: Dr. Natacha Smith DO : 1995 BED: DIS: 11/19/2024 SPEC #: [id number] RECD: 11/19/24 13:09 STATUS: NHUNG LORETO #: [id number] SALINA: 11/19/24 09:[address]: Natacha Smith DEPT: SURGICAL PATHOLOGY RECD BY: Dary Brennan ENTERED: 11/19/24 13:39 SP TYPE: FALL TUBES OTHR DR: Dr. Micheal Herzog MD Tissues: A - Fallopian tube Procedures: Surgery Specimen Level II HEADER OPERATION: Laparoscopic salpingectomy PRE-OP DIAGNOSIS: Desires permanent sterilization TISSUE SUBMITTED: A- Bilateral fallopian tubes MICROSCOPIC DIAGNOSIS A. Fallopian tubes, bilateral, permanent sterilization, bilateral salpingectomy: - Complete luminal cross-section confirmed (x2). MICROSCOPIC DESCRIPTION Slides are reviewed. GROSS DESCRIPTION A. Received in formalin labeled with the patient's name and date of . Designated as bilateral fallopian tubes are 2 undesignated, das-red fimbriated fallopian tubes 6.8 cm and 5.6 cm in length by 0.6 cm in diameter. A few paratubal cysts are identified, 0.1 cm each. Set And Exhibit Designer sections are submitted in 2 cassettes. ND 11/19/2024 CPT:07159
--- NOTE | 2024-11-19 11:46 | PCM.DC ---
Discharge Instructions Diet Discharge Diet: No restrictions DC O2, CPAP, BIPAP needs Home O2 Discharge instructions: No Dressing / Incision Discharge Activity: Return to Normal Activity, May Not Drive (for two weeks or while taking narcotic pain medications.), May Shower and May Take a Tub Bath (in 7 days) May resume sexual activity in: 1 week Weight Bearing Status: Full weight bearing Dressing / Incision Call your doctor if you observe: Using more than 1 pad per hour, Shortness of breath, Chest pain and Uncontrolled pain Suture Line Care: Avoid Pulling/Pushing and Avoid Pinching/Bending Remove Dressing in: 1 week (if present) Cleanse incision/area with: Soap & Water and Keep Dressing Clean & Dry Follow Up Care Please Follow Up With: Natacha Smith DO When: Call to make an appointment with your doctor for a follow up incision check in 1-2 weeks. Test Results: Test results from this visit will be discussed in further detail at your follow-up appointment, if applicable. Discharge Plan Admission Primary Reason for Your Visit: laparoscopic bilateral salpingectomy Attending Provider: Natacha Smith Primary Care Provider: Micheal Herzog Instructions Print Language: [place] Discharge Orders/Prescriptions Prescriptions: New ibuprofen 800 mg tablet 800 mg PO Q8H PRN (Reason: pain) Qty: 30 0RF oxycodone-acetaminophen [Percocet] 5-325 mg tablet 1 tab PO Q4H PRN (Reason: pain) 7 Days Qty: 15 0RF Continued PNV-[place] 28-1-300 mg capsule 1 cap PO DAILY cholecalciferol (vitamin D3) 50 mcg (2,000 unit) capsule 4,000 unit PO QDAY Discontinued norethindrone (contraceptive) 0.35 mg tablet 0.35 mg PO QDAY Qty: 30 6RF Referrals / Follow Up: Micheal Herzog MD [Primary Care Provider] - Disposition Disposition (needs filled in before D/C Order can be placed): Home, Self Care
--- NOTE | 2024-11-19 12:40 | PCM.OPRPT ---
Problems Associated Problem List Diagnoses (1) Sterilization consult: Multi Select Codes Urinary/Genital Urinary/Genital CPT Codes: 96170 Laproscopic BS/O Operative Report (Standard) Operative Information Date of Procedure: 11/19/24 Pre-Operative Diagnosis: desires permanent sterilization Post-Operative Diagnosis: desires permanent sterilization Surgery/Procedure Performed: laparoscopic bilateral salpingectomy security program manager: Yes Pump Machine Operator: Juan C Higuera Tasks completed by first coat operator: Other (holding camera ) Additional assistant food service manager?: No Type of Anesthesia: General RN Documented Start/Stop Times: Operation Date: 11/19/24 09:30 Case Time Into Pre-Op 11/19/24 08:14 Out of Pre-Op 11/19/24 11:45 Into Room 11/19/24 11:50 Anesthesia Start 11/19/24 12:08 Procedure Start 11/19/24 12:08 Procedure End 11/19/24 12:39 Procedure Start Time: 12:08 Procedure Stop Time: 12:39 Select all DRAINS/GRAFTS/IMPLANTS that apply: None Estimated Blood Loss: 5cc Specimen collected: Yes Description of specimen(s) removed: bilateral fallopian tubes Description of surgery: Patient was taken in the operating room and was placed under general anesthesia was prepped and draped in normal sterile fashion in the dorsal lithotomy position. Bladder was drained of clear urine and SCDs were on preoperatively. Uterus was sounded and a uterine manipulator was placed after dilating. Attention was then paid to the abdominal portion of the procedure and the umbilicus was injected with 0.75% sensorcaine Next a 5 mm incision was made and a 5 mm laparoscopic port was inserted under direct visualization. The Abdomen was insufflated with CO2 gas and a Left lower quadrant 5 mm port was placed. A suprapubic mini trocar was then inserted next. The Uterus was well visualized and bilateral fallopian tubes and ovaries were identified and the infundibulopelvic ligaments were transected across using the LigaSure device followed by transecting across the mesosalpinx to the attachment to the uterine corpus bilaterally the tubes and ovaries were removed without complication. Excellent hemostasis was noted. Fallopian tubes were removed through the lower port sites without complication. Liver and upper abdomen were visualized notably within normal limits and no other gross abnormalities were seen in the abdomen. All instruments removed from the abdomen after gas was desufflated. Port sites were closed with 3-0 Monocryl and surgical glue was used. All instruments removed from the vagina and patient was awoken and taken recovery in stable condition. Surgical Findings: normal uterus, tubes, ovaries Complications Complications: No Admit VTE Documentation VTE Present on Admission: No VTE Mechan Device Prophylaxis: SCD's VTE Pharm Prophylaxis ordered?: No
--- NOTE | 2024-11-19 12:54 | PCM.POST.ANE ---
Anesthesia: Postop Eval I Current Vital Signs Temperature: 97.1 F Pulse Rate: 70 Blood Pressure: 130/88 Respiratory Rate: 18 Pulse Ox: 96 Oxygen Delivery Method: Room Air Assessment Airway patent: Yes Spontaneous unlabored respirations: Yes Mental status: Awake and Calm nausea: No Vomiting: No Anesthesia Complication: No Fluid Hydration Crystalloid volume administer (ml): 1,100 Total IV fluid infused: 1,100 Progress Note Anesthesia document: Postop Eval 1 completed: Yes
[2024-11-19] MEDS: HYDROcodone Bitartrate/Apap 5/325 Tablet PO (14:07)
--- NOTE | 2024-11-20 00:28 | PCM.POSTANE2 ---
Anesthesia Postop Eval I Sum Anesthesia Postop Eval I Summary Anesthesia Postop Eval I Summary: Anesthesia Postop Eval I: Assessment Summary Airway patent Spontaneous unlabored respirations Mental status nausea Vomiting Anesthesia Postop Eval I: Fluid Summary Crystalloid volume administer (ml) Colloids volume administered ( ml) Blood Product volume administered (ml) Total IV fluid infused Anesthesia Postop Eval I: Summary Notes Anesthesia Complication Anesthesia Complication Comment: Post-operative progress note Anesthesia: Postop Eval II Evaluation Mental status: Awake and Calm Pain Level: 1 nausea: No Vomiting: No Complications Anesthesia Complication: No
[2024-11-20 00:46] VITALS: BP 130/88; PULSE 70; RESP 18; TEMP 36.2; O2SAT 96
== END 2024-11-19 16:26 | disposition home or self-care (01) ==
LOC: SDC 07:56 → AC 07:57
PROVIDERS: PCP Family Medicine; Referring Provider Obstetrics & Gynecology; Visit Provider Obstetrics & Gynecology
PROC: (CPT 58661; principal; 2024-11-19 09:15)
DX: Z30.2 Encounter for sterilization (principal); E28.2 Polycystic ovarian syndrome; N96 Recurrent pregnancy loss
CPT/HCPCS: 58661; 00840; 81025; 86850; 86900; 86901; 88302; J2405

== ENCOUNTER 2025-02-23 08:51 | Inpatient (IN) | payer MEDICAID, SELFPAY ==
[2025-02-23 08:51] VITALS: BP 124/91; PULSE 76; RESP 16; TEMP 36.9; O2SAT 99; BMI 30.6
--- NOTE | 2025-02-23 09:28 | US_ITS ---
PROCEDURE: US/Gallbladder
[2025-02-23 09:47] LABS: Hematocrit 43.8 % (37-47); Hemoglobin 14.7 g/dL (12.0-15.0); Immature Granulocytes Count 0.020 X10^3/uL (0.0-0.0); Mean Corp Hgb Conc 33.6 g/dL (32-36); Mean Corpuscular Volume 88.8 fL (81-99); Mean Platelet Vol. 10.8 fl (6.2-12.0); NRBC Flagged by Analyzer 0 % (0-5); Platelet Count 248 K/mm3 (150-450); RBC Distribution Width CV 12.4 % (11.6-14.6); RBC Distribution Width SD 40.3 fl (35.1-43.9); Red Blood Count 4.93 M/mm3 (4.2-5.4); White Blood Count 7.8 K/mm3 (4.4-11.0)
[2025-02-23 10:08] LABS: Mucous, Urine 0 SEEN /hpf (<or=2+)
[2025-02-23 10:10] LABS: Color, Urine Yellow (Yellow); Glucose, Dipstick Normal (Normal); Ketone-Dipstick Negative (Negative); Leukocyte Esterase-Dipstick 25 /ul (Negative); Nitrite-Dipstick Negative (Negative); Occult Blood-Urine Negative /ul (Negative); Protein-Dipstick 15 mg/dl (Negative); Specific Gravity, Urine 1.010 (1.002-1.030); Urine Bilirubin Dipstick Negative (Negative)
[2025-02-23 10:11] LABS: AST(SGOT) 294 U/L (<=31); Alanine Aminotransfer ALT/SGPT 261 U/L (<=34); Albumin, Serum 4.6 g/dL (3.5-5.0); Alkaline Phosphatase 87 U/L (35-104); Anion Gap 10 (5-15); BUN 7 mg/dL (4-19); BUN/Creat Ratio 9.8 RATIO (10-20); Calcium,Total 9.8 mg/dL (7.6-11.0); Carbon Dioxide 29.8 mmol/L (21.0-32.0); Chloride 101 mmol/L (98-108); Estimated Creatinine Clearance 113.44 ml/min (50-250); Globulin 2.9 g/dL (2.2-4.2); Glucose 95 mg/dL (70-99); Lipase 41 U/L (13-75); Potassium 3.8 mmol/L (3.3-5.1)
[2025-02-23 10:26] LABS: Internal QC Validated? YES +Cl - CLEAR BKGD; Pregnancy, Urine Negative Negative; Record Kit Lot#,Urine Preg 0000980607; Red Blood Cells-Urine 0-5 SEEN /hpf (0-5); Squamous Epithelial Cells - UA 0-5 SEEN /hpf (5-10)
[2025-02-23 10:51] VITALS: BP 111/72; PULSE 60; RESP 15; TEMP 36.6; O2SAT 100
[2025-02-23 12:03] LABS: Bilirubin, Direct 1.54 mg/dL (0.00-0.30)
[2025-02-23 12:16] VITALS: BP 131/72; PULSE 48; RESP 17; TEMP 36.9; O2SAT 99
--- NOTE | 2025-02-23 12:26 | PCM.HP.STD ---
HPI - General General Date of Admission: 02/23/25 Chief Complaint: Acute onset abdominal pain HPI Narrative LUIS AGUDELO, is a 30 F who presents to [facility] ER at my direction following recurrence of acute onset right upper quadrant abdominal discomfort that woke her out of sleep approximately 2 AM this morning. I spoke with patient at approximately 06 30 this morning after she had spent several hours in discomfort without relief and advised her to present to the emergency department for further evaluation. During this discussion she shared that she had an establish consultation with Dr. Schmid following initial ER visit 02/03/2025 at outside hospital when she initially experienced acute right upper quadrant discomfort. She states she was advised she likely had cholecystitis at that time but no surgery was discussed on that initial encounter. She is presently pending laparoscopic cholecystectomy as an outpatient 02/25/2025. Patient has past medical history inclusive of GERD, bipolar 1, PCOS. She also relates a remote history of fatty liver and elevation of her LFTs prior to a 40+ pound weight loss roughly a year ago. Past surgical history includes with bilateral salpingectomy. Patient ED workup today shows evidence of new transaminitis and hyperbilirubinemia with AST of 294, ALT of 261, and total bili 2.49. Notably alkaline phosphatase is within normal limits. Patient's CBC demonstrates no leukocytosis. Right upper quadrant ultrasound is obtained showing 6.4 mm mildly prominent common bile duct. There is no gallbladder wall thickening or Allen cholecystic fluid. [facility] Medical History (Updated 02/23/25 @ 12:[address] Anton Sorenson MD) PONV (postoperative nausea and vomiting) Acid reflux Cholelithiasis Wears glasses Alcohol use Fatty liver Migraine headache Blackout Heartburn Non-smoker History of edema History of echocardiogram depression PCOS (polycystic ovarian syndrome) Anxiety Bipolar 1 disorder Home Medications ?Medication ?Instructions ?Recorded ?Last Taken ?Type BEEF ORGAN 1 cap PO BID 02/14/25 Unknown History ondansetron 4 mg disintegrating mg PO 02/23/25 Unknown History tablet Allergy/AdvReac Type Severity Reaction Status Date / Time latex Allergy Rash Verified 02/23/25 08:53 Family History Grandfather Skin cancer Sleep apnea Grandmother Leukemia Father Hypertension Diabetes Sleep apnea Mother Hypertension Sleep apnea Endometriosis PCOS (polycystic ovarian syndrome) Surgical History (Updated 02/14/25 @ 13:23 by Nancy Cruz) Status post bilateral salpingectomy (11/19/24) No history of previous surgery Social History adopted: No household members: family, children and other details: Living with parents & siblings number of children: 2 current occupational status: employed 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 current occupational exposures/hazards: No pets and animals: Yes (avoid litter box) pets and animals: cat(s) history of recent travel: No sexually active: Yes Smoking Status: Never smoker alcohol intake: current alcohol intake frequency: holidays/special occasions only details: not while substance use type: does not use diet: low carbohydrate and other well-balanced diet: about half the time caffeine: No eating out: 1-3 times/week during the past year weight has: decreased > 10 lbs what type of physical activity do you participate in: walking frequency: 1-2 times per week duration: 15-30 minutes/day iona/christianity: Mu-Ism seatbelt use: always do you feel safe at home: Yes additional social history: BF- Rick Vital Signs Vital Signs Vital Signs: 02/23/25 08:51 02/23/25 10:51 02/23/25 12:16 Temperature 98.5 F 97.8 F 98.4 F Temperature Source Temporal Oral Pulse Rate 76 60 48 L Respiratory Rate 16 15 17 Blood Pressure 124/91 H 111/72 131/72 H Blood Pressure Mean 102 85 91 Pulse Ox 99 100 99 Oxygen Delivery Method Room Air Weight Weight: 178 lb 8 oz Body Mass Index (BMI) 30.6 Physical Exam Const alert and oriented x3 Constitutional Narrative: Mild distress from persistent abdominal discomfort General Appearance: cooperative Resp normal respiratory effort GI GI Narrative: Nondistended, soft, tenderness to palpation in the right upper quadrant technically negative Rdz sign. Skin Skin Narrative: No jaundice noted Results Lab / Micro Data 02/23/25 09:40 02/23/25 09:40 Labs: Laboratory Results - last 24 hr 02/23/25 09:40: WBC 7.8, RBC 4.93, Hgb 14.7, Hct 43.8, MCV 88.8, MCH 29.8, MCHC 33.6, RDW Std Deviation 40.3, RDW Coeff of Beth 12.4, Plt Count 248, MPV 10.8, Immature Gran % (Auto) 0.300, Neut % (Auto) 76.3 H, Lymph % (Auto) 14.8 L, [place] % (Auto) 7.2, Eos % (Auto) 0.9, Baso % (Auto) 0.5, Absolute Neuts (auto) 5.9, Absolute Lymphs (auto) 1.15, Nucleated RBC % 0, Sodium 140, Potassium 3.8, Chloride 101, Carbon Dioxide 29.8, Anion Gap 10, BUN 7, Creatinine 0.76, Estim Creat Clear Calc 113.44, Est GFR (MDRD) Non-Af 109, BUN/Creatinine Ratio 9.8 L, Glucose 95, Calcium 9.8, Total Bilirubin 2.49 H, AST 294 H, ALT 261 H, Alkaline Phosphatase 87, Total Protein 7.5, Albumin 4.6, Globulin 2.9, Albumin/Globulin Ratio 1.6, Lipase 41 02/23/25 10:00: Urine Color Yellow, Urine Clarity Sl. Cloudy, Urine pH 8.0, Ur Specific [place] 1.010, Urine Protein 15 H, Urine Glucose (UA) Normal, Urine Ketones Negative, Urine Occult Blood Negative, Urine Nitrite Negative, Urine Bilirubin Negative, Urine Urobilinogen 4 H, Ur Leukocyte Esterase 25 H, Urine RBC 0-5 SEEN, Urine WBC 0-5 SEEN, Ur Squamous Epith Cells 0-5 SEEN, Urine Bacteria RARE, Urine Mucus 0 SEEN, Urine Test Negative 02/23/25 11:25: Direct Bilirubin 1.54 H Imaging Radiology Impression Gallbladder Ultrasound 02/23/25 09:28 IMPRESSION: Cholelithiasis without definitive cholecystitis. Mildly prominent common bile duct and intrahepatic ducts. Can not entirely exclude choledocholithiasis. Reading Location: [id number] Assessment & Plan Assessment/Plan (1) Cholelithiasis: PLAN: Patient is a 30-year-old female who presents due to recurrence of right upper quadrant discomfort that woke her out of sleep approximately 2 AM this morning following ingestion of a meal that included heavy whipping cream. She is already diagnosed with cholelithiasis and possible prior episodes showing cholecystitis. She was thus pending cholecystectomy in 2 days. However, present ER workup shows new elevation of her liver function testing as well as her bilirubin. While she has a history of prior elevation with a diagnosis of fatty liver disease she underwent significant weight loss and these values normalized. Interestingly patient's alkaline phosphatase is within normal limits. Patient's common bile duct is described as mildly prominent at 6.4 mm on ultrasound today. Taken together this is suggestive of choledocholithiasis. A hand-drawn diagram was used to illustrate the relevant anatomy and clinical concern. I suggested to Ms. Agudelo that we could consider GI consultation with probable ERCP followed by cholecystectomy or cholecystectomy upfront with cholangiography. After discussion with Dr. Schmid he wishes to proceed with MRCP tomorrow and GI consultation if deemed necessary. Will plan to keep operative date for 02/25/2025. For the meantime patient is a started on empiric IV antibiotic therapy to try to minimize risk for cholangitis. She will be permitted clear liquid diet until midnight in the event of procedure being required tomorrow. MRCP has been ordered. Patient has been updated. Anton Sorenson MD General Surgery Endocrine Surgery Pager: [facility] [address] [place] [address], [facility], [address] [place] [address] Office: [phone] (2) Common bile duct dilatation: (3) Transaminitis: (4) Hyperbilirubinemia: Charges/Coding Visit Charges Inpatient E&M: 48194 Init Hosp L2
[2025-02-23] MEDS: Piperacil/Tazobactam 4.5 GM in 0.9% Normal Saline (100mL MB+) 100 ML IV (12:32)
[2025-02-23 13:16] VITALS: BMI 30.5
[2025-02-23 13:23] VITALS: BP 115/59; PULSE 48; RESP 18; TEMP 36.4; O2SAT 99
[2025-02-23] MEDS: HYDROmorphone 0.5 MG/0.5 ML SYRINGE IV (13:46)
[2025-02-23 13:47] LABS: Bilirubin, Direct 1.53 mg/dL (0.00-0.30)
[2025-02-23] MEDS: 0.9% Normal Saline (1000mL) 1,000 ML 75 ML IV (13:48)
--- NOTE | 2025-02-23 17:02 | EX.ED.DYSGE1 ---
HPI History of Present Illness Chief Complaint: Abd Pain Narrative Narrative: Patient is a 30-year-old female presenting to the emergency department for RUQ abdominal pain. Patient states that over the past few months she has had intermittent right upper quadrant pain. States it is worse after eating. She reports a few weeks ago she went to [place] and was diagnosed with cholecystitis and was discharged home. She states today around 2 AM she developed severe right upper quadrant pain, nausea and nonbloody, nonbilious vomiting. She denies any fever or chills. Denies any chest pain or shortness of breath. Denies any dysuria or hematuria. Denies any vaginal bleeding, discharge, pelvic pain or concern for any STDs. Last menstrual period was at the beginning. [facility] Medical History PONV (postoperative nausea and vomiting) Acid reflux Cholelithiasis Wears glasses Alcohol use Fatty liver Migraine headache Blackout Heartburn Non-smoker History of edema History of echocardiogram depression PCOS (polycystic ovarian syndrome) Anxiety Bipolar 1 disorder Home Medications ?Medication ?Instructions ?Recorded ?Last Taken ?Type BEEF ORGAN 1 cap PO BID 02/14/25 Unknown History ondansetron 4 mg disintegrating mg PO 02/23/25 Unknown History tablet Allergy/AdvReac Type Severity Reaction Status Date / Time latex Allergy Rash Verified 02/23/25 13:34 Family History Grandfather Skin cancer Sleep apnea Grandmother Leukemia Father Hypertension Diabetes Sleep apnea Mother Hypertension Sleep apnea Endometriosis PCOS (polycystic ovarian syndrome) Surgical History Status post bilateral salpingectomy (11/19/24) No history of previous surgery Social History adopted: No household members: family, children and other details: Living with parents & siblings number of children: 2 current occupational status: employed 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 current occupational exposures/hazards: No pets and animals: Yes (avoid litter box) pets and animals: cat(s) history of recent travel: No sexually active: Yes Smoking Status: Never smoker alcohol intake: current alcohol intake frequency: holidays/special occasions only details: not while substance use type: does not use diet: low carbohydrate and other well-balanced diet: about half the time caffeine: No eating out: 1-3 times/week during the past year weight has: decreased > 10 lbs what type of physical activity do you participate in: walking frequency: 1-2 times per week duration: 15-30 minutes/day iona/jehovah's witness: Religion seatbelt use: always do you feel safe at home: Yes additional social history: BF- Rick ROS ROS ED ROS Narrative see HPI EXAM Physical Exam Narrative Exam Narrative: Vital signs: Reviewed General: Alert and orientedx3. No acute distress HEENT: Head is normocephalic and atraumatic, sinuses nontender, pupils equal round and reactive. Nares are patent. Oropharynx and throat exams normal. Neck: Supple without lymphadenopathy nontender Cardiovascular: Regular rate and rhythm, no murmurs. No rubs or gallops. Normal S1 and S2 Respiratory: Clear to auscultation bilaterally. No wheezes, rales, rhonchi Abdominal: Soft and tender to palpation in the right upper quadrant. Negative Rdz sign. Normal bowel sounds. No guarding or rebound. Extremities: No tenderness. No bruising. Normal range of motion. Normal sensation. Skin: No rash or redness. The rest of the physical exam is unremarkable Const Vital Signs: 02/23/25 08:51 02/23/25 10:51 02/23/25 12:16 Temperature 98.5 F 97.8 F 98.4 F Temperature Source Temporal Oral Pulse Rate 76 60 48 L Respiratory Rate 16 15 17 Blood Pressure 124/91 H 111/72 131/72 H Blood Pressure Mean 102 85 91 Pulse Ox 99 100 99 Oxygen Delivery Method Room Air MDM MDM MDM Narrative Medical decision making narrative: Patient is a 30-year-old female presenting to the emergency department for right upper quadrant pain. Patient was seen and examined. Vitals are stable. Patient resting comfortably no distress. Patient given morphine and Zofran for symptomatic control Differential includes but is not limited to: Cholelithiasis, cholecystitis, choledocholithiasis, gastritis, pancreatitis, less likely lower lobe pneumonia given history and physical CBC with no leukocytosis and a normal hemoglobin. CMP with transaminitis with a AST of 294, ALT of 261 and total bilirubin of 2.49. Normal alk phos. Lipase within normal limits. Urinalysis with rare bacteria and small amount of leukocyte esterase but no other signs of infection. Urine is negative. Right upper quadrant ultrasound with cholelithiasis without definitive evidence of cholecystitis. Mildly prominent CBD and intrahepatic ducts. With the gallbladder findings and her transaminitis I do have concern for choledocholithiasis. Less likely cholangitis given no evidence of sepsis and no leukocytosis. Spoke to on-call general surgeon, Dr. Sorenson, who accepted the patient to his service for admission. Recommended a dose of Zosyn here which was given. Patient will likely have MRCP done tomorrow and gallbladder removal on Monday. This was conveyed to the patient. She was agreeable with the plan. Clinical impression Choledocholithiasis History & Record Review Discussion w/independent historian: Patient Lab Data Attestation: I reviewed the patient's lab results. Labs: Laboratory Results - last 24 hr 02/23/25 02/23/25 02/23/25 09:40 10:00 11:25 WBC 7.8 RBC 4.93 Hgb 14.7 Hct 43.8 MCV 88.8 MCH 29.8 MCHC 33.6 RDW Std Deviation 40.3 RDW Coeff of Beth 12.4 Plt Count 248 MPV 10.8 Immature Gran % (Auto) 0.300 Neut % (Auto) 76.3 H Lymph % (Auto) 14.8 L [place] % (Auto) 7.2 Eos % (Auto) 0.9 Baso % (Auto) 0.5 Absolute Neuts (auto) 5.9 Absolute Lymphs (auto) 1.15 Nucleated RBC % 0 Sodium 140 Potassium 3.8 Chloride 101 Carbon Dioxide 29.8 Anion Gap 10 BUN 7 Creatinine 0.76 Estim Creat Clear Calc 113.44 Est GFR (MDRD) Non-Af 109 BUN/Creatinine Ratio 9.8 L Glucose 95 Calcium 9.8 Total Bilirubin 2.49 H 2.53 H Direct Bilirubin 1.53 H Indirect Bilirubin AST 294 H ALT 261 H Alkaline Phosphatase 87 Total Protein 7.5 Albumin 4.6 Globulin 2.9 Albumin/Globulin Ratio 1.6 Lipase 41 Urine Color Yellow Urine Clarity Sl. Cloudy Urine pH 8.0 Ur Specific [place] 1.010 Urine Protein 15 H Urine Glucose (UA) Normal Urine Ketones Negative Urine Occult Blood Negative Urine Nitrite Negative Urine Bilirubin Negative Urine Urobilinogen 4 H Ur Leukocyte Esterase 25 H Urine RBC 0-5 SEEN Urine WBC 0-5 SEEN Ur Squamous Epith Cells 0-5 SEEN Urine Bacteria RARE Urine Mucus 0 SEEN Urine Test Negative 02/23/25 11:25 WBC RBC Hgb Hct MCV MCH MCHC RDW Std Deviation RDW Coeff of Beth Plt Count MPV Immature Gran % (Auto) Neut % (Auto) Lymph % (Auto) [place] % (Auto) Eos % (Auto) Baso % (Auto) Absolute Neuts (auto) Absolute Lymphs (auto) Nucleated RBC % Sodium Potassium Chloride Carbon Dioxide Anion Gap BUN Creatinine Estim Creat Clear Calc Est GFR (MDRD) Non-Af BUN/Creatinine Ratio Glucose Calcium Total Bilirubin Direct Bilirubin 1.54 H Indirect Bilirubin 1.00 AST ALT Alkaline Phosphatase Total Protein Albumin Globulin Albumin/Globulin Ratio Lipase Urine Color Urine Clarity Urine pH Ur Specific [place] Urine Protein Urine Glucose (UA) Urine Ketones Urine Occult Blood Urine Nitrite Urine Bilirubin Urine Urobilinogen Ur Leukocyte Esterase Urine RBC Urine WBC Ur Squamous Epith Cells Urine Bacteria Urine Mucus Urine Test Radiography Diagnostic Testing: Clinical Impression(s) from Imaging Studies Gallbladder Ultrasound 02/23/25 09:28 IMPRESSION: Cholelithiasis without definitive cholecystitis. Mildly prominent common bile duct and intrahepatic ducts. Can not entirely exclude choledocholithiasis. Reading Location: [id number] Discharge Plan Disposition Disposition: Acute Care Hospital [facility] Discharge Date/Time: 02/23/25 12:49
[2025-02-23] MEDS: 0.9% Saline Lock 10 ML Syringe IV (18:45)
[2025-02-23 21:00] VITALS: BP 106/47; PULSE 59; RESP 16; TEMP 36.1; O2SAT 100
[2025-02-23] MEDS: Piperacil/Tazobactam 3.375 GM in 0.9% Normal Saline (50mL MB+) 50 ML IV (21:01)
[2025-02-24] VITALS (17 sets, daily range): BP systolic 99–132; BP diastolic 56–76; PULSE 55–88; RESP 16–18; TEMP 36.1–36.9; O2SAT 96–100; BMI 30.5
[2025-02-24] MEDS: 0.9% Normal Saline (1000mL) 1,000 ML 75 ML IV ×2 (02:45→19:49)
[2025-02-24] MEDS: Piperacil/Tazobactam 3.375 GM in 0.9% Normal Saline (50mL MB+) 50 ML IV ×3 (05:04→22:29)
[2025-02-24 07:12] LABS: Hematocrit 41.5 % (37-47); Hemoglobin 13.5 g/dL (12.0-15.0); Immature Granulocytes Count 0.010 X10^3/uL (0.0-0.0); Mean Corp Hgb Conc 32.5 g/dL (32-36); Mean Corpuscular Volume 90.4 fL (81-99); Mean Platelet Vol. 10.9 fl (6.2-12.0); NRBC Flagged by Analyzer 0 % (0-5); Platelet Count 201 K/mm3 (150-450); RBC Distribution Width CV 12.6 % (11.6-14.6); RBC Distribution Width SD 41.6 fl (35.1-43.9); Red Blood Count 4.59 M/mm3 (4.2-5.4); White Blood Count 6.0 K/mm3 (4.4-11.0)
[2025-02-24 08:01] LABS: AST(SGOT) 508 U/L (<=31); Alanine Aminotransfer ALT/SGPT 945 U/L (<=34); Albumin, Serum 4.1 g/dL (3.5-5.0); Alkaline Phosphatase 101 U/L (35-104); Anion Gap 8 (5-15); BUN 6 mg/dL (4-19); BUN/Creat Ratio 6.4 RATIO (10-20); Calcium,Total 9.2 mg/dL (7.6-11.0); Carbon Dioxide 28.3 mmol/L (21.0-32.0); Chloride 105 mmol/L (98-108); Estimated Creatinine Clearance 90.63 ml/min (50-250); Globulin 2.6 g/dL (2.2-4.2); Glucose 87 mg/dL (70-99); Potassium 4.1 mmol/L (3.3-5.1)
--- NOTE | 2025-02-24 08:33 | RAD_ITS ---
PROCEDURE: RAD/ERCP Biliary Only
--- NOTE | 2025-02-24 08:53 | EKG12_ITS ---
Test Reason : PRE OP
--- NOTE | 2025-02-24 09:30 | PCM.PN.SRG ---
Subjective Subjective Patient evaluated standing in the bathroom brushing her teeth. She denies abdominal pain currently. Objective Data Objective Data Vital Signs: Vital Signs Temp Pulse Resp BP Pulse Ox O2 Del Method 98.2 F 71 16 111/68 98 Room Air 02/24/25 07:57 02/24/25 07:57 02/24/25 07:57 02/24/25 07:57 02/24/25 07:57 02/24/25 07:57 Oxygen Delivery Method Room Air Weight: 178 lb Body Mass Index (BMI) 30.5 Intake & Output: Intake and Output for Last 24 Hours 02/22/25 02/23/25 02/24/25 23:59 23:59 23:59 Intake Total 100 / 100 1071.25 / 1071.25 Balance 100 / 100 1071.25 / 1071.25 Lab / Micro Data 02/24/25 06:43 02/24/25 06:43 Labs: Laboratory Results - last 24 hr 02/23/25 09:40: WBC 7.8, RBC 4.93, Hgb 14.7, Hct 43.8, MCV 88.8, MCH 29.8, MCHC 33.6, RDW Std Deviation 40.3, RDW Coeff of Beth 12.4, Plt Count 248, MPV 10.8, Immature Gran % (Auto) 0.300, Neut % (Auto) 76.3 H, Lymph % (Auto) 14.8 L, [place] % (Auto) 7.2, Eos % (Auto) 0.9, Baso % (Auto) 0.5, Absolute Neuts (auto) 5.9, Absolute Lymphs (auto) 1.15, Nucleated RBC % 0, Sodium 140, Potassium 3.8, Chloride 101, Carbon Dioxide 29.8, Anion Gap 10, BUN 7, Creatinine 0.76, Estim Creat Clear Calc 113.44, Est GFR (MDRD) Non-Af 109, BUN/Creatinine Ratio 9.8 L, Glucose 95, Calcium 9.8, Total Bilirubin 2.49 H, AST 294 H, ALT 261 H, Alkaline Phosphatase 87, Total Protein 7.5, Albumin 4.6, Globulin 2.9, Albumin/Globulin Ratio 1.6, Lipase 41 02/23/25 10:00: Urine Color Yellow, Urine Clarity Sl. Cloudy, Urine pH 8.0, Ur Specific [place] 1.010, Urine Protein 15 H, Urine Glucose (UA) Normal, Urine Ketones Negative, Urine Occult Blood Negative, Urine Nitrite Negative, Urine Bilirubin Negative, Urine Urobilinogen 4 H, Ur Leukocyte Esterase 25 H, Urine RBC 0-5 SEEN, Urine WBC 0-5 SEEN, Ur Squamous Epith Cells 0-5 SEEN, Urine Bacteria RARE, Urine Mucus 0 SEEN, Urine Test Negative 02/23/25 11:25: Total Bilirubin 2.53 H, Direct Bilirubin 1.53 H 02/23/25 11:25: Direct Bilirubin 1.54 H, Indirect Bilirubin 1.00 02/24/25 06:43: WBC 6.0, RBC 4.59, Hgb 13.5, Hct 41.5, MCV 90.4, MCH 29.4, MCHC 32.5, RDW Std Deviation 41.6, RDW Coeff of Beth 12.6, Plt Count 201, MPV 10.9, Immature Gran % (Auto) 0.200, Neut % (Auto) 69.5, Lymph % (Auto) 18.5 L, [place] % (Auto) 8.5, Eos % (Auto) 2.8, Baso % (Auto) 0.5, Absolute Neuts (auto) 4.2, Absolute Lymphs (auto) 1.11, Nucleated RBC % 0, Sodium 142, Potassium 4.1, Chloride 105, Carbon Dioxide 28.3, Anion Gap 8, BUN 6, Creatinine 0.95, Estim Creat Clear Calc 90.63, Est GFR (MDRD) Non-Af 84, BUN/Creatinine Ratio 6.4 L, Glucose 87, Calcium 9.2, Total Bilirubin 3.72 H, AST 508 H, ALT 945 H, Alkaline Phosphatase 101, Total Protein 6.7, Albumin 4.1, Globulin 2.6, Albumin/Globulin Ratio 1.6 Radiography Diagnostic Testing: Radiology Impression Gallbladder Ultrasound 02/23/25 09:28 IMPRESSION: Cholelithiasis without definitive cholecystitis. Mildly prominent common bile duct and intrahepatic ducts. Can not entirely exclude choledocholithiasis. Reading Location: [id number] Assessment & Plan Assessment/Plan (1) Common bile duct dilatation: (2) Cholelithiasis: (3) Transaminitis: (4) Hyperbilirubinemia: PLAN: Plan I am following this patient in conjunction with Dr. Schmid. He has independently evaluated this patient. Labs reviewed. Liver enzymes increased again Plan to consult Dr. Saez for an ERCP today Plan to proceed with lap ranulfo tomorrow with Dr. Schmid Cancel MRCP for today Continue NPO status Order labs for tomorrow AM We will continue to monitor this patient Charges/Coding Visit Charges Inpatient E&M: 33497 Subs Hosp L1
[2025-02-24] MEDS: HYDROmorphone 0.5 MG/0.5 ML SYRINGE IV ×3 (10:44→22:29)
--- NOTE | 2025-02-24 11:05 | CASEMGMT ---
Dx:suspected choledocholithiasis LACE:2 6-Clicks:23 Medical record reviewed and patient evaluated for identification of discharge planning needs. Based on this review, at this time criteria are not present to indicate a need for discharge planning. Will remain available to assist with discharge planning needs as identified or requested. Pt planned for lap choley tomorrow.
[2025-02-24] MEDS: Lactated Ringers 1,000 ML 15 ML IV (11:45)
--- NOTE | 2025-02-24 12:02 | PCM.PRE.AN2 ---
ASA Classification* ASA Classification ASA Classification: 2 Assessment & Plan Anesthesia* Anesthesia Assessment Anesthesia Assessment: Discussed sedation and/or anesthesia options, risks, benefits, and alternatives with patient/parents/legal guardian/POA. Questions invited. The patient/parents/legal guardian/POA seems to understand and agrees to proceed with anesthesia plan. Reviewed the physical assessment, medical history, allergy history and patient home medications list prior to surgery/procedure/anesthetic and documented any changes. Performed airway and anesthesia risk assessments. Anesthesia Type Anesthesia Type: General Anesthesia Focused Assessment* Temperature: 98.4 F Pulse Rate: 61 Blood Pressure: 99/66 Respiratory Rate: 16 Pulse Ox: 99 Airway Assessment Mouth opens: >3 cm Mallampati Score: II Labs Anesthesia Preop lab: CBC WBC, (4.4-11.0) 6.0 K/mm3 Today, 06:43 RBC, (4.2-5.4) 4.59 M/mm3 Today, 06:43 Hgb, (12.0-15.0) 13.5 g/dL Today, 06:43 Hct, (37-47) 41.5 % Today, 06:43 Plt Count, (150-450) 201 K/mm3 Today, 06:43 CHEMISTRY Potassium, (3.3-5.1) 4.1 mmol/L Today, 06:43 Sodium, (133-145) 142 mmol/L Today, 06:43 BUN, (4-19) 6 mg/dL Today, 06:43 Creatinine, (0.70-1.20) 0.95 mg/dL Today, 06:43 Glucose, (70-99) 87 mg/dL Today, 06:43 TSH, (0.358-3.740) 1.800 uIU/mL 01/26/24, 17:24 COAG HCG, Quant, (1-3) 81822 mIU/mL H 04/29/24, 17:00 Urine Test Negative Negative 02/23/25, 10:00 [facility] Clinic Negative 08/26/20, 09:33 Pre-Assessment Diagnosis/Proposed Procedure Planned Operative Procedure(s): ERCP Anesthesia History Anesthesia History - heel seat filler: Anesthesia History - heel seat filler Hx Hospitalization No 02/14/25 13:17 Any Problems With Anesthesia No 02/23/25 21:58 Cholinesterase deficiency No 02/23/25 21:58 You/Your Family Experience No 02/23/25 21:58 fever (hyperthermia) with Relationship Recent Exposure to Contagious No 02/23/25 21:58 Disease Does patient have nerve No 02/23/25 21:58 stimulator Patient instructed to have device shut off --Does patient have Pacemaker No 02/24/25 11:23 or ICD? When Was Last Pacemaker Check QUESTION #4 FULL TEXT: You/Your Family Experience fever (hyperthermia) with Anesthesia Last Oral Intake Last Oral intake: Last Oral Intake NPO since 00:00 02/24/25 11:23 Meds taken in AM with sips of water? Meds patient instructed to take am of surgery PONV PONV - heel seat filler: PONV - heel seat filler Female HX of Motion Sickness HX of N/V After Surgery Non-Smoker Duration of Surgery greater than 60 minutes Number of Risk Factors PONV Score Height & Weight Height & Weight: Anesthesia: Height & Weight Height 5 ft 4 in 02/24/25 11:23 Weight: 80.739 kg 02/24/25 11:23 Body Mass Index (BMI) 30.5 02/24/25 11:23 Respiratory Assessment Respiratory Assessment - heel seat filler: Respiratory Tract Infection Hx - heel seat filler Hx Respiratory Tract Infection No 02/23/25 21:58 STOP Sleep Apnea STOP Sleep Apnea - heel seat filler: STOP Sleep Apnea - heel seat filler Hx Hypertension No 02/23/25 13:16 Hx Sleep Apnea No 02/23/25 13:16 CPAP BIPAP Do you snore loudly (louder No 02/23/25 13:16 than talking or can be heard Do you often feel tired/ No 02/23/25 13:16 fatigued/ sleepy during daytime? Has anyone observed you stop No 02/23/25 13:16 breathing during sleep? STOP Results Negative 02/23/25 13:16 QUESTION #5 FULL TEXT : Do you snore loudly (louder than talking or can be heard through closed doors)? 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 Specify any problems Hx of Preganancy in last 3 No 02/23/25 13:16 Months Nurse Filling Out Transfusion TCLEVIDEN 02/23/25 13:16 & Questions: Date: 02/23/25 02/23/25 13:16 Time: 13:39 02/23/25 13:16 Patient unable to answer at this time (ie. confused, unrespo /Reproduction History /Reproductive History - heel seat filler: /Reproductive Hx- heel seat filler Hx Now No 02/24/25 10:02 Gestational Age (in weeks): EDC: Hx Hx Para Hx Section SAB No 02/24/25 10:02 Active Medications Active Medications: Current Medications Generic Name Dose Route Start Last Admin Trade Name Freq PRN Reason Stop Dose Admin Hydromorphone HCl 0.5 mg 02/23/25 12:22 02/24/25 10:44 Hydromorphone 0.5 Mg/0.5 Ml Syringe IV 0.5 mg Q4H PRN PRN Administration Pain Score 6-10 Sodium Chloride 1,000 mls @ 75 mls/hr 02/23/25 12:25 02/24/25 11:32 IV 0 mls/hr .[id number] FABIO Infusion Piperacillin Sod/Tazobactam 50 mls @ 12.5 mls/hr 02/23/25 22:00 02/24/25 09:29 Sod 3.375 gm/ Sodium Chloride IV Infused Q8 FABIO Infusion Sodium Chloride 250 mls @ 15 mls/hr 02/23/25 13:17 IV .[id number] PRN Saline Flush Sodium Chloride 250 mls @ 15 mls/hr 02/23/25 13:17 IV .[id number] PRN Additional IVPB Infusion Lactated Ringer's 1,000 mls @ 15 mls/hr 02/24/25 11:45 02/24/25 11:45 IV 15 mls/hr .Q48H FABIO Administration Nutritional Formula (Lactose Free) 120 ml 02/23/25 17:00 02/24/25 09:41 Ensure Clear 120 Ml Liquid PO Not Given TIDCM FABIO Ondansetron HCl 4 mg 02/23/25 12:22 02/24/25 10:44 Ondansetron 4 Mg/2 Ml Vial IV 4 mg Q6H PRN PRN Administration NAUSEA/VOMITING Sodium Chloride 10 - 40 ml 02/23/25 13:17 02/23/25 18:45 0.9% Saline Lock 10 Ml Syringe IV 10 ml UD PRN Administration SALINE FLUSH [facility] Medical History PONV (postoperative nausea and vomiting) Acid reflux Cholelithiasis Wears glasses Alcohol use Fatty liver Migraine headache Blackout Heartburn Non-smoker History of edema History of echocardiogram depression PCOS (polycystic ovarian syndrome) Anxiety Bipolar 1 disorder Home Medications ?Medication ?Instructions ?Recorded ?Last Taken ?Type BEEF ORGAN 1 cap PO BID 02/14/25 Unknown History ondansetron 4 mg disintegrating mg PO 02/23/25 Unknown History tablet Allergy/AdvReac Type Severity Reaction Status Date / Time latex Allergy Rash Verified 02/24/25 11:46 Family History Grandfather Skin cancer Sleep apnea Grandmother Leukemia Father Hypertension Diabetes Sleep apnea Mother Hypertension Sleep apnea Endometriosis PCOS (polycystic ovarian syndrome) Surgical History Status post bilateral salpingectomy (11/19/24) No history of previous surgery Social History adopted: No household members: family, children and other details: Living with parents & siblings number of children: 2 current occupational status: employed current occupation: [employer] current occupational exposures/hazards: No pets and animals: Yes (avoid litter box) pets and animals: cat(s) history of recent travel: No sexually active: Yes Smoking Status: Never smoker alcohol intake: current alcohol intake frequency: holidays/special occasions only details: not while substance use type: does not use diet: low carbohydrate and other well-balanced diet: about half the time caffeine: No eating out: 1-3 times/week during the past year weight has: decreased > 10 lbs what type of physical activity do you participate in: walking frequency: 1-2 times per week duration: 15-30 minutes/day iona/advent: Sabianist seatbelt use: always do you feel safe at home: Yes additional social history: BF- Rick Review of Systems (Anesthesia) ROS Narrative System reviewed and no additional complaints, except as documented.
--- NOTE | 2025-02-24 12:13 | EX.PCM.CON.G ---
HPI Consult Data Date of Consult: 02/24/25 HPI Narrative Reason for Consultation: Cholestatic hepatitis with jaundice HPI Narrative: LUIS CAMPO, is a 30-year-old female presenting to the emergency department for RUQ abdominal pain. Patient states that over the past few months she has had intermittent right upper quadrant pain. She states it is worse after eating. She reports a few weeks ago she went to [place] and was diagnosed with cholecystitis and was discharged home. She states today around 2 AM she developed severe right upper quadrant pain, nausea and nonbloody, nonbilious vomiting. 02/23/25 Total Bilirubin 2.53 H, Direct Bilirubin 1.53 H, Indirect Bilirubin 1.00 02/25/25 Total Bilirubin 3.72 H, AST 508 H, ALT 945 H, Alkaline Phosphatase 101 US/Gallbladder IMPRESSION: Cholelithiasis without definitive cholecystitis. Mildly prominent common bile duct and intrahepatic ducts. Can not entirely exclude choledocholithiasis. [facility] Medical History PONV (postoperative nausea and vomiting) Acid reflux Cholelithiasis Wears glasses Alcohol use Fatty liver Migraine headache Blackout Heartburn Non-smoker History of edema History of echocardiogram depression PCOS (polycystic ovarian syndrome) Anxiety Bipolar 1 disorder Home Medications ?Medication ?Instructions ?Recorded ?Last Taken ?Type BEEF ORGAN 1 cap PO BID 02/14/25 Unknown History ondansetron 4 mg disintegrating mg PO 02/23/25 Unknown History tablet Allergy/AdvReac Type Severity Reaction Status Date / Time latex Allergy Rash Verified 02/24/25 11:46 Family History Grandfather Skin cancer Sleep apnea Grandmother Leukemia Father Hypertension Diabetes Sleep apnea Mother Hypertension Sleep apnea Endometriosis PCOS (polycystic ovarian syndrome) Surgical History Status post bilateral salpingectomy (11/19/24) No history of previous surgery Social History adopted: No household members: family, children and other details: Living with parents & siblings number of children: 2 current occupational status: employed 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 current occupational exposures/hazards: No pets and animals: Yes (avoid litter box) pets and animals: cat(s) history of recent travel: No sexually active: Yes Smoking Status: Never smoker alcohol intake: current alcohol intake frequency: holidays/special occasions only details: not while substance use type: does not use diet: low carbohydrate and other well-balanced diet: about half the time caffeine: No eating out: 1-3 times/week during the past year weight has: decreased > 10 lbs what type of physical activity do you participate in: walking frequency: 1-2 times per week duration: 15-30 minutes/day iona/jainism: Sabianism seatbelt use: always do you feel safe at home: Yes additional social history: BF- Rick ROS Constitutional Constitutional: Denies fatigue, fever(s), poor appetite, weight gain or weight loss Gastrointestinal Gastrointestinal: Denies belching, bloating, change in bowel habits, change in stool character, chewing difficulty, coffee ground emesis, constipation, cramping, diarrhea, dyspepsia, dysphagia, early satiety, excessive flatus, fecal incontinence, heartburn, hematemesis, hematochezia, hemorrhoids, loose stools, melena, nausea, odynophagia, rectal bleeding, tenesmus, vomiting or weight changes Physical Exam Const alert and oriented x3 Constitutional Narrative: Mild distress from persistent abdominal discomfort in the right upper quadrant General Appearance: cooperative Resp normal respiratory effort GI GI Narrative: Nondistended, soft, tenderness to palpation in the right upper quadrant technically negative Rdz sign. Skin Skin Narrative: No jaundice noted Medical Records Data Medical Nutrition Assessment Dietitian: Malnutrition Criteria Met Start: 02/24/25 12:05 Freq: Status: Active Protocol: Document 02/24/25 12:05 [facility] (Rec: 02/24/25 12:05 [facility] ..25.7) Nutrition Malnutrition Evidence of Yes Malnutrition Exists Malnutrition (severe Acute Illness/Injury ): Evidenced By Suboptimal Energy Intake (Severe),Weight Loss (Severe) Clinical Problem Acute Disease or Injury Related Malnutrition Etiology related to acute illness and suboptimal energy intake Signs/Symptoms as evidenced by po intake meeting <75% of est nutritional needs and 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 Lab / Micro Data 02/24/25 06:43 02/24/25 06:43 Labs: Laboratory Results - last 24 hr 02/23/25 11:25: Total Bilirubin 2.53 H, Direct Bilirubin 1.53 H, Indirect Bilirubin 1.00 02/24/25 06:43: WBC 6.0, RBC 4.59, Hgb 13.5, Hct 41.5, MCV 90.4, MCH 29.4, MCHC 32.5, RDW Std Deviation 41.6, RDW Coeff of Beth 12.6, Plt Count 201, MPV 10.9, Immature Gran % (Auto) 0.200, Neut % (Auto) 69.5, Lymph % (Auto) 18.5 L, [place] % (Auto) 8.5, Eos % (Auto) 2.8, Baso % (Auto) 0.5, Absolute Neuts (auto) 4.2, Absolute Lymphs (auto) 1.11, Nucleated RBC % 0, Sodium 142, Potassium 4.1, Chloride 105, Carbon Dioxide 28.3, Anion Gap 8, BUN 6, Creatinine 0.95, Estim Creat Clear Calc 90.63, Est GFR (MDRD) Non-Af 84, BUN/Creatinine Ratio 6.4 L, Glucose 87, Calcium 9.2, Total Bilirubin 3.72 H, AST 508 H, ALT 945 H, Alkaline Phosphatase 101, Total Protein 6.7, Albumin 4.1, Globulin 2.6, Albumin/Globulin Ratio 1.6 Assessment & Plan Assessment/Plan (1) Hyperbilirubinemia: (2) Transaminitis: (3) Common bile duct dilatation: PLAN: 30-year-old woman with new-onset right upper quadrant pain, jaundice, and laboratory evidence of cholestatic hepatitis. Ultrasound findings confirm biliary ductal dilation. Primary Diagnosis:?Obstructive cholestasis secondary to biliary obstruction. Differential Diagnoses (DDx): Choledocholithiasis:?Gallstones obstructing the common bile duct. This is the most common cause in a patient presenting with RUQ pain and obstructive jaundice. Benign Biliary Stricture:?Narrowing of the bile ducts. Malignancy:?Although less likely in this young patient, cholangiocarcinoma or pancreatic cancer must be considered, particularly with progressive symptoms. Chronic Pancreatitis:?Can cause bile duct strictures, though typically associated with a different pain pattern. Drug-Induced Cholestasis:?She is not on any medications that would cause this, less likely to cause ductal dilation. P: Plan Diagnostics: ERCP:?Recommended to further investigate the biliary system and visualize the specific location and cause of the obstruction with greater detail. Complete Blood Count :?There is no sign of I do cholangitis. Amylase and Lipase:?To rule out pancreatitis. Charges/Coding Visit Charges Inpatient E&M: 88458 Init Hosp L3
--- NOTE | 2025-02-24 14:30 | OP.ERCP_ITS ---
Patient Name: Trinity Agudelo
--- NOTE | 2025-02-24 14:53 | POSTOP.ANE_ITS ---
Anesthesia: Postop Eval I
--- NOTE | 2025-02-24 14:53 | PCM.POST.ANE ---
Anesthesia: Postop Eval I Current Vital Signs Temperature: 97.5 F Pulse Rate: 82 Blood Pressure: 111/76 Respiratory Rate: 16 Pulse Ox: 99 Oxygen Delivery Method: Room Air Assessment Airway patent: Yes Spontaneous unlabored respirations: Yes Mental status: Awake and Calm nausea: No Vomiting: No Anesthesia Complication: No Fluid Hydration Crystalloid volume administer (ml): 1,500 Total IV fluid infused: 1,500 Progress Note Anesthesia document: Postop Eval 1 completed: Yes
--- NOTE | 2025-02-24 15:14 | POSTOPAN2_ITS ---
Anesthesia Postop Eval I Sum
--- NOTE | 2025-02-24 15:14 | PCM.POSTANE2 ---
Anesthesia Postop Eval I Sum Postop Eval Completion status Anesthesia document: Postop Eval 1 completed: Yes Anesthesia Postop Eval I Summary Anesthesia Postop Eval I Summary: Anesthesia Postop Eval I: Assessment Summary Airway patent Yes 02/24/25 14:53 [email or web address] Spontaneous unlabored Yes 02/24/25 14:53 [email or web address] respirations Mental status Awake,Calm 02/24/25 14:53 [email or web address] nausea No 02/24/25 14:53 [email or web address] Vomiting No 02/24/25 14:53 [email or web address] Anesthesia Postop Eval I: Fluid Summary Crystalloid volume administer 1,500 02/24/25 14:53 [email or web address] (ml) Colloids volume administered ( ml) Blood Product volume administered (ml) Total IV fluid infused 1,500 02/24/25 14:53 [email or web address] Anesthesia Postop Eval I: Summary Notes Anesthesia Complication No 02/24/25 14:53 [email or web address] Anesthesia Complication Comment: Post-operative progress note Anesthesia: Postop Eval II Evaluation Mental status: Awake Pain Level: 0 nausea: No Vomiting: No
[2025-02-24] MEDS: BENZOCAINE/MENTHOL 1 LOZENGE MUCOUS MEM (15:40)
[2025-02-24] MEDS: 0.9% Normal Saline (1000mL) 1,000 ML 300 ML IV (16:07)
[2025-02-24] MEDS: Pantoprazole Sodium 40 MG in 0.9% Normal Saline (100mL MB+) 100 ML 300 MG IV (17:38)
[2025-02-24] MEDS: Ensure Clear 120 ML Liquid PO (17:40)
[2025-02-24] MEDS: 0.9% Saline Lock 10 ML Syringe IV (22:30)
[2025-02-25] VITALS (16 sets, daily range): BP systolic 99–133; BP diastolic 58–80; PULSE 52–94; RESP 12–16; TEMP 36.7–37; O2SAT 93–100; BMI 30.5
--- NOTE | 2025-02-25 02:05 | NURSING ---
Patient in pain, states that pain is 8/10. Dr ordered dilaudid 1mg IV prn q2hr
[2025-02-25] MEDS: 0.9% Saline Lock 10 ML Syringe IV ×3 (02:33→21:53)
[2025-02-25 05:40] LABS: Hematocrit 40.1 % (37-47); Hemoglobin 13.1 g/dL (12.0-15.0); Immature Granulocytes Count 0.050 X10^3/uL (0.0-0.0); Mean Corp Hgb Conc 32.7 g/dL (32-36); Mean Corpuscular Volume 90.3 fL (81-99); Mean Platelet Vol. 10.7 fl (6.2-12.0); NRBC Flagged by Analyzer 0 % (0-5); Platelet Count 217 K/mm3 (150-450); RBC Distribution Width CV 12.5 % (11.6-14.6); RBC Distribution Width SD 41.2 fl (35.1-43.9); Red Blood Count 4.44 M/mm3 (4.2-5.4); White Blood Count 11.7 K/mm3 (4.4-11.0)
[2025-02-25] MEDS: Piperacil/Tazobactam 3.375 GM in 0.9% Normal Saline (50mL MB+) 50 ML IV (05:56)
[2025-02-25 06:14] LABS: AST(SGOT) 179 U/L (<=31); Alanine Aminotransfer ALT/SGPT 635 U/L (<=34); Albumin, Serum 4.0 g/dL (3.5-5.0); Alkaline Phosphatase 102 U/L (35-104); Anion Gap 10 (5-15); BUN 7 mg/dL (4-19); BUN/Creat Ratio 7.9 RATIO (10-20); Calcium,Total 8.9 mg/dL (7.6-11.0); Carbon Dioxide 25.9 mmol/L (21.0-32.0); Chloride 104 mmol/L (98-108); Estimated Creatinine Clearance 100.11 ml/min (50-250); Globulin 2.7 g/dL (2.2-4.2); Glucose 113 mg/dL (70-99); Potassium 4.1 mmol/L (3.3-5.1)
[2025-02-25 07:08] LABS: Lipase 2735 U/L (13-75)
--- NOTE | 2025-02-25 07:23 | PCM.PN.SRG ---
Subjective Subjective Patient had severe abdominal pain overnight. Objective Data Objective Data Vital Signs: Vital Signs Temp Pulse Resp BP Pulse Ox O2 Del Method 98.3 F 52 L 15 117/72 97 Room Air 02/25/25 04:34 02/25/25 04:34 02/25/25 04:34 02/25/25 04:34 02/25/25 04:34 02/25/25 04:34 Oxygen Delivery Method Room Air Weight: 178 lb Body Mass Index (BMI) 30.5 Intake & Output: Intake and Output for Last 24 Hours 02/23/25 02/24/25 02/25/25 23:59 23:59 23:59 Intake Total 100 / 100 4880.00 / 5030.00 200 / 200 Output Total 2 / 2 Balance 100 / 100 4878.00 / 5028.00 200 / 200 Medical Nutrition Assessment Dietitian: Malnutrition Criteria Met Start: 02/24/25 12:05 Freq: Status: Active Protocol: Document 02/24/25 12:05 SLA (Rec: 02/24/25 12:05 SLA .03.08.7) Nutrition Malnutrition Evidence of Yes Malnutrition Exists Malnutrition (severe Acute Illness/Injury ): Evidenced By Suboptimal Energy Intake (Severe),Weight Loss (Severe) Clinical Problem Acute Disease or Injury Related Malnutrition Etiology related to acute illness and suboptimal energy intake Signs/Symptoms as evidenced by po intake meeting <75% of est nutritional needs and 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 Lab / Micro Data 02/25/25 05:23 02/25/25 05:23 Labs: Laboratory Results - last 24 hr 02/24/25 06:43: Sodium 142, Potassium 4.1, Chloride 105, Carbon Dioxide 28.3, Anion Gap 8, BUN 6, Creatinine 0.95, Estim Creat Clear Calc 90.63, Est GFR (MDRD) Non-Af 84, BUN/Creatinine Ratio 6.4 L, Glucose 87, Calcium 9.2, Total Bilirubin 3.72 H, AST 508 H, ALT 945 H, Alkaline Phosphatase 101, Total Protein 6.7, Albumin 4.1, Globulin 2.6, Albumin/Globulin Ratio 1.6 02/25/25 05:13: Lipase 2735 H 02/25/25 05:23: WBC 11.7 H, RBC 4.44, Hgb 13.1, Hct 40.1, MCV 90.3, MCH 29.5, MCHC 32.7, RDW Std Deviation 41.2, RDW Coeff of Beth 12.5, Plt Count 217, MPV 10.7, Immature Gran % (Auto) 0.400, Neut % (Auto) 81.3 H, Lymph % (Auto) 9.9 L, [place] % (Auto) 8.1, Eos % (Auto) 0.1, Baso % (Auto) 0.2, Absolute Neuts (auto) 9.5 H, Absolute Lymphs (auto) 1.16, Nucleated RBC % 0, Sodium 140, Potassium 4.1, Chloride 104, Carbon Dioxide 25.9, Anion Gap 10, BUN 7, Creatinine 0.86, Estim Creat Clear Calc 100.11, Est GFR (MDRD) Non-Af 94, BUN/Creatinine Ratio 7.9 L, Glucose 113 H, Calcium 8.9, Total Bilirubin 1.32 H, AST 179 H, ALT 635 H, Alkaline Phosphatase 102, Total Protein 6.6, Albumin 4.0, Globulin 2.7, Albumin/Globulin Ratio 1.5 Radiography Diagnostic Testing: Radiology Impression ERCP X-Ray 02/24/25 08:33 IMPRESSION: As above. Reading Location: [address] Physical Exam Const oriented x3 and no apparent distress Resp normal respiratory effort GI soft to palpation Palpation: tender epigastric Assessment & Plan Assessment/Plan (1) Post-ERCP acute pancreatitis: PLAN: Patient developed severe abdominal pain overnight. I ordered a lipase which came back elevated. I will keep her n.p.o. after surgery and continue IV fluids. Recheck lipase in the morning. (2) Cholelithiasis: PLAN: Plan for laparoscopic cholecystectomy this morning. (3) Choledocholithiasis: PLAN: Patient had ERCP with stone removal and stent placement yesterday. PLAN: Plan Plan for laparoscopic cholecystectomy this morning. Continue IV fluids and hydration after surgery for her post ERCP pancreatitis. Fransisco Schmid MD Pager: [facility] [address] [place] [address], [facility] [email or web address] [address] [place] [address] Office:
[2025-02-25] MEDS: 0.9% Normal Saline (1000mL) 1,000 ML 250 ML IV ×2 (08:54→14:32)
[2025-02-25] MEDS: Pantoprazole Sodium 40 MG in 0.9% Normal Saline (100mL MB+) 100 ML 300 MG IV (10:11)
--- NOTE | 2025-02-25 11:00 | GALL_PTH ---
PATIENT: LUIS CAMPO LOC: MS3 U#:[id number] AGE/SX: 30/F ROOM: MS314 RE02/23/[address]: Dr. Anton Sorenson MD : 1995 BED: 1 DIS: 02/26/2025 SPEC #: [id number] RECD: 02/25/25 14:09 STATUS: NHUNG REQ #: [id number] SALINA: 02/25/25 11:[address]: Fransisco Schmid DEPT: SURGICAL PATHOLOGY RECD BY: Basilio Granda ENTERED: 02/25/25 16:20 SP TYPE: GALLBLADDE OTHR DR: MD Dr. Anton Livingston MD Dr. Prakash Chand, MD Dr. Rahsaan Friend, DO Linda Garcia NP-C MIKE Dubon PA Tissues: A - Gallbladder, NOS Procedures: Surgery Specimen Level III Comments: @ Ordering doctor for SUIII edited from to @ katy PACHECO at 02/25/251619 @ Submitting doctor edited from to @ katy PACHECO at 02/25/250 HEADER OPERATION: Laparoscopic cholecystectomy with IOC PRE-OP DIAGNOSIS: Post-ERCP acute pancreatitis, cholelithiasis, choledocholithiasis TISSUE SUBMITTED: A- Gallbladder MICROSCOPIC DIAGNOSIS A. Gallbladder, laparoscopic cholecystectomy: * Mild chronic cholecystitis * One benign lymph node * Cholelithiasis MICROSCOPIC DESCRIPTION Slides are reviewed. GROSS DESCRIPTION A. Received in formalin labeled with the patient's name and date of . Designated as gallbladder is a 9.2 by by 3.5 x 2.7 cm das-yellow to pink-red, intact and somewhat edematous gallbladder with attached patent cystic duct (inked black, shaved). A lymph node is present. Opening reveals green, tenacious bile and numerous irregular, yellow choleliths, ranging <0.1 cm to 0.5 cm. The mucosa is pale das-pink with a maximum wall thickness of 0.3 cm. Cholesterolosis is present. Engine Manager sections are submitted in in 2 cassettes as follows: A1: Margin, lymph node, cross-sections A2: Cross-sections MA 02/25/2025 CPT:42093
--- NOTE | 2025-02-25 11:23 | PCM.PRE.AN2 ---
ASA Classification* ASA Classification ASA Classification: 2 Assessment & Plan Anesthesia* Anesthesia Assessment Anesthesia Assessment: Discussed sedation and/or anesthesia options, risks, benefits, and alternatives with patient/parents/legal guardian/POA. Questions invited. The patient/parents/legal guardian/POA seems to understand and agrees to proceed with anesthesia plan. Reviewed the physical assessment, medical history, allergy history and patient home medications list prior to surgery/procedure/anesthetic and documented any changes. Performed airway and anesthesia risk assessments. Anesthesia Type Anesthesia Type: General History Source History Obtained from:: Patient and Chart Anesthesia Focused Assessment* Temperature: 98.2 F Pulse Rate: 53 Blood Pressure: 122/73 Respiratory Rate: 16 Pulse Ox: 99 Oxygen Delivery Method: Room Air Airway Assessment Mouth opens: >3 cm Mallampati Score: III Teeth Condition: Caps/Crowns (Patient has a crown on left lower molar. Patient states that it recently broke. Still in place and tight. [place] on right lower molar is intact.) Neck Range of motion (ROM): Full ROM Labs Anesthesia Preop lab: CBC WBC, (4.4-11.0) 11.7 K/mm3 H Today, 05:23 RBC, (4.2-5.4) 4.44 M/mm3 Today, 05:23 Hgb, (12.0-15.0) 13.1 g/dL Today, 05:23 Hct, (37-47) 40.1 % Today, 05:23 Plt Count, (150-450) 217 K/mm3 Today, 05:23 CHEMISTRY Potassium, (3.3-5.1) 4.1 mmol/L Today, 05:23 Sodium, (133-145) 140 mmol/L Today, 05:23 BUN, (4-19) 7 mg/dL Today, 05:23 Creatinine, (0.70-1.20) 0.86 mg/dL Today, 05:23 Glucose, (70-99) 113 mg/dL H Today, 05:23 TSH, (0.358-3.740) 1.800 uIU/mL 01/26/24, 17:24 COAG HCG, Quant, (1-3) 39818 mIU/mL H 04/29/24, 17:00 Urine Test Negative Negative 02/23/25, 10:00 Tst Clinic Negative 08/26/20, 09:33 Pre-Assessment Diagnosis/Proposed Procedure Planned Operative Procedure(s): Laparoscopic cholecystectomy Anesthesia History Anesthesia History - regroover: Anesthesia History - regroover Hx Hospitalization No 02/14/25 13:17 Any Problems With Anesthesia No 02/23/25 21:58 Cholinesterase deficiency No 02/23/25 21:58 You/Your Family Experience No 02/23/25 21:58 fever (hyperthermia) with Relationship Recent Exposure to Contagious No 02/23/25 21:58 Disease Does patient have nerve No 02/23/25 21:58 stimulator Patient instructed to have device shut off --Does patient have Pacemaker No 02/25/25 09:02 or ICD? When Was Last Pacemaker Check QUESTION #4 FULL TEXT: You/Your Family Experience fever (hyperthermia) with Anesthesia Last Oral Intake Last Oral intake: Last Oral Intake NPO since 00:00 02/25/25 09:02 Meds taken in AM with sips of water? Meds patient instructed to take am of surgery PONV PONV - regroover: PONV - regroover Female HX of Motion Sickness HX of N/V After Surgery Non-Smoker Duration of Surgery greater than 60 minutes Number of Risk Factors PONV Score Height & Weight Height & Weight: Anesthesia: Height & Weight Height 5 ft 4 in 02/25/25 09:02 Weight: 80.739 kg 02/25/25 09:02 Body Mass Index (BMI) 30.5 02/25/25 09:02 Respiratory Assessment Respiratory Assessment - regroover: Respiratory Tract Infection Hx - regroover Hx Respiratory Tract Infection No 02/23/25 21:58 STOP Sleep Apnea STOP Sleep Apnea - regroover: STOP Sleep Apnea - regroover Hx Hypertension No 02/23/25 13:16 Hx Sleep Apnea No 02/24/25 16:08 CPAP BIPAP Do you snore loudly (louder No 02/23/25 13:16 than talking or can be heard Do you often feel tired/ No 02/23/25 13:16 fatigued/ sleepy during daytime? Has anyone observed you stop No 02/23/25 13:16 breathing during sleep? STOP Results Negative 02/23/25 13:16 QUESTION #5 FULL TEXT : Do you snore loudly (louder than talking or can be heard through closed doors)? 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 Specify any problems Hx of Preganancy in last 3 No 02/23/25 13:16 Months Nurse Filling Out Transfusion TCLEVIDEN 02/23/25 13:16 & Questions: Date: 02/23/25 02/23/25 13:16 Time: 13:39 02/23/25 13:16 Patient unable to answer at this time (ie. confused, unrespo /Reproduction History /Reproductive History - regroover: /Reproductive Hx- regroover Hx Now No 02/24/25 10:02 Gestational Age (in weeks): EDC: Hx Hx Para Hx Section SAB No 02/24/25 10:02 Active Medications Active Medications: Current Medications Generic Name Dose Route Start Last Admin Trade Name Freq PRN Reason Stop Dose Admin Hydromorphone HCl 1 mg 02/25/25 02:03 02/25/25 09:11 Hydromorphone 1 Mg/Ml Syringe IV 1 mg Q2H PRN PRN Administration Pain Score 6-10 Piperacillin Sod/Tazobactam 50 mls @ 12.5 mls/hr 02/23/25 22:00 02/25/25 10:12 Sod 3.375 gm/ Sodium Chloride IV Infused Q8 FABIO Infusion Sodium Chloride 250 mls @ 15 mls/hr 02/23/25 13:17 IV .[id number] PRN Saline Flush Sodium Chloride 250 mls @ 15 mls/hr 02/23/25 13:17 IV .[id number] PRN Additional IVPB Infusion Lactated Ringer's 1,000 mls @ 15 mls/hr 02/24/25 11:45 02/24/25 15:33 IV Infused .Q48H FABIO Infusion Pantoprazole Sodium 40 mg/ 100 mls @ 300 mls/hr 02/24/25 14:30 02/25/25 10:38 Sodium Chloride IV Infused Q24 FABIO Infusion Sodium Chloride 1,000 mls @ 250 mls/hr 02/25/25 07:40 02/25/25 08:54 IV 250 mls/hr .Q4H FABIO Administration Nutritional Formula (Lactose Free) 120 ml 02/23/25 17:00 02/25/25 08:54 Ensure Clear 120 Ml Liquid PO Not Given TIDCM FABIO Ondansetron HCl 4 mg 02/23/25 12:22 02/25/25 02:41 Ondansetron 4 Mg/2 Ml Vial IV 4 mg Q6H PRN PRN Administration NAUSEA/VOMITING Sodium Chloride 10 - 40 ml 02/23/25 13:17 02/25/25 07:06 0.9% Saline Lock 10 Ml Syringe IV 10 ml UD PRN Administration SALINE FLUSH PFSH Medical History PONV (postoperative nausea and vomiting) Acid reflux Cholelithiasis Wears glasses Alcohol use Fatty liver Migraine headache Blackout Heartburn Non-smoker History of edema History of echocardiogram depression PCOS (polycystic ovarian syndrome) Anxiety Bipolar 1 disorder Home Medications ?Medication ?Instructions ?Recorded ?Last Taken ?Type BEEF ORGAN 1 cap PO BID 02/14/25 Unknown History ondansetron 4 mg disintegrating mg PO 02/23/25 Unknown History tablet Allergy/AdvReac Type Severity Reaction Status Date / Time latex Allergy Rash Verified 02/25/25 10:51 Family History Grandfather Skin cancer Sleep apnea Grandmother Leukemia Father Hypertension Diabetes Sleep apnea Mother Hypertension Sleep apnea Endometriosis PCOS (polycystic ovarian syndrome) Surgical History (Updated 02/25/25 @ 11:[address] Prakash Mccloud MD) S/P ERCP Status post bilateral salpingectomy (11/19/24) No history of previous surgery Social History adopted: No household members: family, children and other details: Living with parents & siblings number of children: 2 current occupational status: employed current occupation: [employer] current occupational exposures/hazards: No pets and animals: Yes (avoid litter box) pets and animals: cat(s) history of recent travel: No sexually active: Yes Smoking Status: Never smoker alcohol intake: current alcohol intake frequency: holidays/special occasions only details: not while substance use type: does not use diet: low carbohydrate and other well-balanced diet: about half the time caffeine: No eating out: 1-3 times/week during the past year weight has: decreased > 10 lbs what type of physical activity do you participate in: walking frequency: 1-2 times per week duration: 15-30 minutes/day iona/adventist: Religion seatbelt use: always do you feel safe at home: Yes additional social history: [employer]- [employer] Review of Systems (Anesthesia) ROS Narrative System reviewed and no additional complaints, except as documented.
[2025-02-25] MEDS: Midazolam 2 MG/2 ML Syringe IV (11:48)
[2025-02-25] MEDS: Lidocaine 1% (5 ml sdv) 5 ML Vial IV (11:57)
--- NOTE | 2025-02-25 12:15 | RAD_ITS ---
PROCEDURE: RAD/Cholangiogram/ O R,Initial
[2025-02-25] MEDS: fentaNYL 100 MCG/2 ML Ampul IV (12:45)
[2025-02-25] MEDS: Bupiv/Epi 0.25% 30 ML Vial INFILT (12:45)
--- NOTE | 2025-02-25 13:00 | OP.PCM_ITS ---
Operative Report (Standard)
--- NOTE | 2025-02-25 13:00 | PCM.OPRPT ---
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 Echocardiography Radiology Technologist: [place] Tasks completed by surgical assist: Opening & closing and Retracting Type of Anesthesia: General/Regional RN Documented Start/Stop Times: Operation Date: 02/25/25 11:00 Case Time Into Pre-Op 02/25/25 10:47 Out of Pre-Op 02/25/25 11:40 Anesthesia Start 02/25/25 11:48 Into Room 02/25/25 11:48 Procedure Start 02/25/25 12:08 Procedure End 02/25/25 12:57 Procedure Start Time: 12:08 Procedure Stop Time: 12:57 Select all DRAINS/GRAFTS/IMPLANTS that apply: None Estimated Blood Loss: 10 Specimen collected: Yes Description of specimen(s) removed: Gallbladder Description of surgery: After obtaining informed consent patient was brought back to the operating room. General anesthesia was induced. The abdomen was prepped and draped in usual sterile fashion. A small midline incision was made superior to the umbilicus and deepened to the level of fascia. The fascia was elevated and incised. Next the peritoneum was elevated and incised in the same fashion. Finger sweep was performed and the Hawthorne trocar was placed into the abdomen. The balloon was inflated. The abdomen was inflated to 15 mmHg. Next a camera was introduced into the abdomen and the abdomen was inspected. Next under direct visualization three 5-mm ports were placed one subxiphoid and 2 subcostal. Next the gallbladder was elevated and retracted toward the right shoulder. The peritoneum was stripped from the gallbladder. The infundibulum was located and retracted laterally. Next the triangle of Calot was dissected and the cystic duct and cystic artery were identified. Cholangiograms were performed. The Gates clamp was used to clamp across the infundibulum and the catheter needle was inserted into the gallbladder. Under fluoroscopy contrast was instilled into the gallbladder and the common duct, cystic duct as well as proximal hepatic ducts were identified. There was good filling of the duodenum. There were no filling defects noted in the common bile duct. The clamp was removed as well as the needle and the infundibulum was grasped once more. Three hemolock clips were placed across the cystic duct. The cystic duct was then divided leaving 2 clips on the stump. The cystic artery was clipped and divided in the same fashion. The hook cautery was then used to take the gallbladder off of the gallbladder bed. Hemostasis was obtained. Gallbladder fossa was irrigated and no active bleeding or bile leakage was noted. Next the camera was introduced in the subxiphoid port. An Endopouch bag was placed through the umbilical port and the gallbladder was placed into it. The gallbladder was then removed through the umbilical incision. The camera was then reinserted through the umbilical port. The gallbladder fossa was inspected once more and noted to be hemostatic with no leaking bile. The abdomen was suctioned dry. The 5 mm ports were removed under direct visualization. The umbilical port was then removed and the air was removed from the abdomen. Next using an 0 Vicryl suture the umbilical fascia was closed in a [id number] fashion. The umbilical port site was irrigated local anesthetic was administered to all the incisions. All the incisions were closed with interrupted subcuticular 4-0 Monocryl sutures followed by Steri-Strips and dressings. The patient was awoken and taken to PACU in stable condition. Surgical Findings: Biliary stent on cholangiograms Complications Complications: No Admit VTE Documentation VTE Mechan Device Prophylaxis: SCD's
--- NOTE | 2025-02-25 13:25 | POSTOP.ANE_ITS ---
Anesthesia: Postop Eval I
--- NOTE | 2025-02-25 13:25 | PCM.POST.ANE ---
Anesthesia: Postop Eval I Current Vital Signs Temperature: 98.4 F Pulse Rate: 94 Blood Pressure: 117/68 Respiratory Rate: 12 Pulse Ox: 97 Oxygen Delivery Method: Room Air Assessment Airway patent: Yes Spontaneous unlabored respirations: Yes Mental status: Awake and Calm nausea: No Vomiting: No Anesthesia Complication: No Fluid Hydration Crystalloid volume administer (ml): 800 Total IV fluid infused: 800 Progress Note Post-operative progress note: Assessment 1310 Anesthesia document: Postop Eval 1 completed: Yes
[2025-02-25] MEDS: Ensure Clear 120 ML Liquid PO (16:17)
[2025-02-25] MEDS: 0.9% Normal Saline (1000mL) 1,000 ML 150 ML IV (21:52)
--- NOTE | 2025-02-25 22:01 | NURSING ---
pt walked a full lap in the bynum. tolerated well.
--- NOTE | 2025-02-25 22:22 | ANES.CONFIRM ---
Anesthesia: Confirm Documents Multiple Procedures on Account (2) Confirmed Documents: Yes
[2025-02-26 04:07] VITALS: BP 129/77; PULSE 81; RESP 16; TEMP 36.9; O2SAT 98
[2025-02-26] MEDS: 0.9% Normal Saline (1000mL) 1,000 ML 150 ML IV (04:09)
[2025-02-26] MEDS: 0.9% Saline Lock 10 ML Syringe IV (04:32)
--- NOTE | 2025-02-26 04:48 | NURSING ---
pt walked a full lap in the bynum. pt tolerated well.
--- NOTE | 2025-02-26 07:14 | PCM.PN.SRG ---
Subjective Subjective Patient reports that the pain she was experiencing yesterday is gone and she only has incisional pain. She denies any nausea or vomiting with clear liquids. Objective Data Objective Data Vital Signs: Vital Signs Temp Pulse Resp BP Pulse Ox O2 Del Method 98.5 F 81 16 129/77 H 98 Room Air 02/26/25 04:07 02/26/25 04:07 02/26/25 04:07 02/26/25 04:07 02/26/25 04:07 02/26/25 04:07 Oxygen Delivery Method Room Air Weight: 178 lb Body Mass Index (BMI) 30.5 Intake & Output: Intake and Output for Last 24 Hours 02/24/25 02/25/25 02/26/25 23:59 23:59 23:59 Intake Total 4880.00 / 5030.00 4150.0 / 4650.0 1442.5 / 1442.5 Output Total 2 / 2 5 / Balance 4878.00 / 5028.00 4145.0 / 4645.0 1442.5 / 1442.5 Medical Nutrition Assessment Dietitian: Malnutrition Criteria Met Start: 02/24/25 12:05 Freq: Status: Active Protocol: Document 02/24/25 12:05 SLA (Rec: 02/24/25 12:05 SLA [id number]) Nutrition Malnutrition Evidence of Yes Malnutrition Exists Malnutrition (severe Acute Illness/Injury ): Evidenced By Suboptimal Energy Intake (Severe),Weight Loss (Severe) Clinical Problem Acute Disease or Injury Related Malnutrition Etiology related to acute illness and suboptimal energy intake Signs/Symptoms as evidenced by po intake meeting <75% of est nutritional needs and 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 Lab / Micro Data 02/25/25 05:23 02/25/25 05:23 Radiography Diagnostic Testing: Radiology Impression Cholangiogram 02/25/25 12:15 IMPRESSION: As above. Reading Location: [address] Physical Exam Const oriented x3 and no apparent distress Resp normal respiratory effort GI soft to palpation and non-tender Assessment & Plan Assessment/Plan (1) Choledocholithiasis: PLAN: Patient had laparoscopic cholecystectomy with cholangiograms yesterday. (2) Post-ERCP acute pancreatitis: PLAN: She reports the pain she was having yesterday is gone. Lipase is pending. As long as there is a decrease in her lipase I will decrease her IV fluids and start a regular diet and hopeful for discharge later today.
[2025-02-26 07:37] LABS: Hematocrit 38.2 % (37-47); Hemoglobin 12.5 g/dL (12.0-15.0); Immature Granulocytes Count 0.040 X10^3/uL (0.0-0.0); Mean Corp Hgb Conc 32.7 g/dL (32-36); Mean Corpuscular Volume 90.1 fL (81-99); Mean Platelet Vol. 10.7 fl (6.2-12.0); NRBC Flagged by Analyzer 0 % (0-5); Platelet Count 186 K/mm3 (150-450); RBC Distribution Width CV 12.8 % (11.6-14.6); RBC Distribution Width SD 42.0 fl (35.1-43.9); Red Blood Count 4.24 M/mm3 (4.2-5.4); White Blood Count 8.6 K/mm3 (4.4-11.0)
[2025-02-26 08:05] VITALS: BP 120/59; PULSE 65; RESP 16; TEMP 36.9; O2SAT 99
[2025-02-26 09:05] LABS: AST(SGOT) 70 U/L (<=31); Alanine Aminotransfer ALT/SGPT 382 U/L (<=34); Albumin, Serum 3.7 g/dL (3.5-5.0); Alkaline Phosphatase 74 U/L (35-104); Anion Gap 12 (5-15); BUN 5 mg/dL (4-19); BUN/Creat Ratio 7.1 RATIO (10-20); Calcium,Total 8.7 mg/dL (7.6-11.0); Carbon Dioxide 22.9 mmol/L (21.0-32.0); Chloride 103 mmol/L (98-108); Estimated Creatinine Clearance 126.61 ml/min (50-250); Globulin 2.8 g/dL (2.2-4.2); Glucose 78 mg/dL (70-99); Potassium 3.4 mmol/L (3.3-5.1)
[2025-02-26 09:17] LABS: Lipase 896 U/L (13-75)
[2025-02-26] MEDS: Pantoprazole Sodium 40 MG in 0.9% Normal Saline (100mL MB+) 100 ML 300 MG IV (09:40)
--- NOTE | 2025-02-26 09:44 | EX.PCM.PN.GI ---
Subjective Subjective Pt feeling well today. Abdominal pain resolving. She plans to call our office after discharge to schedule CBD stent removal. Per surgery note plan is for discharge today pending lipase and tolerance of regular diet. LFTs, Bilirubin and lipase down trending. Labs 02/25/25: AST 179 H, ALT 635 H , Lipase 2735 H, total bilirubin 1.32, alk phos 102 Labs 02/26/25: AST 70 H, ALT 382 H, Lipase 896 H, total bilirubin .86, Alk Phos 74 Objective Data Objective Data Vital Signs: Vital Signs Temp Pulse Resp BP Pulse Ox O2 Del Method 98.4 F 65 16 120/59 L 99 Room Air 02/26/25 08:05 02/26/25 08:05 02/26/25 08:05 02/26/25 08:05 02/26/25 08:05 02/26/25 08:05 Oxygen Delivery Method Room Air Weight: 178 lb Body Mass Index (BMI) 30.5 Intake & Output: Intake and Output for Last 24 Hours 02/24/25 02/25/25 02/26/25 23:59 23:59 23:59 Intake Total 4880.00 / 5030.00 4150.0 / 4650.0 2270.0 / 2270.0 Output Total 2 / 2 5 / 5 Balance 4878.00 / 5028.00 4145.0 / 4645.0 2270.0 / 2270.0 Medical Nutrition Assessment Dietitian: Malnutrition Criteria Met Start: 02/24/25 12:05 Freq: Status: Active Protocol: Document 02/24/25 12:05 SLA (Rec: 02/24/25 12:05 SLA [id number]) Nutrition Malnutrition Evidence of Yes Malnutrition Exists Malnutrition (severe Acute Illness/Injury ): Evidenced By Suboptimal Energy Intake (Severe),Weight Loss (Severe) Clinical Problem Acute Disease or Injury Related Malnutrition Etiology related to acute illness and suboptimal energy intake Signs/Symptoms as evidenced by po intake meeting <75% of est nutritional needs and 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 Lab / Micro Data 02/26/25 07:07 02/26/25 07:07 Labs: Laboratory Results - last 24 hr 02/26/25 07:07: WBC 8.6, RBC 4.24, Hgb 12.5, Hct 38.2, MCV 90.1, MCH 29.5, MCHC 32.7, RDW Std Deviation 42.0, RDW Coeff of Beth 12.8, Plt Count 186, MPV 10.7, Immature Gran % (Auto) 0.500, Neut % (Auto) 68.7, Lymph % (Auto) 20.2, [place] % (Auto) 10.1 H, Eos % (Auto) 0.3, Baso % (Auto) 0.2, Absolute Neuts (auto) 5.9, Absolute Lymphs (auto) 1.74, Nucleated RBC % 0, Sodium 138, Potassium 3.4, Chloride 103, Carbon Dioxide 22.9, Anion Gap 12, BUN 5, Creatinine 0.68 L, Estim Creat Clear Calc 126.61, Est GFR (MDRD) Non-Af 122, BUN/Creatinine Ratio 7.1 L, Glucose 78, Calcium 8.7, Total Bilirubin 0.86, AST 70 H, ALT 382 H, Alkaline Phosphatase 74, Total Protein 6.4, Albumin 3.7, Globulin 2.8, Albumin/Globulin Ratio 1.3, Lipase 896 H Radiography Diagnostic Testing: Radiology Impression Cholangiogram 02/25/25 12:15 IMPRESSION: As above. Reading Location: [address] Physical Exam Const no apparent distress Cardio Rate: regular rate Rhythm: regular rhythm GI Auscultation: normoactive bowel sounds Palpation: soft Assessment & Plan Assessment/Plan (1) Choledocholithiasis: (2) Post-ERCP acute pancreatitis: (3) Common bile duct dilatation: PLAN: Plan Pt presented to ED 02/23/25 with RUQ pain and elevated AST, ALT, and bilirubin. RUQ US with cholelithiasis w/o definitive cholecystitis. Pt underwent ERCP 02/24/25 which demonstrated a dilated biliary tree with a stone causing obstruction, choledocholithiases with complete removal with biliary sphincterotomy and balloon extraction. Biliary tree swept and CBD stent placed. Following her ERCP, she developed pancreatitis with lipase in the . On 02/25/25 she had laparoscopic cholecystectomy with cholangiograms. LFTs, lipase and bilirubin are all down trending. Pt abdominal pain is resolving. Per surgery plan is for discharge today pending lipase and tolerance of a regular diet. Pt was advised to call GI office to schedule her ERCP with stent removal in 8 weeks.
[2025-02-26 14:15] VITALS: BP 114/58; PULSE 95; RESP 17; TEMP 37.1; O2SAT 95
--- NOTE | 2025-02-26 16:32 | PCM.DC.SUM ---
Providers Date of Admission: 02/23/25 Primary Care Physician: Dr. Micheal Herzog MD Consultations 02/24/25 08:26 Consult: Gastroenterology Routine Consulting Provider: Judy Gastro[facility] Reason for Consult: choledocholithiasis EMERGENT Consult: No MD Notified: Yes Date Notified: 02/24/25 Time Notified: 08:26 Method of Notification: Verbal Reason For Visit: SUSPECTED CHOLEDOCHOLITIASIS Diagnosis Discharge Diagnosis (1) Choledocholithiasis: Status: Acute Code(s): K80.50 - Calculus of bile duct without cholangitis or cholecystitis without obstruction (2) Post-ERCP acute pancreatitis: Status: Acute Code(s): K91.89 - Other postprocedural complications and disorders of digestive system; K85.90 - Acute pancreatitis without necrosis or infection, unspecified (3) Common bile duct dilatation: Status: Acute Code(s): K83.8 - Other specified diseases of biliary tract Plan I am following this patient in conjunction with Dr. Schmid. He has independently evaluated this patient. Labs reviewed. Liver enzymes increased again Plan to consult Dr. Saez for an ERCP today Plan to proceed with lap ranulfo tomorrow with Dr. Schmid Cancel MRCP for today Continue NPO status Order labs for tomorrow AM We will continue to monitor this patient Medications at Discharge Home Medications BEEF ORGAN 1 cap PO BID 02/14/25 ondansetron 4 mg disintegrating tablet mg PO 02/23/25 acetaminophen 325 mg tablet 650 mg (2 x 325 mg) PO Q6H PRN PRN Pain 1-10 Or Fever #0 tabs 02/26/25 oxycodone 5 mg tablet 5 mg PO Q6H PRN PRN Pain Score 1-10 3 days #10 tabs 02/26/25 Hospital Course Operations cholecystecomy and ERCP (with stent placement) Summary of Care Provided Minutes Spent on Discharge: 30 Hospital Course: Patient is a 30 y/o F who presented with choledocholithiasis. Patient was electively scheduled with Dr. Schmid on 02/25, however patient developed a gallbladder attack over the weekend and came to the ED on 02/23. RUQ u/s was performed and demonstrated IMPRESSION: Cholelithiasis without definitive cholecystitis, Mildly prominent common bile duct and intrahepatic ducts, Can not entirely exclude choledocholithiasis. Patient's liver enzymes were elevated. Dr. Saez performed an ERCP with stone removal and stent placement on 02/24. Patient developed post-ERCP pancreatitis with a lipase level of 2735. Dr. Schmid performed a laparoscopic cholecystectomy with intraoperative cholangiogram on 02/25. On 02/26, lipase was repeated and demonstrated 896. Patient was increased to a regular diet and IV fluids were decreased. Upon discharge, patient had passed flatus. She noted shoulder pain from the gas. She had a stool softener. She notes pain was controlled with oxycodone and Tylenol. Medical Records Data Medical Nutrition Assessment Dietitian: Malnutrition Criteria Met Start: 02/24/25 12:05 Freq: Status: Active Protocol: Document 02/24/25 12:05 SLA (Rec: 02/24/25 12:05 SLA [id number]) Nutrition Malnutrition Evidence of Yes Malnutrition Exists Malnutrition (severe Acute Illness/Injury ): Evidenced By Suboptimal Energy Intake (Severe),Weight Loss (Severe) Clinical Problem Acute Disease or Injury Related Malnutrition Etiology related to acute illness and suboptimal energy intake Signs/Symptoms as evidenced by po intake meeting <75% of est nutritional needs and unintended 8% 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 Weight / BMI Weight Weight: 178 lb Body Mass Index (BMI) 30.5 ABG / Lab / Microbiology Data 02/26/25 07:07 02/26/25 07:07 Laboratory: Laboratory Results - last 24 hr 02/26/25 07:07: WBC 8.6, RBC 4.24, Hgb 12.5, Hct 38.2, MCV 90.1, MCH 29.5, MCHC 32.7, RDW Std Deviation 42.0, RDW Coeff of Beth 12.8, Plt Count 186, MPV 10.7, Immature Gran % (Auto) 0.500, Neut % (Auto) 68.7, Lymph % (Auto) 20.2, Hamlin % (Auto) 10.1 H, Eos % (Auto) 0.3, Baso % (Auto) 0.2, Absolute Neuts (auto) 5.9, Absolute Lymphs (auto) 1.74, Nucleated RBC % 0, Sodium 138, Potassium 3.4, Chloride 103, Carbon Dioxide 22.9, Anion Gap 12, BUN 5, Creatinine 0.68 L, Estim Creat Clear Calc 126.61, Est GFR (MDRD) Non-Af 122, BUN/Creatinine Ratio 7.1 L, Glucose 78, Calcium 8.7, Total Bilirubin 0.86, AST 70 H, ALT 382 H, Alkaline Phosphatase 74, Total Protein 6.4, Albumin 3.7, Globulin 2.8, Albumin/Globulin Ratio 1.3, Lipase 896 H D/C Instructions Discharge Activity: May Not Drive (3-5 days or while taking narcotic pain medication) and May Shower (starting tomorrow) Lifting Restrictions: 15 pounds for 2 weeks Call your doctor if your incision/area has: Continuous Slow Oozing, Sudden Increased Bleeding, Increased Pain/ Swelling, Increased Redness, Foul Smelling Discharge and Swelling at the incision site Call your doctor if you observe: Fever of 101 or Higher Suture Line Care: Avoid Pulling/Pushing and Avoid Pinching/Bending Remove Dressing in: 2 days Cleanse incision/area with: Soap & Water DC O2, CPAP, BIPAP Needs Home O2 Discharge instructions: No DC home with Oxygen: No Please Follow Up With: Danuta Abbott PA-C When: Please contact [phone], option #2, to schedule your 10-14 day follow-up from surgery Meaningful Use Info Meaningful Use Meaningful Use Diagnoses (Choose all that apply): None applicable Discharge Plan Admission Admit Date/Time: 02/23/25 12:22 Primary Reason for Your Visit: Choledocholithiasis Attending Provider: Anton Sorenson Primary Care Provider: Micheal Herzog Consulting Providers: Sulaiman Griffiths; Timothy Saez; Linda Garcia; Natacha Moody; Ana M Neri Instructions Additional Instructions / Restrictions: Cholecystectomy Diet ? Start light with soups and soft bland foods. You may advance diet as tolerated. Activity ? You may drive in 3-5 days but not while taking narcotic pain medication. ? I encourage walking. You may go up steps, one at a time. ? Do not swim or use hot tubs for 2 weeks. ? For comfort, you may use warm compresses or ice as needed for 15-20 minutes at a time. Lifting ? You may lift up to 15 pounds for 2 weeks. Dressings/Incision ? You may shower OVER your plastic dressings ? Do NOT tub bathe for 1 week ? Leave plastic dressings on for 2 days. ? When plastic dressings are removed, you will find steri strips. It is okay to continue showering with them in place, pat them dry. ? You may remove steri-strips after 1 week. We recommend getting them soaking wet for easier removal. Medications ? Anesthesia used during surgery and pain medications may cause constipation. I recommend initiating on the day of surgery a fiber supplement like, Metamucil, Citrucel, FiberCon, Benefiber, or a generic form of these medications. 1 heaping tablespoon in water daily. You may continue to utilize any bowel regimen or oral laxatives that you routinely take. ? As long as you are not intolerant to Tylenol, acetaminophen, ibuprofen, Motrin, Advil, Aleve, or similar medications, I would recommend transitioning to these eppe-dyg-idcuyzj medicines as soon as possible instead of continued use of narcotic pain medication. Follow up ? You should call [facility] soon after surgery, at [phone] option 2 to make a follow up appointment for 10-14 days after your surgery. Discharge Orders/Prescriptions Prescriptions: New oxycodone 5 mg Tablet 5 mg PO Q6H PRN PRN (Reason: Pain Score 1-10) 3 Days Qty: 10 0RF acetaminophen 325 mg Tablet 650 mg PO Q6H PRN PRN (Reason: Pain 1-10 Or Fever) Qty: 0 0RF Continued BEEF ORGAN 1 cap PO BID Patient Comments: PRIMAL RAND BEEF ORGAN SUPPLEMENT ondansetron 4 mg tablet,disintegrating PO Referrals / Follow Up: Micheal Herzog MD [Primary Care Provider, Family Practice] Danuta Abbott, PAGuerlineC [Med Staff - Adv Practice Prof, Surgery] - 03/12/25 Ana M Neri PA [Med Staff - Adv Practice Prof, Gastroenterology] - 03/31/25 Disposition Disposition (needs filled in before D/C Order can be placed): Home, Self Care Charges/Coding Visit Charges Inpatient E&M: 59654 Disch Hosp
--- NOTE | 2025-02-26 17:16 | PHA.DC_ITS ---
Pharmacy DC Med Counseling
--- NOTE | 2025-02-26 17:16 | PHA.DC.COU.R ---
Pharmacy [facility] has performed discharge medication counseling for this patient. The patient was counseled on the following discharge medications and changes in medications for homegoing review. - Oxycodone 5 mg tablet The Reason for Use, instructions for use, and potential side effects were reviewed for all new medications. The patient's questions regarding all of their medications were answered. The patient was able to verbally demonstrate an understanding of their discharge medications. Medications at Discharge Home Medications BEEF ORGAN 1 cap PO BID 02/14/25 ondansetron 4 mg disintegrating tablet mg PO 02/23/25 acetaminophen 325 mg tablet 650 mg (2 x 325 mg) PO Q6H PRN PRN Pain 1-10 Or Fever #0 tabs 02/26/25 oxycodone 5 mg tablet 5 mg PO Q6H PRN PRN Pain Score 1-10 3 days #10 tabs 25
== END 2025-02-26 17:29 | disposition home or self-care (01) | DRG 263 ==
LOC: ED 09:20 → MS3 12:32
PROVIDERS: Internal Medicine Gastroenterology; Physician Assistant; Surgery; Admitting Provider Surgery; Emergency Provider Student in an Organized Health Care Education/Training Program; PCP Family Medicine; Visit Provider Surgery
PROC: 0F798DZ Dilation of Common Bile Duct with Intraluminal Device, Via Natural or Artificial Opening Endoscopic (ICD-10-PCS; CPT 43260; principal; 2025-02-24 14:40)
PROC: 0FT44ZZ Resection of Gallbladder, Percutaneous Endoscopic Approach (ICD-10-PCS; CPT 47610; principal; 2025-02-25 10:40)
DX: K80.65 Calculus of gallbladder and bile duct with chronic cholecystitis with obstruction (principal); K85.90 Acute pancreatitis without necrosis or infection, unspecified; F31.9 Bipolar disorder, unspecified; K76.0 Fatty (change of) liver, not elsewhere classified; E28.2 Polycystic ovarian syndrome; K91.89 Other postprocedural complications and disorders of digestive system; K21.9 Gastro-esophageal reflux disease without esophagitis
CPT/HCPCS: 36415; 74300; 74328; 76000; 76705; 80053; 81001; 81025; 82247; 82248; 83690; 85025; 88304; 93005; 97802; 99284; C2625; A4216; J0525; J2405

== ENCOUNTER 2025-04-25 10:26 | Day surgery (SDC) | payer MEDICAID, SELFPAY ==
--- NOTE | 2025-04-23 17:46 | PAT.ANE_ITS ---
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 When Was Last Pacemaker Check QUESTION #4 FULL TEXT: You/Your Family Experience fever (hyperthermia) with Anesthesia Last Oral Intake Last Oral intake: Last Oral Intake NPO since Meds taken in AM with sips of water? 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 operator Female Yes 04/23/25 15:47 HX of Motion Sickness Yes 04/23/25 15:47 HX of N/V After Surgery Yes 04/23/25 15:47 Non-Smoker Yes 04/23/25 15:47 Duration of Surgery greater No 04/23/25 15:47 than 60 minutes Number of Risk Factors 4 04/23/25 15:47 PONV Score Severe Risk 04/23/25 15:47 Height & Weight Height & Weight: Anesthesia: Height & Weight Height 5 ft 4 in 02/25/25 09:02 Respiratory Assessment Respiratory Assessment - production machine computer operator: Respiratory Tract Infection Hx - production machine computer operator Hx Respiratory Tract Infection No 04/23/25 15:47 STOP Sleep Apnea STOP Sleep Apnea - production machine computer operator: STOP Sleep Apnea - production machine computer operator Hx Hypertension No 04/23/25 15:47 Hx Sleep Apnea No 04/23/25 15:47 CPAP BIPAP Do you snore loudly (louder No 04/23/25 15:47 than talking or can be heard Do you often feel tired/ No 04/23/25 15:47 fatigued/ sleepy during daytime? Has anyone observed you stop No 04/23/25 15:47 breathing during sleep? STOP Results Negative 04/23/25 15:47 QUESTION #5 FULL TEXT : Do you snore loudly (louder than talking or can be heard through closed doors)? 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 operator: Tobacco Use History - production machine computer operator Tobacco Use Smoking Status Never smoker 04/23/25 15:47 Hx Tobacco Use No 04/23/25 15:47 Years Smoking Packs Smoked per Day Smoking Cessation Date was within the last 15 years Hx Smoking Cessation Date Hx Smoking Cessation No 04/23/25 15:47 Counseling Hematologic Medial History Hematologic Hx - production machine computer operator: Hematologic Medical Hx - clinical documentation spec Hx of Blood Transfusion No 04/23/25 15:47 Hx of Transfusion in last 3 No 04/23/25 15:47 Months Date of Last Transfusion (if within last 3 months) Ever experience any problems No 04/23/25 15:47 with transfusion(s)? Specify any problems Hx of Preganancy in last 3 No 04/23/25 15:47 Months Nurse Filling Out Transfusion [email or web address] 04/23/25 15:47 & Questions: Date: 04/23/25 04/23/25 15:47 Time: 15:51 04/23/25 15:47 Patient unable to answer at this time (ie. confused, unrespo /Reproduction History /Reproductive History - production machine computer operator: /Reproductive Hx- production machine computer operator Hx Now No 04/23/25 15:47 Gestational Age (in weeks): EDC: Hx Hx Para Hx Section SAB No 04/23/25 15:47 Does the father of the baby or his family experience fever w Father of the baby Malignant Hypertension history comment PFSH Medical History PONV (postoperative nausea and vomiting) Acid reflux Cholelithiasis Wears glasses Alcohol use Fatty liver Migraine headache Blackout Heartburn Non-smoker History of edema History of echocardiogram depression PCOS (polycystic ovarian syndrome) Anxiety Bipolar 1 disorder Home Medications ?Medication ?Instructions ?Recorded ?Last Taken ?Type ondansetron 4 mg disintegrating 4 mg PO Q8H PRN nausea and vomiting 02/23/25 Unknown History tablet acetaminophen 325 mg tablet 650 mg (2 x 325 mg) PO Q6H PRN PRN 02/26/25 Unknown Rx Pain 1-10 Or Fever #0 tabs Allergy/AdvReac Type Severity Reaction Status Date / Time latex Allergy Rash Verified 04/23/25 15:46 Family History Grandfather Skin cancer Sleep apnea Grandmother Leukemia Father Hypertension Diabetes Sleep apnea Mother Hypertension Sleep apnea Endometriosis PCOS (polycystic ovarian syndrome) Surgical History S/P laparoscopic cholecystectomy S/P ERCP Status post bilateral salpingectomy (11/19/24) Social History adopted: No household members: family, children and other details: Living with parents & siblings number of children: 2 current occupational status: employed 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 current occupational exposures/hazards: No pets and animals: Yes (avoid litter box) pets and animals: cat(s) history of recent travel: No sexually active: Yes Smoking Status: Never smoker alcohol intake: current alcohol intake frequency: holidays/special occasions only details: not while substance use type: does not use diet: low carbohydrate and other well-balanced diet: about half the time caffeine: No eating out: 1-3 times/week during the past year weight has: decreased > 10 lbs what type of physical activity do you participate in: walking frequency: 1-2 times per week duration: 15-30 minutes/day iona/restorationism: Shinto seatbelt use: always do you feel safe at home: Yes additional social history: YANCY Roy Information Additional Findings: NS EKG with > 4 METS Recommendation Anesthesia Recommendation Anesthesia recommendation: OPTIMIZED for anesthesia
[2025-04-25] VITALS (9 sets, daily range): BP systolic 104–134; BP diastolic 55–86; PULSE 55–71; RESP 14–18; TEMP 36.1–36.6; O2SAT 96–100; BMI 31.0
--- NOTE | 2025-04-25 10:30 | RAD_ITS ---
PROCEDURE: ERCP BILIARY/PANCREAS; O.R. FLUORO FOR C-ARM 04/25/2025 REASON FOR EXAM: ERCP, STENT REMOVAL TECHNIQUE: Procedure Code: RADERCP; RADORFL_C_ARM Modality: DX Procedure: ERCP BILIARY/PANCREAS; O.R. FLUORO FOR C-ARM. Dose: 25.57 mGy. Fluoroscopy time: 105.2 seconds. RAD/O.R. Fluoro for C-Arm IMPRESSION: Intraoperative fluoroscopy performed for ERCP. 11 fluoroscopic images were als o obtained. Reading Location: [id number]
--- NOTE | 2025-04-25 10:30 | RAD_ITS ---
PROCEDURE: ERCP BILIARY/PANCREAS; O.R. FLUORO FOR C-ARM 04/25/2025 REASON FOR EXAM: ERCP, STENT REMOVAL TECHNIQUE: Procedure Code: RADERCP; RADORFL_C_ARM Modality: DX Procedure: ERCP BILIARY/PANCREAS; O.R. FLUORO FOR C-ARM. Dose: 25.57 mGy. Fluoroscopy time: 105.2 seconds. RAD/ERCP Biliary/Pancreas IMPRESSION: Intraoperative fluoroscopy performed for ERCP. 11 fluoroscopic images were als o obtained. Reading Location: [id number]
--- NOTE | 2025-04-25 10:31 | EKG12_ITS ---
Test Reason : preop Blood Pressure : */* mmHG Vent. Rate : 66 BPM Atrial Rate : 66 BPM P-R Int : 158 ms QRS Dur : 86 ms QT Int : 366 ms P-R-T Axes : 46 3 17 degrees QTcB Int : 383 ms Normal sinus rhythm with sinus arrhythmia Low voltage QRS Borderline ECG Confirmed by IRVING KENDALL MD ([id number]), editor house organ LUIS CARRASQUILLO ([id number]) on 04/29/2025 1:18:23 PM Referred By: Timothy Saez Confirmed By: IRVING KENDALL MD
[2025-04-25] MEDS: Lactated Ringers 1,000 ML 15 ML IV (10:49)
--- NOTE | 2025-04-25 11:00 | PRE.ANES_ITS ---
ASA Classification* ASA Classification ASA Classification: 2 Assessment & Plan Anesthesia* Anesthesia Assessment Anesthesia Assessment: Discussed sedation and/or anesthesia options, risks, benefits, and alternatives with patient/parents/legal guardian/POA. Questions invited. The patient/parents/legal guardian/POA seems to understand and agrees to proceed with anesthesia plan. Reviewed the physical assessment, medical history, allergy history and patient home medications list prior to surgery/procedure/anesthetic and documented any changes. Performed airway and anesthesia risk assessments. Anesthesia Type Anesthesia Type: MAC Anesthesia Focused Assessment* Temperature: 97.8 F Pulse Rate: 71 Blood Pressure: 112/72 Respiratory Rate: 18 Pulse Ox: 98 Airway Assessment Mouth opens: >3 cm Mallampati Score: II Labs Anesthesia Preop lab: CBC WBC, (4.4-11.0) 8.6 K/mm3 02/26/25, 07:07 RBC, (4.2-5.4) 4.24 M/mm3 02/26/25, 07:07 Hgb, (12.0-15.0) 12.5 g/dL 02/26/25, 07:07 Hct, (37-47) 38.2 % 02/26/25, 07:07 Plt Count, (150-450) 186 K/mm3 02/26/25, 07:07 CHEMISTRY Potassium, (3.3-5.1) 3.4 mmol/L 02/26/25, 07:07 Sodium, (133-145) 138 mmol/L 02/26/25, 07:07 BUN, (4-19) 5 mg/dL 02/26/25, 07:07 Creatinine, (0.70-1.20) 0.68 mg/dL L 02/26/25, 07:07 Glucose, (70-99) 78 mg/dL 02/26/25, 07:07 TSH, (0.358-3.740) 1.800 uIU/mL 01/26/24, 17:24 COAG HCG, Quant, (1-3) 80447 mIU/mL H 04/29/24, 17:00 Urine Test Negative Negative 02/23/25, 10:00 Tst Clinic Negative 08/26/20, 09:33 Pre-Assessment Diagnosis/Proposed Procedure Planned Operative Procedure(s): ERCP stent removal Anesthesia History 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 When Was Last Pacemaker Check QUESTION #4 FULL TEXT: You/Your Family Experience fever (hyperthermia) with Anesthesia Last Oral Intake Last Oral intake: Last Oral Intake NPO since 23:30 04/25/25 10:46 Meds taken in AM with sips of No 04/25/25 10:46 water? 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 Female Yes 04/23/25 15:47 HX of Motion Sickness Yes 04/23/25 15:47 HX of N/V After Surgery Yes 04/23/25 15:47 Non-Smoker Yes 04/23/25 15:47 Duration of Surgery greater No 04/23/25 15:47 than 60 minutes Number of Risk Factors 4 04/23/25 15:47 PONV Score Severe Risk 04/23/25 15:47 Height & Weight Height & Weight: Anesthesia: Height & Weight Height 5 ft 4 in 04/25/25 10:46 Weight: 82 kg 04/25/25 10:46 Body Mass Index (BMI) 31.0 04/25/25 10:46 Respiratory Assessment Respiratory Assessment - engineering manager electronics: Respiratory Tract Infection Hx - engineering manager electronics Hx Respiratory Tract Infection No 04/23/25 15:47 STOP Sleep Apnea STOP Sleep Apnea - engineering manager electronics: STOP Sleep Apnea - engineering manager electronics Hx Hypertension No 04/23/25 15:47 Hx Sleep Apnea No 04/23/25 15:47 CPAP BIPAP Do you snore loudly (louder No 04/23/25 15:47 than talking or can be heard Do you often feel tired/ No 04/23/25 15:47 fatigued/ sleepy during daytime? Has anyone observed you stop No 04/23/25 15:47 breathing during sleep? STOP Results Negative 04/23/25 15:47 QUESTION #5 FULL TEXT : Do you snore loudly (louder than talking or can be heard through closed doors)? 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 Specify any problems Hx of Preganancy in last 3 No 04/23/25 15:47 Months Nurse Filling Out Transfusion [email or web address] 04/23/25 15:47 & Questions: Date: 04/23/25 04/23/25 15:47 Time: 15:51 04/23/25 15:47 Patient unable to answer at this time (ie. confused, unrespo /Reproduction History /Reproductive History - engineering manager electronics: /Reproductive Hx- engineering manager electronics Hx Now No 04/23/25 15:47 Gestational Age (in weeks): EDC: Hx Hx Para Hx Section SAB No 04/23/25 15:47 Does the father of the baby or his family experience fever w Father of the baby Malignant Hypertension history comment Active Medications Active Medications: Current Medications Generic Name Dose Route Start Last Admin Trade Name Freq PRN Reason Stop Dose Admin Lactated Ringer's 1,000 mls @ 15 mls/hr 04/25/25 10:45 04/25/25 10:49 IV 15 mls/hr .Q48H FABIO Administration PFSH Medical History PONV (postoperative nausea and vomiting) Acid reflux Cholelithiasis Wears glasses Alcohol use Fatty liver Migraine headache Blackout Heartburn Non-smoker History of edema History of echocardiogram depression PCOS (polycystic ovarian syndrome) Anxiety Bipolar 1 disorder Home Medications ?Medication ?Instructions ?Recorded ?Last Taken ?Type ondansetron 4 mg disintegrating 4 mg PO Q8H PRN nausea and vomiting 02/23/25 Unknown History tablet acetaminophen 325 mg tablet 650 mg (2 x 325 mg) PO Q6H PRN PRN 02/26/25 Unknown Rx Pain 1-10 Or Fever #0 tabs Allergy/AdvReac Type Severity Reaction Status Date / Time latex Allergy Rash Verified 04/25/25 10:43 Family History Grandfather Skin cancer Sleep apnea Grandmother Leukemia Father Hypertension Diabetes Sleep apnea Mother Hypertension Sleep apnea Endometriosis PCOS (polycystic ovarian syndrome) Surgical History S/P laparoscopic cholecystectomy S/P ERCP Status post bilateral salpingectomy (11/19/24) Social History adopted: No household members: family, children and other details: Living with parents & siblings number of children: 2 current occupational status: employed 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 current occupational exposures/hazards: No pets and animals: Yes (avoid litter box) pets and animals: cat(s) history of recent travel: No sexually active: Yes Smoking Status: Never smoker alcohol intake: current alcohol intake frequency: holidays/special occasions only details: not while substance use type: does not use diet: low carbohydrate and other well-balanced diet: about half the time caffeine: No eating out: 1-3 times/week during the past year weight has: decreased > 10 lbs what type of physical activity do you participate in: walking frequency: 1-2 times per week duration: 15-30 minutes/day iona/cheondoism: Islam seatbelt use: always do you feel safe at home: Yes additional social history: YANCY Cabrera Review of Systems (Anesthesia) ROS Narrative System reviewed and no additional complaints, except as documented.
--- NOTE | 2025-04-25 11:30 | FLU_PTH ---
PATIENT: LUIS CAMPO LOC: EN U#:[id number] AGE/SX: 30/F ROOM: RE04/25/[address]: Dr. Timothy Saez DO : 1995 BED: DIS: 04/25/2025 SPEC #: [id number] RECD: 04/25/25 13:04 STATUS: NHNUG REBarron #: [id number] SALINA: 04/25/25 11:[address]: Timothy Saez DEPT: CYTOLOGY RECD BY: Ceci Ge ENTERED: 04/25/25 13:46 SP TYPE: Fluid OTHR DR: Dr. Micheal Herzog MD Tissues: Bile duct, NOS Procedures: Special Stain Group II Surgery Specimen Level IV Cytospin Fluid HEADER OPERATION: ERCP, stent removal, balloon dilator PRE-OP DIAGNOSIS: Cholecystectomy, biliary stent removal TISSUE SUBMITTED: A- Biliary stent for cytology DIAGNOSIS CYTOLOGY A. Biliary stent, ERCP (cytospin, cellblock): - No malignant cells identified. CYTOLOGY STUDY Slides are reviewed. CYTOLOGY GROSS A. Received is 10 cm blue stent with 0.1 ml of yellow-scant material labeled with the patient's name and and designated per the requisition as Biliary stent. Submitted for cytology and cell block preparation. 04/25/2025 CPT: 36625,23051
--- NOTE | 2025-04-25 11:57 | HP.PCM_ITS ---
HPI - General General Date of Admission: 04/25/25 Date of Service: 04/25/25 Chief Complaint: Biliary stent removal HPI Narrative Pt presented to ED 02/23/25 with RUQ pain and elevated AST, ALT, and bilirubin. RUQ US with cholelithiasis w/o definitive cholecystitis. Pt underwent ERCP 02/24/25 which demonstrated a dilated biliary tree with a stone causing obstruction, choledocholithiases with complete removal with biliary sphincterotomy and balloon extraction. Biliary tree swept and CBD stent placed. Following her ERCP, she developed pancreatitis with lipase in the . On 02/25/25 she had laparoscopic cholecystectomy with cholangiograms. LFTs, lipase and bilirubin are all down trending. Pt abdominal pain is resolving. Per surgery plan is for discharge today pending lipase and tolerance of a regular diet. Pt is here for ERCP with stent removal. [facility] Medical History PONV (postoperative nausea and vomiting) Acid reflux Cholelithiasis Wears glasses Alcohol use Fatty liver Migraine headache Blackout Heartburn Non-smoker History of edema History of echocardiogram depression PCOS (polycystic ovarian syndrome) Anxiety Bipolar 1 disorder Home Medications ?Medication ?Instructions ?Recorded ?Last Taken ?Type ondansetron 4 mg disintegrating 4 mg PO Q8H PRN nausea and vomiting 02/23/25 Unknown History tablet acetaminophen 325 mg tablet 650 mg (2 x 325 mg) PO Q6H PRN PRN 02/26/25 Unknown Rx Pain 1-10 Or Fever #0 tabs Allergy/AdvReac Type Severity Reaction Status Date / Time latex Allergy Rash Verified 04/25/25 10:43 Family History Grandfather Skin cancer Sleep apnea Grandmother Leukemia Father Hypertension Diabetes Sleep apnea Mother Hypertension Sleep apnea Endometriosis PCOS (polycystic ovarian syndrome) Surgical History S/P laparoscopic cholecystectomy S/P ERCP Status post bilateral salpingectomy (11/19/24) Social History adopted: No household members: family, children and other details: Living with parents & siblings number of children: 2 current occupational status: employed 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 current occupational exposures/hazards: No pets and animals: Yes (avoid litter box) pets and animals: cat(s) history of recent travel: No sexually active: Yes Smoking Status: Never smoker alcohol intake: current alcohol intake frequency: holidays/special occasions only details: not while substance use type: does not use diet: low carbohydrate and other well-balanced diet: about half the time caffeine: No eating out: 1-3 times/week during the past year weight has: decreased > 10 lbs what type of physical activity do you participate in: walking frequency: 1-2 times per week duration: 15-30 minutes/day iona/worship: Nondenominational seatbelt use: always do you feel safe at home: Yes additional social history: BF- Rick ROS Constitutional Constitutional: Denies fatigue, fever(s), poor appetite, weight gain or weight loss Gastrointestinal Gastrointestinal: Denies belching, bloating, change in bowel habits, change in stool character, chewing difficulty, coffee ground emesis, constipation, cramping, diarrhea, dyspepsia, dysphagia, early satiety, excessive flatus, fecal incontinence, heartburn, hematemesis, hematochezia, hemorrhoids, loose stools, m sheila, nausea, odynophagia, rectal bleeding, tenesmus, vomiting or weight changes Vital Signs Vital Signs Vital Signs: 04/25/25 10:44 04/25/25 10:46 04/25/25 10:46 Temperature 97.8 F Temperature Source Temporal Pulse Rate 71 Respiratory Rate 18 Respiratory Pattern Normal Blood Pressure 112/72 Blood Pressure Mean 85 Blood Pressure Source Monitor Blood Pressure Position Semi-Fowlers Blood Pressure Location Left Arm Baseline BP 112/72 Pulse Ox 98 Oxygen Delivery Method Room Air 04/25/25 11:01 Temperature 97.8 F Temperature Source Pulse Rate 71 Respiratory Rate 18 Respiratory Pattern Blood Pressure 112/72 Blood Pressure Mean Blood Pressure Source Blood Pressure Position Blood Pressure Location Baseline BP Pulse Ox 98 Oxygen Delivery Method Weight Weight: 180 lb 12.465 oz Body Mass Index (BMI) 31.0 Physical Exam Const alert, oriented x3, no apparent distress and healthy appearing General Appearance: cooperative GI normal to inspection, nondistended, normoactive bowel sounds, soft to palpation, non-tender and non-distended Percussion: normal to percussion Rectal Exam: deferred Assessment & Plan Assessment/Plan (1) S/P cholecystectomy: PLAN: She was explained alternatives, risk, benefits include not withstanding bleeding, infection, sepsis, perforation, need for emergent or to . She will have an ASA of 3.
--- NOTE | 2025-04-25 12:51 | PCM.POST.ANE ---
Anesthesia: Postop Eval I Current Vital Signs Temperature: 97 F Pulse Rate: 64 Blood Pressure: 107/55 Respiratory Rate: 14 Pulse Ox: 96 Oxygen Delivery Method: Room Air Assessment Airway patent: Yes Spontaneous unlabored respirations: Yes Mental status: Asleep nausea: No Vomiting: No Anesthesia Complication: No Fluid Hydration Crystalloid volume administer (ml): 1,200 Total IV fluid infused: 1,200 Progress Note Anesthesia document: Postop Eval 1 completed: Yes
[2025-04-25] MEDS: Lactated Ringers 1,000 ML 999 ML IV (13:00)
--- NOTE | 2025-04-25 13:04 | OP.PROVAT_ITS ---
04/25/2025 Micheal Herzog Re : ERCP procedure for Trinity Cruzr Mino This procedure was performed on Friday, April 25, 2025. My impressions and recommendations are as follows: Impressions : - Choledocholithiasis was found. Complete removal was accomplished by biliary sphincterotomy and balloon extraction. - A biliary sphincterotomy was performed. - The biliary tree was swept. - One stent was removed from the biliary tree. Recommendations : My findings are described in the full procedure note, which is enclosed. If I can be of further assistance, please feel free to contact me at . Sincerely, Timothy Saez, 04/25/2025 1:03:32 PM This report has been signed electronically.
--- NOTE | 2025-04-25 13:04 | OP.ERCP_ITS ---
Patient Name: Trinity Agudelo Procedure Date: 04/25/2025 11:58 AM Date of : 1995 Age: 30 Procedure: ERCP Indications: Stent removal Providers: Timothy Saez DO Referring MD: Timothy Saez DO Medicines: Monitored Anesthesia Care Patient Profile: This is a 30 year old female. Refer to note in patient chart for documentation of history and physical. Patient has symptoms. Her most recent ERCP for biliary evaluation. She is status post laparoscopic cholecystectomy. Complications: No immediate complications. Procedure: Pre-Anesthesia Assessment: - Prior to the procedure, a History and Physical was performed, and patient medications and allergies were reviewed. The patient is competent. The risks and benefits of the procedure and the sedation options and risks were discussed with the patient. All questions were answered and informed consent was obtained. Patient identification and proposed procedure were verified by the physician in the pre-procedure area. Mental Status Examination: alert and oriented. Airway Examination: normal oropharyngeal airway and neck mobility. Respiratory Examination: clear to auscultation. CV Examination: normal. Prophylactic Antibiotics: The patient does not require prophylactic antibiotics. Prior Anticoagulants: The patient has taken no anticoagulant or antiplatelet agents. ASA Grade Assessment: II - A patient with mild systemic disease. After reviewing the risks and benefits, the patient was deemed in satisfactory condition to undergo the procedure. The anesthesia plan was to use monitored anesthesia care (MAC). Immediately prior to administration of medications, the patient was re-assessed for adequacy to receive sedatives. The heart rate, respiratory rate, oxygen saturations, blood pressure, adequacy of pulmonary ventilation, and response to care were monitored throughout the procedure. The physical status of the patient was re-assessed after the procedure. After obtaining informed consent, the scope was passed under direct vision. Throughout the procedure, the patient's blood pressure, pulse, and oxygen saturations were monitored continuously. The Duodenoscope was introduced through the mouth, and advanced to the duodenum and used to inject contrast into the bile duct. The ERCP was accomplished without difficulty. The patient tolerated the procedure well. Scope In: 12:18:25 PM Scope Out: 12:31:04 PM Total Procedure Duration Time 0 hours 12 minutes 39 seconds Findings: The senior quantity surveyor film was normal. The esophagus was successfully intubated under direct vision. The scope was advanced to a normal major papilla in the descending duodenum without detailed examination of the pharynx, larynx and associated structures, and upper GI tract. The upper GI tract was grossly normal. A long 0.025 inch Jagwire was passed into the biliary tree. The bile duct was then deeply cannulated over the guidewire. Contrast was injected. A 5 mm biliary sphincterotomy was made with a traction (standard) sphincterotome using ERBE electrocautery. There was no post-sphincterotomy bleeding. The biliary tree was swept with a 12 mm balloon starting at the bifurcation. Sludge was swept from the duct. All stones were removed. One stent was removed from the biliary tree using a snare and sent for cytology. Impression: - Choledocholithiasis was found. Complete removal was accomplished by biliary sphincterotomy and balloon extraction. - A biliary sphincterotomy was performed. - The biliary tree was swept. - One stent was removed from the biliary tree. Procedure Code(s): --- Professional --- 80219, Endoscopic retrograde cholangiopancreatography (ERCP); with removal of foreign body(s) or stent(s) from biliary/pancreatic duct(s) 31312, Endoscopic retrograde cholangiopancreatography (ERCP); with removal of calculi/debris from biliary/pancreatic duct(s) 89429, Endoscopic retrograde cholangiopancreatography (ERCP); with sphincterotomy/papillotomy CPT copyright 2021 [employer]. All rights reserved. The codes documented in this report are preliminary and upon transitions manager rn review may be revised to meet current compliance requirements. Timothy Saez DO 04/25/2025 1:03:32 PM This report has been signed electronically. Number of Addenda: 0 Note Initiated On: 04/25/2025 11:58 AM
--- NOTE | 2025-04-25 13:57 | PCM.POSTANE2 ---
Anesthesia Postop Eval I Sum Postop Eval Completion status Anesthesia document: Postop Eval 1 completed: Yes Anesthesia Postop Eval I Summary Anesthesia Postop Eval I Summary: Anesthesia Postop Eval I: Assessment Summary Airway patent Yes 04/25/25 12:52 [email or web address] Spontaneous unlabored Yes 04/25/25 12:52 [email or web address] respirations Mental status Asleep 04/25/25 12:52 [email or web address] nausea No 04/25/25 12:52 [email or web address] Vomiting No 04/25/25 12:52 [email or web address] Anesthesia Postop Eval I: Fluid Summary Crystalloid volume administer 1,200 04/25/25 12:52 [email or web address] (ml) Colloids volume administered ( ml) Blood Product volume administered (ml) Total IV fluid infused 1,200 04/25/25 12:52 [email or web address] Anesthesia Postop Eval I: Summary Notes Anesthesia Complication No 04/25/25 12:52 [email or web address] Anesthesia Complication Comment: Post-operative progress note Anesthesia: Postop Eval II Evaluation Mental status: Awake Pain Level: 1 nausea: No Vomiting: No
== END 2025-04-25 14:57 | disposition home or self-care (01) ==
LOC: EN 10:26 → AC 10:27
PROVIDERS: PCP Family Medicine; Referring Provider Internal Medicine Gastroenterology; Visit Provider Internal Medicine Gastroenterology
PROC: (CPT 43260; principal; 2025-04-25 11:10)
DX: Z46.59 Encounter for fitting and adjustment of other gastrointestinal appliance and device (principal); K85.90 Acute pancreatitis without necrosis or infection, unspecified; K80.50 Calculus of bile duct without cholangitis or cholecystitis without obstruction; K21.9 Gastro-esophageal reflux disease without esophagitis; Z90.49 Acquired absence of other specified parts of digestive tract
CPT/HCPCS: 43262; 43275; 43264; 74330; 76000; 88108; 88305; 88313; 93005; J2405